=== PATIENT | female | born 1965 | race Caucasian/White ===

== ENCOUNTER → 2016-11-24 | Outpatient (CLI) | payer OTHER ==
--- NOTE | 2016-11-25 09:04 | MR ---
EXAMINATION TYPE: MR lumbar spine wo con DATE OF EXAM: 11/24/2016 8:55 PM COMPARISON: NONE HISTORY: Back pain and numbness in the left foot TECHNIQUE: Multiplanar, multisequence images of the lumbar spine were acquired. L1-L2: Loss of disc signal. No herniation or canal stenosis. Neural foramina remain patent. L2-L3: Mild degenerative disc disease. Mild circumferential disc bulging with mild bilateral neural f oraminal encroachment. No canal stenosis. L3-L4: Mild disc desiccation with no evidence of disc herniation or canal stenosis. Mild left lateral disc bulging with mild left foraminal encroachment but no definite nerve root impingement. L4-L5: Facet arthropathy but no disc herniation or canal stenosis. No foraminal encroachment. L5-S1: Facet arthropathy but no disc herniation or canal stenosis. No foraminal encroachment. Lumbar segments are intact. No paraspinal masses are identified. Conus medullaris has a normal appe arance. Hepatic cysts noted. IMPRESSION: Multilevel mild degenerative disc disease and facet arthropathy. Disc bulging L2-L3, L3-L4 with mild left foraminal encroachment at L3-L4 secondary greater left later al disc bulging.
== END | disposition home or self-care (01) ==
LOC: RADMRIMAIN 20:17
PROVIDERS: ATTEND Psychiatry & Neurology Pain Medicine
DX: M51.26 Other intervertebral disc displacement, lumbar region (principal); M51.36 Other intervertebral disc degeneration, lumbar region; M46.96 Unspecified inflammatory spondylopathy, lumbar region
CPT/HCPCS: 72148

== ENCOUNTER 2017-02-23 15:34 | Emergency (ER) | payer OTHER ==
[2017-02-23] MEDS ORDERED: SODIUM CHLORIDE 0.9% 500 ML IV STA (16:56)
[2017-02-23] MEDS ORDERED: ONDANSETRON 4 MG/2 ML VIAL IVP STA (16:56)
[2017-02-23] MEDS ORDERED: HYDROmorphone 1 MG/ML 1 ML SYRINGE IVP STA ×2 (16:56→17:55)
[2017-02-23] MEDS ORDERED: SODIUM CHLORIDE 0.9% 1,000 ML IV STA ×2 (16:56)
--- NOTE | 2017-02-23 16:59 | ED ---
Abdominal Pain HPI - General Chief Complaint: Abdominal Pain Stated Complaint: Dizzy Time Seen by Provider: 02/23/17 16:34 Source: patient, RN notes reviewed, old records reviewed Mode of arrival: wheelchair Limitations: physical limitation - History of Present Illness Initial Comments: Patient is a 51-year-old female presenting to the emergency department with chief complaint of lower abdominal pain for approximately one week. Patient reports that she was constipated last week and did take a Full MiraLAX. Patient reports that she has irritable bowel syndrome. Patient states that since taking the MiraLAX she's had nonstop diarrhea. She denies any blood in her nose. She states that she feels very weak and dehydrated. Patient states that she has not taken anything to stop the diarrhea she is concerned that if she does and will cause her irritable bowels are constipated again. Patient states that she does have a mild fever and feels extremely ill. She's had a history of diverticulitis. She states that this pain feels similar to previous diverticulitis. - Related Data Home Medications Medication Instructions Recorded Confirmed Multivitamins, Thera [Multivitamin 1 tab PO DAILY 02/27/16 02/23/17 (formulary)] Diltiazem HCl [Diltiazem 24Hr ER] 300 mg PO Q24H 05/04/16 02/23/17 Metoprolol Succinate (ER) [Toprol 50 mg PO DAILY 05/04/16 02/23/17 XL] Citalopram Hydrobromide 40 mg PO DAILY 02/23/17 02/23/17 Diazepam 2 mg PO TID PRN 02/23/17 02/23/17 Gabapentin [Neurontin] 300 mg PO TID 02/23/17 02/23/17 HYDROcodone/APAP 7.5-325MG [[place] 1 tab PO TID PRN 02/23/17 02/23/17 7.5-325] traZODone HCL 50 mg PO HS 02/23/17 02/23/17 Previous Rx's Medication Instructions Recorded Ciprofloxacin HCl [Cipro] 500 mg PO Q12HR 7 Days 02/23/17 Dicyclomine [Bentyl] 10 mg PO TID #12 capsule 02/23/17 Loperamide [Imodium] 2 mg PO DAILY #4 capsule 02/23/17 metroNIDAZOLE [Flagyl] 500 mg PO Q8HR 7 Days 02/23/17 Allergies Allergy/AdvReac Type Severity Reaction Status Date / Time tramadol Allergy Unknown Verified 02/23/17 17:13 Review of Systems ROS Statement: Those systems with pertinent positive or pertinent negative responses have been documented in the HPI. ROS Other: All systems not noted in ROS Statement are negative. Past Medical History Past Medical History: Chest Pain / Angina, Hyperlipidemia, Hypertension, Seizure Disorder Additional Past Medical History / Comment(s): IBS, DIVERTICULITIS History of Any Multi-Drug Resistant Organisms: None Reported Past Surgical History: Hernia Repair, Hysterectomy Additional Past Surgical History / Comment(s): hiatel hernia repair [facility] Past Anesthesia/Blood Transfusion Reactions: No Reported Reaction Past Psychological History: Anxiety, Depression Smoking Status: Former smoker Past Alcohol Use History: None Reported Past Drug Use History: None Reported - Past Family History Mother Family Medical History: Coronary Artery Disease (CAD) Additional Family Medical History / Comment(s): triple bypass Father Family Medical History: Coronary Artery Disease (CAD) Additional Family Medical History / Comment(s): triple bypass General Exam - General Exam Comments Initial Comments: Patient is a 51-year-old female. Patient does appear to be in mild discomfort. Limitations: physical limitation General appearance: alert, in no apparent distress Head exam: Present: atraumatic, normocephalic, normal inspection Eye exam: Present: normal appearance, PERRL, EOMI. Absent: scleral icterus, conjunctival injection, periorbital swelling ENT exam: Present: normal exam, mucous membranes moist Neck exam: Present: normal inspection. Absent: tenderness, meningismus, lymphadenopathy Respiratory exam: Present: normal lung sounds bilaterally. Absent: respiratory distress, wheezes, rales, rhonchi, stridor Cardiovascular Exam: Present: regular rate, normal rhythm, normal heart sounds. Absent: systolic murmur, diastolic murmur, rubs, gallop, clicks GI/Abdominal exam: Present: soft, tenderness (Patient is tender in the left upper and left lower quadrant.), normal bowel sounds, hyperactive bowel sounds. Absent: distended, guarding, rebound, rigid Extremities exam: Present: normal inspection, full ROM, normal capillary refill. Absent: tenderness, pedal edema, joint swelling, calf tenderness Back exam: Present: normal inspection Neurological exam: Present: alert, oriented X3, CN II-XII intact Psychiatric exam: Present: normal affect, normal mood Skin exam: Present: warm, dry, intact, normal color. Absent: rash Course Vital Signs 02/23/17 02/23/17 02/23/17 16:08 18:45 20:17 Temperature 99.9 F H 98.4 F Pulse Rate 127 H 89 87 Respiratory 18 20 18 Rate Blood Pressure 151/72 134/81 129/64 O2 Sat by Pulse 98 96 95 Oximetry - Reevaluation(s) Reevaluation #1: 02/23/17 18:34 Patient's lab work is reviewed and is negative for any significant acute process. Given patient's significant tenderness she was given a second dose of medication. Patient will go to CAT scan due to the abnormal abdominal tenderness. 02/24/17 01:32 Medical Decision Making - Medical Decision Making Patient is a 51 year old female with diarreha for one week. No history of blood in stools, she reports she feels weak and dehydrated. She has significant lower abdominal tenderness, CT scan obtained. labs reviewed and show no significant abnormalities. CT scan shows signs of mild colitis. Patient reports she is feeling better after IV fluids, and will be discharged with bentyl, cipro or flagyl. Patient advised to follow up with GI specialist. Patient agrees with treatment plan and will comply. Return parameters discussed. - Lab Data Result diagrams: 02/23/17 17:14 02/23/17 17:14 Lab Results 02/23/17 02/23/17 02/23/17 Range/Units 17:14 17:14 17:14 WBC 11.3 H (3.8-10.6) k/uL RBC 4.60 (3.80-5.40) m/uL Hgb 14.3 (11.4-16.0) gm/dL Hct 42.4 (34.0-46.0) % MCV 92.1 (80.0-100.0) fL MCH 31.0 (25.0-35.0) pg MCHC 33.7 (31.0-37.0) g/dL RDW 14.4 (11.5-15.5) % Plt Count 288 (150-450) k/uL Neutrophils % 53 % Lymphocytes % 30 % Monocytes % 5 % Eosinophils % 9 % Basophils % 2 % Neutrophils # 6.0 (1.3-7.7) k/uL Lymphocytes # 3.4 (1.0-4.8) k/uL Monocytes # 0.6 (0-1.0) k/uL Eosinophils # 1.0 H (0-0.7) k/uL Basophils # 0.2 (0-0.2) k/uL PT (9.0-12.0) sec INR (<1.1) APTT (22.0-30.0) sec Sodium 143 (137-145) mmol/L Potassium 4.4 (3.5-5.1) mmol/L Chloride 108 H (98-107) mmol/L Carbon Dioxide 25 (22-30) mmol/L Anion Gap 10 mmol/L BUN 27 H (7-17) mg/dL Creatinine 0.80 (0.52-1.04) mg/dL Est GFR (MDRD) Af Amer >60 (>60 ml/min/1.73 sqM) Est GFR (MDRD) Non-Af >60 (>60 ml/min/1.73 sqM) Glucose 85 (74-99) mg/dL Plasma Lactic Acid Thang 0.9 (0.7-2.0) mmol/L Calcium 9.3 (8.4-10.2) mg/dL Total Bilirubin 0.3 (0.2-1.3) mg/dL AST 23 (14-36) U/L ALT 30 (9-52) U/L Alkaline Phosphatase 75 (38-126) U/L Total Protein 6.9 (6.3-8.2) g/dL Albumin 4.0 (3.5-5.0) g/dL Amylase 92 (30-110) U/L Lipase 119 (23-300) U/L Urine Color Urine Appearance (Clear) Urine pH (5.0-8.0) Ur Specific [place] (1.001-1.035) Urine Protein (Negative) Urine Glucose (UA) (Negative) Urine Ketones (Negative) Urine Blood (Negative) Urine Nitrite (Negative) Urine Bilirubin (Negative) Urine Urobilinogen (<2.0) mg/dL Ur Leukocyte Esterase (Negative) Urine RBC (0-5) /hpf Urine WBC (0-5) /hpf Ur Squamous Epith Cells (0-4) /hpf Urine Mucus (None) /hpf 02/23/17 02/23/17 Range/Units 17:14 17:14 WBC (3.8-10.6) k/uL RBC (3.80-5.40) m/uL Hgb (11.4-16.0) gm/dL Hct (34.0-46.0) % MCV (80.0-100.0) fL MCH (25.0-35.0) pg MCHC (31.0-37.0) g/dL RDW (11.5-15.5) % Plt Count (150-450) k/uL Neutrophils % % Lymphocytes % % Monocytes % % Eosinophils % % Basophils % % Neutrophils # (1.3-7.7) k/uL Lymphocytes # (1.0-4.8) k/uL Monocytes # (0-1.0) k/uL Eosinophils # (0-0.7) k/uL Basophils # (0-0.2) k/uL PT 9.8 (9.0-12.0) sec INR 1.0 (<1.1) APTT 19.8 L (22.0-30.0) sec Sodium (137-145) mmol/L Potassium (3.5-5.1) mmol/L Chloride (98-107) mmol/L Carbon Dioxide (22-30) mmol/L Anion Gap mmol/L BUN (7-17) mg/dL Creatinine (0.52-1.04) mg/dL Est GFR (MDRD) Af Amer (>60 ml/min/1.73 sqM) Est GFR (MDRD) Non-Af (>60 ml/min/1.73 sqM) Glucose (74-99) mg/dL Plasma Lactic Acid Thang (0.7-2.0) mmol/L Calcium (8.4-10.2) mg/dL Total Bilirubin (0.2-1.3) mg/dL AST (14-36) U/L ALT (9-52) U/L Alkaline Phosphatase (38-126) U/L Total Protein (6.3-8.2) g/dL Albumin (3.5-5.0) g/dL Amylase (30-110) U/L Lipase (23-300) U/L Urine Color Yellow Urine Appearance Clear (Clear) Urine pH 6.0 (5.0-8.0) Ur Specific [place] 1.017 (1.001-1.035) Urine Protein Negative (Negative) Urine Glucose (UA) Negative (Negative) Urine Ketones Negative (Negative) Urine Blood Trace H (Negative) Urine Nitrite Negative (Negative) Urine Bilirubin Negative (Negative) Urine Urobilinogen <2.0 (<2.0) mg/dL Ur Leukocyte Esterase Small H (Negative) Urine RBC 4 (0-5) /hpf Urine WBC 1 (0-5) /hpf Ur Squamous Epith Cells 4 (0-4) /hpf Urine Mucus Rare H (None) /hpf 02/23/17 16:59 EKG shows normal sinus rhythm. Possible left atrial enlargement. Prolonged QT. Ventricular rate 96 bpm. NM interval 140 ms. QRS duration [address]/QTc is 482/482 ms. - Radiology Data Radiology results: report reviewed No bouts instructions seen. Possible mild colitis sigmoid rectal: Otherwise no significant acute findings to account for patient's clinical symptoms. Disposition Clinical Impression: Colitis Disposition: HOME SELF-CARE Condition: Good Instructions: Colitis (ED) Additional Instructions: Patient advised to complete antibiotic prescriptions. Patient also advised to take pain medication and antidiarrheal medication. Follow-up with GI specialist tomorrow or the next day. Return to the emergency department if any alarming signs or symptoms occur. Prescriptions: Ciprofloxacin HCl [Cipro] 500 mg PO Q12HR 7 Days Dicyclomine [Bentyl] 10 mg PO TID #12 capsule Loperamide [Imodium] 2 mg PO DAILY #4 capsule metroNIDAZOLE [Flagyl] 500 mg PO Q8HR 7 Days Referrals: Almas Carver DO [Primary Care Provider] - 1-2 days Clayton Graves MD [STAFF PHYSICIAN] - 1-2 days Time of Disposition: 19:51
[2017-02-23 17:26] LABS: Basophils # (A) 0.2 k/uL (0-0.2); Basophils % (A) 2 %; CH 31.1; CHCM 33.9; Eosinophils % (A) 9 %; HCT 42.4 % (34.0-46.0); HDW 2.92; HGB 14.3 gm/dL (11.4-16.0); Luc # (Auto) 0.22; Luc % (Auto) 2; Lymphocytes # (A) 3.4 k/uL (1.0-4.8); Lymphocytes % (A) 30 %; MCHC 33.7 g/dL (31.0-37.0); MCV 92.1 fL (80.0-100.0); Mean Platelet Volume 6.6; Monocytes # (A) 0.6 k/uL (0-1.0); Monocytes % (A) 5 %; Neutrophils % (A) 53 %; RDW 14.4 % (11.5-15.5); WBC 11.3 k/uL (3.8-10.6); WBC (Perox) 11.26
[2017-02-23 17:29] LABS: Appearance,Urine Clear (Clear); Bilirubin,Urine Negative (Negative); Glucose,Urine (UA) Negative (Negative); Ketones,Urine Negative (Negative); Leukocyte Esterase,Urine Small (Negative); Mucus,Urine Rare /hpf; Nitrite,Urine Negative (Negative); Particle Count 1895; Protein,Urine Negative (Negative); RBC,Urine 4 /hpf (0-5); Specific Gravity,Urine 1.017 (1.001-1.035); Squamous Epithelial Cell,Urine 4 /hpf (0-4); UA Billing (MACRO vs. MICRO) MICRO; Urobilinogen,Urine <2.0 mg/dL (<2.0); WBC,Urine 1 /hpf (0-5)
[2017-02-23 17:35] LABS: ALT 30 U/L (9-52); AST 23 U/L (14-36); Alkaline Phosphatase 75 U/L (38-126); Amylase 92 U/L (30-110); Anion Gap 10 mmol/L; Blood Urea Nitrogen 27 mg/dL (7-17); Calcium 9.3 mg/dL (8.4-10.2); Carbon Dioxide 25 mmol/L (22-30); Chloride 108 mmol/L (98-107); Glucose 85 mg/dL (74-99); Non-African American GFR(MDRD) >60 (>60 ml/min/1.73 sqM); Potassium 4.4 mmol/L (3.5-5.1); Sodium 143 mmol/L (137-145); Total Bilirubin 0.3 mg/dL (0.2-1.3); Total Protein 6.9 g/dL (6.3-8.2)
[2017-02-23 17:40] LABS: Prothrombin Time 9.8 sec (9.0-12.0)
--- NOTE | 2017-02-23 17:49 | XR ---
EXAMINATION TYPE: XR KUB DATE OF EXAM: 02/23/2017 5:33 PM CLINICAL HISTORY: Abdominal pain. Constipation for one week. TECHNIQUE: 2 upright KUB images of the abdomen are obtained. COMPARISON: Abdominal x-ray series November 30, 2011. FINDINGS: Sutures epigastric region are seen. Scattered gas is seen in non-distended small bowel loop s. Gas is seen in non-distended colon. There is no visceromegaly, pneumoperitoneum, or abnormal ca lcification appreciated. The lung bases are clear and the osseous structures are intact. IMPRESSION: Overall nonobstructive bowel gas pattern.
[2017-02-23] MEDS ORDERED: RX INFO: IV CONTRAST WAS GIVEN 1 EACH MISC MISCELLANE PRN (17:55)
[2017-02-23 18:02] LABS: Partial Thromboplastin Time 19.8 sec (22.0-30.0)
--- NOTE | 2017-02-23 18:59 | CT ---
EXAMINATION TYPE: CT abdomen pelvis w con DATE OF EXAM: 02/23/2017 6:43 PM HISTORY: Pt states of abdominal pain and diarrhea. CT DLP: 1386mGycm Automated Exposure Control for Dose Reduction was Utilized. CONTRAST: CT scan of the abdomen and pelvis is performed without oral but with IV Contrast, patient injected wi th 100 mL of Omnipaque 300. COMPARISON: CT abdomen and pelvis November 26, 2011 FINDINGS: LUNG BASES: Small pericardial effusion anteriorly and inferiorly is stable or slightly more prominent . LIVER/GB: A 1.6 cm lesion right hepatic lobe on axial image 28 is increased in size from prior exam b ut Hounsfield units are less than 10 consistent with simple cyst. Additional new 1.6 cm simple appear ing cyst left hepatic dome on axial image 9 is noted. Peripheral heterogeneous area right hepatic lob e prior exam is more conspicuous on current study. PANCREAS: Pancreas remains diffusely prominent without surrounding inflammatory change. SPLEEN: No significant abnormality is seen. ADRENALS: No significant abnormality is seen. KIDNEYS: No significant abnormality is seen. BOWEL: There are surgical clips just below the diaphragmatic hiatus with recurrent small to moderate- sized hiatal hernia present. The evaluation of the bowel is slightly suboptimal secondary to lack of oral contrast. No suspicious small or large bowel dilatation is present. Normal-appearing appendix is seen from cecum. Some diverticula are seen in the sigmoid colon. Mild to moderate wall thickening in volving sigmoid rectal colon is present. Finding could be related to poor distention but a colitis ne eds to BE excluded clinically. UTERUS/ADNEXA: Uterus is surgically absent or markedly atrophic in appearance. LYMPH NODES: No greater than 1cm abdominal or pelvic lymph nodes are appreciated. OSSEOUS STRUCTURES: No significant abnormality is seen. OTHER: No significant additional abnormality is seen. IMPRESSION: No bowel obstruction is seen. Possible mild colitis sigmoid rectal colon otherwise no sig nificant acute finding is seen to account for patient's clinical symptoms.
[2017-02-23] MEDS ORDERED: CIPROFLOXACIN HCL 500 MG TAB PO STA (19:53)
[2017-02-23] MEDS ORDERED: metroNIDAZOLE 500 MG TAB PO STA (19:54)
[2017-02-23] MEDS ORDERED: KETOROLAC 30 MG/ML 1 ML VIAL IVP STA (20:06)
[2017-02-23 20:18] VITALS: BP 129/64; PULSE 87; RESP 18; TEMP 98.4
== END 2017-02-23 20:17 | disposition home or self-care (01) ==
LOC: EC 15:34
DX: K52.9 Noninfective gastroenteritis and colitis, unspecified (principal); R42 Dizziness and giddiness; I10 Essential (primary) hypertension; F32.9 Major depressive disorder, single episode, unspecified; Z87.891 Personal history of nicotine dependence; Z87.19 Personal history of other diseases of the digestive system; Z88.6 Allergy status to analgesic agent; Z79.899 Other long term (current) drug therapy
CPT/HCPCS: 99285; 96374; 96376; 96375 ×2; 96361 ×3; 36415; 80053; 82150; 83605; 83690; 85025; 85610; 85730; 81001; 87086; 74000; 74177; J2405; J1885; J1170; Q9967; 93005

== ENCOUNTER 2017-03-19 10:53 | Emergency (ER) | payer OTHER ==
[2017-03-19] MEDS ORDERED: ONDANSETRON 4 MG/2 ML VIAL IVP STA (11:28)
[2017-03-19] MEDS ORDERED: MORPHINE SULFATE 4 MG/ML SYRINGE IV STA ×2 (11:28→13:16)
[2017-03-19] MEDS ORDERED: SODIUM CHLORIDE 0.9% 500 ML IV STA (11:28)
[2017-03-19] MEDS ORDERED: RX INFO: IV CONTRAST WAS GIVEN 1 EACH MISC MISCELLANE PRN (11:28)
[2017-03-19] MEDS ORDERED: FAMOTIDINE 20 MG/2 ML VIAL IV STA (11:31)
--- NOTE | 2017-03-19 11:34 | ED ---
General Adult HPI - General Chief complaint: Abdominal Pain Stated complaint: ABDOMINAL DISTENTION Time Seen by Provider: 03/19/17 11:19 Source: patient, RN notes reviewed Mode of arrival: ambulatory Limitations: no limitations - History of Present Illness Initial comments: Patient is a pleasant 51-year-old female presenting to the emergency department complaining of abdominal pain. Patient has history of some chronic abdominal problems. Abdomen feels distended and painful. Patient has nausea. No vomiting. Patient has had diarrhea however this has diminished the last 2 days. Symptoms have increased over the past 5 days. Symptoms overall have been waxing and waning for the past 6 weeks. The past 5 days symptoms of been more persistent. No fevers. Patient has had history of bowel infection with associated kidney problems in the past. Patient has not been able to get in to see a doctor podiatric medicine secondary to insurance refusal. - Related Data Home Medications Medication Instructions Recorded Confirmed Diltiazem HCl [Diltiazem 24Hr ER] 300 mg PO Q24H 05/04/16 03/19/17 Citalopram Hydrobromide 40 mg PO DAILY 02/23/17 03/19/17 Diazepam 2 mg PO TID PRN 02/23/17 03/19/17 Gabapentin [Neurontin] 300 mg PO TID 02/23/17 03/19/17 HYDROcodone/APAP 7.5-325MG [[place] 1 tab PO TID PRN 02/23/17 03/19/17 7.5-325] Metoprolol Succinate [Toprol XL] 100 mg PO DAILY 03/19/17 03/19/17 Multivitamins, Thera [Multivitamin 1 tab PO DAILY 03/19/17 03/19/17 (formulary)] traZODone HCL 50 mg PO HS 03/19/17 03/19/17 Previous Rx's Medication Instructions Recorded Ondansetron Odt [Zofran Odt] 4 mg PO Q8HR PRN #10 tab 03/19/17 Sulfamethox-Tmp 800-160Mg [Bactrim 1 each PO Q12HR #14 tab 03/19/17 DS 800-160 mg] Allergies Allergy/AdvReac Type Severity Reaction Status Date / Time tramadol AdvReac seizures Verified 03/19/17 11:14 Review of Systems ROS Statement: Those systems with pertinent positive or pertinent negative responses have been documented in the HPI. ROS Other: All systems not noted in ROS Statement are negative. Constitutional: Denies: fever Eyes: Denies: eye pain ENT: Denies: ear pain Respiratory: Denies: cough Cardiovascular: Denies: chest pain Endocrine: Denies: fatigue Gastrointestinal: Reports: abdominal pain, nausea, diarrhea. Denies: vomiting Genitourinary: Denies: dysuria Musculoskeletal: Denies: back pain Skin: Denies: rash Neurological: Denies: weakness Past Medical History Past Medical History: Chest Pain / Angina, Hyperlipidemia, Hypertension, Seizure Disorder Additional Past Medical History / Comment(s): IBS, DIVERTICULITIS History of Any Multi-Drug Resistant Organisms: None Reported Past Surgical History: Hernia Repair, Hysterectomy Additional Past Surgical History / Comment(s): hiatel hernia repair [facility] Past Anesthesia/Blood Transfusion Reactions: No Reported Reaction Past Psychological History: Anxiety, Depression Smoking Status: Former smoker Past Alcohol Use History: None Reported Past Drug Use History: None Reported - Past Family History Mother Family Medical History: Coronary Artery Disease (CAD) Additional Family Medical History / Comment(s): triple bypass Father Family Medical History: Coronary Artery Disease (CAD) Additional Family Medical History / Comment(s): triple bypass General Exam Limitations: no limitations General appearance: alert, in no apparent distress Head exam: Present: atraumatic Eye exam: Present: normal appearance, PERRL ENT exam: Present: normal oropharynx Neck exam: Present: normal inspection Respiratory exam: Present: normal lung sounds bilaterally Cardiovascular Exam: Present: regular rate, normal rhythm Expanded Peripheral pulses: 2+: Dorsalis Pedis (R), Dorsalis Pedis (L) GI/Abdominal exam: Present: distended, tenderness (Mild to moderate diffuse tenderness), hyperactive bowel sounds. Absent: guarding, rebound, rigid, pulsatile mass Extremities exam: Present: normal inspection. Absent: pedal edema, calf tenderness Neurological exam: Present: alert Psychiatric exam: Present: normal affect, normal mood Skin exam: Absent: rash Course Vital Signs 03/19/17 10:58 Temperature 97.1 F L Pulse Rate 94 Respiratory 20 Rate Blood Pressure 170/78 O2 Sat by Pulse 97 Oximetry Medical Decision Making - Medical Decision Making Patient reexamined and resting comfortably in bed. Patient does still have some mild abdominal discomfort. Patient updated on results and need for follow- up. - Lab Data Result diagrams: 03/19/17 11:30 03/19/17 11:30 Lab Results 03/19/17 03/19/17 03/19/17 Range/Units 11:30 11:30 11:30 WBC 14.0 H (3.8-10.6) k/uL RBC 4.33 (3.80-5.40) m/uL Hgb 13.4 (11.4-16.0) gm/dL Hct 39.4 (34.0-46.0) % MCV 91.2 (80.0-100.0) fL MCH 31.0 (25.0-35.0) pg MCHC 34.0 (31.0-37.0) g/dL RDW 14.1 (11.5-15.5) % Plt Count 339 (150-450) k/uL Neutrophils % 86 % Lymphocytes % 8 % Monocytes % 4 % Eosinophils % 0 % Basophils % 0 % Neutrophils # 12.0 H (1.3-7.7) k/uL Lymphocytes # 1.1 (1.0-4.8) k/uL Monocytes # 0.6 (0-1.0) k/uL Eosinophils # 0.0 (0-0.7) k/uL Basophils # 0.0 (0-0.2) k/uL PT 10.3 (9.0-12.0) sec INR 1.0 (<1.1) APTT 21.8 L (22.0-30.0) sec Sodium 140 (137-145) mmol/L Potassium 5.0 (3.5-5.1) mmol/L Chloride 106 (98-107) mmol/L Carbon Dioxide 24 (22-30) mmol/L Anion Gap 10 mmol/L BUN 25 H (7-17) mg/dL Creatinine 0.85 (0.52-1.04) mg/dL Est GFR (MDRD) Af Amer >60 (>60 ml/min/1.73 sqM) Est GFR (MDRD) Non-Af >60 (>60 ml/min/1.73 sqM) Glucose 111 H (74-99) mg/dL Calcium 10.0 (8.4-10.2) mg/dL Total Bilirubin 0.4 (0.2-1.3) mg/dL AST 17 (14-36) U/L ALT 17 (9-52) U/L Alkaline Phosphatase 66 (38-126) U/L Total Protein 7.3 (6.3-8.2) g/dL Albumin 4.2 (3.5-5.0) g/dL Amylase 71 (30-110) U/L Lipase 105 (23-300) U/L Urine Color Urine Appearance (Clear) Urine pH (5.0-8.0) Ur Specific [place] (1.001-1.035) Urine Protein (Negative) Urine Glucose (UA) (Negative) Urine Ketones (Negative) Urine Blood (Negative) Urine Nitrite (Negative) Urine Bilirubin (Negative) Urine Urobilinogen (<2.0) mg/dL Ur Leukocyte Esterase (Negative) 03/19/17 Range/Units 11:48 WBC (3.8-10.6) k/uL RBC (3.80-5.40) m/uL Hgb (11.4-16.0) gm/dL Hct (34.0-46.0) % MCV (80.0-100.0) fL MCH (25.0-35.0) pg MCHC (31.0-37.0) g/dL RDW (11.5-15.5) % Plt Count (150-450) k/uL Neutrophils % % Lymphocytes % % Monocytes % % Eosinophils % % Basophils % % Neutrophils # (1.3-7.7) k/uL Lymphocytes # (1.0-4.8) k/uL Monocytes # (0-1.0) k/uL Eosinophils # (0-0.7) k/uL Basophils # (0-0.2) k/uL PT (9.0-12.0) sec INR (<1.1) APTT (22.0-30.0) sec Sodium (137-145) mmol/L Potassium (3.5-5.1) mmol/L Chloride (98-107) mmol/L Carbon Dioxide (22-30) mmol/L Anion Gap mmol/L BUN (7-17) mg/dL Creatinine (0.52-1.04) mg/dL Est GFR (MDRD) Af Amer (>60 ml/min/1.73 sqM) Est GFR (MDRD) Non-Af (>60 ml/min/1.73 sqM) Glucose (74-99) mg/dL Calcium (8.4-10.2) mg/dL Total Bilirubin (0.2-1.3) mg/dL AST (14-36) U/L ALT (9-52) U/L Alkaline Phosphatase (38-126) U/L Total Protein (6.3-8.2) g/dL Albumin (3.5-5.0) g/dL Amylase (30-110) U/L Lipase (23-300) U/L Urine Color Yellow Urine Appearance Clear (Clear) Urine pH 6.0 (5.0-8.0) Ur Specific [place] 1.014 (1.001-1.035) Urine Protein Negative (Negative) Urine Glucose (UA) Negative (Negative) Urine Ketones Negative (Negative) Urine Blood Negative (Negative) Urine Nitrite Negative (Negative) Urine Bilirubin Negative (Negative) Urine Urobilinogen <2.0 (<2.0) mg/dL Ur Leukocyte Esterase Negative (Negative) - Radiology Data Radiology results: report reviewed (Computed tomography scan of the abdomen pelvis shows some fluid in the small bowel consistent with enteritis) Disposition Clinical Impression: Enteritis, Abdominal pain Disposition: HOME SELF-CARE Condition: Stable Instructions: Abdominal Pain (ED), Enteritis (ED) Additional Instructions: Please follow-up with your primary care physician in the next day or 2 for recheck. Please also follow-up with gastroenterology. Return for fevers, increased pain, change or worsening symptoms or other concerns. Prescriptions: Ondansetron Odt [Zofran Odt] 4 mg PO Q8HR PRN #10 tab PRN Reason: Nausea Sulfamethox-Tmp 800-160Mg [Bactrim DS 800-160 mg] 1 each PO Q12HR #14 tab Referrals: Almas Carver DO [Primary Care Provider] - 1-2 days Time of Disposition: 13:20
[2017-03-19 11:43] LABS: Basophils % (A) 0 %; CH 31.2; CHCM 34.4; Eosinophils % (A) 0 %; HCT 39.4 % (34.0-46.0); HDW 3.15; HGB 13.4 gm/dL (11.4-16.0); Luc # (Auto) 0.21; Luc % (Auto) 2; Lymphocytes # (A) 1.1 k/uL (1.0-4.8); Lymphocytes % (A) 8 %; MCV 91.2 fL (80.0-100.0); Mean Platelet Volume 6.6; Monocytes # (A) 0.6 k/uL (0-1.0); Monocytes % (A) 4 %; Neutrophils % (A) 86 %; RBC 4.33 m/uL (3.80-5.40); RDW 14.1 % (11.5-15.5); WBC (Perox) 13.17
[2017-03-19 11:51] LABS: Prothrombin Time 10.3 sec (9.0-12.0)
[2017-03-19 11:58] LABS: Partial Thromboplastin Time 21.8 sec (22.0-30.0)
[2017-03-19 12:03] LABS: ALT 17 U/L (9-52); AST 17 U/L (14-36); Alkaline Phosphatase 66 U/L (38-126); Amylase 71 U/L (30-110); Anion Gap 10 mmol/L; Blood Urea Nitrogen 25 mg/dL (7-17); Carbon Dioxide 24 mmol/L (22-30); Chloride 106 mmol/L (98-107); Glucose 111 mg/dL (74-99); Non-African American GFR(MDRD) >60 (>60 ml/min/1.73 sqM); Sodium 140 mmol/L (137-145); Total Bilirubin 0.4 mg/dL (0.2-1.3); Total Protein 7.3 g/dL (6.3-8.2)
[2017-03-19 12:09] LABS: Appearance,Urine Clear (Clear); Bilirubin,Urine Negative (Negative); Glucose,Urine (UA) Negative (Negative); Ketones,Urine Negative (Negative); Leukocyte Esterase,Urine Negative (Negative); Nitrite,Urine Negative (Negative); Protein,Urine Negative (Negative); Specific Gravity,Urine 1.014 (1.001-1.035); UA Billing (MACRO vs. MICRO) CHEM; Urobilinogen,Urine <2.0 mg/dL (<2.0)
--- NOTE | 2017-03-19 12:59 | CT ---
EXAMINATION TYPE: CT abdomen pelvis w con DATE OF EXAM: 03/19/2017 12:43 PM COMPARISON: Prior CT abdomen pelvis 23 February 2017 HISTORY: abdominal pain, distention, constipation CT DLP: 1210 mGycm Automated exposure control for dose reduction was used. TECHNIQUE: Helical acquisition of images from the lung bases through the pelvis have been completed. CONTRAST: Performed without Oral Contrast and with IV Contrast, patient injected with 100 mL of Omnipaque 300. FINDINGS: LUNG BASES: Minimal dependent atelectatic changes. Postop change noted at the gastroesophageal juncti on. AORTA: No significant abnormality is appreciated. LIVER/GB: Multiple cystic foci again noted within the liver, gallbladder is unremarkable PANCREAS: No significant abnormality is seen. SPLEEN: No significant abnormality is seen. ADRENALS: No significant abnormality is seen. KIDNEYS: Punctate nonobstructive calculi are present within the bilateral kidneys, 3-4 calculi presen t on the right, 2 on the left. REPRODUCTIVE ORGANS: Not seen BOWEL: There are fluid-filled loops of small bowel. Diverticular changes associated with the sigmoid colon as on prior exam, the appendix is normal No evident obstruction. FREE AIR: No Free Air visible. ASCITES: None visible. PELVIC ADENOPATHY: None visualized. RETROPERITONEAL ADENOPATHY: No Retroperitoneal Adenopathy visible. URINARY BLADDER: No significant abnormality is seen. OSSEOUS STRUCTURES: No significant abnormality is seen. IMPRESSION: NONOBSTRUCTIVE RENAL CALCULI ARE AGAIN NOTED BILATERALLY. CORRELATE FOR ENTERITIS. POSTOP CHANGES. DI VERTICULOSIS.
[2017-03-19 13:41] VITALS: BP 150/72; PULSE 81; RESP 15; TEMP 97.9
== END 2017-03-19 13:52 | disposition home or self-care (01) ==
LOC: EC 10:53
DX: K52.9 Noninfective gastroenteritis and colitis, unspecified (principal); R11.0 Nausea; I10 Essential (primary) hypertension; G40.909 Epilepsy, unspecified, not intractable, without status epilepticus; F41.9 Anxiety disorder, unspecified; F32.9 Major depressive disorder, single episode, unspecified; Z87.891 Personal history of nicotine dependence; Z79.899 Other long term (current) drug therapy; Z88.6 Allergy status to analgesic agent; Z86.79 Personal history of other diseases of the circulatory system
CPT/HCPCS: 36415; 80053; 82150; 83690; 85025; 85610; 85730; 81003; 74177; 99284; 96374; 96375 ×2; 96376; 96361 ×2; J2270; J2405; Q9967

== ENCOUNTER 2017-03-31 11:18 | Day surgery (SDC) | payer OTHER ==
[2017-03-30 11:00] VITALS: BMI 28.3
[2017-03-31 13:10] VITALS: TEMP 99.2
[2017-03-31] MEDS ORDERED: LACTATED RINGERS 1,000 ML IV ONE (13:18)
[2017-03-31] MEDS ORDERED: LIDOCAINE 1% 20 ML VIAL (10MG/ML) FOR IV START INTRADERMA ONE (13:18)
[2017-03-31] MEDS ORDERED: PROPOFOL 10 MG/ML 20 ML VIAL IV ONE (13:53)
[2017-03-31 14:20] VITALS: RESP 16
--- NOTE | 2017-03-31 14:22 | P.PCN ---
Date of Procedure: 03/31/17 Preoperative Diagnosis: Postoperative Diagnosis: Procedure(s) Performed: Procedure: Colonoscopy and biopsy. Preoperative diagnosis: Abdominal pain and change in bowel habits. Postoperative diagnosis: 1. Sigmoid diverticulosis with no evidence of acute diverticulitis or strictures. 2. Exam of the colon and terminal ileum, otherwise, within normal limits. 3. Multiple biopsies obtained from the terminal ileum and randomly from the colon. Preparation: HalfLytely prep. Sedation: Was provided by anesthesia. Brief clinical history: The patient is a 51-year-old female who was evaluated in the office this month regarding abdominal pain and diarrhea. This has been going on continuously since the end of January. The patient gave history of diarrhea predominant irritable bowel syndrome and she indicated that her typical episodes would last no more than 2 days. The patient had a CT of the abdomen and there was question of mild colitis. This evaluation is to assess for inflammatory bowel disease or other pathology. Procedure: With the patient on her left lateral decubitus position and after informed consent and adequate sedation, the perianal area was inspected and it did not show any fissures or fistulas. There were no masses felt on digital rectal examination. The Olympus CFQ 160L video colonoscope was then inserted in the rectum in the usual fashion and advanced to the cecum. I intubated the ileocecal valve and examined the terminal ileum. Terminal ileum and colon did not show any edema, erythema, friability, ulceration, exudation or spontaneous bleeding. Few diverticular orifices were seen scattered in the sigmoid. No polyps or tumors were seen. No strictures or other pathology. I obtained biopsies from the terminal ileum and randomly from the colon then I retroflexed endoscope in the rectum before the endoscope was withdrawn. The patient tolerated the procedure well. Plan: I shared the findings with the patient. Will await biopsy results. She has an appointment to follow up in the office later this month and will keep you updated on her progress. She will follow-up with you as planned. Implants: Indications for Procedure: Operative Findings: Description of Procedure:
[2017-03-31 14:56] VITALS: BP 142/86; PULSE 61
== END 2017-03-31 15:05 | disposition home or self-care (01) ==
LOC: ORWHC2ENDO 11:18
DX: K57.30 Diverticulosis of large intestine without perforation or abscess without bleeding (principal); R19.4 Change in bowel habit; K58.0 Irritable bowel syndrome with diarrhea; I10 Essential (primary) hypertension; G40.909 Epilepsy, unspecified, not intractable, without status epilepticus; F41.9 Anxiety disorder, unspecified; F32.9 Major depressive disorder, single episode, unspecified; F17.290 Nicotine dependence, other tobacco product, uncomplicated; Z79.891 Long term (current) use of opiate analgesic; Z79.899 Other long term (current) drug therapy; Z88.8 Allergy status to other drugs, medicaments and biological substances
CPT/HCPCS: 88305; 45380; J2704

== ENCOUNTER 2017-05-14 13:17 | Emergency (ER) | payer OTHER ==
[2017-05-14] MEDS ORDERED: LORazepam 2 MG/ML SYRINGE IV STA (13:44)
--- NOTE | 2017-05-14 13:46 | ED ---
General Adult HPI - General Chief complaint: Anxiety Stated complaint: ANXIETY Time Seen by Provider: 05/14/17 13:41 Source: patient, EMS, RN notes reviewed Mode of arrival: EMS Limitations: no limitations - History of Present Illness Initial comments: Patient is a pleasant 52-year-old female presenting to the emergency department with panic attack. Patient states that has been bothering her most the day. Patient has had similar symptoms previously. Patient states she has had increased stress recently. Patient states she stopped all of her anxiety medication around a month ago. - Related Data Home Medications Medication Instructions Recorded Confirmed Diltiazem HCl [Diltiazem 24Hr ER] 300 mg PO DAILY 05/04/16 05/14/17 Citalopram Hydrobromide 40 mg PO DAILY 02/23/17 05/14/17 [Citalopram HBr] HYDROcodone/APAP 7.5-325MG [[place] 1 tab PO TID 02/23/17 05/14/17 7.5-325] Multivitamins, Thera [Multivitamin 1 tab PO DAILY 03/19/17 05/14/17 (formulary)] Gabapentin [Neurontin] 400 mg PO TID 05/14/17 05/14/17 Metoprolol Succinate [Toprol XL] 50 mg PO DAILY 05/14/17 05/14/17 traZODone HCL [Desyrel] 100 mg PO HS 05/14/17 05/14/17 Allergies Allergy/AdvReac Type Severity Reaction Status Date / Time tramadol AdvReac seizures Verified 05/14/17 13:41 Review of Systems ROS Statement: Those systems with pertinent positive or pertinent negative responses have been documented in the HPI. ROS Other: All systems not noted in ROS Statement are negative. Constitutional: Denies: fever Eyes: Denies: eye pain ENT: Denies: ear pain Respiratory: Denies: cough Cardiovascular: Denies: chest pain Endocrine: Denies: fatigue Gastrointestinal: Denies: vomiting Genitourinary: Denies: dysuria Musculoskeletal: Denies: back pain Skin: Denies: rash Neurological: Denies: weakness Past Medical History Past Medical History: Hypertension, Seizure Disorder Additional Past Medical History / Comment(s): IBS, DIVERTICULITIS, 1 seizure last summer-says from tramadol, loose stools, abdominal pain & bloating History of Any Multi-Drug Resistant Organisms: None Reported Past Surgical History: Hernia Repair, Hysterectomy Additional Past Surgical History / Comment(s): hiatel hernia repair, avm removed from front of right ear @16 Past Anesthesia/Blood Transfusion Reactions: No Reported Reaction Past Psychological History: Anxiety, Depression Smoking Status: Former smoker Past Alcohol Use History: None Reported Past Drug Use History: None Reported - Past Family History Mother Family Medical History: Coronary Artery Disease (CAD) Additional Family Medical History / Comment(s): triple bypass Father Family Medical History: Coronary Artery Disease (CAD) Additional Family Medical History / Comment(s): triple bypass General Exam Limitations: no limitations General appearance: alert, anxious Head exam: Present: atraumatic Eye exam: Present: normal appearance ENT exam: Present: normal oropharynx Neck exam: Present: normal inspection Respiratory exam: Present: normal lung sounds bilaterally Cardiovascular Exam: Present: tachycardia GI/Abdominal exam: Present: soft. Absent: tenderness Extremities exam: Present: normal inspection. Absent: pedal edema, calf tenderness Neurological exam: Present: alert, CN II-XII intact. Absent: motor sensory deficit Expanded Sensory exam: Upper Extremity Light Touch: Normal, Lower Extremity Light Touch: Normal Motor strength exam: RUE: 5, LUE: 5, RLE: 5, LLE: 5 Eye Response: (4) open spontaneously Motor Response: (6) obeys commands Verbal Response: (5) oriented Psychiatric exam: Present: anxious Skin exam: Present: normal color Course Vital Signs 05/14/17 05/14/17 13:41 14:07 Temperature 98.8 F Pulse Rate 137 H 126 H Respiratory 24 20 Rate Blood Pressure 163/90 122/75 O2 Sat by Pulse 98 99 Oximetry EKG Findings - EKG Comments: EKG Findings:: sinus tachycardia 142. Normal intervals. Right axis. Normal QRS. Nonspecific ST-T. Medical Decision Making - Medical Decision Making Patient reevaluated and resting comfortably in bed. Patient symptom-free at this time. Heart rate has improved to 104. Disposition Clinical Impression: Acute anxiety Disposition: HOME SELF-CARE Condition: Stable Instructions: Generalized Anxiety Disorder (ED) Additional Instructions: Please follow-up with your doctor in the next day or 2 for recheck. Return for worsening or changing symptoms or other concerns. Referrals: Almas Carver DO [Primary Care Provider] - 1-2 days Time of Disposition: 14:40
[2017-05-14 14:40] VITALS: BP 128/78; PULSE 103; RESP 18
[2017-05-14 14:51] VITALS: TEMP 99.1
== END 2017-05-14 14:51 | disposition home or self-care (01) ==
LOC: EC 13:17
DX: F41.9 Anxiety disorder, unspecified (principal); G40.909 Epilepsy, unspecified, not intractable, without status epilepticus; I10 Essential (primary) hypertension; Z87.891 Personal history of nicotine dependence; Z79.891 Long term (current) use of opiate analgesic; Z79.899 Other long term (current) drug therapy; Z88.6 Allergy status to analgesic agent
CPT/HCPCS: 99284; 96374; J2060

== ENCOUNTER → 2017-06-05 | Outpatient (CLI) | payer OTHER ==
--- NOTE | 2017-06-05 22:11 | MR ---
EXAMINATION TYPE: MR cervical spine wo con DATE OF EXAM: 06/05/2017 10:03 PM COMPARISON: NONE HISTORY: NECK PAIN INTO ARMS, LEFT HAND TINGLING Multiplanar MultiSpin echo imaging of the cervical spine was performed. Comparison: none C2-C3: No evidence for degenerative disc disease. No disc bulge/herniation or protrusion. No Canal stenosis. Foramina are patent bilaterally. C3-C4: There is mild disc desiccation. Posterocentral disc bulge with encapsulating spur resulting in mild disc endplate complex. Mild effacement of the ventral thecal sac without central stenosis. Dege nerative change of the cervical apophyseal joints with bilateral foraminal encroachment. C4-C5: Moderate disc desiccation. Posterocentral disc bulge with encapsulating spur resulting in mode rate disc endplate complex. There is effacement of the ventral thecal sac with borderline to mild og tral stenosis. Bilateral foraminal encroachment is noted. C5-C6: There is mild disc desiccation. Posterocentral disc bulge with encapsulating spur resulting in mild disc endplate complex. Mild effacement of the ventral thecal sac without central stenosis. Dege nerative change of the cervical apophyseal joints with bilateral foraminal encroachment. C6-C7: Moderate disc desiccation is identified. Broad-based posterocentral disc bulge with encapsulat ing spur resulting in disc endplate complex. Mild effacement ventral thecal sac. Left foraminal encro achment is moderate in degree. Right neural foramen is patent at this time. C7-T1: No evidence for degenerative disc disease. No disc bulge/herniation or protrusion. No Canal stenosis. Foramina are patent bilaterally. Cervical segments are intact. There is normal alignment. Cervical spinal cord is of normal signal. Craniovertebral junction relationships are within normal limits. IMPRESSION: 1. Multilevel degenerative disc disease with multilevel disc endplate complex. 2. Borderline to mild stenosis centrally at C4-5. 3. Foraminal encroachment at various levels as noted.
== END | disposition home or self-care (01) ==
LOC: RADMRIMAIN 21:38
PROVIDERS: ATTEND Psychiatry & Neurology Pain Medicine
DX: M50.30 Other cervical disc degeneration, unspecified cervical region (principal)
CPT/HCPCS: 72141

== ENCOUNTER → 2017-06-15 | Outpatient (CLI) | payer OTHER ==
--- NOTE | 2017-06-15 15:12 | US ---
EXAMINATION TYPE: US pelvic complete DATE OF EXAM: 06/15/2017 COMPARISON: CT abdomen and pelvis March 19, 2017 CLINICAL HISTORY: Pelvic Pain, R10.2. TECHNIQUE: Transabdominal (TA) Date of LMP: N/A EXAM MEASUREMENTS: Uterus: surgically absent cm Endometrial Stripe: surgically absent cm Right Ovary: 1.7 x 1.3 x 1.3 cm Left Ovary: surgically absent cm Partial hysterectomy 1. Uterus: surgically absent 2. Endometrium: Surgically absent 3. Right Ovary: wnl 4. Left Ovary: Surgically absent 5. Bilateral Adnexa: wnl 6. Posterior cul-de-sac: wnl Uterus and left ovary are surgically absent. Visualized right ovary is within normal limits. No free fluid in pelvis is seen. No suspicious adnexal masses are noted. IMPRESSION: No significant finding is seen to account for patient's symptoms.
== END | disposition home or self-care (01) ==
LOC: RADUSWWP 14:02
PROVIDERS: ATTEND Family Medicine
DX: R10.2 Pelvic and perineal pain (principal)
CPT/HCPCS: 76856; 76857

== ENCOUNTER 2017-07-10 12:10 | Emergency (ER) | payer OTHER ==
[2017-07-10] MEDS ORDERED: ONDANSETRON 4 MG/2 ML VIAL IVP STA (13:17)
[2017-07-10] MEDS ORDERED: RX INFO: IV CONTRAST WAS GIVEN 1 EACH MISC MISCELLANE PRN (13:17)
[2017-07-10] MEDS ORDERED: SODIUM CHLORIDE 0.9% 1,000 ML IV STA (13:17)
[2017-07-10] MEDS ORDERED: HYDROmorphone 1 MG/ML 1 ML SYRINGE IVP STA (13:17)
[2017-07-10 13:37] LABS: Basophils # (A) 0.1 k/uL (0-0.2); Basophils % (A) 1 %; CH 31.8; CHCM 34.5; Eosinophils # (A) 0.1 k/uL (0-0.7); Eosinophils % (A) 1 %; HCT 46.4 % (34.0-46.0); HDW 2.78; HGB 15.4 gm/dL (11.4-16.0); Luc # (Auto) 0.12; Luc % (Auto) 1; Lymphocytes # (A) 1.6 k/uL (1.0-4.8); Lymphocytes % (A) 18 %; MCH 30.6 pg (25.0-35.0); MCHC 33.1 g/dL (31.0-37.0); MCV 92.4 fL (80.0-100.0); Mean Platelet Volume 7.1; Monocytes # (A) 0.4 k/uL (0-1.0); Monocytes % (A) 4 %; Neutrophils # (A) 6.7 k/uL (1.3-7.7); Neutrophils % (A) 75 %; RBC 5.02 m/uL (3.80-5.40); RDW 15.1 % (11.5-15.5); WBC (Perox) 8.29
[2017-07-10] MEDS ORDERED: MAG HYDROX/AL HYDROX/SIMETH 30 ML, HYOSCYAMINE ELIXIR 10 ML, CIMETIDINE HCL 300 MG, LID... PO STA ×4 (13:41)
--- NOTE | 2017-07-10 13:42 | ED ---
Abdominal Pain HPI - General Chief Complaint: Abdominal Pain Stated Complaint: Abd Pain Time Seen by Provider: 07/10/17 13:05 Source: patient, RN notes reviewed, old records reviewed Mode of arrival: ambulatory Limitations: no limitations - History of Present Illness Initial Comments: This is a 52-year-old female presenting to emergency Department chief complaint of epigastric abdominal pain for the past day and half. She reports that she's had no nausea or vomiting or diarrhea. She reports that the pain radiates from her epigastric area towards her back. Surgical history includes hiatal hernia repair. She denies any change in urinary or bowel habits. She denies any recent fever or chills. Denies any history of sick contacts. She reports that the pain seems like it is a constant burning sensation. Also reports a history of gastritis. - Related Data Home Medications Medication Instructions Recorded Confirmed Diltiazem HCl [Diltiazem 24Hr ER] 300 mg PO DAILY 05/04/16 07/10/17 Citalopram Hydrobromide 40 mg PO DAILY 02/23/17 07/10/17 [Citalopram HBr] HYDROcodone/APAP 7.5-325MG [[place] 1 tab PO TID 02/23/17 07/10/17 7.5-325] Multivitamins, Thera [Multivitamin 1 tab PO DAILY 03/19/17 07/10/17 (formulary)] Gabapentin [Neurontin] 400 mg PO TID 05/14/17 07/10/17 Metoprolol Succinate [Toprol XL] 50 mg PO DAILY 05/14/17 07/10/17 traZODone HCL [Desyrel] 100 mg PO HS 05/14/17 07/10/17 Previous Rx's Medication Instructions Recorded Famotidine [Pepcid] 20 mg PO BID #20 tablet 07/10/17 Nitrofurantoin Monohyd/M-Cryst 100 mg PO Q12HR #14 cap 07/10/17 [Macrobid] Sucralfate [Carafate] 1 gm PO BID #20 tablet 07/10/17 Allergies Allergy/AdvReac Type Severity Reaction Status Date / Time tramadol AdvReac seizures Verified 07/10/17 14:23 Review of Systems ROS Statement: Those systems with pertinent positive or pertinent negative responses have been documented in the HPI. ROS Other: All systems not noted in ROS Statement are negative. Past Medical History Past Medical History: Hypertension, Seizure Disorder Additional Past Medical History / Comment(s): IBS, DIVERTICULITIS, 1 seizure last summer-says from tramadol, loose stools, abdominal pain & bloating History of Any Multi-Drug Resistant Organisms: None Reported Past Surgical History: Hernia Repair, Hysterectomy Additional Past Surgical History / Comment(s): hiatel hernia repair, avm removed from front of right ear @16 Past Anesthesia/Blood Transfusion Reactions: No Reported Reaction Past Psychological History: Anxiety, Depression Smoking Status: Former smoker Past Alcohol Use History: None Reported Past Drug Use History: None Reported - Past Family History Mother Family Medical History: Coronary Artery Disease (CAD) Additional Family Medical History / Comment(s): triple bypass Father Family Medical History: Coronary Artery Disease (CAD) Additional Family Medical History / Comment(s): triple bypass General Exam - General Exam Comments Initial Comments: Pleasant 52-year-old female. Patient is on any acute distress. Limitations: no limitations General appearance: alert, in no apparent distress Head exam: Present: atraumatic, normocephalic, normal inspection Eye exam: Present: normal appearance, PERRL, EOMI. Absent: scleral icterus, conjunctival injection, periorbital swelling ENT exam: Present: normal exam, mucous membranes moist Neck exam: Present: normal inspection. Absent: tenderness, meningismus, lymphadenopathy Respiratory exam: Present: normal lung sounds bilaterally. Absent: respiratory distress, wheezes, rales, rhonchi, stridor Cardiovascular Exam: Present: regular rate, normal rhythm, normal heart sounds. Absent: systolic murmur, diastolic murmur, rubs, gallop, clicks GI/Abdominal exam: Present: soft, tenderness (Patient has epigastric tenderness) Extremities exam: Present: normal inspection, full ROM, normal capillary refill. Absent: tenderness, pedal edema, joint swelling, calf tenderness Back exam: Present: normal inspection Neurological exam: Present: alert, oriented X3, CN II-XII intact Psychiatric exam: Present: normal affect, normal mood Skin exam: Present: warm, dry, intact, normal color. Absent: rash Course Vital Signs 07/10/17 07/10/17 07/10/17 12:18 13:54 14:51 Temperature 98.8 F 98.4 F Pulse Rate 111 H 99 87 Respiratory 16 18 19 Rate Blood Pressure 136/96 146/97 154/85 O2 Sat by Pulse 99 97 97 Oximetry Medical Decision Making - Medical Decision Making Is a 52-year-old female chief complaint of 1 day of epigastric abdominal pain radiating towards her back. Denies any nausea or vomiting or diarrhea. Patient reports that pain feels a burning sensation. Patient states that she's had a history of gastritis but has never been this terrible pain. Patient was actually tender on abdominal exam in epigastric region. Patient labwork reviewed and was well within normal limits except urine, which is positive for white blood cells and leukocyte esterase as well as nitrates. Patient will be started on Macrobid. Patient CT abdomen and pelvis was performed. There was questionable enlarged appendix however patient has no fever and no white count. She is not tender in the right lower quadrant. Without significant tenderness in the right lower quadrant and white blood cell count within normal limits appendicitis seems less likely at this time. Discussed the patient needs to monitor for any fevers or pain within the right lower quadrant. Patient was reevaluated and is resting comfortably in bed. She is informed of all these results. Discussed that with the patient on Pepcid and Carafate for gastritis as well as antibiotic for the urinary tract infection. Patient agrees to treatment plan will comply. Return parameters were discussed. - Lab Data Result diagrams: 07/10/17 13:05 07/10/17 13:05 Lab Results 07/10/17 07/10/17 07/10/17 Range/Units 13:05 13:05 13:50 WBC 9.0 (3.8-10.6) k/uL RBC 5.02 (3.80-5.40) m/uL Hgb 15.4 (11.4-16.0) gm/dL Hct 46.4 H (34.0-46.0) % MCV 92.4 (80.0-100.0) fL MCH 30.6 (25.0-35.0) pg MCHC 33.1 (31.0-37.0) g/dL RDW 15.1 (11.5-15.5) % Plt Count 329 (150-450) k/uL Neutrophils % 75 % Lymphocytes % 18 % Monocytes % 4 % Eosinophils % 1 % Basophils % 1 % Neutrophils # 6.7 (1.3-7.7) k/uL Lymphocytes # 1.6 (1.0-4.8) k/uL Monocytes # 0.4 (0-1.0) k/uL Eosinophils # 0.1 (0-0.7) k/uL Basophils # 0.1 (0-0.2) k/uL Sodium 142 (137-145) mmol/L Potassium 4.1 (3.5-5.1) mmol/L Chloride 105 (98-107) mmol/L Carbon Dioxide 26 (22-30) mmol/L Anion Gap 11 mmol/L BUN 8 (7-17) mg/dL Creatinine 0.70 (0.52-1.04) mg/dL Est GFR (MDRD) Af Amer >60 (>60 ml/min/1.73 sqM) Est GFR (MDRD) Non-Af >60 (>60 ml/min/1.73 sqM) Glucose 104 H (74-99) mg/dL Calcium 9.8 (8.4-10.2) mg/dL Total Bilirubin 0.4 (0.2-1.3) mg/dL AST 25 (14-36) U/L ALT 29 (9-52) U/L Alkaline Phosphatase 110 (38-126) U/L Total Protein 7.6 (6.3-8.2) g/dL Albumin 4.2 (3.5-5.0) g/dL Amylase <30 L (30-110) U/L Lipase 20 L (23-300) U/L Urine Color Yellow Urine Appearance Cloudy H (Clear) Urine pH 6.5 (5.0-8.0) Ur Specific [place] 1.007 (1.001-1.035) Urine Protein Trace H (Negative) Urine Glucose (UA) Negative (Negative) Urine Ketones Negative (Negative) Urine Blood Trace H (Negative) Urine Nitrite Positive H (Negative) Urine Bilirubin Negative (Negative) Urine Urobilinogen <2.0 (<2.0) mg/dL Ur Leukocyte Esterase Moderate H (Negative) Urine RBC 1 (0-5) /hpf Urine WBC 26 H (0-5) /hpf Ur Squamous Epith Cells 3 (0-4) /hpf Urine Bacteria Occasional H (None) /hpf Urine Mucus Rare H (None) /hpf - Radiology Data Radiology results: report reviewed CT abdomen and pelvis showed the appendix appears enlarged from prior exam however this is within normal limits with no periappendiceal fat stranding. No secondary signs of appendicitis. Correlation for point tenderness recommended as well as white blood cell count fever. 2.2 cm stable low-density adnexal region which. Presented ovarian follicle, if over the ovaries have been removed 9 enteric duplication cyst or benign pelvic inclusion cyst or possibilities. Hepatic cysts as well as subcentimeter hepatic lesions. Non obstructing bilateral punctate renal colliculi. Disposition Clinical Impression: UTI (urinary tract infection), Gastritis Disposition: HOME SELF-CARE Condition: Good Instructions: Gastritis (ED), Urinary Tract Infection in Women (ED) Additional Instructions: Patient is a follow-up with your primary care provider. Complete antibiotic prescription. Also follow-up with her GI specialist. I recommend he take the antacids and Carafate prescription so. Patient needs to have a clear liquid diet and slowly advance it to soft bland foods. Return to the emergency department if any alarming signs or symptoms occur. Prescriptions: Famotidine [Pepcid] 20 mg PO BID #20 tablet Nitrofurantoin Monohyd/M-Cryst [Macrobid] 100 mg PO Q12HR #14 cap Sucralfate [Carafate] 1 gm PO BID #20 tablet Referrals: Almas Carver DO [Primary Care Provider] - 1-2 days Time of Disposition: 15:19
[2017-07-10 13:46] LABS: ALT 29 U/L (9-52); AST 25 U/L (14-36); Alkaline Phosphatase 110 U/L (38-126); Amylase <30 U/L (30-110); Anion Gap 11 mmol/L; Blood Urea Nitrogen 8 mg/dL (7-17); Calcium 9.8 mg/dL (8.4-10.2); Carbon Dioxide 26 mmol/L (22-30); Chloride 105 mmol/L (98-107); Glucose 104 mg/dL (74-99); Non-African American GFR(MDRD) >60 (>60 ml/min/1.73 sqM); Potassium 4.1 mmol/L (3.5-5.1); Sodium 142 mmol/L (137-145); Total Bilirubin 0.4 mg/dL (0.2-1.3); Total Protein 7.6 g/dL (6.3-8.2)
[2017-07-10 14:14] LABS: Appearance,Urine Cloudy (Clear); Bacteria,Urine Occasional /hpf; Bilirubin,Urine Negative (Negative); Glucose,Urine (UA) Negative (Negative); Ketones,Urine Negative (Negative); Leukocyte Esterase,Urine Moderate (Negative); Mucus,Urine Rare /hpf; Nitrite,Urine Positive (Negative); PH, Urine 6.5 (5.0-8.0); Particle Count 121452; Protein,Urine Trace (Negative); RBC,Urine 1 /hpf (0-5); Specific Gravity,Urine 1.007 (1.001-1.035); Squamous Epithelial Cell,Urine 3 /hpf (0-4); UA Billing (MACRO vs. MICRO) MICRO; Urobilinogen,Urine <2.0 mg/dL (<2.0); WBC,Urine 26 /hpf (0-5)
--- NOTE | 2017-07-10 14:53 | CT ---
EXAMINATION TYPE: CT abdomen pelvis w con DATE OF EXAM: 07/10/2017 HISTORY: Abdomen pain CT DLP: 581.1mGycm Automated Exposure Control for Dose Reduction was Utilized. CONTRAST: CT scan of the abdomen and pelvis is performed with IV Contrast, patient injected with 100 mL of Omni paque 300. COMPARISON: 03/19/2017 FINDINGS: LUNG BASES: Bibasilar subsegmental atelectasis is seen. LIVER/GB: 1.8 cm simple hepatic cyst is present within the inferior right lobe of liver as well as mu ltiple other hypoattenuating lesions that are too small to accurately characterize and a left hepatic cyst also measuring 1.8 cm. PANCREAS: No significant abnormality is seen. SPLEEN: No significant abnormality is seen. ADRENALS: No significant abnormality is seen. KIDNEYS: No significant abnormality is seen. 2 mm nonobstructing right lower pole renal and right sup erior pole renal calculi are present. Nonobstructing 2 mm left renal calculus is also seen in the mid pole and superior pole. Bilateral hypoattenuated renal cortically-based lesions are seen that are to o small to accurately characterize but statistically represent renal cysts. BOWEL: There is a small hiatal hernia present with surgical clips at the gastroesophageal junction. T he appendix is within normal limits of size measuring 6 mm and there is no periappendiceal fat strand ing, however this is enlarged from the prior exam. No right lower quadrant adenopathy or free fluid i s identified. Sigmoid and descending colonic diverticulosis without evidence of diverticulitis. UTERUS/ADNEXA: Uterus appears surgically absent. 2.2 cm low-density right adnexal lesion is seen whic h may represent a follicle. The right ovary is absent this could also represent enteric duplication c yst or a pelvic inclusion cyst. LYMPH NODES: No greater than 1cm abdominal or pelvic lymph nodes are appreciated. OSSEOUS STRUCTURES: No significant abnormality is seen. IMPRESSION: 1. Appendix appears enlarged from the prior exam, however is within normal limits with no periappendi ceal fat stranding or secondary signs of appendicitis. Correlation for point tenderness/McBurney sign are recommended as well as white blood cell count and fever to exclude early appendicitis. 2. 2.2 cm stable low-density right adnexal region which could represent ovarian follicle. If ovaries been surgically removed 9 enteric duplication cyst or benign pelvic inclusion cyst are possibilities. 3. Hepatic cyst as well as subcentimeter hepatic lesions an renal lesions that are too small to accur ately characterize. 2. Nonobstructing bilateral punctate renal calculi.
[2017-07-10] MEDS ORDERED: KETOROLAC 30 MG/ML 1 ML VIAL IVP STA (15:33)
[2017-07-10 15:41] VITALS: BP 150/88; PULSE 89; RESP 18; TEMP 98
== END 2017-07-10 15:41 | disposition home or self-care (01) ==
LOC: EC 12:10
DX: N39.0 Urinary tract infection, site not specified (principal); K29.70 Gastritis, unspecified, without bleeding; I10 Essential (primary) hypertension; G40.909 Epilepsy, unspecified, not intractable, without status epilepticus; F41.9 Anxiety disorder, unspecified; F32.9 Major depressive disorder, single episode, unspecified; Z87.891 Personal history of nicotine dependence; Z79.891 Long term (current) use of opiate analgesic; Z79.899 Other long term (current) drug therapy; Z88.6 Allergy status to analgesic agent; Z90.710 Acquired absence of both cervix and uterus
CPT/HCPCS: 99284; 96374; 96375 ×2; 36415; 80053; 82150; 83690; 85025; 81001; 74177; 96361; J2405; J1885; J1170; Q9967

== ENCOUNTER → 2017-11-17 | Outpatient (CLI) | payer OTHER ==
[2017-11-17 18:43] LABS: Total Protein,CSF 41 mg/dL (12-60)
[2017-11-17 18:54] LABS: Appearance,CSF Clear; CSF Tube Number 4; CSF Tube Volume 2.5; Nucleated Cells, CSF 0 u/L (0-5); Red Blood Cell,CSF 0 u/L (0-10)
[2017-11-20 12:46] LABS: IgG - CSF 2.1 mg/dL (0.0 - 3.4); IgG/Albumin Index (CSF) 0.56 (0.00 - 0.77); Immunoglobulin G 747 mg/dL (700 - 1600)
== END | disposition home or self-care (01) ==
LOC: LABWHC1 13:18
PROVIDERS: ATTEND Psychiatry & Neurology Pain Medicine
DX: R90.82 White matter disease, unspecified (principal); R42 Dizziness and giddiness; E55.9 Vitamin D deficiency, unspecified
CPT/HCPCS: 36415; 82040; 82042; 82306; 82784; 83873; 83916; 84157; 87476; 88108; 89050

== ENCOUNTER 2017-11-30 07:21 | Emergency (ER) | payer OTHER ==
[2017-11-30 08:21] LABS: Basophils # (A) 0.1 k/uL (0-0.2); Basophils % (A) 1 %; Eosinophils # (A) 0.2 k/uL (0-0.7); Eosinophils % (A) 3 %; HCT 42.7 % (34.0-46.0); HGB 14.4 gm/dL (11.4-16.0); Lymphocytes # (A) 1.7 k/uL (1.0-4.8); Lymphocytes % (A) 21 %; MCH 30.6 pg (25.0-35.0); MCHC 33.6 g/dL (31.0-37.0); Mean Platelet Volume 6.8; Monocytes # (A) 0.3 k/uL (0-1.0); Monocytes % (A) 4 %; Neutrophils # (A) 5.6 k/uL (1.3-7.7); Neutrophils % (A) 70 %; Platelet Count 296 k/uL (150-450); RDW 13.2 % (11.5-15.5)
[2017-11-30] MEDS ORDERED: KETOROLAC 30 MG/ML 1 ML VIAL IVP STA (08:33)
[2017-11-30] MEDS ORDERED: SODIUM CHLORIDE 0.9% 1,000 ML IV STA (08:33)
[2017-11-30] MEDS ORDERED: HYDROmorphone 2 MG/ML 1 ML SYRINGE IVP STA (08:33)
[2017-11-30 08:34] LABS: ALT 25 U/L (9-52); AST 18 U/L (14-36); Alkaline Phosphatase 86 U/L (38-126); Amylase 53 U/L (30-110); Anion Gap 7 mmol/L; Blood Urea Nitrogen 10 mg/dL (7-17); Calcium 9.5 mg/dL (8.4-10.2); Carbon Dioxide 22 mmol/L (22-30); Chloride 113 mmol/L (98-107); Glucose 111 mg/dL (74-99); Lipase 59 U/L (23-300); Sodium 142 mmol/L (137-145); Total Bilirubin 0.4 mg/dL (0.2-1.3); Total Protein 6.9 g/dL (6.3-8.2)
--- NOTE | 2017-11-30 08:41 | ED ---
Abdominal Pain HPI - General Chief Complaint: Abdominal Pain Stated Complaint: abdominal pain Time Seen by Provider: 11/30/17 07:25 Source: patient, RN notes reviewed Mode of arrival: wheelchair Limitations: no limitations - History of Present Illness Initial Comments: This is a 52-year-old female presents emergency department stating she is not feeling well for one week. She had diarrhea for the whole week and she started vomiting couple of days ago. Patient states this morning she started having abdominal pain for the first time. Patient states the pain is in the epigastric region. Patient states she still is nauseated but is not having as much diarrhea but she believes that's because she's not taking any thing orally. Patient denies any fever or chills. Patient denies any chest pain difficulty breathing shortness breath. Patient denies any dysuria hematuria urinary frequency. Patient denies any back pain. Patient states she has had abdominal surgery by Dr. Naranjoania she had a fundoplication done. - Related Data Home Medications Medication Instructions Recorded Confirmed Gabapentin [Neurontin] 400 mg PO TID 05/14/17 11/30/17 Gabapentin [Neurontin] 100 mg PO TID 09/18/17 11/30/17 Metoprolol Succinate [Toprol XL] 200 mg PO DAILY 09/18/17 11/30/17 Diltiazem HCl [Diltiazem ER] 360 mg PO DAILY 11/30/17 11/30/17 Escitalopram [Lexapro] 20 mg PO DAILY 11/30/17 11/30/17 Fluticasone Nasal [place] [Flonase 2 spr EA NOSTRIL DAILY 11/30/17 11/30/17 Nasal [place]] HYDROcodone/APAP 7.5-325MG [[place] 1 tab PO TID PRN 11/30/17 11/30/17 7.5-325] Lisinopril [Zestril] 10 mg PO DAILY 11/30/17 11/30/17 Methocarbamol [Robaxin-750] 750 mg PO TID 11/30/17 11/30/17 traZODone HCL [Desyrel] 100 mg PO HS 11/30/17 11/30/17 Allergies Allergy/AdvReac Type Severity Reaction Status Date / Time tramadol AdvReac seizures Verified 11/30/17 07:50 Review of Systems ROS Statement: Those systems with pertinent positive or pertinent negative responses have been documented in the HPI. ROS Other: All systems not noted in ROS Statement are negative. Past Medical History Past Medical History: Hypertension, Seizure Disorder Additional Past Medical History / Comment(s): IBS, DIVERTICULITIS, 1 seizure last summer-says from tramadol History of Any Multi-Drug Resistant Organisms: None Reported Past Surgical History: Ear Surgery, Hernia Repair, Hysterectomy Additional Past Surgical History / Comment(s): hiatel hernia repair, avm removed from front of right ear @16 Past Anesthesia/Blood Transfusion Reactions: No Reported Reaction Past Psychological History: Anxiety, Depression Smoking Status: Current every day smoker Past Alcohol Use History: None Reported Past Drug Use History: None Reported - Past Family History Mother Family Medical History: Coronary Artery Disease (CAD) Additional Family Medical History / Comment(s): triple bypass Father Family Medical History: Coronary Artery Disease (CAD) Additional Family Medical History / Comment(s): triple bypass General Exam - General Exam Comments Initial Comments: GENERAL: Patient is well-developed and well-nourished. Patient is nontoxic and well- hydrated and is in mild distress. ENT: Neck is soft and supple. No significant lymphadenopathy is noted. Oropharynx is clear. Moist mucous membranes. Neck has full range of motion without eliciting any pain. EYES: The sclera were anicteric and conjunctiva were pink and moist. Extraocular movements were intact and pupils were equal round and reactive to light. Eyelids were unremarkable. PULMONARY: Unlabored respirations. Good breath sounds bilaterally. No audible rales rhonchi or wheezing was noted. CARDIOVASCULAR: There is a regular rate and rhythm without any murmurs gallops or rubs. ABDOMEN: Minimal epigastric abdominal pain. No palpable organomegaly was noted. There is no palpable pulsatile mass. SKIN: Skin is clear with no lesions or rashes and otherwise unremarkable. NEUROLOGIC: Patient is alert and oriented x3. Cranial nerves II through XII are grossly intact. Motor and sensory are also intact. Normal speech, volume and content. Symmetrical smile. MUSCULOSKELETAL: Normal extremities with adequate strength and full range of motion. LYMPHATICS: No significant lymphadenopathy is noted PSYCHIATRIC: Normal psychiatric evaluation. Normal interpersonal interactions appears functionally intact in deals appropriately with others. No signs of depression. No signs of anxiety. Limitations: no limitations Course Vital Signs 11/30/17 11/30/17 11/30/17 07:23 09:43 10:08 Temperature 98.4 F Pulse Rate 98 71 84 Respiratory 18 16 16 Rate Blood Pressure 168/118 181/91 178/107 O2 Sat by Pulse 98 98 98 Oximetry 11/30/17 10:43 Temperature Pulse Rate 86 Respiratory 16 Rate Blood Pressure 170/95 O2 Sat by Pulse 99 Oximetry Medical Decision Making - Medical Decision Making EKG shows normal sinus rhythm at 72 bpm VA interval is 152 QRS is 84 Q-T intervals 452 QTC is 494. Patient's EKG shows no ST segment elevation or depression or T wave abnormalities are noted. Patient's CT showed no acute abnormality. I went back into reevaluate the patient she stated she no longer had any abdominal pain and she no longer felt nauseous. Patient states she had no diarrhea while she was in the emergency department. - Lab Data Result diagrams: 11/30/17 08:00 11/30/17 08:00 Lab Results 11/30/17 11/30/17 11/30/17 Range/Units 08:00 08:00 08:00 WBC 8.0 (3.8-10.6) k/uL RBC 4.70 (3.80-5.40) m/uL Hgb 14.4 (11.4-16.0) gm/dL Hct 42.7 (34.0-46.0) % MCV 91.0 (80.0-100.0) fL MCH 30.6 (25.0-35.0) pg MCHC 33.6 (31.0-37.0) g/dL RDW 13.2 (11.5-15.5) % Plt Count 296 (150-450) k/uL Neutrophils % 70 % Lymphocytes % 21 % Monocytes % 4 % Eosinophils % 3 % Basophils % 1 % Neutrophils # 5.6 (1.3-7.7) k/uL Lymphocytes # 1.7 (1.0-4.8) k/uL Monocytes # 0.3 (0-1.0) k/uL Eosinophils # 0.2 (0-0.7) k/uL Basophils # 0.1 (0-0.2) k/uL Sodium 142 (137-145) mmol/L Potassium 4.0 (3.5-5.1) mmol/L Chloride 113 H (98-107) mmol/L Carbon Dioxide 22 (22-30) mmol/L Anion Gap 7 mmol/L BUN 10 (7-17) mg/dL Creatinine 0.85 (0.52-1.04) mg/dL Est GFR (MDRD) Af Amer >60 (>60 ml/min/1.73 sqM) Est GFR (MDRD) Non-Af >60 (>60 ml/min/1.73 sqM) Glucose 111 H (74-99) mg/dL Calcium 9.5 (8.4-10.2) mg/dL Total Bilirubin 0.4 (0.2-1.3) mg/dL AST 18 (14-36) U/L ALT 25 (9-52) U/L Alkaline Phosphatase 86 (38-126) U/L Troponin I <0.012 (0.000-0.034) ng/mL Total Protein 6.9 (6.3-8.2) g/dL Albumin 4.0 (3.5-5.0) g/dL Amylase 53 (30-110) U/L Lipase 59 (23-300) U/L Disposition Clinical Impression: Gastroenteritis Disposition: HOME SELF-CARE Condition: Good Instructions: Dehydration in Children (ED), Gastroenteritis (ED) Referrals: Almas Carver DO [Primary Care Provider] - 1-2 days Time of Disposition: 12:05
[2017-11-30] MEDS: ONDANSETRON 4 MG/2 ML VIAL IVP STA ×2 (08:45→10:06)
[2017-11-30 09:44] VITALS: RESP 16
[2017-11-30] MEDS ORDERED: RX INFO: IV CONTRAST WAS GIVEN 1 EACH MISC MISCELLANE PRN (10:10)
[2017-11-30] MEDS ORDERED: HYDROmorphone 2 MG/ML 1 ML SYRINGE IM STA (10:33)
--- NOTE | 2017-11-30 10:47 | CT ---
EXAMINATION TYPE: CT abdomen pelvis w con DATE OF EXAM: 11/30/2017 COMPARISON: July 10, 2017 HISTORY: Mid Abdominal pain with nausea CT DLP: 492.2 mGycm CONTRAST: CT scan of the abdomen and pelvis is performed without Oral Contrast and with IV Contrast, patient in jected with 100 mL of Omnipaque 300. FINDINGS: LUNG BASES-: No visible nodule. No infiltrate. LIVER/GB: No calcified gallstones. Multiple hepatic cysts are noted the largest of which is seen wi thin the left hepatic lobe measuring 1.9 cm. Biliary tree is of normal caliber. PANCREAS: No inflammation. No distinct mass. SPLEEN: No splenic enlargement. No lesion seen. ADRENALS: No nodule. No thickening. KIDNEYS/BLADDER: No hydronephrosis. Several nonobstructing right-sided renal calculi measuring up to 4 mm. No left-sided renal calculi seen. No disctinct renal mass. Urinary bladder grossly unremarkabl e. BOWEL: Normal appendix is visualized. Normal bowel caliber. No inflammation. GENITAL ORGANS: Nonspecific right ovarian cyst measures 2.6 cm. Left ovary is unremarkable. Hysterec rita changes noted. LYMPH NODES: No greater than 1cm abdominal or pelvic lymph nodes are appreciated. AORTA: No significant abnormality. OSSEOUS STRUCTURES: No significant abnormality is seen. OTHER: No significant additional abnormality is seen. IMPRESSION: 1. No distinct abnormality to account for the patient's symptoms. 2. Normal appendix. 3. Nonobstructing right-sided nephrolithiasis. 4. Probable functional right ovarian cyst which can be confirmed with sonography. 5. Simple hepatic cysts.
[2017-11-30] MEDS ORDERED: ONDANSETRON 4 MG ODT STARTER PACK 2 TAB BTL PO STA (12:06)
[2017-11-30 12:17] VITALS: BP 136/70; PULSE 73; TEMP 98.6
== END 2017-11-30 12:38 | disposition home or self-care (01) ==
LOC: EC 07:21
DX: K52.9 Noninfective gastroenteritis and colitis, unspecified (principal); I10 Essential (primary) hypertension; G40.909 Epilepsy, unspecified, not intractable, without status epilepticus; F41.9 Anxiety disorder, unspecified; F32.9 Major depressive disorder, single episode, unspecified; F17.200 Nicotine dependence, unspecified, uncomplicated; Z98.890 Other specified postprocedural states; Z87.19 Personal history of other diseases of the digestive system; Z88.6 Allergy status to analgesic agent; Z79.51 Long term (current) use of inhaled steroids; Z53.8 Procedure and treatment not carried out for other reasons; Z79.899 Other long term (current) drug therapy
CPT/HCPCS: 36415; 93005; 80053; 82150; 83690; 84484; 85025; 74177; 99284; 96372; 96374; 96375; 96376; 96361; J1170; J2405; J1885; Q9967; S0119

== ENCOUNTER 2017-12-04 12:02 | Emergency (ER) | payer OTHER ==
[2017-12-04] MEDS ORDERED: methylPREDNISolone SOD SUCCI 125 MG/2 ML VIAL IV STA (12:14)
[2017-12-04] MEDS ORDERED: diphenhydrAMINE 50 MG/ML 1 ML VIAL IVP STA (12:14)
--- NOTE | 2017-12-04 12:30 | ED ---
General Adult HPI - General Chief complaint: Skin/Abscess/Foreign Body Stated complaint: ALLERGIC REACTION Time Seen by Provider: 12/04/17 12:11 Source: patient, RN notes reviewed Mode of arrival: ambulatory Limitations: no limitations - History of Present Illness Initial comments: Patient is a 52-year-old female who presents emergency room today with a chief complaint of possible ALLERGIC reaction. She does admit that she took Zantac because she was having some upset stomach. She states that she took this at 10: 30. She states she's very itchy since. She states she did take some Benadryl liquid Benadryl at home 1 teaspoon. She states was children's. Patient states that over very itchy at this time to her arms legs. Denies any difficulty breathing or swallowing. Denies any lip or tongue swelling. Patient denies any recent fever, chills, shortness of breath, chest pain, back pain, numbness or tingling, headaches or visual changes, or any other complaints. - Related Data Home Medications Medication Instructions Recorded Confirmed Gabapentin [Neurontin] 400 mg PO TID 05/14/17 12/04/17 Gabapentin [Neurontin] 100 mg PO TID 09/18/17 12/04/17 Metoprolol Succinate [Toprol XL] 200 mg PO DAILY 09/18/17 12/04/17 Diltiazem HCl [Diltiazem ER] 360 mg PO DAILY 11/30/17 12/04/17 Escitalopram [Lexapro] 20 mg PO DAILY 11/30/17 12/04/17 Fluticasone Nasal [place] [Flonase 2 spr EA NOSTRIL DAILY 11/30/17 12/04/17 Nasal [place]] HYDROcodone/APAP 7.5-325MG [[place] 1 tab PO TID PRN 11/30/17 12/04/17 7.5-325] Lisinopril [Zestril] 10 mg PO DAILY 11/30/17 12/04/17 Methocarbamol [Robaxin-750] 750 mg PO TID 11/30/17 12/04/17 Ranitidine HCl [Zantac] 150 mg PO ONCE 12/04/17 12/04/17 Previous Rx's Medication Instructions Recorded predniSONE 50 mg PO DAILY #5 tab 12/04/17 Allergies Allergy/AdvReac Type Severity Reaction Status Date / Time ranitidine [From Zantac] AdvReac Rash/Hives Verified 12/04/17 12:17 tramadol AdvReac seizures Verified 12/04/17 12:17 Review of Systems ROS Statement: Those systems with pertinent positive or pertinent negative responses have been documented in the HPI. ROS Other: All systems not noted in ROS Statement are negative. Past Medical History Past Medical History: Hypertension, Seizure Disorder Additional Past Medical History / Comment(s): IBS, DIVERTICULITIS, 1 seizure last summer-says from tramadol History of Any Multi-Drug Resistant Organisms: None Reported Past Surgical History: Ear Surgery, Hernia Repair, Hysterectomy Additional Past Surgical History / Comment(s): hiatel hernia repair, avm removed from front of right ear @16 Past Anesthesia/Blood Transfusion Reactions: No Reported Reaction Past Psychological History: Anxiety, Depression Smoking Status: Current every day smoker Past Alcohol Use History: None Reported Past Drug Use History: None Reported - Past Family History Mother Family Medical History: Coronary Artery Disease (CAD) Additional Family Medical History / Comment(s): triple bypass Father Family Medical History: Coronary Artery Disease (CAD) Additional Family Medical History / Comment(s): triple bypass General Exam - General Exam Comments Initial Comments: General: The patient is awake and alert, in no distress, and does not appear acutely ill. Eye: Pupils are equal, round and reactive to light, extra-ocular movements are intact. No nystagmus. There is normal conjunctiva bilaterally. No signs of icterus. Ears, nose, mouth and throat: There are moist mucous membranes and no oral lesions. Neck: The neck is supple, there is no tenderness or JVD. Cardiovascular: There is a regular rate and rhythm. No murmur, rub or gallop is appreciated. Respiratory: Lungs are clear to auscultation, respirations are non-labored, breath sounds are equal. No wheezes, stridor, rales, or rhonchi. Musculoskeletal: Normal ROM, no tenderness. Strength 5/5. Sensation intact. Pulses equal bilaterally 2+. Neurological: A&O x 3. CN II-XII intact, There are no obvious motor or sensory deficits. Coordination appears grossly intact. Speech is normal. Skin: Skin is warm and dry and no rashes or lesions are noted. Psychiatric: Cooperative, appropriate mood & affect, normal judgment. Limitations: no limitations Course Vital Signs 12/04/17 12/04/17 12:04 13:17 Temperature 97.3 F L Pulse Rate 71 62 Respiratory 24 18 Rate Blood Pressure 138/93 132/81 O2 Sat by Pulse 98 97 Oximetry Medical Decision Making - Medical Decision Making Patient reexamined at this time shows no signs of distress. States she's feeling much better in the emergency room. She has quit about a headache is wondering if she can get something for. She states usually takes Moody at home. Advised her that we do not want to give her anything that makes her sedated. She has 40 she'll be given Toradol through the IV for headache. Patient is also advised continue Benadryl one to 2 tabs every 6 hours of the next 2-5 days as well as be given steroids. Advised that despite rebound. Advised to return to emergency room symptoms increase worsen appropriate concerns. Disposition Clinical Impression: Allergic reaction Disposition: HOME SELF-CARE Condition: Good Instructions: General Allergic Reaction (ED) Additional Instructions: Please use medication as discussed. Please follow-up with family doctor in the next 2 days of symptoms have not improved. Please return to emergency room if the symptoms increase or worsen or for any other concerns. Prescriptions: predniSONE 50 mg PO DAILY #5 tab Referrals: Almas Carver DO [Primary Care Provider] - 1-2 days Time of Disposition: 13:28
[2017-12-04 13:18] VITALS: RESP 18
[2017-12-04] MEDS ORDERED: KETOROLAC 30 MG/ML 1 ML VIAL IVP STA (13:27)
[2017-12-04 13:43] VITALS: BP 130/62; PULSE 65; TEMP 97.6
== END 2017-12-04 13:43 | disposition home or self-care (01) ==
LOC: EC 12:02
DX: T78.40XA Allergy, unspecified, initial encounter (principal); I10 Essential (primary) hypertension; G40.909 Epilepsy, unspecified, not intractable, without status epilepticus; F32.9 Major depressive disorder, single episode, unspecified; F41.9 Anxiety disorder, unspecified; F17.200 Nicotine dependence, unspecified, uncomplicated; Z79.899 Other long term (current) drug therapy; Z79.51 Long term (current) use of inhaled steroids; Z88.6 Allergy status to analgesic agent; Z88.8 Allergy status to other drugs, medicaments and biological substances
CPT/HCPCS: 99283; 96374; 96375 ×2; J1200; J2930; J1885

== ENCOUNTER 2017-12-07 11:49 | Emergency (ER) | payer OTHER ==
[2017-12-07] MEDS ORDERED: ONDANSETRON 4 MG/2 ML VIAL IVP STA ×2 (13:44→15:05)
[2017-12-07] MEDS ORDERED: MORPHINE SULFATE 2 MG/ML SYRINGE IV STA (13:44)
--- NOTE | 2017-12-07 13:47 | ED ---
General Adult HPI - General Chief complaint: Abdominal Pain Stated complaint: Abdominal pain Time Seen by Provider: 12/07/17 13:35 Source: patient, RN notes reviewed, old records reviewed Mode of arrival: ambulatory Limitations: no limitations - History of Present Illness Initial comments: 52-year-old female with chronic abdominal pain presents for reevaluation of pain. Patient was seen approximately one week ago with the exact same generalized abdominal pain. She states she has had several episodes of vomiting which occurs during the night. She is also had loose stool and diarrhea. No blood in either the vomit or stool. The symptoms have been ongoing for the past one week. Patient has history of IBS and does have some degree of diarrhea at baseline. Patient previously had narcotic dependence, she has been not taking her opiate pain medications for the past several months. She only uses Kevin sporadically as needed for low back pain. Denies any dysuria or hematuria. Denies central chest pain. Patient has been able to tolerate food throughout the day, although she does have decreased appetite. - Related Data Home Medications Medication Instructions Recorded Confirmed Gabapentin [Neurontin] 400 mg PO DAILY 05/14/17 12/07/17 Gabapentin [Neurontin] 100 mg PO DAILY 09/18/17 12/07/17 Metoprolol Succinate [Toprol XL] 200 mg PO DAILY 09/18/17 12/07/17 Diltiazem HCl [Diltiazem ER] 360 mg PO DAILY 11/30/17 12/07/17 Escitalopram [Lexapro] 20 mg PO DAILY 11/30/17 12/07/17 Fluticasone Nasal [place] [Flonase 2 spr EA NOSTRIL DAILY 11/30/17 12/07/17 Nasal [place]] HYDROcodone/APAP 7.5-325MG [[place] 1 tab PO TID PRN 11/30/17 12/07/17 7.5-325] Lisinopril [Zestril] 10 mg PO DAILY 11/30/17 12/07/17 Methocarbamol [Robaxin-750] 750 mg PO TID 11/30/17 12/07/17 Allergies Allergy/AdvReac Type Severity Reaction Status Date / Time ranitidine [From Zantac] AdvReac Rash/Hives Verified 12/07/17 13:50 tramadol AdvReac seizures Verified 12/07/17 13:50 Review of Systems ROS Statement: Those systems with pertinent positive or pertinent negative responses have been documented in the HPI. ROS Other: All systems not noted in ROS Statement are negative. Past Medical History Past Medical History: Hypertension, Seizure Disorder Additional Past Medical History / Comment(s): IBS, DIVERTICULITIS, 1 seizure last summer-says from tramadol History of Any Multi-Drug Resistant Organisms: None Reported Past Surgical History: Ear Surgery, Hernia Repair, Hysterectomy Additional Past Surgical History / Comment(s): hiatel hernia repair, avm removed from front of right ear @16 Past Anesthesia/Blood Transfusion Reactions: No Reported Reaction Past Psychological History: Anxiety, Depression Smoking Status: Current every day smoker Past Alcohol Use History: None Reported Past Drug Use History: None Reported - Past Family History Mother Family Medical History: Coronary Artery Disease (CAD) Additional Family Medical History / Comment(s): triple bypass Father Family Medical History: Coronary Artery Disease (CAD) Additional Family Medical History / Comment(s): triple bypass General Exam Limitations: no limitations General appearance: alert, in no apparent distress Head exam: Present: atraumatic, normocephalic Eye exam: Present: normal appearance, PERRL ENT exam: Present: normal exam Neck exam: Present: normal inspection. Absent: tenderness, meningismus Respiratory exam: Present: normal lung sounds bilaterally. Absent: respiratory distress, wheezes Cardiovascular Exam: Present: regular rate, normal rhythm GI/Abdominal exam: Present: soft, tenderness (Generalized tenderness to palpation). Absent: distended, guarding, rebound Extremities exam: Present: normal inspection, normal capillary refill. Absent: pedal edema Neurological exam: Present: alert, oriented X3, CN II-XII intact. Absent: motor sensory deficit Psychiatric exam: Present: normal affect, normal mood Skin exam: Present: warm, dry, intact. Absent: cyanosis, diaphoretic Course Vital Signs 12/07/17 12:10 Temperature 99.0 F Pulse Rate 102 H Respiratory 18 Rate Blood Pressure 138/92 O2 Sat by Pulse 98 Oximetry Medical Decision Making - Medical Decision Making 52-year-old female presenting with 1 week history of abdominal pain. She did present to the emergency department previously, had some CAT scan which was reviewed and was negative for any acute findings. Patient's symptoms have been consistent, unchanged. Laboratory studies are obtained with blood cell count 8 , hemoglobin 14.6, white lites within normal limits, troponin negative urinalysis negative, lactic acid is normal. X-ray shows no obstruction or intraperitoneal free air. On reevaluation patient is feeling better. She will be given outpatient GI follow-up. She is instructed on how the dietary options. She will add Metamucil to her daily intake. - Lab Data Result diagrams: 12/07/17 13:48 12/07/17 13:48 Lab Results 12/07/17 12/07/17 12/07/17 Range/Units 13:48 13:48 13:48 WBC 8.0 (3.8-10.6) k/uL RBC 4.86 (3.80-5.40) m/uL Hgb 14.6 (11.4-16.0) gm/dL Hct 45.0 (34.0-46.0) % MCV 92.6 (80.0-100.0) fL MCH 30.1 (25.0-35.0) pg MCHC 32.5 (31.0-37.0) g/dL RDW 14.3 (11.5-15.5) % Plt Count 239 (150-450) k/uL Neutrophils % 82 % Lymphocytes % 10 % Monocytes % 5 % Eosinophils % 2 % Basophils % 1 % Neutrophils # 6.6 (1.3-7.7) k/uL Lymphocytes # 0.8 L (1.0-4.8) k/uL Monocytes # 0.4 (0-1.0) k/uL Eosinophils # 0.1 (0-0.7) k/uL Basophils # 0.0 (0-0.2) k/uL Sodium 140 (137-145) mmol/L Potassium 4.0 (3.5-5.1) mmol/L Chloride 107 (98-107) mmol/L Carbon Dioxide 24 (22-30) mmol/L Anion Gap 9 mmol/L BUN 12 (7-17) mg/dL Creatinine 0.72 (0.52-1.04) mg/dL Est GFR (MDRD) Af Amer >60 (>60 ml/min/1.73 sqM) Est GFR (MDRD) Non-Af >60 (>60 ml/min/1.73 sqM) Glucose 95 (74-99) mg/dL Plasma Lactic Acid Thang 0.9 (0.7-2.0) mmol/L Calcium 9.5 (8.4-10.2) mg/dL Total Bilirubin 0.3 (0.2-1.3) mg/dL AST 23 (14-36) U/L ALT 37 (9-52) U/L Alkaline Phosphatase 77 (38-126) U/L Troponin I (0.000-0.034) ng/mL Total Protein 6.7 (6.3-8.2) g/dL Albumin 4.0 (3.5-5.0) g/dL Amylase 64 (30-110) U/L Lipase 58 (23-300) U/L Urine Color Urine Appearance (Clear) Urine pH (5.0-8.0) Ur Specific [place] (1.001-1.035) Urine Protein (Negative) Urine Glucose (UA) (Negative) Urine Ketones (Negative) Urine Blood (Negative) Urine Nitrite (Negative) Urine Bilirubin (Negative) Urine Urobilinogen (<2.0) mg/dL Ur Leukocyte Esterase (Negative) Urine RBC (0-5) /hpf Urine WBC (0-5) /hpf Ur Squamous Epith Cells (0-4) /hpf Urine Bacteria (None) /hpf 12/07/17 12/07/17 Range/Units 13:48 13:48 WBC (3.8-10.6) k/uL RBC (3.80-5.40) m/uL Hgb (11.4-16.0) gm/dL Hct (34.0-46.0) % MCV (80.0-100.0) fL MCH (25.0-35.0) pg MCHC (31.0-37.0) g/dL RDW (11.5-15.5) % Plt Count (150-450) k/uL Neutrophils % % Lymphocytes % % Monocytes % % Eosinophils % % Basophils % % Neutrophils # (1.3-7.7) k/uL Lymphocytes # (1.0-4.8) k/uL Monocytes # (0-1.0) k/uL Eosinophils # (0-0.7) k/uL Basophils # (0-0.2) k/uL Sodium (137-145) mmol/L Potassium (3.5-5.1) mmol/L Chloride (98-107) mmol/L Carbon Dioxide (22-30) mmol/L Anion Gap mmol/L BUN (7-17) mg/dL Creatinine (0.52-1.04) mg/dL Est GFR (MDRD) Af Amer (>60 ml/min/1.73 sqM) Est GFR (MDRD) Non-Af (>60 ml/min/1.73 sqM) Glucose (74-99) mg/dL Plasma Lactic Acid Thang (0.7-2.0) mmol/L Calcium (8.4-10.2) mg/dL Total Bilirubin (0.2-1.3) mg/dL AST (14-36) U/L ALT (9-52) U/L Alkaline Phosphatase (38-126) U/L Troponin I <0.012 (0.000-0.034) ng/mL Total Protein (6.3-8.2) g/dL Albumin (3.5-5.0) g/dL Amylase (30-110) U/L Lipase (23-300) U/L Urine Color Light Yellow Urine Appearance Clear (Clear) Urine pH 6.5 (5.0-8.0) Ur Specific [place] 1.003 (1.001-1.035) Urine Protein Negative (Negative) Urine Glucose (UA) Negative (Negative) Urine Ketones Negative (Negative) Urine Blood Trace H (Negative) Urine Nitrite Negative (Negative) Urine Bilirubin Negative (Negative) Urine Urobilinogen <2.0 (<2.0) mg/dL Ur Leukocyte Esterase Small H (Negative) Urine RBC 1 (0-5) /hpf Urine WBC 1 (0-5) /hpf Ur Squamous Epith Cells 2 (0-4) /hpf Urine Bacteria Rare H (None) /hpf Disposition Clinical Impression: Abdominal pain, Ruptured ectopic Disposition: HOME SELF-CARE Condition: Good Instructions: Abdominal Pain (ED) Referrals: Almas Carver DO [Primary Care Provider] - 1-2 days Clayton Graves MD [STAFF PHYSICIAN] - 1-2 days Time of Disposition: 14:49
[2017-12-07] MEDS ORDERED: SODIUM CHLORIDE 0.9% 1,000 ML IV ONE (13:49)
[2017-12-07 13:58] LABS: Basophils % (A) 1 %; Eosinophils # (A) 0.1 k/uL (0-0.7); Eosinophils % (A) 2 %; HGB 14.6 gm/dL (11.4-16.0); Lymphocytes # (A) 0.8 k/uL (1.0-4.8); Lymphocytes % (A) 10 %; MCH 30.1 pg (25.0-35.0); MCHC 32.5 g/dL (31.0-37.0); MCV 92.6 fL (80.0-100.0); Mean Platelet Volume 7.3; Monocytes # (A) 0.4 k/uL (0-1.0); Monocytes % (A) 5 %; Neutrophils # (A) 6.6 k/uL (1.3-7.7); Neutrophils % (A) 82 %; Platelet Count 239 k/uL (150-450); RBC 4.86 m/uL (3.80-5.40); RDW 14.3 % (11.5-15.5)
[2017-12-07 14:01] LABS: Appearance,Urine Clear (Clear); Bacteria,Urine Rare /hpf; Bilirubin,Urine Negative (Negative); Blood,Urine Trace (Negative); Color,Urine Light Yellow; Glucose,Urine (UA) Negative (Negative); Ketones,Urine Negative (Negative); Leukocyte Esterase,Urine Small (Negative); Nitrite,Urine Negative (Negative); PH, Urine 6.5 (5.0-8.0); Protein,Urine Negative (Negative); RBC,Urine 1 /hpf (0-5); Specific Gravity,Urine 1.003 (1.001-1.035); Squamous Epithelial Cell,Urine 2 /hpf (0-4); Urobilinogen,Urine <2.0 mg/dL (<2.0); WBC,Urine 1 /hpf (0-5)
[2017-12-07 14:08] LABS: ALT 37 U/L (9-52); AST 23 U/L (14-36); Alkaline Phosphatase 77 U/L (38-126); Amylase 64 U/L (30-110); Anion Gap 9 mmol/L; Blood Urea Nitrogen 12 mg/dL (7-17); Calcium 9.5 mg/dL (8.4-10.2); Carbon Dioxide 24 mmol/L (22-30); Chloride 107 mmol/L (98-107); Glucose 95 mg/dL (74-99); Lipase 58 U/L (23-300); Sodium 140 mmol/L (137-145); Total Bilirubin 0.3 mg/dL (0.2-1.3); Total Protein 6.7 g/dL (6.3-8.2)
--- NOTE | 2017-12-07 14:20 | XR ---
EXAMINATION TYPE: XR KUB DATE OF EXAM: 12/07/2017 COMPARISON: NONE HISTORY: Pain TECHNIQUE: Single supine KUB image of the abdomen is obtained FINDINGS: Mild distention of small bowel in a nonspecific pattern. Gas and fecal material is seen in non-distended colon. No convincing evidence for pneumoperitoneum. No unusual calcifications. The lung bases are clear. The osseous structures are intact. IMPRESSION: 1. Overall nonobstructive bowel gas pattern.
[2017-12-07] MEDS ORDERED: KETOROLAC 30 MG/ML 1 ML VIAL IVP STA (15:05)
[2017-12-07 15:12] VITALS: BP 140/73; PULSE 84; RESP 16; TEMP 100.3
--- NOTE | 2017-12-12 00:13 | CDI ---
Dear John, Delano Lozano MD: Please do addendum clarification on diagnosis as the patient is 52 years old and in impression given "Ruptured ectopic ." In this scenario, can i proceed to code diagnosis "ruptured ectopic ." Thank you, Leonid Cardozo, After School Program Coordinator. If you have any questions, please contact Events Associate at [phone]. [facility]
== END 2017-12-07 15:15 | disposition home or self-care (01) ==
LOC: EC 11:49
DX: R10.84 Generalized abdominal pain (principal); R11.10 Vomiting, unspecified; R19.7 Diarrhea, unspecified; R63.8 Other symptoms and signs concerning food and fluid intake; I10 Essential (primary) hypertension; F32.9 Major depressive disorder, single episode, unspecified; F41.9 Anxiety disorder, unspecified; F17.200 Nicotine dependence, unspecified, uncomplicated; Z79.51 Long term (current) use of inhaled steroids; Z79.899 Other long term (current) drug therapy; Z88.5 Allergy status to narcotic agent; Z88.8 Allergy status to other drugs, medicaments and biological substances; Z87.39 Personal history of other diseases of the musculoskeletal system and connective tissue
CPT/HCPCS: 99284; 96374; 96375 ×2; 96376; 96361; 36415; 80053; 82150; 83605; 83690; 84484; 85025; 81001; 74018; J2405; J1885; J2270

== ENCOUNTER → 2018-02-03 | Outpatient (CLI) | payer OTHER ==
[2018-02-03 14:11] LABS: Basophils # (A) 0.1 k/uL (0-0.2); Basophils % (A) 1 %; Eosinophils # (A) 0.3 k/uL (0-0.7); Eosinophils % (A) 3 %; HCT 42.2 % (34.0-46.0); HGB 14.4 gm/dL (11.4-16.0); Lymphocytes % (A) 37 %; MCH 30.6 pg (25.0-35.0); MCHC 34.2 g/dL (31.0-37.0); MCV 89.5 fL (80.0-100.0); Monocytes # (A) 0.5 k/uL (0-1.0); Monocytes % (A) 6 %; Neutrophils % (A) 49 %; Platelet Count 311 k/uL (150-450); RBC 4.71 m/uL (3.80-5.40); WBC 8.1 k/uL (3.8-10.6)
[2018-02-03 14:14] LABS: INR 1.1 (<1.2); Partial Thromboplastin Time 22.1 sec (22.0-30.0); Prothrombin Time 10.5 sec (9.0-12.0)
== END | disposition home or self-care (01) ==
LOC: LABWHC1 13:18
PROVIDERS: ATTEND Nurse Practitioner Family
DX: D68.9 Coagulation defect, unspecified (principal)
CPT/HCPCS: 36415; 85025; 85384; 85610; 85730

== ENCOUNTER → 2018-04-16 | Outpatient (CLI) | payer OTHER ==
--- NOTE | 2018-04-16 21:57 | MR ---
MRI CERVICAL SPINE: CLINICAL HISTORY: Cervicalgia per order. Headache with neck pain causing pain or weakness into bilate ral upper extremities for 2 years per patient. TECHNIQUE: Multiplanar, multisequence imaging of the cervical spine is performed without IV contrast. COMPARISON: MRI cervical spine June 05, 2017. FINDINGS: Sagittal images of the cervical spine show the craniocervical junction to remain within nor mal limits. The cervical and upper thoracic spinal cord is normal in course, caliber, and signal. Th ere is persistent grade 1 retrolisthesis of C3 on C4. The vertebral body and intravertebral disk hei ghts are normal. Small posterior disc herniations mildly effacing anterior thecal sac C3-C4 through C6-C7 level on sagittal images not significant change from prior study. The bone marrow signal intens ity is within normal limits. Mild multilevel anterior spurring is redemonstrated. Axial images show C2-C3 level to remain within normal limits. Axial images at C3-C4 level show uncovertebral facet degenerative changes bilaterally along with broa d-based posterior disc protrusion effacing anterior thecal sac, there is moderate to advanced bilater al neural foraminal narrowing seen. There is no significant change from prior study. Axial images at C4-C5 level show right paracentral disc protrusion effacing and tear lateral thecal s ac axial image 28 with uncovertebral facet degenerative changes contributing to mild to moderate bila teral neural foraminal narrowing. No significant change from prior study is seen. Axial images at C5-C6 level show broad-based left paracentral disc protrusion effacing anterior theca l sac and uncovertebral facet degenerative changes causing mild bilateral neural foraminal narrowing near axial image 21. No significant change from prior study is seen. Axial images at C6-C7 level show broad-based posterior disc protrusion effacing anterior thecal sac a nd causing moderate left and mild right-sided neural foraminal narrowing. No significant change from prior study is seen. Axial images at C7-T1 level remain within normal limits. IMPRESSION: Multilevel degenerative changes in the cervical spine as detailed above, no significant c hange or progression from prior MRI.
== END ==
LOC: RADMRIMAIN 20:39
PROVIDERS: ATTEND Psychiatry & Neurology Pain Medicine
DX: M47.812 Spondylosis without myelopathy or radiculopathy, cervical region (principal); M50.21 Other cervical disc displacement, high cervical region; M48.02 Spinal stenosis, cervical region
CPT/HCPCS: 72141

== ENCOUNTER 2018-05-11 14:13 | Observation (INO) | payer OTHER ==
[2018-05-11] MEDS ORDERED: NITROGLYCERIN OINT 1 INCH/GM PACKET TOPICAL STA (14:41)
[2018-05-11] MEDS ORDERED: ASPIRIN 81 MG PO STA (14:41)
[2018-05-11] MEDS ORDERED: ACETAMINOPHEN TAB 500 MG TAB PO STA (14:42)
--- NOTE | 2018-05-11 14:45 | ED ---
General Adult HPI - General Chief complaint: Chest Pain Stated complaint: Chest Pain Time Seen by Provider: 05/11/18 14:15 Source: patient, RN notes reviewed Mode of arrival: EMS Limitations: no limitations - History of Present Illness Initial comments: This is a 53-year-old female with past medical history significant for high blood pressure high cholesterol and a smoking history. Patient also states she has significant family history of heart disease. Patient states she was scheduled already for a stress echo on Thursday. Patient states today at work she started having significant chest pain and tightness. Patient states there was no radiation of the pain. Patient denied any diaphoretic episodes. Patient states she did receive 3 nitroglycerin in route and that did significantly reduce her pain. Patient denies any nausea vomiting or abdominal pain associated with the chest pain. Patient states she was mildly short of breath. Patient denied any lightheadedness dizziness or near syncopal episodes. Patient denies any recent fever or chills but states she has had a cough has been nonproductive. Patient denies any headache patient denies any numbness or weakness. Patient denies any dysuria hematuria urinary frequency. Patient denies any calf tenderness or leg swelling. - Related Data Home Medications Medication Instructions Recorded Confirmed Diltiazem HCl [Diltiazem ER] 360 mg PO DAILY 11/30/17 05/11/18 Metoprolol Succinate [Toprol XL] 200 mg PO QAM 02/17/18 05/11/18 Aspirin EC [Ecotrin Low Dose] 81 mg PO DAILY 05/11/18 05/11/18 Citalopram Hydrobromide [CeleXA] 20 mg PO DAILY 05/11/18 05/11/18 Citalopram Hydrobromide [CeleXA] 40 mg PO DAILY 05/11/18 05/11/18 Gabapentin [Neurontin] 100 mg PO TID 05/11/18 05/11/18 Gabapentin [Neurontin] 400 mg PO TID 05/11/18 05/11/18 Isosorbide Mononitrate ER [Imdur] 15 mg PO DAILY 05/11/18 05/11/18 Lisinopril [Prinivil] 10 mg PO DAILY 05/11/18 05/11/18 Methocarbamol [Robaxin-750] 750 mg PO TID PRN 05/11/18 05/11/18 Pantoprazole Sodium [Protonix] 40 mg PO DAILY 05/11/18 05/11/18 Rosuvastatin [Crestor] 10 mg PO DAILY 05/11/18 05/11/18 hydrALAZINE HCL [Apresoline] 10 mg PO TID 05/11/18 05/11/18 Allergies Allergy/AdvReac Type Severity Reaction Status Date / Time ranitidine [From Zantac] AdvReac Rash/Hives Verified 05/11/18 15:33 tramadol AdvReac seizures Verified 05/11/18 15:33 Review of Systems ROS Statement: Those systems with pertinent positive or pertinent negative responses have been documented in the HPI. ROS Other: All systems not noted in ROS Statement are negative. Past Medical History Past Medical History: Hypertension, Seizure Disorder Additional Past Medical History / Comment(s): IBS, DIVERTICULITIS, 1 seizure last summer-says from tramadol History of Any Multi-Drug Resistant Organisms: None Reported Past Surgical History: Hysterectomy Additional Past Surgical History / Comment(s): hiatel hernia repair, avm removed from front of right ear @16 Past Anesthesia/Blood Transfusion Reactions: No Reported Reaction Past Psychological History: Anxiety, Depression Smoking Status: Current every day smoker Past Alcohol Use History: None Reported Past Drug Use History: None Reported - Past Family History Mother Family Medical History: No Reported History Additional Family Medical History / Comment(s): triple bypass Father Family Medical History: Coronary Artery Disease (CAD) Additional Family Medical History / Comment(s): triple bypass General Exam - General Exam Comments Initial Comments: GENERAL: Patient is well-developed and well-nourished. Patient is nontoxic and well- hydrated and is in mild distress. ENT: Neck is soft and supple. No significant lymphadenopathy is noted. Oropharynx is clear. Moist mucous membranes. Neck has full range of motion without eliciting any pain. EYES: The sclera were anicteric and conjunctiva were pink and moist. Extraocular movements were intact and pupils were equal round and reactive to light. Eyelids were unremarkable. PULMONARY: Unlabored respirations. Good breath sounds bilaterally. No audible rales rhonchi or wheezing was noted. CARDIOVASCULAR: There is a regular rate and rhythm without any murmurs gallops or rubs. ABDOMEN: Soft and nontender with normal bowel sounds. No palpable organomegaly was noted. There is no palpable pulsatile mass. SKIN: Skin is clear with no lesions or rashes and otherwise unremarkable. NEUROLOGIC: Patient is alert and oriented x3. Cranial nerves II through XII are grossly intact. Motor and sensory are also intact. Normal speech, volume and content. Symmetrical smile. MUSCULOSKELETAL: Normal extremities with adequate strength and full range of motion. No lower extremity swelling or edema. No calf tenderness. LYMPHATICS: No significant lymphadenopathy is noted PSYCHIATRIC: Normal psychiatric evaluation. Normal interpersonal interactions appears functionally intact in deals appropriately with others. No signs of depression. No signs of anxiety. Limitations: no limitations Course Vital Signs 05/11/18 05/11/18 05/11/18 14:15 14:20 15:30 Temperature 97.6 F Pulse Rate 76 75 Respiratory 18 18 Rate Blood Pressure 136/104 187/105 O2 Sat by Pulse 98 96 Oximetry Medical Decision Making - Medical Decision Making EKG shows a normal sinus rhythm at 83 bpm WA interval 262 QRS is 82 QT interval is 436 QTC is 512 patient does have a prolonged QT wave there is no ST segment elevation or depression noted. Chest x-ray shows no acute abnormality. Patient still complained of headache after the Tylenol. I gave her 2 of morphine. Patient at this point was not complaining of any chest pain. I spoke with Dr. Alfaro he agreed to admit the patient admitted the patient I started the patient on heparin I continue the heparin and aspirin and Nitropaste on the floor. I consult cardiology and I wrote admitting orders. - Lab Data Result diagrams: 05/11/18 14:25 05/11/18 14:25 Lab Results 05/11/18 05/11/18 05/11/18 Range/Units 14:25 14:25 14:25 WBC 7.7 (3.8-10.6) k/uL RBC 4.44 (3.80-5.40) m/uL Hgb 13.7 (11.4-16.0) gm/dL Hct 39.1 (34.0-46.0) % MCV 88.0 (80.0-100.0) fL MCH 30.8 (25.0-35.0) pg MCHC 35.0 (31.0-37.0) g/dL RDW 13.8 (11.5-15.5) % Plt Count 302 (150-450) k/uL Neutrophils % 43 % Lymphocytes % 45 % Monocytes % 6 % Eosinophils % 3 % Basophils % 1 % Neutrophils # 3.3 (1.3-7.7) k/uL Lymphocytes # 3.5 (1.0-4.8) k/uL Monocytes # 0.5 (0-1.0) k/uL Eosinophils # 0.3 (0-0.7) k/uL Basophils # 0.1 (0-0.2) k/uL PT (9.0-12.0) sec INR (<1.2) APTT (22.0-30.0) sec Sodium 140 (137-145) mmol/L Potassium 4.3 (3.5-5.1) mmol/L Chloride 105 (98-107) mmol/L Carbon Dioxide 22 (22-30) mmol/L Anion Gap 13 mmol/L BUN 18 H (7-17) mg/dL Creatinine 0.84 (0.52-1.04) mg/dL Est GFR (CKD-EPI)AfAm >90 (>60 ml/min/1.73 sqM) Est GFR (CKD-EPI)NonAf 80 (>60 ml/min/1.73 sqM) Glucose 98 (74-99) mg/dL Calcium 9.3 (8.4-10.2) mg/dL Magnesium 1.9 (1.6-2.3) mg/dL Total Bilirubin 0.4 (0.2-1.3) mg/dL AST 26 (14-36) U/L ALT 29 (9-52) U/L Alkaline Phosphatase 95 (38-126) U/L Total Creatine Kinase 157 H (30-135) U/L CK-MB (CK-2) 1.0 (0.0-2.4) ng/mL CK-MB (CK-2) Rel Index 0.6 Troponin I <0.012 (0.000-0.034) ng/mL Total Protein 7.0 (6.3-8.2) g/dL Albumin 4.2 (3.5-5.0) g/dL 05/11/18 Range/Units 14:25 WBC (3.8-10.6) k/uL RBC (3.80-5.40) m/uL Hgb (11.4-16.0) gm/dL Hct (34.0-46.0) % MCV (80.0-100.0) fL MCH (25.0-35.0) pg MCHC (31.0-37.0) g/dL RDW (11.5-15.5) % Plt Count (150-450) k/uL Neutrophils % % Lymphocytes % % Monocytes % % Eosinophils % % Basophils % % Neutrophils # (1.3-7.7) k/uL Lymphocytes # (1.0-4.8) k/uL Monocytes # (0-1.0) k/uL Eosinophils # (0-0.7) k/uL Basophils # (0-0.2) k/uL PT 9.6 (9.0-12.0) sec INR 1.0 (<1.2) APTT 22.8 (22.0-30.0) sec Sodium (137-145) mmol/L Potassium (3.5-5.1) mmol/L Chloride (98-107) mmol/L Carbon Dioxide (22-30) mmol/L Anion Gap mmol/L BUN (7-17) mg/dL Creatinine (0.52-1.04) mg/dL Est GFR (CKD-EPI)AfAm (>60 ml/min/1.73 sqM) Est GFR (CKD-EPI)NonAf (>60 ml/min/1.73 sqM) Glucose (74-99) mg/dL Calcium (8.4-10.2) mg/dL Magnesium (1.6-2.3) mg/dL Total Bilirubin (0.2-1.3) mg/dL AST (14-36) U/L ALT (9-52) U/L Alkaline Phosphatase (38-126) U/L Total Creatine Kinase (30-135) U/L CK-MB (CK-2) (0.0-2.4) ng/mL CK-MB (CK-2) Rel Index Troponin I (0.000-0.034) ng/mL Total Protein (6.3-8.2) g/dL Albumin (3.5-5.0) g/dL Critical Care Time Critical Care Time: Yes Total Critical Care Time: 35 Disposition Clinical Impression: Unstable angina pectoris Disposition: ADMITTED IP TO THIS HOSP Referrals: [facility],Clinic [Primary Care Provider] - 1-2 days Time of Disposition: 16:18
[2018-05-11 15:07] LABS: Basophils # (A) 0.1 k/uL (0-0.2); Basophils % (A) 1 %; Eosinophils # (A) 0.3 k/uL (0-0.7); Eosinophils % (A) 3 %; HCT 39.1 % (34.0-46.0); HGB 13.7 gm/dL (11.4-16.0); Lymphocytes # (A) 3.5 k/uL (1.0-4.8); Lymphocytes % (A) 45 %; MCH 30.8 pg (25.0-35.0); Mean Platelet Volume 6.7; Monocytes # (A) 0.5 k/uL (0-1.0); Monocytes % (A) 6 %; Neutrophils # (A) 3.3 k/uL (1.3-7.7); Neutrophils % (A) 43 %; Platelet Count 302 k/uL (150-450); RBC 4.44 m/uL (3.80-5.40); RDW 13.8 % (11.5-15.5); WBC 7.7 k/uL (3.8-10.6)
[2018-05-11 15:17] LABS: ALT 29 U/L (9-52); AST 26 U/L (14-36); Albumin 4.2 g/dL (3.5-5.0); Alkaline Phosphatase 95 U/L (38-126); Anion Gap 13 mmol/L; Blood Urea Nitrogen 18 mg/dL (7-17); Calcium 9.3 mg/dL (8.4-10.2); Carbon Dioxide 22 mmol/L (22-30); Chloride 105 mmol/L (98-107); Glucose 98 mg/dL (74-99); Magnesium 1.9 mg/dL (1.6-2.3); Potassium 4.3 mmol/L (3.5-5.1); Sodium 140 mmol/L (137-145); Total Bilirubin 0.4 mg/dL (0.2-1.3)
[2018-05-11 15:21] LABS: Creatine Kinase 157 U/L (30-135)
[2018-05-11 15:24] LABS: Partial Thromboplastin Time 22.8 sec (22.0-30.0); Prothrombin Time 9.6 sec (9.0-12.0)
[2018-05-11 15:34] LABS: Troponin I <0.012 ng/mL (0.000-0.034)
--- NOTE | 2018-05-11 15:39 | XR ---
EXAMINATION TYPE: XR chest 2V DATE OF EXAM: 05/11/2018 COMPARISON: Chest x-ray September 18, 2017. HISTORY: Angina with new chest pain. TECHNIQUE: Frontal and lateral views of the chest are obtained. FINDINGS: Diminished inspiration is seen on current study. There is no focal air space opacity, pleu ral effusion, or pneumothorax seen. The cardiac silhouette size is within normal limits. The osseo us structures are intact. IMPRESSION: No acute cardiopulmonary process. Diminished inspiration is noted.
[2018-05-11] MEDS ORDERED: METOCLOPRAMIDE 5 MG/ML 2 ML VIAL IVP STA (15:47)
[2018-05-11] MEDS ORDERED: HEPARIN SODIUM,PORCINE 5,000 UNIT/ML 1 ML VIAL IV ONE (16:14)
[2018-05-11] MEDS ORDERED: MORPHINE SULFATE 2 MG/ML SYRINGE IVP STA ×2 (16:14→22:17)
[2018-05-11] MEDS ORDERED: HEPARIN SOD,PORK IN 0.45% NACL 25,000 UNIT in 0.45% NACL 1 500ML.BAG IV SCH (16:15)
[2018-05-11] MEDS ORDERED: NITROGLYCERIN SL TABS 0.4 MG TAB SUBLINGUAL PRN (16:21)
[2018-05-11] MEDS: NITROGLYCERIN OINT 1 INCH/GM PACKET TOPICAL SCH ×2 (19:32→23:38)
[2018-05-11] MEDS ORDERED: ACETAMINOPHEN TAB 325 MG TAB PO STA (20:39)
[2018-05-11] MEDS ORDERED: METHOCARBAMOL 750 MG TAB PO PRN (20:39)
[2018-05-11] MEDS ORDERED: TEMAZEPAM 15 MG CAP PO PRN (20:52)
[2018-05-11] MEDS ORDERED: ACETAMINOPHEN TAB 500 MG TAB PO PRN (20:52)
[2018-05-11] MEDS ORDERED: ALPRAZolam 0.25 MG TAB PO PRN (20:52)
--- NOTE | 2018-05-11 21:47 | HP ---
HISTORY AND PHYSICAL CHIEF COMPLAINT: Chest pain. HISTORY OF PRESENT ILLNESS: This 53-year-old woman with a past medical history of hypertension, history of seizure disorder, irritable bowel syndrome, GERD being followed by Dr. Carver in the outpatient setting, previously had a stress test in [facility] around 2 years ago which was supposed to be normal. This Thursday, the patient is slated to have another treadmill stress test; however, the patient is complaining of severe anterior chest pain which is felt the across the chest which is increasing in character. The patient came to [facility], admitted for further evaluation and treatment. Initial EKG showed no acute changes and the troponin is also negative. There is no history of fever, rigors, chills at this time. PAST MEDICAL HISTORY: GERD, hypertension, seizure disorder, irritable bowel syndrome, history of diverticulitis, hysterectomy, anxiety, depression. MEDICATIONS PRIOR TO ADMISSION: Include home medications: 1. Alprazolam 10 mg p.o. t.i.d. 2. Crestor 10 mg p.o. daily. 3. Protonix 40 mg daily. 4. Toprol-XL 200 mg p.o. q.a.m. 6. Prinivil 10 mg p.o. daily. 7. Imdur 15 mg p.o. daily. 8. Neurontin 100 mg p.o. t.i.d. and 400 mg p.o. t.i.d. 9. Diltiazem ER 360 mg p.o. daily. 10.Celexa 20 mg p.o. daily and 40 mg b.i.d. 11.Ecotrin 81 mg p.o. daily. ALLERGIES: RANITIDINE and ULTRAM. FAMILY HISTORY: History of CABG in the family. SOCIAL HISTORY: History of smoking on a daily basis. REVIEW OF SYSTEMS: ENT: No diminished hearing, diminished vision. CARDIOVASCULAR: As mentioned earlier. RESPIRATORY: As mentioned earlier. GI: No nausea or vomiting. : No dysuria. NERVOUS: No numbness or weakness. ALLERGY/IMMUNOLOGY: No asthma or hay fever. MUSCULOSKELETAL: As mentioned earlier. HEMATOLOGY/ONCOLOGY: No history of anemia. ENDOCRINE: No history of diabetes, hypothyroidism. CONSTITUTIONAL: As mentioned earlier. DERMATOLOGY: Negative. RHEUMATOLOGY: Negative. PSYCHIATRY: As mentioned earlier. PHYSICAL EXAMINATION: Alert, oriented x3. Pulse 68, blood pressure 146/87, respirations 18, temperature 98 degrees, pulse ox 94% room air. HEENT: Conjunctivae normal. Oral mucosa moist. NECK: No jugular venous distention. No carotid bruits. No lymph node enlargement. CARDIOVASCULAR: S1, S2 muffled. RESPIRATORY: Breath sounds diminished in the bases. No rhonchi. No crackles. ABDOMEN: Soft, nontender. No mass palpable. LEGS: No edema. No swelling. NERVOUS SYSTEM: Higher functions as mentioned earlier. Moves all 4 limbs. No focal motor or sensory deficits. LYMPHATIC: No lymphadenopathy in neck or axillae. SKIN: No ulcer, rash or bleeding. LABS: CBC, INR within normal limits and creatine kinase 157. Troponins are negative. ASSESSMENT: 1. Chest pain possible unstable angina. 2. Hypertension. 3. Gastroesophageal reflux disease. 4. Seizure disorder, history of diverticulitis. 5. Anxiety, depression. 6. History of continued ongoing nicotine dependence. RECOMMENDATIONS AND DISCUSSION: In this 53-year-old woman with a past medical history of multiple medical problems, we will monitor the patient closely, continue the current medication. Continue with acute coronary syndrome protocol. Otherwise, I would also recommend cardiology consultation to rule out myocardial infarction, possible stress test. See orders for details and resume the home medications. The prognosis guarded because of multiple complex medical issues. Discussed with the patient and son at the bedside and further recommendations to follow. A copy of this dictation will be forwarded to Dr. Carver, who is the primary physician. MAHAMED / JAVIERN: [id number] / MTDWoody
[2018-05-11 21:49] LABS: Creatine Kinase 127 U/L (30-135)
[2018-05-11] MEDS: GABAPENTIN 400 MG CAP PO SCH (22:02)
[2018-05-11] MEDS: GABAPENTIN 100 MG CAP PO SCH (22:02)
[2018-05-11] MEDS: NICOTINE 14MG/24HR PATCH TRANSDERM SCH (22:02)
[2018-05-11] MEDS: hydrALAZINE HCL 10 MG TAB PO SCH (22:02)
[2018-05-11 22:03] LABS: Troponin I <0.012 ng/mL (0.000-0.034)
[2018-05-11] MEDS ORDERED: HYDROcodone/APAP 5-325MG 1 EACH TAB PO PRN (22:19)
[2018-05-11] MEDS ORDERED: ONDANSETRON 4 MG/2 ML VIAL IVP PRN (22:20)
[2018-05-11 23:40] VITALS: TEMP 97.7
[2018-05-12 03:15] LABS: Creatine Kinase 115 U/L (30-135)
[2018-05-12] MEDS ORDERED: PANTOPRAZOLE 40 MG TABLET PO SCH (07:30)
--- NOTE | 2018-05-12 07:33 | CONS ---
CONSULTATION This is a 53-year-old lady with a diagnosis of hypertension, who also has most of her healthcare at the [facility] in [place]. She apparently has some abnormality on the MRI of the brain and also has been having chest pains and she was scheduled to have a stress echocardiogram in the [facility] later this week. However, she came into the hospital for after having developed an episode of what she describes as extreme flushed feeling all over the body, really heart and then she felt a squeezing sensation across her chest that seemed to persist and get worse. This occurred while she was at rest and not doing much physical activity. Her 2 sets of troponins are normal, apparently. The computer system is not working, but these apparently were Advance informed but I was informed by the nurse that 2 sets of troponins are normal. There are no other significant laboratory abnormalities. She is resting comfortably without symptoms. PAST MEDICAL HISTORY: 1. Hypertension. 2. No evidence of any documented myocardial infarction, but she did have episodes of chest discomfort and had a pharmacological stress test and a cardiac cath about 4-5 years ago. She has most of her healthcare at the [facility]. She is status post hysterectomy. MEDICATIONS AT HOME INCLUDE: Hydralazine, lisinopril, Cardizem, gabapentin. She is allergic to TRAMADOL and ZANTAC. PHYSICAL EXAMINATION: Blood pressure is 122/70, pulse rate is about 70 per minute, regular. HEENT: Unremarkable. Fundus was not examined by me. Neck is supple. There is no JVD or carotid bruit. Heart exam reveals S1, S2 heard normally, no significant rub, murmur or gallop. Lungs are clear. Abdomen is soft, nontender. Lower extremities reveal normal pulses. No edema. Central nervous system is normal. EKG revealed a sinus mechanism, no acute changes. QT appears to be slightly prolonged. IMPRESSION: 1. Chest pain syndrome, seems atypical. 2. Hypertension. 3. History of some abnormality on the brain scan, seeing a neurologist. 4. Status post hysterectomy. RECOMMENDATIONS: I am recommending that we will discontinue IV heparin. Proceed with an echo and a stress echo and based on this I will make further recommendations. I will try and obtain old information but it is not possible since the computers are down. Thank you very much for the consult. MMODL / IJN: [id number] /
[2018-05-12 08:55] LABS: Anion Gap 7 mmol/L; Blood Urea Nitrogen 13 mg/dL (7-17); Calcium 8.7 mg/dL (8.4-10.2); Carbon Dioxide 27 mmol/L (22-30); Chloride 107 mmol/L (98-107); Cholesterol 263 mg/dL (<200); Glucose 84 mg/dL (74-99); HDL Cholesterol 48 mg/dL (40-60); LDL Cholesterol,Calculated 159 mg/dL (0-99); Potassium 4.2 mmol/L (3.5-5.1); Sodium 141 mmol/L (137-145); Triglycerides 280 mg/dL (<150)
[2018-05-12] MEDS ORDERED: LISINOPRIL 10 MG TAB PO SCH (09:00)
[2018-05-12] MEDS ORDERED: ATORVASTATIN 20 MG TAB PO SCH (09:00)
[2018-05-12] MEDS ORDERED: ASPIRIN 325 MG TAB PO SCH (09:00)
[2018-05-12] MEDS ORDERED: CITALOPRAM HYDROBROMIDE 20 MG TAB PO SCH (09:00)
[2018-05-12] MEDS ORDERED: METOPROLOL SUCCINATE (ER) 100 MG TAB.ER.24H PO SCH (09:00)
[2018-05-12] MEDS ORDERED: DILTIAZEM CD 180 MG CAP.ER.24H PO SCH (09:00)
[2018-05-12 10:12] LABS: Creatine Kinase MB 0.8 ng/mL (0.0-2.4); Troponin I <0.012 ng/mL (0.000-0.034)
[2018-05-12] MEDS: NITROGLYCERIN OINT 1 INCH/GM PACKET TOPICAL SCH ×2 (10:47→12:54)
[2018-05-12] MEDS ORDERED: CITALOPRAM HYDROBROMIDE 20 MG TAB PO ONE (11:00)
[2018-05-12 11:10] LABS: Basophils % (A) 0 %; Eosinophils # (A) 0.2 k/uL (0-0.7); Eosinophils % (A) 3 %; HCT 39.2 % (34.0-46.0); HGB 12.8 gm/dL (11.4-16.0); Lymphocytes # (A) 2.1 k/uL (1.0-4.8); Lymphocytes % (A) 32 %; MCH 29.1 pg (25.0-35.0); MCHC 32.6 g/dL (31.0-37.0); MCV 89.3 fL (80.0-100.0); Mean Platelet Volume 7.7; Monocytes # (A) 0.5 k/uL (0-1.0); Monocytes % (A) 7 %; Neutrophils # (A) 3.5 k/uL (1.3-7.7); Neutrophils % (A) 55 %; Platelet Count 217 k/uL (150-450); RBC 4.39 m/uL (3.80-5.40); RDW 13.9 % (11.5-15.5); WBC 6.3 k/uL (3.8-10.6)
[2018-05-12] MEDS: GABAPENTIN 400 MG CAP PO SCH (11:14)
[2018-05-12] MEDS: GABAPENTIN 100 MG CAP PO SCH (11:14)
[2018-05-12] MEDS: NICOTINE 14MG/24HR PATCH TRANSDERM SCH (11:57)
[2018-05-12] MEDS: hydrALAZINE HCL 10 MG TAB PO SCH (11:57)
[2018-05-12] MEDS ORDERED: LEVOFLOXACIN 500 MG TAB PO SCH (12:00)
[2018-05-12 13:00] VITALS: BP 116/82; PULSE 86; RESP 18
[2018-05-12 13:23] LABS: Appearance,Urine Cloudy (Clear); Bilirubin,Urine Negative (Negative); Blood,Urine Trace (Negative); Color,Urine Light Yellow; Glucose,Urine (UA) Negative (Negative); Ketones,Urine Negative (Negative); Leukocyte Esterase,Urine Large (Negative); Nitrite,Urine Positive (Negative); PH, Urine 5.5 (5.0-8.0); Protein,Urine Negative (Negative); Specific Gravity,Urine 1.009 (1.001-1.035); Urobilinogen,Urine <2.0 mg/dL (<2.0)
[2018-05-12 13:24] LABS: Bacteria,Urine Many /hpf; Mucus,Urine Rare /hpf; RBC,Urine 7 /hpf (0-5); Squamous Epithelial Cell,Urine <1 /hpf (0-4); WBC,Urine >182 /hpf (0-5)
[2018-05-12 14:57] LABS: Amphetamine Screen,Urine Not Detected (NotDetected); Barbiturate Screen,Urine Not Detected (NotDetected); Benzodiazepines Screen,Urine Detected (NotDetected); Cocaine Screen,Urine Not Detected (NotDetected); Methadone Screen, Urine Not Detected (NotDetected); Opiate Screen,Urine Detected (NotDetected); Oxycodone Screen, Urine Not Detected (NotDetected); Phencyclidine Screen,Urine Not Detected (NotDetected); Tricyclic Antidepressant,Urine Not Detected (NotDetected); Urn Cannabinoid Scrn Not Detected (NotDetected)
--- NOTE | 2018-05-12 16:47 | DS ---
DISCHARGE SUMMARY FINAL DIAGNOSES: 1. Chest pain possibly musculoskeletal. Negative stress test. 2. Hypertension. 3. Gastroesophageal reflux disease. 4. Seizure disorder. 5. History of diverticulitis. 6. History of anxiety, depression. 7. History of continued ongoing nicotine dependence. 8. Urinary tract infection. DISCHARGE DISPOSITION: The patient is being discharged in stable condition with guarded prognosis. HISTORY: This 53-year-old woman with a past medical history of multiple medical problems being followed by Dr. Carver in the outpatient setting was admitted with chest pain. Myocardial infarction ruled out. Cardiology performed a stress test. Official report pending at this time, but however, cardiology cleared the patient for discharge. On exam, vital signs are stable. Cardiovascular: S1, S2 muffled. Abdomen soft. Central nervous system: No focal deficits. DISCHARGE ADVICE AND MEDICATIONS: 1. Diet is cardiac diet. 2. Activity limited until followup. 3. Follow up with the [facility] in [address] Carver. 4. Follow with Dr. Reji Miguel as advised. 5. Ecotrin 81 mg p.o. daily. 6. Celexa 60 mg p.o. daily. 7. Diltiazem 360 mg. 8. Neurontin 400 mg p.o. t.i.d. and 100 mg p.o. t.i.d. that is 500 mg t.i.d. 9. Apresoline 10 mg p.o. t.i.d. 10.Imdur ER 15 mg p.o. daily. 11.Prinivil 10 mg p.o. daily. 12.Robaxin 750 mg p.o. t.i.d. 13.Toprol-XL 200 mg q.a.m. 14.Protonix 40 mg p.o. daily. 15.Crestor 10 mg p.o. daily. 16.Levaquin 500 mg p.o. daily for 3 more days. 17.Habitrol 14 daily. 18.No smoking. The patient is being discharged in stable condition with guarded prognosis. MMODL / IJN: [id number] /
--- NOTE | 2018-05-13 07:36 | ECHOS ---
STRESS ECHOCARDIOGRAM DATE OF SERVICE: 05/12/2018 INDICATIONS: Chest pain. MEDICATIONS: BASELINE HEART RATE: 88 BASELINE BLOOD PRESSURE: 128/74 MAXIMUM HEART RATE: 140 MAXIMUM BLOOD PRESSURE: 215/73 85% MPHR: 143 100% MPHR: 168 METS: 10.3 MAXIMUM STAGE REACHED: III TOTAL EXERCISE TIME: 9 minutes CLINICAL INFORMATION: Baseline EKG revealed normal sinus rhythm without significant ST-T changes. Patient walked on standard Ty protocol for a total duration of 9 minutes, achieved a maximal heart rate of 140 beats per minute, which is almost 85% of predicted maximal. She developed fatigue and shortness of breath but did not have any significant anginal symptoms. There was a lot of baseline artifact noted. There was no clear-cut ST- segment depression to suggest any angina by EKG criteria and patient did not have any angina. There was no evidence of any significant arrhythmia. Upsloping nonspecific ST- segment changes were noted. By EKG criteria, this is a technically inconclusive stress test because of inadequate chronotropic response, but at a heart rate of 83% of predicted maximal, there was no evidence of any angina or any significant arrhythmia. EKG changes were equivocal and patient had hypertensive response to exercise. Baseline echo images revealed a normal wall motion and wall thickening of all segments. At peak exercise, there was good augmentation of left ventricular wall motion and wall thickening of all segments suggesting that there is no evidence of stress-induced ischemia on this study at the above-mentioned stress level of 83% of predicted maximal. FINAL IMPRESSION: 1. By EKG criteria, this is a technically inconclusive stress test because of inadequate heart rate response, but at 83% of predicted maximal heart rate, there was no angina or arrhythmia and EKG revealed borderline changes. 2. At the above-mentioned stress level, there is no evidence to suggest any ischemia on the basis of the stress echocardiogram. MMODL / IJN: [id number] /
[2018-05-13] MEDS ORDERED: CITALOPRAM HYDROBROMIDE 20 MG TAB PO SCH (09:00)
[2018-05-13] MEDS ORDERED: ASPIRIN 81 MG PO SCH (09:00)
--- NOTE | 2018-05-14 11:06 | ECHOF ---
Referral Reason:chest pain MEASUREMENTS -------- HEIGHT: 160.0 cm WEIGHT: 68.0 kg BP: RVIDd: 2.8 cm (< 3.3) IVSd: 1.1 cm (0.6 - 1.1) LVIDd: 3.9 cm (3.9 - 5.3) LVPWd: 1.1 cm (0.6 - 1.1) IVSs: 1.5 cm LVIDs: 2.6 cm LVPWs: 1.5 cm LA Diam: 3.4 cm (2.7 - 3.8) LAESV Index (A-L): 30.93 ml/m Ao Diam: 2.9 cm (2.0 - 3.7) AV Cusp: 2.2 cm (1.5 - 2.6) MV EXCURSION: 10.022 mm (> 18.000) MV EF SLOPE: 46 mm/s (70 - 150) EPSS: 0.7 cm MV E Farooq: 0.78 m/s MV DecT: 275 ms MV A Farooq: 0.83 m/s MV E/A Ratio: 0.95 RAP: 5.00 mmHg RVSP: 17.49 mmHg FINDINGS -------- Sinus rhythm. This was a technically good study. The left ventricular size is normal. There is borderline concentric left ventricular hypertrophy. Overall left ventricular systolic function is normal with, an EF between 60 - 65 %. The right ventricle is normal in size. LA is midly dilated 29-33ml/m2. The right atrium is normal in size. There is mild aortic valve sclerosis. The mitral valve is normal. Trace tricuspid regurgitation present. Right ventricular systolic pressure is normal at < 35 mmHg. There is no pulmonic regurgitation present. The aortic root size is normal. Normal inferior vena cava with normal inspiratory collapse consistent with estimated right atrial pre ssure of 5 mmHg. There is no pericardial effusion. CONCLUSIONS -------- 1. Sinus rhythm. 2. This was a technically good study. 3. The left ventricular size is normal. 4. There is borderline concentric left ventricular hypertrophy. 5. Overall left ventricular systolic function is normal with, an EF between 60 - 65 %. 6. The right ventricle is normal in size. 7. LA is midly dilated 29-33ml/m2. 8. The right atrium is normal in size. 9. There is mild aortic valve sclerosis. 10. The mitral valve is normal. 11. Trace tricuspid regurgitation present. 12. Right ventricular systolic pressure is normal at < 35 mmHg. 13. There is no pulmonic regurgitation present. 14. The aortic root size is normal. 15. Normal inferior vena cava with normal inspiratory collapse consistent with estimated right atrial pressure of 5 mmHg. 16. There is no pericardial effusion. COSMETIC CHEMIST: Kristin Palacio RDCS
== END 2018-05-12 15:01 | disposition home or self-care (01) ==
LOC: EC 14:13 → 3OBS 16:21
PROVIDERS: ADMIT Hospitalist; ATTEND Hospitalist
DX: R07.89 Other chest pain (principal); R06.02 Shortness of breath; R05 Cough; R51 Headache; I10 Essential (primary) hypertension; K21.9 Gastro-esophageal reflux disease without esophagitis; G40.909 Epilepsy, unspecified, not intractable, without status epilepticus; K57.92 Diverticulitis of intestine, part unspecified, without perforation or abscess without bleeding; K58.9 Irritable bowel syndrome, unspecified; F41.9 Anxiety disorder, unspecified; F32.9 Major depressive disorder, single episode, unspecified; N39.0 Urinary tract infection, site not specified; F17.200 Nicotine dependence, unspecified, uncomplicated; Z82.49 Family history of ischemic heart disease and other diseases of the circulatory system; Z79.899 Other long term (current) drug therapy; Z79.82 Long term (current) use of aspirin; Z88.8 Allergy status to other drugs, medicaments and biological substances; Z88.5 Allergy status to narcotic agent; E78.00 Pure hypercholesterolemia, unspecified
CPT/HCPCS: 99291 ×2; 96375 ×3; 96376 ×3; 96365 ×2; 96366 ×7; 36415; 93005; 93306; 93351; 80061; 80053; 80048; 82550 ×2; 82553 ×2; 83735; 84484 ×2; 85025 ×2; 85610; 85730; 81001; 80306; 71046; G0378 ×2; S4990 ×2; J1644 ×2; J2405; J2270

== ENCOUNTER 2018-06-10 10:30 | Observation (INO) | payer OTHER ==
[2018-06-10] MEDS ORDERED: SODIUM CHLORIDE 0.9% 1,000 ML IV STA (10:47)
[2018-06-10] MEDS ORDERED: LORazepam 2 MG/ML INJ IV STA (10:47)
--- NOTE | 2018-06-10 10:50 | ED ---
General Adult HPI - General Chief complaint: Arrhythmia/Palpitations Stated complaint: Palpitations Time Seen by Provider: 06/10/18 10:43 Source: patient, RN notes reviewed Mode of arrival: wheelchair Limitations: no limitations - History of Present Illness Initial comments: Patient is a pleasant 53-year-old female presenting to the emergency department palpitations. Onset was prior to arrival while getting ready for work. Patient feels her heart is racing. Patient does have some associated chest discomfort. No dyspnea. Discomfort is described as tightness. No nausea vomiting. No diaphoresis. Patient did have similar symptoms once a couple of months ago with negative stress test. Patient does admit to feeling anxious regarding this. - Related Data Home Medications Medication Instructions Recorded Confirmed Diltiazem HCl [Diltiazem 24Hr ER] 360 mg PO DAILY 11/30/17 06/10/18 Metoprolol Succinate [Toprol XL] 200 mg PO QAM 02/17/18 06/10/18 Aspirin EC [Ecotrin Low Dose] 81 mg PO DAILY 05/11/18 06/10/18 Gabapentin [Neurontin] 100 mg PO TID 05/11/18 06/10/18 Gabapentin [Neurontin] 400 mg PO TID 05/11/18 06/10/18 Lisinopril [Prinivil] 10 mg PO DAILY 05/11/18 06/10/18 Methocarbamol [Robaxin-750] 750 mg PO TID PRN 05/11/18 06/10/18 Rosuvastatin [Crestor] 10 mg PO DAILY 05/11/18 06/10/18 hydrALAZINE HCL [Apresoline] 10 mg PO TID 05/11/18 06/10/18 Eluxadoline [Viberzi] 100 mg PO BID 06/10/18 06/10/18 hydrOXYzine HCL [Atarax] 25 mg PO BID 06/10/18 06/10/18 Allergies Allergy/AdvReac Type Severity Reaction Status Date / Time ranitidine [From Zantac] Allergy Rash/Hives Verified 06/10/18 11:11 tramadol AdvReac seizures Verified 06/10/18 11:11 Review of Systems ROS Statement: Those systems with pertinent positive or pertinent negative responses have been documented in the HPI. ROS Other: All systems not noted in ROS Statement are negative. Constitutional: Denies: fever Eyes: Denies: eye pain ENT: Denies: ear pain Respiratory: Denies: cough, dyspnea Cardiovascular: Reports: chest pain, palpitations Endocrine: Denies: fatigue Gastrointestinal: Denies: abdominal pain Genitourinary: Denies: dysuria Musculoskeletal: Denies: back pain Skin: Denies: rash Neurological: Denies: weakness Psychiatric: Reports: anxiety Past Medical History Past Medical History: GERD/Reflux, Hypertension, Seizure Disorder Additional Past Medical History / Comment(s): IBS, DIVERTICULITIS, 1 seizure last summer-says from tramadol,deviated septum(sx), ddd neck/lower back, arhtritis History of Any Multi-Drug Resistant Organisms: None Reported Past Surgical History: Hysterectomy Additional Past Surgical History / Comment(s): hiatal hernia repair, right ear @ age 17 d/t [facility], septoplasty and pt stated "4 days later ened [facility] in [facility] with [facility] shock" Past Anesthesia/Blood Transfusion Reactions: No Reported Reaction Past Psychological History: Anxiety, Depression Smoking Status: Current every day smoker Past Alcohol Use History: None Reported Past Drug Use History: None Reported - Past Family History Mother Family Medical History: No Reported History Additional Family Medical History / Comment(s): triple bypass Father Family Medical History: Coronary Artery Disease (CAD) Additional Family Medical History / Comment(s): triple bypass General Exam Limitations: no limitations General appearance: alert, anxious Head exam: Present: atraumatic Eye exam: Present: normal appearance, PERRL ENT exam: Present: normal oropharynx Neck exam: Present: normal inspection Respiratory exam: Present: normal lung sounds bilaterally Cardiovascular Exam: Present: tachycardia Expanded Peripheral pulses: 2+: Radial (R), Radial (L), Posterior Tibialis (R), Posterior Tibialis (L) GI/Abdominal exam: Present: soft. Absent: tenderness Extremities exam: Present: normal inspection. Absent: pedal edema, calf tenderness Neurological exam: Present: alert Psychiatric exam: Present: anxious Skin exam: Present: normal color Course Vital Signs 06/10/18 06/10/18 06/10/18 10:31 10:38 12:30 Temperature 98.1 F Pulse Rate 147 H 132 H 101 H Respiratory 26 H 24 20 Rate Blood Pressure 148/110 183/89 111/59 O2 Sat by Pulse 100 99 99 Oximetry EKG Findings - EKG Comments: EKG Findings:: Sinus tachycardia 126. FL 142. QRS 80. QT 322. QTC 422. Normal axis. Normal QRS. No acute ST change. Medical Decision Making - Medical Decision Making Patient reevaluated and resting comfortably in bed. Patient updated on results and plan. Case was discussed with Dr. Dhaliwal, who will admit for Dr. Mejia - Lab Data Result diagrams: 06/10/18 10:50 06/10/18 10:50 Lab Results 06/10/18 06/10/18 06/10/18 Range/Units 10:50 10:50 10:50 WBC 14.9 H (3.8-10.6) k/uL RBC 5.09 (3.80-5.40) m/uL Hgb 14.2 (11.4-16.0) gm/dL Hct 43.5 (34.0-46.0) % MCV 85.4 (80.0-100.0) fL MCH 27.9 (25.0-35.0) pg MCHC 32.7 (31.0-37.0) g/dL RDW 13.9 (11.5-15.5) % Plt Count 339 (150-450) k/uL Neutrophils % 77 % Lymphocytes % 15 % Monocytes % 4 % Eosinophils % 2 % Basophils % 0 % Neutrophils # 11.5 H (1.3-7.7) k/uL Lymphocytes # 2.2 (1.0-4.8) k/uL Monocytes # 0.6 (0-1.0) k/uL Eosinophils # 0.3 (0-0.7) k/uL Basophils # 0.1 (0-0.2) k/uL PT (9.0-12.0) sec INR (<1.2) APTT (22.0-30.0) sec D-Dimer (<0.60) mg/L FEU Sodium 142 (137-145) mmol/L Potassium 4.2 (3.5-5.1) mmol/L Chloride 111 H (98-107) mmol/L Carbon Dioxide 21 L (22-30) mmol/L Anion Gap 10 mmol/L BUN 17 (7-17) mg/dL Creatinine 0.90 (0.52-1.04) mg/dL Est GFR (CKD-EPI)AfAm 85 (>60 ml/min/1.73 sqM) Est GFR (CKD-EPI)NonAf 74 (>60 ml/min/1.73 sqM) Glucose 107 H (74-99) mg/dL Calcium 9.5 (8.4-10.2) mg/dL Magnesium 1.9 (1.6-2.3) mg/dL Total Bilirubin 0.5 (0.2-1.3) mg/dL AST 20 (14-36) U/L ALT 23 (9-52) U/L Alkaline Phosphatase 130 H (38-126) U/L Total Creatine Kinase 120 (30-135) U/L CK-MB (CK-2) 0.8 (0.0-2.4) ng/mL CK-MB (CK-2) Rel Index 0.7 Troponin I <0.012 (0.000-0.034) ng/mL Total Protein 7.5 (6.3-8.2) g/dL Albumin 4.3 (3.5-5.0) g/dL TSH 4.430 (0.465-4.680) mIU/L Free T4 0.99 (0.78-2.19) ng/dL Free T3 pg/mL 4.8 (2.8-5.3) pg/ml 06/10/18 Range/Units 10:50 WBC (3.8-10.6) k/uL RBC (3.80-5.40) m/uL Hgb (11.4-16.0) gm/dL Hct (34.0-46.0) % MCV (80.0-100.0) fL MCH (25.0-35.0) pg MCHC (31.0-37.0) g/dL RDW (11.5-15.5) % Plt Count (150-450) k/uL Neutrophils % % Lymphocytes % % Monocytes % % Eosinophils % % Basophils % % Neutrophils # (1.3-7.7) k/uL Lymphocytes # (1.0-4.8) k/uL Monocytes # (0-1.0) k/uL Eosinophils # (0-0.7) k/uL Basophils # (0-0.2) k/uL PT 9.8 (9.0-12.0) sec INR 1.0 (<1.2) APTT 22.6 (22.0-30.0) sec D-Dimer 0.59 (<0.60) mg/L FEU Sodium (137-145) mmol/L Potassium (3.5-5.1) mmol/L Chloride (98-107) mmol/L Carbon Dioxide (22-30) mmol/L Anion Gap mmol/L BUN (7-17) mg/dL Creatinine (0.52-1.04) mg/dL Est GFR (CKD-EPI)AfAm (>60 ml/min/1.73 sqM) Est GFR (CKD-EPI)NonAf (>60 ml/min/1.73 sqM) Glucose (74-99) mg/dL Calcium (8.4-10.2) mg/dL Magnesium (1.6-2.3) mg/dL Total Bilirubin (0.2-1.3) mg/dL AST (14-36) U/L ALT (9-52) U/L Alkaline Phosphatase (38-126) U/L Total Creatine Kinase (30-135) U/L CK-MB (CK-2) (0.0-2.4) ng/mL CK-MB (CK-2) Rel Index Troponin I (0.000-0.034) ng/mL Total Protein (6.3-8.2) g/dL Albumin (3.5-5.0) g/dL TSH (0.465-4.680) mIU/L Free T4 (0.78-2.19) ng/dL Free T3 pg/mL (2.8-5.3) pg/ml - Radiology Data Radiology results: image reviewed (Chest x-ray shows no acute process) Disposition Clinical Impression: Chest pain Disposition: ADMITTED IP TO THIS [facility] Is patient prescribed a controlled substance at d/c from ED?: No Referrals: Almas Carver DO [Primary Care Provider] - 1-2 days Decision Time: 12:35
[2018-06-10 11:14] LABS: Basophils # (A) 0.1 k/uL (0-0.2); Basophils % (A) 0 %; Eosinophils # (A) 0.3 k/uL (0-0.7); Eosinophils % (A) 2 %; HCT 43.5 % (34.0-46.0); HGB 14.2 gm/dL (11.4-16.0); Lymphocytes # (A) 2.2 k/uL (1.0-4.8); Lymphocytes % (A) 15 %; MCH 27.9 pg (25.0-35.0); MCHC 32.7 g/dL (31.0-37.0); MCV 85.4 fL (80.0-100.0); Mean Platelet Volume 6.5; Monocytes # (A) 0.6 k/uL (0-1.0); Monocytes % (A) 4 %; Neutrophils # (A) 11.5 k/uL (1.3-7.7); Neutrophils % (A) 77 %; Platelet Count 339 k/uL (150-450); RBC 5.09 m/uL (3.80-5.40); RDW 13.9 % (11.5-15.5); WBC 14.9 k/uL (3.8-10.6)
[2018-06-10 11:18] LABS: Albumin 4.3 g/dL (3.5-5.0); Calcium 9.5 mg/dL (8.4-10.2); Magnesium 1.9 mg/dL (1.6-2.3); Potassium 4.2 mmol/L (3.5-5.1); Total Bilirubin 0.5 mg/dL (0.2-1.3); Total Protein 7.5 g/dL (6.3-8.2)
[2018-06-10 11:26] LABS: D-Dimer 0.59 mg/L FEU (<0.60); Partial Thromboplastin Time 22.6 sec (22.0-30.0); Prothrombin Time 9.8 sec (9.0-12.0)
--- NOTE | 2018-06-10 11:32 | XR ---
EXAMINATION TYPE: XR chest 2V DATE OF EXAM: 06/10/2018 COMPARISON: NONE HISTORY: Shortness of breath TECHNIQUE: Frontal and lateral views of the chest are obtained. FINDINGS: Scattered senescent parenchymal changes noted. Hyperinflation compatible with COPD. No evidence for infiltrate. No evidence for atelectasis. Heart size is stable. Mediastinal structures are stable and grossly unremarkable. No evidence for hilar prominence. Degenerative changes dorsal spine. IMPRESSION: 1. No evidence for acute pulmonary disease.
[2018-06-10 11:34] LABS: T4, Free (Free Thyroxine) 0.99 ng/dL (0.78-2.19)
[2018-06-10 11:41] LABS: Creatine Kinase 120 U/L (30-135)
[2018-06-10 11:54] LABS: Creatine Kinase MB 0.8 ng/mL (0.0-2.4); Troponin I <0.012 ng/mL (0.000-0.034)
[2018-06-10] MEDS ORDERED: ONDANSETRON 4 MG/2 ML VIAL IVP STA (12:34)
[2018-06-10] MEDS ORDERED: ASPIRIN 81 MG PO STA (12:35)
[2018-06-10] MEDS ORDERED: NITROGLYCERIN SL TABS 0.4 MG TAB SUBLINGUAL PRN (12:35)
[2018-06-10 17:58] LABS: Creatine Kinase 82 U/L (30-135)
[2018-06-10 18:11] LABS: Creatine Kinase MB 0.6 ng/mL (0.0-2.4); Troponin I <0.012 ng/mL (0.000-0.034)
[2018-06-10] MEDS: NITROGLYCERIN OINT 1 INCH/GM PACKET TOPICAL SCH ×2 (18:30→23:15)
[2018-06-10] MEDS ORDERED: ONDANSETRON 4 MG/2 ML VIAL IVP PRN (19:14)
[2018-06-10] MEDS: MORPHINE SULFATE 2 MG/ML SYRINGE IVP PRN ×2 (19:25→22:00)
[2018-06-10 20:29] LABS: Appearance,Urine Cloudy (Clear); Bacteria,Urine Few /hpf; Bilirubin,Urine Negative (Negative); Blood,Urine Negative (Negative); Color,Urine Yellow; Glucose,Urine (UA) Negative (Negative); Hyaline Casts,Urine 7 /lpf (0-2); Ketones,Urine Negative (Negative); Leukocyte Esterase,Urine Moderate (Negative); Mucus,Urine Rare /hpf; Nitrite,Urine Positive (Negative); Protein,Urine Negative (Negative); RBC,Urine 3 /hpf (0-5); Specific Gravity,Urine 1.017 (1.001-1.035); Squamous Epithelial Cell,Urine 2 /hpf (0-4); Urobilinogen,Urine <2.0 mg/dL (<2.0); WBC,Urine 15 /hpf (0-5)
[2018-06-10 20:33] LABS: Amphetamine Screen,Urine Not Detected (NotDetected); Barbiturate Screen,Urine Not Detected (NotDetected); Benzodiazepines Screen,Urine Detected (NotDetected); Cocaine Screen,Urine Not Detected (NotDetected); Methadone Screen, Urine Not Detected (NotDetected); Opiate Screen,Urine Detected (NotDetected); Oxycodone Screen, Urine Not Detected (NotDetected); Phencyclidine Screen,Urine Not Detected (NotDetected); Tricyclic Antidepressant,Urine Not Detected (NotDetected); Urn Cannabinoid Scrn Not Detected (NotDetected)
[2018-06-10] MEDS ORDERED: TEMAZEPAM 15 MG CAP PO PRN (21:26)
[2018-06-10] MEDS ORDERED: ALPRAZolam 0.25 MG TAB PO PRN (21:26)
[2018-06-10] MEDS ORDERED: METHOCARBAMOL 750 MG TAB PO PRN (21:27)
[2018-06-10] MEDS: PANTOPRAZOLE 40 MG/10 ML VIAL IVP SCH (22:00)
[2018-06-10] MEDS ORDERED: hydrALAZINE HCL 10 MG TAB PO SCH (22:00)
[2018-06-10] MEDS: ACETAMINOPHEN TAB 500 MG TAB PO PRN (22:01)
[2018-06-10] MEDS: cefTRIAXone IN SWFI 1,000 MG/10 ML SYRINGE IVP SCH (22:02)
[2018-06-10] MEDS: GABAPENTIN 100 MG CAP PO SCH (22:03)
[2018-06-10] MEDS: GABAPENTIN 400 MG CAP PO SCH (22:03)
--- NOTE | 2018-06-10 22:18 | HP ---
HISTORY AND PHYSICAL CHIEF COMPLAINTS: Palpitations, nausea, vomiting. HISTORY OF PRESENT ILLNESS: This is a 53-year-old woman with a past medical history of hypertension, GERD, seizure disorder, history of diverticulitis, being followed by Dr. Carver in the outpatient setting, recently admitted with chest pain, myocardial infarction ruled out. Stress test was negative. Currently the patient is complaining of nausea, palpitation, and the patient feels that the heart is racing and the patient admitted for further evaluation and treatment. Patient also reports significant stress at home with 2 sons living with her and not contributing. There is no history of any fever, rigors. No history of headache, loss of consciousness or seizures at this time. PAST MEDICAL HISTORY: History of recent stress test, history of seizure disorder, hypertension, history of gastroesophageal reflux disease. HOME MEDICATIONS: 1. Atarax 25 mg p.o. b.i.d. 2. Alprazolam 10 mg t.i.d. 3. Crestor 10 mg b.i.d. 4. Toprol-XL 200 mg q.a.m. 5. Robaxin 750 p.o. t.i.d. p.r.n. 6. Prinivil 10 mg p.o. daily. 7. Neurontin 500 mg p.o. t.i.d. 8. Viberzi 100 mg p.o. b.i.d. 9. Diltiazem 360 mg p.o. daily. 10.Ecotrin 81 mg p.o. daily. ALLERGIES: ZANTAC, FAMILY HISTORY: History of CABG in the family. SOCIAL HISTORY: History of smoking. No history of alcohol intake. REVIEW OF SYSTEMS: ENT: No diminished hearing, diminished vision. CARDIOVASCULAR: No angina, palpitations. RESPIRATORY: As mentioned earlier. GI: No nausea or vomiting. : No dysuria. NERVOUS: No numbness or weakness. ALLERGY/IMMUNOLOGY: No asthma or hay fever. MUSCULOSKELETAL: As mentioned earlier. HEMATOLOGY/ONCOLOGY: No history of anemia. ENDOCRINE: No history of diabetes, hypothyroidism. CONSTITUTIONAL: As mentioned earlier. DERMATOLOGY: Negative. RHEUMATOLOGY: Negative. PSYCHIATRY: As mentioned earlier. PHYSICAL EXAMINATION: Alert oriented x3. Pulse is 65, blood pressure 107/69, respirations 18, temperature 98.2, pulse ox 98% on 2L. HEENT: Conjunctivae normal. Oral mucosa moist. NECK: No jugular venous distention. No carotid bruits. No lymph node enlargement. CARDIOVASCULAR: S1, S2 muffled. RESPIRATORY: Breath sounds diminished in the bases. No rhonchi. No crackles. ABDOMEN: Soft, nontender. LEGS: No edema. NERVOUS SYSTEM: Higher functions as mentioned earlier. Moves all 4 limbs. No focal motor or sensory deficits. LYMPHATIC: No lymphadenopathy in neck or axillae. SKIN: No ulcer, rash or bleeding. LABS: WBC 14.9. UA: Possible UTI. ASSESSMENT: 1. Chest pain, dizziness, possibly gastroesophageal reflux disease. 2. History of recent negative stress test. 3. Severe anxiety. 4. Possibly urinary tract infection. 5. Hypertension. 6. Gastroesophageal reflux disease. 7. Seizure disorder. 8. History of diverticulitis. 9. History of anxiety and depression. 10.Continued ongoing nicotine dependence. RECOMMENDATIONS AND DISCUSSION: In this 53-year-old woman who presented with multiple complex medical issues, will monitor the patient closely. Continue the current medical management and continue symptomatic treatment. Otherwise at this time, broad-spectrum IV antibiotics, symptomatic treatment and will obtain the cultures, Cardiology consultation. Guarded prognosis because of multiple complex medical issues and further recommendations to follow. A copy of this dictation will be forwarded to Dr. Carver, who is the primary physician MAHAMED / MILAGROS: [id number] / MTDWoody
[2018-06-10 23:01] LABS: Creatine Kinase 75 U/L (30-135)
[2018-06-10 23:14] LABS: Creatine Kinase MB 0.7 ng/mL (0.0-2.4); Troponin I <0.012 ng/mL (0.000-0.034)
[2018-06-11] MEDS: NITROGLYCERIN OINT 1 INCH/GM PACKET TOPICAL SCH (05:19)
[2018-06-11 07:23] LABS: Basophils % (A) 1 %; Eosinophils # (A) 0.2 k/uL (0-0.7); Eosinophils % (A) 3 %; HCT 34.8 % (34.0-46.0); HGB 11.3 gm/dL (11.4-16.0); Lymphocytes # (A) 2.1 k/uL (1.0-4.8); Lymphocytes % (A) 34 %; MCH 28.9 pg (25.0-35.0); MCHC 32.5 g/dL (31.0-37.0); Mean Platelet Volume 6.7; Monocytes # (A) 0.3 k/uL (0-1.0); Monocytes % (A) 6 %; Neutrophils # (A) 3.4 k/uL (1.3-7.7); Neutrophils % (A) 54 %; Platelet Count 218 k/uL (150-450); RBC 3.92 m/uL (3.80-5.40); RDW 14.1 % (11.5-15.5); WBC 6.2 k/uL (3.8-10.6)
[2018-06-11 07:33] LABS: Calcium 8.4 mg/dL (8.4-10.2)
[2018-06-11] MEDS ORDERED: Eluxadoline [Viberzi] 100 MG PO SCH (09:00)
[2018-06-11] MEDS ORDERED: ATORVASTATIN 20 MG TAB PO SCH (09:00)
[2018-06-11] MEDS ORDERED: LISINOPRIL 10 MG TAB PO SCH (09:00)
[2018-06-11] MEDS ORDERED: ASPIRIN 325 MG TAB PO SCH (09:00)
[2018-06-11] MEDS ORDERED: METOPROLOL SUCCINATE (ER) 100 MG TAB.ER.24H PO SCH (09:00)
[2018-06-11] MEDS ORDERED: hydrOXYzine HCL 25 MG TAB PO SCH (09:00)
[2018-06-11] MEDS ORDERED: DILTIAZEM CD 180 MG CAP.ER.24H PO SCH (09:00)
[2018-06-11] MEDS: GABAPENTIN 400 MG CAP PO SCH (09:37)
[2018-06-11] MEDS: cefTRIAXone IN SWFI 1,000 MG/10 ML SYRINGE IVP SCH (09:37)
[2018-06-11] MEDS: GABAPENTIN 100 MG CAP PO SCH (09:38)
[2018-06-11] MEDS: PANTOPRAZOLE 40 MG/10 ML VIAL IVP SCH (09:38)
[2018-06-11] MEDS: ACETAMINOPHEN TAB 500 MG TAB PO PRN (09:39)
[2018-06-11 10:14] VITALS: RESP 16
--- NOTE | 2018-06-11 10:45 | P.CRDCN ---
History of Present Illness History of present illness: Mrs. England is a pleasant 53-year-old female past medical history significant for gastroesophageal reflux disease, hypertension and tachycardia. She is also daily smoker. She denies history of coronary artery disease. We' ve been asked to see her in consultation for chest pain. She states for the previous 2 months she will have episodes where she feels extremely flushed throughout her entire body and feels palpitations in her chest as well as a headache and pounding in her head. The symptoms are nonspecific and not related to any specific activity or exertion. They sometimes, rest. She has discussed this with her primary care physician and has been placed on medications for sinus tachycardia in the past. She was recently admitted here to the hospital last month for similar type symptoms and underwent a stress test which was negative for stress-induced cardiac ischemia. She denies chest pain, shortness of breath, nausea, vomiting or dizziness with these symptoms. She also denies PND or orthopnea. She was started on Rocephin yesterday. EKG reveals sinus tachycardia heart rate in the 120s. Chest x-ray Chest x-ray negative for acute cardiopulmonary process. Laboratory data reviewed, WBC on admission 14.9, repeat this morning 6.2, hemoglobin 11.3, platelets 218, d-dimer 0.59, sodium 140, potassium 4.0, magnesium 1.9, creatinine 0.94, LDL 1:30, HDL 35, triglycerides 273 total cholesterol 220. TSH 4.43 and free T4 0.99. Current cardiac medications include aspirin 81 mg daily, diltiazem 360 mg daily , lisinopril 10 mg daily, Toprol 200 mg daily, rosuvastatin 10 mg daily and hydralazine 10 mg 3 times a day. Most recent echocardiogram performed April 2018 reveals preserved left ventricular systolic function. No evidence of valvular heart disease. Review of Systems At the time of my exam: CONSTITUTIONAL: Denies fever. Denies chills. EYES: Denies blurred vision. Denies vision changes. Denies eye pain. EARS, NOSE, MOUTH & THROAT: Denies headache. Denies sore throat. Denies ear pain. CARDIOVASCULAR: Denies chest pain. Denies shortness of breath. Denies orthopnea. Denies PND. Denies palpitations. RESPIRATORY: Denies cough. GASTROINTESTINAL: Denies abdominal pain. Denies diarrhea. Denies constipation. Denies nausea. Denies vomiting. MUSCULOSKELETAL: Denies myalgias. INTEGUMENTARY: Denies pruitis. Denies rash. NEUROLOGIC: Denies numbness. Denies tingling. Denies weakness. PSYCHIATRIC: Denies anxiety. Denies depression. ENDOCRINE: Denies fatigue. Denies weight change. Denies polydipsia. Denies polyurina. GENITOURINARY: Denies burning, hematuria or urgency with micturation. HEMATOLOGIC: Denies history of anemia. Denies bleeding. Past Medical History Past Medical History: GERD/Reflux, Hypertension, Seizure Disorder Additional Past Medical History / Comment(s): IBS, DIVERTICULITIS, 1 seizure last summer-says from tramadol,deviated septum(sx), ddd neck/lower back, arhtritis, stress test-neg, uti History of Any Multi-Drug Resistant Organisms: None Reported Past Surgical History: Hysterectomy Additional Past Surgical History / Comment(s): hiatal hernia repair, right ear @ age 17 d/t [facility], septoplasty and pt stated "4 days later ened up in [facility] with septic shock" Past Anesthesia/Blood Transfusion Reactions: No Reported Reaction Additional Past Anesthesia/Blood Transfusion Reaction / Comment(s): mild clausterphobia Smoking Status: Current every day smoker - Past Family History Mother Family Medical History: No Reported History Additional Family Medical History / Comment(s): triple bypass Father Family Medical History: Coronary Artery Disease (CAD) Additional Family Medical History / Comment(s): triple bypass Medications and Allergies Home Medications Medication Instructions Recorded Confirmed Type Diltiazem HCl [Diltiazem 24Hr ER] 360 mg PO DAILY 11/30/17 06/10/18 History Metoprolol Succinate [Toprol XL] 200 mg PO QAM 02/17/18 06/10/18 History Aspirin EC [Ecotrin Low Dose] 81 mg PO DAILY 05/11/18 06/10/18 History Gabapentin [Neurontin] 100 mg PO TID 05/11/18 06/10/18 History Gabapentin [Neurontin] 400 mg PO TID 05/11/18 06/10/18 History Lisinopril [Prinivil] 10 mg PO DAILY 05/11/18 06/10/18 History Methocarbamol [Robaxin-750] 750 mg PO TID PRN 05/11/18 06/10/18 History Rosuvastatin [Crestor] 10 mg PO DAILY 05/11/18 06/10/18 History hydrALAZINE HCL [Apresoline] 10 mg PO TID 05/11/18 06/10/18 History Eluxadoline [Viberzi] 100 mg PO BID 06/10/18 06/10/18 History hydrOXYzine HCL [Atarax] 25 mg PO BID 06/10/18 06/10/18 History Allergies Allergy/AdvReac Type Severity Reaction Status Date / Time ranitidine [From Zantac] Allergy Rash/Hives Verified 06/10/18 21:42 tramadol AdvReac seizures Verified 06/10/18 21:42 Physical Exam Vitals: Vital Signs Temp Pulse Pulse Resp BP BP Pulse Ox 06/11/18 08:00 98.7 F 79 16 86/60 96 06/11/18 03:47 97.9 F 68 18 95/54 95 06/11/18 00:00 97.8 F 78 18 123/79 98 06/10/18 21:23 98.2 F 65 18 107/69 98 06/10/18 19:26 71 18 107/54 99 06/10/18 17:00 95 20 130/74 98 06/10/18 13:00 105 H 20 104/81 98 06/10/18 12:30 101 H 20 111/59 99 06/10/18 10:38 132 H 24 183/89 99 Intake and Output 06/10/18 06/11/18 06/11/18 22:59 06:59 14:59 Other: # Voids 1 Blood pressure 86/60 heart rate 79 afebrile maintaining oxygen saturation on room air. GENERAL: This is a 53-year-old female in no apparent distress at the time of my examination. HEENT: Head is atraumatic, normocephalic. Pupils are equal, round. Sclerae anicteric. Conjunctivae are clear. Mucous membranes of the mouth are moist. Neck is supple. There is no jugular venous distention. No carotid bruit is heard. LUNGS: Clear to auscultation no wheezes, rales or rhonchi. No chest wall tenderness is noted on palpation or with deep breathing. HEART: Regular rate and rhythm without murmurs, rubs or gallops. S1 and S2 heard. ABDOMEN: Soft, nontender. Bowel sounds are heard. No organomegaly noted. EXTREMITIES: No evidence of peripheral edema and no calf tenderness noted. VASCULAR: Radial and dorsalis pedis pulses palpated, no evidence of clubbing. NEUROLOGIC: Patient is awake, alert and oriented x3. Results 06/11/18 06:19 06/11/18 06:19 Cardiac Enzymes 06/10/18 06/10/18 06/10/18 Range/Units 10:50 10:50 17:16 AST 20 (14-36) U/L CK-MB (CK-2) 0.8 0.6 (0.0-2.4) ng/mL Troponin I <0.012 <0.012 (0.000-0.034) ng/mL 06/10/18 Range/Units 22:20 AST (14-36) U/L CK-MB (CK-2) 0.7 (0.0-2.4) ng/mL Troponin I <0.012 (0.000-0.034) ng/mL Coagulation 06/10/18 Range/Units 10:50 PT 9.8 (9.0-12.0) sec APTT 22.6 (22.0-30.0) sec Lipids 06/11/18 Range/Units 06:19 Triglycerides 273 H (<150) mg/dL Cholesterol 220 H (<200) mg/dL HDL Cholesterol 35 L (40-60) mg/dL CBC 06/10/18 06/11/18 Range/Units 10:50 06:19 WBC 14.9 H 6.2 (3.8-10.6) k/uL RBC 5.09 3.92 (3.80-5.40) m/uL Hgb 14.2 11.3 L (11.4-16.0) gm/dL Hct 43.5 34.8 (34.0-46.0) % Plt Count 339 218 (150-450) k/uL Comprehensive Metabolic Panel 06/10/18 06/11/18 Range/Units 10:50 06:19 Sodium 142 140 (137-145) mmol/L Potassium 4.2 4.0 (3.5-5.1) mmol/L Chloride 111 H 111 H (98-107) mmol/L Carbon Dioxide 21 L 24 (22-30) mmol/L BUN 17 14 (7-17) mg/dL Creatinine 0.90 0.94 (0.52-1.04) mg/dL Glucose 107 H 84 (74-99) mg/dL Calcium 9.5 8.4 (8.4-10.2) mg/dL AST 20 (14-36) U/L ALT 23 (9-52) U/L Alkaline Phosphatase 130 H (38-126) U/L Total Protein 7.5 (6.3-8.2) g/dL Albumin 4.3 (3.5-5.0) g/dL Current Medications Generic Name Dose Route Start Last Admin Trade Name Freq PRN Reason Stop Dose Admin Acetaminophen 500 mg 06/10/18 21:26 06/11/18 09:39 Tylenol Tab PO 500 mg Q6HR PRN Administration Fever and/ or Pain Alprazolam 0.25 mg 06/10/18 21:26 Xanax PO TID PRN Anxiety Atorvastatin Calcium 20 mg 06/11/18 09:00 06/11/18 09:37 Lipitor PO 20 mg DAILY RASHID Administration Ceftriaxone Sodium 1,000 mg 06/10/18 21:30 06/11/18 09:37 Rocephin IVP 1,000 mg Q24HR RASHID Administration Diltiazem HCl 360 mg 06/11/18 09:00 06/11/18 09:37 Cardizem Cd PO 360 mg DAILY RASHID Administration Gabapentin 400 mg 06/10/18 22:00 06/11/18 09:37 Neurontin PO 400 mg TID RASHID Administration Gabapentin 100 mg 06/10/18 22:00 06/11/18 09:38 Neurontin PO 100 mg TID RASHID Administration Hydroxyzine HCl 25 mg 06/11/18 09:00 06/11/18 09:38 Atarax PO 25 mg BID RASHID Administration Methocarbamol 750 mg 06/10/18 21:27 Robaxin PO TID PRN Muscle Spasm Metoprolol Succinate 200 mg 06/11/18 09:00 06/11/18 09:37 Toprol Xl PO 200 mg QAM RASHID Administration Morphine Sulfate 2 mg 06/10/18 19:14 06/10/18 22:00 Morphine Sulfate (Inj) IVP 2 mg Q6HR PRN Administration Moderate pain Nitroglycerin 0.4 mg 06/10/18 12:35 Nitrostat SUBLINGUAL Q5M PRN Chest Pain Eluxadoline [Viberzi 100 mg 06/11/18 09:00 06/11/18 09:44 ] 100 Mg PO Not Given BID RASHID Ondansetron HCl 4 mg 06/10/18 19:14 06/10/18 19:22 Zofran IVP 4 mg Q6HR PRN Administration Nausea And Vomiting Pantoprazole Sodium 40 mg 06/10/18 21:00 06/11/18 09:38 Protonix IVP 40 mg BID RASHID Administration Sodium Chloride 10 ml 06/10/18 21:00 06/11/18 09:45 Saline Flush IV Not Given BID RASHID Temazepam 15 mg 06/10/18 21:26 Restoril PO HS PRN Insomnia Intake and Output 06/10/18 06/11/18 06/11/18 22:59 06:59 14:59 Other: # Voids 1 06/11/18 06:19 06/11/18 06:19 Assessment and Plan Assessment: ASSESSMENT Inappropriate sinus tachycardia History of hypertension, currently hypotensive secondary to polypharmacy. Dyslipidemia Chronic nicotine dependence PLAN Discontinue lisinopril and hydralazine which may worsen tachycardia. Continue Toprol and diltiazem as previously ordered. Apply 30-day event monitor prior to discharge. Follow up with Dr. Abdul in 5-6 weeks. Thank you kindly for this consultation. The above impression and plan of care have been discussed and directed by the signing physician. Pili Esteban, nurse practitioner, acting as scribe for signing physician.
[2018-06-11 13:17] VITALS: BP 124/74; PULSE 74; TEMP 98.3
--- NOTE | 2018-06-11 16:52 | DS ---
DISCHARGE SUMMARY FINAL DIAGNOSES: 1. Chest pain, dizziness, possibly gastroesophageal reflux disease. 2. History of recent negative stress test. 3. Severe anxiety. 4. Urinary tract infection. 5. Hypertension. 6. Gastroesophageal reflux disease. 7. Seizure disorder. 8. History of diverticulitis. 9. Anxiety/depression. 10.Continue ongoing nicotine dependence. DISCHARGE DISPOSITION: The patient is being discharged in stable condition with guarded prognosis. HISTORY OF PRESENT ILLNESS: This 53-year-old woman with a past medical history of multiple medical problems, being followed by Dr. Carver in the outpatient setting recently had negative stress test. Patient had significant social stressors. The patient complained of chest and abdominal pain, GERD symptoms. The patient treated symptomatically, improved significantly. Cardiology saw the patient and recommended outpatient followup. On exam, vital signs are stable. Cardiovascular is S1, S2. Abdomen soft. Nervous system: No focal deficits. I would recommend the patient continue with counseling and follow up with primary physician and Cardiology in case of recurrence of symptoms or no relief. Patient understands and agrees. DISCHARGE ADVICE AND MEDICATIONS: 1. Diet is cardiac diet. 2. Activity limited until followup. 3. Follow up with Dr. Abdul as advised. 4. Follow up with Dr. Carver's as advised. MEDICATIONS: 1. Ecotrin 81 mg. 2. Diltiazem 360 mg p.o. daily. 3. Viberzi 100 mg p.o. b.i.d. 4. Neurontin 400 mg t.i.d. and 100 mg p.o. t.i.d. 5. Atarax 25 mg p.o. b.i.d. 6. Robaxin 750 mg p.o. t.i.d. 7. Toprol-XL 200 mg q.a.m. 8. Crestor 10 mg p.o. daily. 9. Xanax 0.25 t.i.d. 10.Protonix 40 mg p.o. daily. 11.Bactrim DS 1 p.o. b.i.d. for 3 more days. Once again, the patient is being discharged in stable condition with guarded prognosis. MMODL / IJN: [id number] /
[2018-06-11] MEDS ORDERED: PANTOPRAZOLE 40 MG TABLET PO SCH (21:00)
== END 2018-06-11 14:00 | disposition home or self-care (01) ==
LOC: EC 10:30 → 3OBS 12:35
PROVIDERS: ADMIT Internal Medicine; ATTEND Internal Medicine
DX: R07.89 Other chest pain (principal); R42 Dizziness and giddiness; R00.2 Palpitations; R00.0 Tachycardia, unspecified; R11.2 Nausea with vomiting, unspecified; K21.9 Gastro-esophageal reflux disease without esophagitis; F41.9 Anxiety disorder, unspecified; N39.0 Urinary tract infection, site not specified; I10 Essential (primary) hypertension; I95.2 Hypotension due to drugs; E78.5 Hyperlipidemia, unspecified; G40.909 Epilepsy, unspecified, not intractable, without status epilepticus; K57.92 Diverticulitis of intestine, part unspecified, without perforation or abscess without bleeding; F17.200 Nicotine dependence, unspecified, uncomplicated; F32.9 Major depressive disorder, single episode, unspecified; J34.2 Deviated nasal septum; M19.90 Unspecified osteoarthritis, unspecified site; K58.9 Irritable bowel syndrome, unspecified; Z79.899 Other long term (current) drug therapy; Z79.82 Long term (current) use of aspirin; Z82.49 Family history of ischemic heart disease and other diseases of the circulatory system; Z88.8 Allergy status to other drugs, medicaments and biological substances; Z88.5 Allergy status to narcotic agent
CPT/HCPCS: 99285 ×2; 96374 ×2; 96375 ×4; 96376 ×4; 96361 ×14; 36415; 93005; 93270; 93271; 85379; 84439; 84481; 80061; 80053; 80048; 82550; 82553; 83735; 84443; 84484; 85025 ×2; 85610; 85730; 81001; 80306; 71046; G0378 ×2; J2060; J2405; J0696 ×2; J2270; C9113 ×2

== ENCOUNTER → 2018-06-22 | Outpatient (CLI) | payer OTHER ==
--- NOTE | 2018-06-22 23:04 | MR ---
EXAMINATION TYPE: MR brain wo/w con DATE OF EXAM: 06/22/2018 COMPARISON: Prior MRI brain October 30, 2017. Prior CT brain September 18, 2017. HISTORY: Dizziness and confusion per patient. Old operated AV malformation and seizure disorder ( G 40.09 ) per order. TECHNIQUE: Multiplanar, multisequence images of the brain and brainstem is performed without and with IV contras t, utilizing 7 mL intravenous Gadavist . FINDINGS: Diffusion weighted images demonstrate no evidence of a recent infarct or other diffusion ab normality. There is no worrisome extra-axial fluid collection. The ventricular system and cisternal spaces are normal in size and appearance. The brain volume is age appropriate. T2 coronal weighted images show hippocampal gyri to appear symmetric and felt within normal limits. There are some scatte red foci of T2 hyperintensity seen throughout the white matter bilaterally. Roughly 60 scattered lesi ons are seen, one of largest measures 8 mm left frontal lobe axial image 23 and is stable. Stable 1.0 cm left parietal lesion axial image 19. Midline structures demonstrate normal morphology. The craniocervical junction appears within normal limits. Post contrast images demonstrate no abnormal enhancement. The dural venous sinuses appear pa tent. There is moderate to severe mucosal thickening in right maxillary sinus now identified. Remaind er paranasal sinuses are clear. Globes are intact bilaterally. IMPRESSION: Redemonstration of moderate to advanced nonspecific white matter changes. No new enhancin g lesions are seen. New moderate to severe mucosal thickening right maxillary sinus otherwise no sign ificant change from prior.
== END | disposition home or self-care (01) ==
LOC: RADMRIMAIN 21:01
PROVIDERS: ATTEND Psychiatry & Neurology Neurology
DX: R90.82 White matter disease, unspecified (principal); G40.009 Localization-related (focal) (partial) idiopathic epilepsy and epileptic syndromes with seizures of localized onset, not intractable, without status epilepticus
CPT/HCPCS: 70553; A9581

== ENCOUNTER 2018-08-15 12:29 | Emergency (ER) | payer OTHER ==
--- NOTE | 2018-08-15 12:37 | ED ---
Altered Mental Status HPI - General Stated Complaint: Altered Mental Status Time Seen by Provider: 08/15/18 12:29 Source: patient, RN notes reviewed - History of Present Illness Initial Comments: This is a 53-year-old female was brought in by EMS because of confusion and altered mental status. Apparently she was at work and found to be somewhat incoherent. EMS stated she had pinpoint pupils upon arrival Narcan was suggested she refused. She was brought in. No trauma fevers chills nausea vomiting sweats reported patient denies any drugs or alcohol. Apparently this is not the first emesis happening the patient. MD Complaint: altered mental status, confusion - Related Data Home Medications Medication Instructions Recorded Confirmed Metoprolol Succinate [Toprol XL] 200 mg PO QAM 02/17/18 08/15/18 Gabapentin [Neurontin] 100 mg PO TID 05/11/18 08/15/18 Gabapentin [Neurontin] 400 mg PO TID 05/11/18 08/15/18 Methocarbamol [Robaxin-750] 750 mg PO TID PRN 05/11/18 08/15/18 Venlafaxine HCl [Effexor XR] 300 mg PO DAILY 08/15/18 08/15/18 traZODone HCL [Desyrel] 200 mg PO HS 08/15/18 08/15/18 Allergies Allergy/AdvReac Type Severity Reaction Status Date / Time ranitidine [From Zantac] Allergy Rash/Hives Verified 08/15/18 12:52 tramadol AdvReac seizures Verified 08/15/18 12:52 Review of Systems ROS Statement: Those systems with pertinent positive or pertinent negative responses have been documented in the HPI. ROS Other: All systems not noted in ROS Statement are negative. Past Medical History Past Medical History: GERD/Reflux, Hypertension, Seizure Disorder Additional Past Medical History / Comment(s): IBS, DIVERTICULITIS, 1 seizure last summer-says from tramadol,deviated septum(sx), ddd neck/lower back, arhtritis, stress test-neg, uti History of Any Multi-Drug Resistant Organisms: None Reported Past Surgical History: Hysterectomy Additional Past Surgical History / Comment(s): hiatal hernia repair, right ear @ age 17 d/t av[facility], septoplasty and pt stated "4 days later ened up in [facility] with septic shock" Past Anesthesia/Blood Transfusion Reactions: No Reported Reaction Additional Past Anesthesia/Blood Transfusion Reaction / Comment(s): mild clausterphobia Smoking Status: Current every day smoker - Past Family History Mother Family Medical History: No Reported History Additional Family Medical History / Comment(s): triple bypass Father Family Medical History: Coronary Artery Disease (CAD) Additional Family Medical History / Comment(s): triple bypass General Exam - General Exam Comments Initial Comments: This is a well-developed well-nourished awake lethargic female General appearance: lethargic Head exam: Present: atraumatic, normocephalic, normal inspection Eye exam: Present: normal appearance, PERRL, EOMI. Absent: scleral icterus, conjunctival injection, periorbital swelling ENT exam: Present: normal exam, mucous membranes moist Neck exam: Present: normal inspection. Absent: tenderness, meningismus, lymphadenopathy Respiratory exam: Present: normal lung sounds bilaterally. Absent: respiratory distress, wheezes, rales, rhonchi, stridor Cardiovascular Exam: Present: regular rate, normal rhythm, normal heart sounds. Absent: systolic murmur, diastolic murmur, rubs, gallop, clicks GI/Abdominal exam: Present: soft, normal bowel sounds. Absent: distended, tenderness, guarding, rebound, rigid Extremities exam: Present: normal inspection, full ROM, normal capillary refill. Absent: tenderness, pedal edema, joint swelling, calf tenderness Back exam: Present: normal inspection Neurological exam: Present: alert, oriented X3, CN II-XII intact, other ( Patient does drift off during conversation.) Psychiatric exam: Present: flat affect Skin exam: Present: warm, dry, intact, normal color. Absent: rash Course Vital Signs 08/15/18 08/15/18 08/15/18 12:36 12:43 13:55 Temperature 98.3 F Pulse Rate 96 93 72 Respiratory 12 14 18 Rate Blood Pressure 143/84 109/66 O2 Sat by Pulse 82 L 96 96 Oximetry 08/15/18 08/15/18 08/15/18 14:40 14:42 14:52 Temperature Pulse Rate 90 Respiratory 7 L 5 L 12 Rate Blood Pressure 101/60 O2 Sat by Pulse 95 100 Oximetry Medical Decision Making - Medical Decision Making The patient did require Narcan. Observation she responded well to 1 mg. She remained awake and alert for some time. I did a long discussion with her regarding findings she claims others her medications that causes I did recommend she quit taking his medications are consult her physician for some other medication. She is awake alert oriented 4 she will be discharged - Lab Data Result diagrams: 08/15/18 12:50 08/15/18 12:50 Lab Results 08/15/18 08/15/18 08/15/18 Range/Units 12:42 12:50 12:50 WBC 7.7 (3.8-10.6) k/uL RBC 4.33 (3.80-5.40) m/uL Hgb 12.0 (11.4-16.0) gm/dL Hct 38.4 (34.0-46.0) % MCV 88.8 (80.0-100.0) fL MCH 27.7 (25.0-35.0) pg MCHC 31.2 (31.0-37.0) g/dL RDW 14.1 (11.5-15.5) % Plt Count 249 (150-450) k/uL Neutrophils % 52 % Lymphocytes % 37 % Monocytes % 6 % Eosinophils % 3 % Basophils % 1 % Neutrophils # 4.0 (1.3-7.7) k/uL Lymphocytes # 2.8 (1.0-4.8) k/uL Monocytes # 0.4 (0-1.0) k/uL Eosinophils # 0.2 (0-0.7) k/uL Basophils # 0.1 (0-0.2) k/uL Sodium 139 (137-145) mmol/L Potassium 4.0 (3.5-5.1) mmol/L Chloride 107 (98-107) mmol/L Carbon Dioxide 24 (22-30) mmol/L Anion Gap 8 mmol/L BUN 17 (7-17) mg/dL Creatinine 1.03 (0.52-1.04) mg/dL Est GFR (CKD-EPI)AfAm 72 (>60 ml/min/1.73 sqM) Est GFR (CKD-EPI)NonAf 63 (>60 ml/min/1.73 sqM) Glucose 95 (74-99) mg/dL POC Glucose (mg/dL) 100 H (75-99) mg/dL POC Glu [employer] ID Bacilio Eddie Calcium 9.2 (8.4-10.2) mg/dL Magnesium 1.8 (1.6-2.3) mg/dL Total Bilirubin 0.5 (0.2-1.3) mg/dL AST 23 (14-36) U/L ALT 23 (9-52) U/L Alkaline Phosphatase 100 (38-126) U/L Ammonia (<30) umol/L Total Creatine Kinase (30-135) U/L CK-MB (CK-2) (0.0-2.4) ng/mL CK-MB (CK-2) Rel Index Troponin I (0.000-0.034) ng/mL Total Protein 7.2 (6.3-8.2) g/dL Albumin 4.2 (3.5-5.0) g/dL Urine Color Urine Appearance (Clear) Urine pH (5.0-8.0) Ur Specific [place] (1.001-1.035) Urine Protein (Negative) Urine Glucose (UA) (Negative) Urine Ketones (Negative) Urine Blood (Negative) Urine Nitrite (Negative) Urine Bilirubin (Negative) Urine Urobilinogen (<2.0) mg/dL Ur Leukocyte Esterase (Negative) Salicylates <1.0 mg/dL Urine Opiates Screen (NotDetected) Ur Oxycodone Screen (NotDetected) Urine Methadone Screen (NotDetected) Ur Propoxyphene Screen (NotDetected) Acetaminophen <10.0 ug/mL Ur Barbiturates Screen (NotDetected) U Tricyclic Antidepress (NotDetected) Ur Phencyclidine Scrn (NotDetected) Ur Amphetamines Screen (NotDetected) U Methamphetamines Scrn (NotDetected) U Benzodiazepines Scrn (NotDetected) Urine Cocaine Screen (NotDetected) U Marijuana (THC) Screen (NotDetected) Serum Alcohol <10 mg/dL 08/15/18 08/15/18 08/15/18 Range/Units 12:50 14:01 14:52 WBC (3.8-10.6) k/uL RBC (3.80-5.40) m/uL Hgb (11.4-16.0) gm/dL Hct (34.0-46.0) % MCV (80.0-100.0) fL MCH (25.0-35.0) pg MCHC (31.0-37.0) g/dL RDW (11.5-15.5) % Plt Count (150-450) k/uL Neutrophils % % Lymphocytes % % Monocytes % % Eosinophils % % Basophils % % Neutrophils # (1.3-7.7) k/uL Lymphocytes # (1.0-4.8) k/uL Monocytes # (0-1.0) k/uL Eosinophils # (0-0.7) k/uL Basophils # (0-0.2) k/uL Sodium (137-145) mmol/L Potassium (3.5-5.1) mmol/L Chloride (98-107) mmol/L Carbon Dioxide (22-30) mmol/L Anion Gap mmol/L BUN (7-17) mg/dL Creatinine (0.52-1.04) mg/dL Est GFR (CKD-EPI)AfAm (>60 ml/min/1.73 sqM) Est GFR (CKD-EPI)NonAf (>60 ml/min/1.73 sqM) Glucose (74-99) mg/dL POC Glucose (mg/dL) (75-99) mg/dL POC Glu Bak[employer] Associate ID Calcium (8.4-10.2) mg/dL Magnesium (1.6-2.3) mg/dL Total Bilirubin (0.2-1.3) mg/dL AST (14-36) U/L ALT (9-52) U/L Alkaline Phosphatase (38-126) U/L Ammonia <9 (<30) umol/L Total Creatine Kinase 187 H (30-135) U/L CK-MB (CK-2) 1.5 (0.0-2.4) ng/mL CK-MB (CK-2) Rel Index 0.8 Troponin I <0.012 (0.000-0.034) ng/mL Total Protein (6.3-8.2) g/dL Albumin (3.5-5.0) g/dL Urine Color Light Yellow Urine Appearance Clear (Clear) Urine pH 5.5 (5.0-8.0) Ur Specific [place] 1.007 (1.001-1.035) Urine Protein Negative (Negative) Urine Glucose (UA) Negative (Negative) Urine Ketones Negative (Negative) Urine Blood Negative (Negative) Urine Nitrite Negative (Negative) Urine Bilirubin Negative (Negative) Urine Urobilinogen <2.0 (<2.0) mg/dL Ur Leukocyte Esterase Negative (Negative) Salicylates mg/dL Urine Opiates Screen Detected H (NotDetected) Ur Oxycodone Screen Not Detected (NotDetected) Urine Methadone Screen Not Detected (NotDetected) Ur Propoxyphene Screen Not Detected (NotDetected) Acetaminophen ug/mL Ur Barbiturates Screen Not Detected (NotDetected) U Tricyclic Antidepress Not Detected (NotDetected) Ur Phencyclidine Scrn Not Detected (NotDetected) Ur Amphetamines Screen Not Detected (NotDetected) U Methamphetamines Scrn Not Detected (NotDetected) U Benzodiazepines Scrn Not Detected (NotDetected) Urine Cocaine Screen Not Detected (NotDetected) U Marijuana (THC) Screen Not Detected (NotDetected) Serum Alcohol mg/dL - EKG Data -: EKG Interpreted by Me EKG shows normal: sinus rhythm (Sinus rhythm a rate of 95 QRS 92 T-System QTC 42 /505 MI interval 190 prolonged QT interval no acute ST-T wave changes) - Radiology Data Radiology results: report reviewed (I did review the imaging and report no acute findings.), image reviewed Disposition Clinical Impression: Medication overdose Disposition: HOME SELF-CARE Condition: Good Instructions: Safe Use of Opioids (ED) Is patient prescribed a controlled substance at d/c from ED?: No Referrals: None,Stated [Primary Care Provider] - 1-2 days
[2018-08-15 12:47] LABS: Glucose,Whole Blood 100 mg/dL (75-99)
--- NOTE | 2018-08-15 13:26 | CT ---
EXAMINATION TYPE: CT brain wo con DATE OF EXAM: 08/15/2018 COMPARISON: Previous study dated 09/18/2017 and MRI of the brain dated 06/22/2018. HISTORY: pain CT DLP: 778.2 mGycm Automated exposure control for dose reduction was used. FINDINGS: There is diffuse periventricular white matter lucency compatible small vessel ischemic change. There are mild changes of atrophy. There is no acute focal lesion, mass effect or midline shift. I do not s ee evidence of intracranial blood. Visualized portions of the paranasal sinuses and mastoids are clear. The bony calvarium is intact. IMPRESSION: 1. NO ACUTE INTRACRANIAL ABNORMALITY. 2. I CANNOT EXCLUDE SOME CHRONIC WHITE MATTER ISCHEMIC CHANGE.
[2018-08-15 13:27] LABS: Basophils # (A) 0.1 k/uL (0-0.2); Basophils % (A) 1 %; Eosinophils # (A) 0.2 k/uL (0-0.7); Eosinophils % (A) 3 %; HCT 38.4 % (34.0-46.0); Lymphocytes # (A) 2.8 k/uL (1.0-4.8); Lymphocytes % (A) 37 %; MCH 27.7 pg (25.0-35.0); MCHC 31.2 g/dL (31.0-37.0); MCV 88.8 fL (80.0-100.0); Mean Platelet Volume 6.4; Monocytes # (A) 0.4 k/uL (0-1.0); Monocytes % (A) 6 %; Neutrophils % (A) 52 %; Platelet Count 249 k/uL (150-450); RBC 4.33 m/uL (3.80-5.40); RDW 14.1 % (11.5-15.5); WBC 7.7 k/uL (3.8-10.6)
[2018-08-15 13:38] LABS: ALT 23 U/L (9-52); AST 23 U/L (14-36); Acetaminophen <10.0 ug/mL; Albumin 4.2 g/dL (3.5-5.0); Alcohol <10 mg/dL; Alkaline Phosphatase 100 U/L (38-126); Anion Gap 8 mmol/L; Blood Urea Nitrogen 17 mg/dL (7-17); Calcium 9.2 mg/dL (8.4-10.2); Carbon Dioxide 24 mmol/L (22-30); Chloride 107 mmol/L (98-107); Glucose 95 mg/dL (74-99); Magnesium 1.8 mg/dL (1.6-2.3); Salicylate <1.0 mg/dL; Sodium 139 mmol/L (137-145); Total Bilirubin 0.5 mg/dL (0.2-1.3); Total Protein 7.2 g/dL (6.3-8.2)
[2018-08-15 13:50] LABS: Creatine Kinase 187 U/L (30-135)
[2018-08-15 14:03] LABS: Creatine Kinase MB 1.5 ng/mL (0.0-2.4); Troponin I <0.012 ng/mL (0.000-0.034)
[2018-08-15] MEDS ORDERED: NALOXONE 0.4 MG/ML 10 ML VIAL IVP STA (14:40)
[2018-08-15 14:47] LABS: Appearance,Urine Clear (Clear); Bilirubin,Urine Negative (Negative); Blood,Urine Negative (Negative); Color,Urine Light Yellow; Glucose,Urine (UA) Negative (Negative); Ketones,Urine Negative (Negative); Leukocyte Esterase,Urine Negative (Negative); Nitrite,Urine Negative (Negative); PH, Urine 5.5 (5.0-8.0); Protein,Urine Negative (Negative); Specific Gravity,Urine 1.007 (1.001-1.035); Urobilinogen,Urine <2.0 mg/dL (<2.0)
[2018-08-15 14:55] LABS: Amphetamine Screen,Urine Not Detected (NotDetected); Barbiturate Screen,Urine Not Detected (NotDetected); Benzodiazepines Screen,Urine Not Detected (NotDetected); Cocaine Screen,Urine Not Detected (NotDetected); Methadone Screen, Urine Not Detected (NotDetected); Opiate Screen,Urine Detected (NotDetected); Oxycodone Screen, Urine Not Detected (NotDetected); Phencyclidine Screen,Urine Not Detected (NotDetected); Tricyclic Antidepressant,Urine Not Detected (NotDetected); Urn Cannabinoid Scrn Not Detected (NotDetected)
[2018-08-15 16:14] VITALS: BP 115/64; PULSE 74; RESP 18; TEMP 98.4
== END 2018-08-15 16:14 | disposition home or self-care (01) ==
LOC: EC 12:29
DX: T65.91XA Toxic effect of unspecified substance, accidental (unintentional), initial encounter (principal); I10 Essential (primary) hypertension; G40.909 Epilepsy, unspecified, not intractable, without status epilepticus; F17.200 Nicotine dependence, unspecified, uncomplicated; Z79.899 Other long term (current) drug therapy; Z88.8 Allergy status to other drugs, medicaments and biological substances; Z88.6 Allergy status to analgesic agent; Y92.69 Other specified industrial and construction area as the place of occurrence of the external cause; Y99.0 Civilian activity done for income or pay
CPT/HCPCS: 36415; 93005; 80053; 82140; 82550; 82553; 83735; 84484; 85025; 81003; 80306; 83520 ×2; 80320; 70450; 99285; 51701; 96374; J2310

== ENCOUNTER → 2019-01-13 | Outpatient (CLI) | payer OTHER ==
[2019-01-13 13:18] LABS: Anion Gap 8 mmol/L; Blood Urea Nitrogen 15 mg/dL (7-17); Calcium 9.8 mg/dL (8.4-10.2); Carbon Dioxide 24 mmol/L (22-30); Chloride 110 mmol/L (98-107); Glucose 93 mg/dL (74-99); Potassium 3.9 mmol/L (3.5-5.1); Sodium 142 mmol/L (137-145)
[2019-01-13 13:23] LABS: Basophils # (A) 0.1 k/uL (0-0.2); Basophils % (A) 1 %; Eosinophils # (A) 0.3 k/uL (0-0.7); Eosinophils % (A) 4 %; HCT 45.8 % (34.0-46.0); HGB 14.6 gm/dL (11.4-16.0); Lymphocytes # (A) 2.6 k/uL (1.0-4.8); Lymphocytes % (A) 38 %; MCH 28.4 pg (25.0-35.0); MCV 88.7 fL (80.0-100.0); Mean Platelet Volume 6.1; Monocytes # (A) 0.5 k/uL (0-1.0); Monocytes % (A) 7 %; Neutrophils # (A) 3.3 k/uL (1.3-7.7); Neutrophils % (A) 48 %; Platelet Count 325 k/uL (150-450); RBC 5.16 m/uL (3.80-5.40); WBC 6.8 k/uL (3.8-10.6)
== END | disposition home or self-care (01) ==
LOC: LABPAT 12:22
PROVIDERS: ATTEND Urology
DX: Z01.818 Encounter for other preprocedural examination (principal); N39.3 Stress incontinence (female) (male); R35.0 Frequency of micturition; I10 Essential (primary) hypertension; Z79.899 Other long term (current) drug therapy; Z01.812 Encounter for preprocedural laboratory examination
CPT/HCPCS: 36415; 80048; 85025; 87086

== ENCOUNTER 2019-01-20 08:33 | Day surgery (SDC) | payer OTHER ==
[~2019-01-20 08:33] MED LIST: DEXAMETHASONE SOD PHOSPHATE 10 MG/ML 1 ML VIAL IV ONE; GENTAMICIN 120 MG in SODIUM CHLORIDE 0.9% 100 ML IVPB ONE; LACTATED RINGERS 1,000 ML IV SCH; LIDOCAINE 1% 20 ML VIAL (10MG/ML) FOR IV START INTRADERMA PRN; MIDAZOLAM (PF) 2 MG/2 ML VIAL IV PRN; ceFAZolin IN SWFI 2 GM/20 ML SYRINGE IVP ONE; fentaNYL (PF) 50 MCG/ML 2 ML AMP IV PRN
[2019-01-20] MEDS ORDERED: ONDANSETRON 4 MG/2 ML VIAL IVP ONE (08:57)
--- NOTE | 2019-01-20 10:03 | P.GSHP ---
History of Present Illness H&P Date: 01/17/19 Chief Complaint: Stress urinary incontinence The patient is a 53-year-old woman with a history of recurrent UTIs. She reports a several year history of stress urinary incontinence, which requires the use of 3 Maxi pads daily. Bladder emptying was adequate. Urodynamic testi ng reveals a bladder capacity of 642 mL. The abdominal leak point pressure is 164 cm H2O. Alternative treatment options of been reviewed, and she has elected to undergo a TOT sling. She comes for this reason. - Cardiovascular Cardiovascular: Reports high blood pressure - Genitourinary (Female) Genitourinary: Reports as per HPI - Musculoskeletal Musculoskeletal: Reports neck stiffness - Neurological Neurological: Reports numbness Past Medical History Past Medical History: GERD/Reflux, Hyperlipidemia, Hypertension, Seizure Disorder Additional Past Medical History / Comment(s): IBS, DIVERTICULITIS. LAST SEIZURE 07/2018. ddd neck/lower back, stress test-neg, uti, BLADDER LEAKAGE. History of Any Multi-Drug Resistant Organisms: None Reported Past Surgical History: Hysterectomy Additional Past Surgical History / Comment(s): hiatal hernia repair, right ear @ age 17 d/t avm, septoplasty and pt stated "4 days later ened up in [facility] with septic shock" Past Anesthesia/Blood Transfusion Reactions: No Reported Reaction Additional Past Anesthesia/Blood Transfusion Reaction / Comment(s): mild claustrophobia Smoking Status: Current every day smoker - Past Family History Mother Family Medical History: No Reported History Additional Family Medical History / Comment(s): triple bypass Father Family Medical History: Coronary Artery Disease (CAD) Additional Family Medical History / Comment(s): triple bypass Medications and Allergies Home Medications Medication Instructions Recorded Confirmed Type Metoprolol Succinate [Toprol XL] 200 mg PO QAM 02/17/18 01/20/19 History Gabapentin [Neurontin] 500 mg PO TID 05/11/18 01/17/19 History Methocarbamol [Robaxin-750] 750 mg PO TID PRN 05/11/18 01/17/19 History Venlafaxine HCl [Effexor XR] 150 mg PO DAILY 08/15/18 01/17/19 History traZODone HCL [Desyrel] 200 mg PO HS 08/15/18 01/17/19 History Aspirin [Adult Low Dose Aspirin EC] 81 mg PO DAILY 01/17/19 01/17/19 History Diltiazem HCl [Diltiazem ER] 360 mg PO DAILY 01/17/19 01/17/19 History OXcarbazepine [Trileptal] 150 mg PO BID 01/17/19 01/17/19 History Pantoprazole [Protonix] 40 mg PO DAILY 01/17/19 01/17/19 History Allergies Allergy/AdvReac Type Severity Reaction Status Date / Time ranitidine [From Zantac] Allergy Rash/Hives Verified 01/17/19 11:44 Surgical - Exam - General well developed, well nourished, no distress - Neck no masses - Respiratory normal respiratory effort - Abdomen Abdomen: soft, non tender, no guarding, no rigid, no rebound - Genitourinary normal external genitalia, no perineal/vulvar lesions, other (There is evidence of urethral hypermobility. Stress incontinence is demonstrated with coughing.) Assessment and Plan (1) Urinary, incontinence, stress female Current Visit: Yes Status: Acute Code(s): N39.3 - STRESS INCONTINENCE (FEMALE) (MALE) SNOMED Code(s): 98486961 Plan: Alternative treatment options have been reviewed with the patient. These included observation, TOT sling, and autologous fascia pubovaginal sling. The pros and cons of each approach were discussed in detail. She has elected to undergo a TOT sling. She understands potential risks to include anesthesia, bleeding, infection, pain, lower urinary tract injury, graft erosion, postoperative urinary retention, and persistent incontinence.
[2019-01-20] MEDS ORDERED: ROCURONIUM BROMIDE 10 MG/ML 10 ML VIAL IV ONE (10:42)
[2019-01-20] MEDS ORDERED: NEOSTIGMINE 1 MG/ML 10 ML VIAL ONE (10:42)
[2019-01-20] MEDS ORDERED: PROPOFOL 10 MG/ML 20 ML VIAL IV ONE (10:42)
[2019-01-20] MEDS ORDERED: SUCCINYLCHOLINE CHLORIDE 100 MG/5 ML SYR IV ONE (10:42)
[2019-01-20] MEDS ORDERED: LIDOCAINE 1% INJ 10MG/ML (20 ML MDV) ONE (10:42)
[2019-01-20] MEDS ORDERED: HYDROmorphone (PF) 1 MG/ML ONE (10:42)
[2019-01-20] MEDS ORDERED: LABETALOL 5 MG/ML VIAL MDV ONE (10:42)
[2019-01-20] MEDS ORDERED: GLYCOPYRROLATE 0.2 MG/ML 2 ML VIAL ONE (10:42)
[2019-01-20] MEDS ORDERED: fentaNYL (PF) 50 MCG/ML 2 ML AMP ONE (10:42)
[2019-01-20] MEDS ORDERED: MIDAZOLAM 2 MG/2 ML VIAL ONE (10:42)
[2019-01-20] MEDS ORDERED: LIDOCAINE 1%-EPI 1:100,000 20 ML VIAL SQ ONE (11:05)
[2019-01-20] MEDS ORDERED: LACTATED RINGERS 1,000 ML IV ONE (11:24)
--- NOTE | 2019-01-20 11:45 | P.OP ---
Date of Procedure: 01/20/19 Preoperative Diagnosis: Stress urinary incontinence Postoperative Diagnosis: Same Procedure(s) Performed: Obtryx trans-obturator sling Anesthesia: CHUCK Surgeon: Chris Lowe Estimated Blood Loss (ml): 150 IV fluids (ml): 800 Pathology: none sent Condition: stable Disposition: PACU Indications for Procedure: The patient is a 53-year-old woman with a history of recurrent UTIs. She reports a several year history of stress urinary incontinence, which requires the use of 3 Maxi pads daily. Bladder emptying was adequate. Urodynamic testing reveals a bladder capacity of 642 mL. The abdominal leak point pressure is 164 cm H2O. Alternative treatment options of been reviewed, and she has elected to undergo a TOT sling. She comes for this reason. Operative Findings: No abnormalities noted. Description of Procedure: The patient was taken to the operating room and placed in the dorsal lithotomy position, with her legs supported in Triston stirrups. The perineum, lower abdomen, and vagina were prepped and draped sterilely. A 16-[place] Nova catheter was placed. 1% lidocaine with epinephrine was injected submucosally within the anterior vaginal wall, over the urethra. The scalpel was then used to make an anterior midline vaginal incision over the urethra. Metzenbaum scissors were used to dissect laterally within the submucosal plane, to the inferior pubic ramus. The scalpel was used to make bilateral groin incisions at the level of the clitoris. Subcutaneous tissues were spread with a hemostat. Each of the helical needles were passed through the respective groin incision, and turned such that the needle tip wrapped around the pubis. The needle tips were guided digitally into the vaginal incision. The Obtryx graft, which had been previously soaked in antibiotic solution, was secured to the needle tips in the standard fashion. The needles were then withdrawn, and the position of the graft was adjusted such that it overlie the mid urethra, as desired. With a hemostat placed between the graft and the urethra to prevent tension of the graft over the urethra, the plastic sheath was removed from the ends of the graft. The ends of the graft were cut beneath the skin incisions, and these incisions were closed using 4-0 Vicryl suture in a subcuticular fashion. Hemostasis within the vaginal incision was adequate, and the vaginal incision was closed using 2-0 Vicryl suture in a running fashion. Cystoscopy was performed. The 30 lens was used to introduce the 19-[place] Storz cystoscopic sheath through the urethra and into the bladder under direct vision. The urethra and bladder were unremarkable. There was no evidence of perforation. Both ureteral orifices were of normal anatomic location and configuration. No tumors or foreign bodies were seen. The cystoscope was removed, and the Nova catheter was replaced into the bladder. Vaginal packing was placed. All sponge and needle counts were correct. The patient tolerated the procedure well was taken to the recovery room in stable condition.
[2019-01-20] MEDS ORDERED: KETOROLAC 30 MG/ML 1 ML VIAL IVP PRN (11:57)
[2019-01-20] MEDS ORDERED: ONDANSETRON 4 MG/2 ML VIAL IVP PRN (11:57)
[2019-01-20] MEDS ORDERED: HYDROcodone/APAP 5-325MG 1 EACH TAB PO PRN (12:00)
[2019-01-20] MEDS ORDERED: KETOROLAC 30 MG/ML 1 ML VIAL IVP ONE (12:23)
[2019-01-20] MEDS: HYDROmorphone 1 MG/ML 1 ML SYRINGE IVP ONE ×2 (12:23→12:32)
[2019-01-20] MEDS ORDERED: METHOCARBAMOL 750 MG TAB PO PRN (12:34)
[2019-01-20 13:12] VITALS: BMI 28.3
[2019-01-20] MEDS: HYDROcodone/APAP 5-325MG 1 EACH TAB PO PRN ×2 (15:16→21:27)
[2019-01-20] MEDS ORDERED: ceFAZolin 1 GM in SODIUM CHLORIDE 0.9% 100 ML IVPB SCH (16:00)
[2019-01-20] MEDS: DEXTROSE 5%-0.45% NACL 1,000 ML IV SCH (16:57)
[2019-01-20] MEDS: GABAPENTIN 100 MG CAP PO SCH ×2 (17:28→23:58)
[2019-01-20] MEDS: ceFAZolin 1,000 MG in DEXTROSE/WATER 1 50ML.BAG IVPB SCH (18:00)
[2019-01-20] MEDS ORDERED: traZODone HCL 100 MG TAB PO SCH (21:00)
[2019-01-20] MEDS: OXcarbazepine 150 MG TAB PO SCH (21:27)
[2019-01-21] MEDS: ceFAZolin 1,000 MG in DEXTROSE/WATER 1 50ML.BAG IVPB SCH ×2 (03:31→11:01)
[2019-01-21] MEDS: HYDROcodone/APAP 5-325MG 1 EACH TAB PO PRN ×2 (06:44→13:13)
[2019-01-21] MEDS: DEXTROSE 5%-0.45% NACL 1,000 ML IV SCH ×2 (06:45→15:13)
[2019-01-21] MEDS ORDERED: PANTOPRAZOLE 40 MG TABLET PO SCH (07:30)
[2019-01-21] MEDS ORDERED: METOPROLOL SUCCINATE (ER) 100 MG TAB.ER.24H PO SCH (09:00)
[2019-01-21] MEDS ORDERED: DILTIAZEM CD 180 MG CAP.ER.24H PO SCH (09:00)
[2019-01-21] MEDS ORDERED: VENLAFAXINE HCL ER 150 MG CAP PO SCH (09:00)
[2019-01-21] MEDS: GABAPENTIN 100 MG CAP PO SCH (09:04)
[2019-01-21] MEDS: OXcarbazepine 150 MG TAB PO SCH (09:05)
[2019-01-21 14:38] VITALS: BP 155/93; PULSE 76; RESP 18; TEMP 98
== END 2019-01-21 15:38 | disposition home or self-care (01) ==
LOC: OR 08:33 → 6PED 12:15 → OR 01-21 15:38
PROVIDERS: ATTEND Urology
DX: N39.3 Stress incontinence (female) (male) (principal); E78.5 Hyperlipidemia, unspecified; F17.200 Nicotine dependence, unspecified, uncomplicated; G40.909 Epilepsy, unspecified, not intractable, without status epilepticus; I10 Essential (primary) hypertension; K21.9 Gastro-esophageal reflux disease without esophagitis; K58.9 Irritable bowel syndrome, unspecified; Z79.82 Long term (current) use of aspirin; Z82.49 Family history of ischemic heart disease and other diseases of the circulatory system; Z87.440 Personal history of urinary (tract) infections; Z79.899 Other long term (current) drug therapy; Z88.8 Allergy status to other drugs, medicaments and biological substances
CPT/HCPCS: 94760; 57288; C1771; J1100; J2405; J1885; J1170; J0690 ×3; J2250

== ENCOUNTER 2019-08-28 13:51 | Emergency (ER) | payer OTHER ==
[2019-08-28] MEDS ORDERED: SODIUM CHLORIDE 0.9% 1,000 ML IV STA (14:04)
[2019-08-28] MEDS ORDERED: LORazepam 2 MG/ML INJ IV STA ×2 (14:05→15:28)
[2019-08-28] MEDS ORDERED: KETOROLAC 30 MG/ML 1 ML VIAL IVP STA ×2 (14:05→16:10)
[2019-08-28 14:29] LABS: Basophils # (A) 0.2 k/uL (0-0.2); Basophils % (A) 1 %; Eosinophils # (A) 0.2 k/uL (0-0.7); Eosinophils % (A) 1 %; HCT 43.5 % (34.0-46.0); Lymphocytes # (A) 2.8 k/uL (1.0-4.8); Lymphocytes % (A) 19 %; MCH 29.4 pg (25.0-35.0); MCHC 32.2 g/dL (31.0-37.0); MCV 91.4 fL (80.0-100.0); Mean Platelet Volume 6.6; Monocytes # (A) 0.7 k/uL (0-1.0); Monocytes % (A) 5 %; Neutrophils # (A) 10.4 k/uL (1.3-7.7); Neutrophils % (A) 72 %; Platelet Count 320 k/uL (150-450); RBC 4.75 m/uL (3.80-5.40); RDW 15.3 % (11.5-15.5); WBC 14.6 k/uL (3.8-10.6)
[2019-08-28 14:46] LABS: Albumin 4.7 g/dL (3.5-5.0); Magnesium 1.9 mg/dL (1.6-2.3); Potassium 4.3 mmol/L (3.5-5.1); Total Bilirubin 0.3 mg/dL (0.2-1.3); Total Protein 8.3 g/dL (6.3-8.2)
[2019-08-28 14:54] LABS: D-Dimer 0.38 mg/L FEU (<0.60); INR 0.9 (<1.2); Partial Thromboplastin Time 22.3 sec (22.0-30.0); Prothrombin Time 9.7 sec (9.0-12.0)
--- NOTE | 2019-08-28 14:55 | XR ---
EXAMINATION TYPE: XR chest 2V DATE OF EXAM: 08/28/2019 COMPARISON: Chest radiograph 06/10/2018 HISTORY: Anxiety TECHNIQUE: Frontal and lateral views of the chest are obtained. FINDINGS: There is no focal air space opacity, pleural effusion, or pneumothorax seen. The cardiac silhouette size is within normal limits. The osseous structures are intact. IMPRESSION: No acute cardiopulmonary process.
--- NOTE | 2019-08-28 15:03 | ED ---
Chest Pain HPI - General Chief Complaint: Chest Pain Stated Complaint: Chest Pain Time Seen by Provider: 08/28/19 13:51 Source: patient, EMS, RN notes reviewed Mode of arrival: EMS Limitations: no limitations - History of Present Illness Initial Comments: This a 54-year-old female who was brought in by EMS with complaints of midsternal chest pain. She states it started around 11:30 she is very short of breath with that she was noted by paramedics he very anxious and hyperventilating. States the pain is moderate in severity she was given nitro and aspirin by paramedics. The minimal relief. She is no known history of heart disease O she does states she had a similar episode about a year ago and was evaluated at that time. No fevers chills nausea vomiting sweats no cough or phlegm production. She does admit that she has an anxiety disorder. She states she was at work when this occurred MD Complaint: chest pain - Related Data Home Medications Medication Instructions Recorded Confirmed Metoprolol Succinate [Toprol XL] 200 mg PO QAM 02/17/18 08/28/19 Gabapentin [Neurontin] 500 mg PO TID 05/11/18 08/28/19 Methocarbamol [Robaxin-750] 750 mg PO TID PRN 05/11/18 08/28/19 Venlafaxine HCl [Effexor XR] 150 mg PO DAILY 08/15/18 08/28/19 Diltiazem HCl [Diltiazem ER] 360 mg PO DAILY 01/17/19 08/28/19 OXcarbazepine [Trileptal] 150 mg PO BID 01/17/19 08/28/19 Pantoprazole [Protonix] 40 mg PO DAILY 01/17/19 08/28/19 Gabapentin [Neurontin] 500 mg PO TID 08/28/19 08/28/19 QUEtiapine [SEROquel] 400 mg PO HS 08/28/19 08/28/19 traMADol HCL [Ultram] 50 mg PO BID PRN 08/28/19 08/28/19 Previous Rx's Medication Instructions Recorded Cyclobenzaprine [Flexeril] 10 mg PO TID #14 tab 08/28/19 Ibuprofen 800 mg PO Q6HR PRN #20 tablet 08/28/19 Allergies Allergy/AdvReac Type Severity Reaction Status Date / Time ranitidine [From Zantac] Allergy Rash/Hives Verified 08/28/19 14:51 Review of Systems ROS Statement: Those systems with pertinent positive or pertinent negative responses have been documented in the HPI. ROS Other: All systems not noted in ROS Statement are negative. EKG Findings - EKG Results: EKG: interpreted by [facility], sinus rhythm (Sinus rhythm rate of 86. Interval 164 QRS 98 daily since QTC 410/[address]-T wave changes) Past Medical History Past Medical History: GERD/Reflux, Hypertension, Seizure Disorder Additional Past Medical History / Comment(s): IBS, DIVERTICULITIS, 1 seizure last summer-says from tramadol,deviated septum(sx), ddd neck/lower back, arhtritis, stress test-neg, uti History of Any Multi-Drug Resistant Organisms: None Reported Past Surgical History: Hysterectomy Additional Past Surgical History / Comment(s): hiatal hernia repair, right ear @ age 17 d/t [facility], septoplasty and pt stated "4 days later ened [facility] in [facility] with septic shock" Past Anesthesia/Blood Transfusion Reactions: No Reported Reaction Additional Past Anesthesia/Blood Transfusion Reaction / Comment(s): mild clausterphobia Past Psychological History: Anxiety, Depression Smoking Status: Current every day smoker Past Alcohol Use History: None Reported Past Drug Use History: None Reported - Past Family History Mother Family Medical History: No Reported History Additional Family Medical History / Comment(s): triple bypass Father Family Medical History: Coronary Artery Disease (CAD) Additional Family Medical History / Comment(s): triple bypass General Exam - General Exam Comments Initial Comments: Is a well-developed well-nourished awake alert oriented 3 female she is noted be hyperventilating Limitations: no limitations General appearance: alert, anxious, in distress Head exam: Present: atraumatic, normocephalic, normal inspection Eye exam: Present: normal appearance, PERRL, EOMI. Absent: scleral icterus, conjunctival injection, periorbital swelling ENT exam: Present: normal exam, mucous membranes moist Neck exam: Present: normal inspection. Absent: tenderness, meningismus, lymphadenopathy Respiratory exam: Present: normal lung sounds bilaterally, chest wall tenderness (Producible tenderness palpation over the costal sternal margins step-off or crepitation). Absent: respiratory distress, wheezes, rales, rhonchi, stridor Cardiovascular Exam: Present: regular rate, normal rhythm, normal heart sounds. Absent: systolic murmur, diastolic murmur, rubs, gallop, clicks GI/Abdominal exam: Present: soft, normal bowel sounds. Absent: distended, tenderness, guarding, rebound, rigid Extremities exam: Present: normal inspection, full ROM, normal capillary refill. Absent: tenderness, pedal edema, joint swelling, calf tenderness Back exam: Present: normal inspection Neurological exam: Present: alert, oriented X3, CN II-XII intact Psychiatric exam: Present: normal affect, normal mood Skin exam: Present: warm, dry, intact, normal color. Absent: rash Course Vital Signs 08/28/19 08/28/19 14:00 15:46 Temperature 98 F Pulse Rate 98 85 Respiratory 20 18 Rate Blood Pressure 135/99 150/99 O2 Sat by Pulse 98 Oximetry - Reevaluation(s) Reevaluation #1: 08/28/19 16:16 Evaluation patient reveals he does appear more calm she did require more medication over. Chest Pain MDM - MDM Reassessment patient she is feeling improved she still has some pain in her neck and back as well as shoulders and chest wall. This is all musculoskeletal by presentation. Her anxiety is much improved. I did discuss the findings with her and her family members she'll be discharged home with follow-up with her doctor and return when necessary she will be placed on some NSAIDs as well as muscle relaxants. Disposition Clinical Impression: Chest wall syndrome, Acute anxiety, Costochondritis Disposition: HOME SELF-CARE Condition: Good Instructions (If sedation given, give patient instructions): Chest Wall Pain (ED), Costochondritis (ED), Anxiety (ED) Additional Instructions: Medication prescription sent here preferred pharmacy Prescriptions: Cyclobenzaprine [Flexeril] 10 mg PO TID #14 tab Ibuprofen 800 mg PO Q6HR PRN #20 tablet PRN Reason: Pain Is patient prescribed a controlled substance at d/c from ED?: No Referrals: [facility],Clinic [Primary Care Provider] - 1-2 days
[2019-08-28 15:49] VITALS: RESP 18
[2019-08-28] MEDS ORDERED: ORPHENADRINE 30 MG/ML 2 ML VIAL IVP STA (16:08)
[2019-08-28 17:28] VITALS: BP 176/104; PULSE 93; TEMP 98.7
== END 2019-08-28 17:45 | disposition home or self-care (01) ==
LOC: EC 13:51
DX: M94.0 Chondrocostal junction syndrome [Tietze] (principal); F41.9 Anxiety disorder, unspecified; M54.2 Cervicalgia; M54.9 Dorsalgia, unspecified; M25.511 Pain in right shoulder; M25.512 Pain in left shoulder; K21.9 Gastro-esophageal reflux disease without esophagitis; I10 Essential (primary) hypertension; G40.909 Epilepsy, unspecified, not intractable, without status epilepticus; F32.9 Major depressive disorder, single episode, unspecified; F17.200 Nicotine dependence, unspecified, uncomplicated; Z88.8 Allergy status to other drugs, medicaments and biological substances; Z79.899 Other long term (current) drug therapy; Z87.39 Personal history of other diseases of the musculoskeletal system and connective tissue; Z82.49 Family history of ischemic heart disease and other diseases of the circulatory system
CPT/HCPCS: 99285; 96374; 96375 ×2; 96376 ×2; 96361 ×4; 36415; 93005; 85379; 83880; 80053; 82550; 83690; 83735; 84484; 85025; 85610; 85730; 71046; J2060; J2360; J1885

== ENCOUNTER 2020-06-24 10:05 | Emergency (ER) | payer OTHER ==
[2020-06-24] MEDS ORDERED: METOCLOPRAMIDE 5 MG/ML 2 ML VIAL IVP STA (10:25)
[2020-06-24] MEDS ORDERED: KETOROLAC 30 MG/ML 1 ML VIAL IVP STA (10:25)
[2020-06-24] MEDS ORDERED: SODIUM CHLORIDE 0.9% 1,000 ML IV STA (10:25)
--- NOTE | 2020-06-24 10:28 | ED ---
General Adult HPI - General Chief complaint: Abdominal Pain Stated complaint: blood in catheter Time Seen by Provider: 06/24/20 10:15 Source: patient, RN notes reviewed Mode of arrival: ambulatory Limitations: no limitations - History of Present Illness Initial comments: Patient is a pleasant 55-year-old female presenting to the emergency Department with complaints of blood and catheter as well as abdominal discomfort. Onset of symptoms was earlier this morning. Discomfort is 7/10. Discomfort is sharp. Discomfort is lower abdomen, with some radiation towards the back. Patient does have nausea. Patient did have catheter placed when she was in the hospital a week ago at [facility]. Patient states she went there with nausea vomiting however had difficulty with urination and therefore catheter was placed. Patient is supposed to follow-up with urology. No history of hematuria previously. Patient was told there was some concern for kidney stone however did not have a computed tomography scan. - Related Data Home Medications Medication Instructions Recorded Confirmed Metoprolol Succinate [Toprol XL] 200 mg PO QAM 02/17/18 08/28/19 Gabapentin [Neurontin] 500 mg PO TID 05/11/18 08/28/19 Methocarbamol [Robaxin-750] 750 mg PO TID PRN 05/11/18 08/28/19 Venlafaxine HCl [Effexor XR] 150 mg PO DAILY 08/15/18 08/28/19 Diltiazem HCl [Diltiazem ER] 360 mg PO DAILY 01/17/19 08/28/19 OXcarbazepine [Trileptal] 150 mg PO BID 01/17/19 08/28/19 Pantoprazole [Protonix] 40 mg PO DAILY 01/17/19 08/28/19 Gabapentin [Neurontin] 500 mg PO TID 08/28/19 08/28/19 QUEtiapine [SEROquel] 400 mg PO HS 08/28/19 08/28/19 traMADol HCL [Ultram] 50 mg PO BID PRN 08/28/19 08/28/19 Previous Rx's Medication Instructions Recorded Cyclobenzaprine [Flexeril] 10 mg PO TID #14 tab 08/28/19 Ibuprofen 800 mg PO Q6HR PRN #20 tablet 08/28/19 Cephalexin [Keflex] 500 mg PO TID #21 cap 06/24/20 Allergies Allergy/AdvReac Type Severity Reaction Status Date / Time ranitidine [From Zantac] Allergy Rash/Hives Verified 06/24/20 10:11 Review of Systems ROS Statement: Those systems with pertinent positive or pertinent negative responses have been documented in the HPI. ROS Other: All systems not noted in ROS Statement are negative. Constitutional: Denies: fever Eyes: Denies: eye pain ENT: Denies: ear pain Respiratory: Denies: cough Cardiovascular: Denies: chest pain Endocrine: Denies: fatigue Gastrointestinal: Reports: as per HPI, abdominal pain, nausea, vomiting. Denies: diarrhea, constipation Genitourinary: Reports: hematuria Musculoskeletal: Reports: as per HPI Skin: Denies: rash Neurological: Denies: weakness Past Medical History Past Medical History: GERD/Reflux, Hypertension, Seizure Disorder Additional Past Medical History / Comment(s): IBS, DIVERTICULITIS, 1 seizure last summer-says from tramadol,deviated septum(sx), ddd neck/lower back, arhtritis, stress test-neg, uti History of Any Multi-Drug Resistant Organisms: None Reported Past Surgical History: Hysterectomy Additional Past Surgical History / Comment(s): hiatal hernia repair, right ear @ age 17 d/t [facility], septoplasty and pt stated "4 days later ened up in [facility] with septic shock" Past Anesthesia/Blood Transfusion Reactions: No Reported Reaction Additional Past Anesthesia/Blood Transfusion Reaction / Comment(s): mild clausterphobia Past Psychological History: Anxiety, Depression Smoking Status: Current every day smoker Past Alcohol Use History: None Reported Past Drug Use History: None Reported - Past Family History Mother Family Medical History: No Reported History Additional Family Medical History / Comment(s): triple bypass Father Family Medical History: Coronary Artery Disease (CAD) Additional Family Medical History / Comment(s): triple bypass General Exam Limitations: no limitations General appearance: alert Head exam: Present: normocephalic Eye exam: Present: normal appearance Neck exam: Present: normal inspection Respiratory exam: Present: normal lung sounds bilaterally Cardiovascular Exam: Present: regular rate, normal rhythm Expanded Peripheral pulses: 2+: Dorsalis Pedis (R), Dorsalis Pedis (L) GI/Abdominal exam: Present: soft, tenderness (Mild to moderate lower abdominal tenderness), normal bowel sounds. Absent: distended, guarding, rebound, rigid, pulsatile mass Extremities exam: Present: normal inspection. Absent: pedal edema, calf tenderness Back exam: Present: CVA tenderness (L) (Mild tenderness below the left CVA) Neurological exam: Present: alert Psychiatric exam: Present: normal affect, normal mood Skin exam: Present: normal color Course Vital Signs 06/24/20 10:12 Temperature 98.4 F Pulse Rate 86 Respiratory 18 Rate Blood Pressure 142/84 O2 Sat by Pulse 98 Oximetry Medical Decision Making - Medical Decision Making He should reevaluated and resting comfortably in bed, symptom-free. Patient updated on results and need for follow-up. There is a possible small urinary tract infection and patient will be covered with antibiotics. - Lab Data Result diagrams: 06/24/20 11:21 06/24/20 11:21 Lab Results 06/24/20 06/24/20 06/24/20 Range/Units 11:21 11:21 11:21 WBC 12.3 H (3.8-10.6) k/uL RBC 3.88 (3.80-5.40) m/uL Hgb 11.4 (11.4-16.0) gm/dL Hct 36.1 (34.0-46.0) % MCV 93.0 (80.0-100.0) fL MCH 29.5 (25.0-35.0) pg MCHC 31.7 (31.0-37.0) g/dL RDW 15.0 (11.5-15.5) % Plt Count 283 (150-450) k/uL Neutrophils % 84 % Lymphocytes % 11 % Monocytes % 3 % Eosinophils % 1 % Basophils % 1 % Neutrophils # 10.3 H (1.3-7.7) k/uL Lymphocytes # 1.4 (1.0-4.8) k/uL Monocytes # 0.4 (0-1.0) k/uL Eosinophils # 0.1 (0-0.7) k/uL Basophils # 0.1 (0-0.2) k/uL Sodium 138 (137-145) mmol/L Potassium 4.5 (3.5-5.1) mmol/L Chloride 103 (98-107) mmol/L Carbon Dioxide 26 (22-30) mmol/L Anion Gap 9 mmol/L BUN 18 H (7-17) mg/dL Creatinine 0.87 (0.52-1.04) mg/dL Est GFR (CKD-EPI)AfAm 88 (>60 ml/min/1.73 sqM) Est GFR (CKD-EPI)NonAf 76 (>60 ml/min/1.73 sqM) Glucose 116 H (74-99) mg/dL Calcium 9.5 (8.4-10.2) mg/dL Total Bilirubin 0.7 (0.2-1.3) mg/dL AST 18 (14-36) U/L ALT 18 (4-34) U/L Alkaline Phosphatase 72 (38-126) U/L Total Protein 6.4 (6.3-8.2) g/dL Albumin 3.9 (3.5-5.0) g/dL Amylase 77 (30-110) U/L Lipase 80 (23-300) U/L Urine Color Light Yellow Urine Appearance Clear (Clear) Urine pH 6.0 (5.0-8.0) Ur Specific [place] 1.008 (1.001-1.035) Urine Protein Negative (Negative) Urine Glucose (UA) Negative (Negative) Urine Ketones Negative (Negative) Urine Blood Small H (Negative) Urine Nitrite Negative (Negative) Urine Bilirubin Negative (Negative) Urine Urobilinogen <2.0 (<2.0) mg/dL Ur Leukocyte Esterase Moderate H (Negative) Urine RBC 10 H (0-5) /hpf Urine WBC 10 H (0-5) /hpf Ur Squamous Epith Cells <1 (0-4) /hpf Urine Bacteria Rare H (None) /hpf Urine Mucus Rare H (None) /hpf - Radiology Data Radiology results: image reviewed (KUB shows no acute process) Disposition Clinical Impression: Hematuria Disposition: HOME SELF-CARE Condition: Stable Instructions (If sedation given, give patient instructions): Hematuria (ED) Additional Instructions: Prescription for antibiotics into her pharmacy. Please follow-up with primary care physician and urologist in the being the week. Return for fevers, increased bleeding, abdominal pain, worsening or changing symptoms or other concerns. Prescriptions: Cephalexin [Keflex] 500 mg PO TID #21 cap Is patient prescribed a controlled substance at d/c from ED?: No Referrals: [facility],Clinic [Primary Care Provider] - 1-2 days Chris Lowe MD [STAFF PHYSICIAN] - 1-2 days Time of Disposition: 12:18
--- NOTE | 2020-06-24 11:14 | XR ---
EXAMINATION TYPE: XR KUB DATE OF EXAM: 06/24/2020 10:40 AM CLINICAL HISTORY: Lower abdominal pain and blood in urine. TECHNIQUE: Upright images of the abdomen and pelvis were obtained COMPARISON: KUB 12/07/2017. FINDINGS: Nonspecific bowel gas pattern. There is no visceromegaly, pneumoperitoneum, or abnormal shane cification appreciated. Pelvic phleboliths. The lung bases are clear. The osseous structures are inta ct. IMPRESSION: Nonobstructive bowel gas pattern.
[2020-06-24 11:28] LABS: Basophils # (A) 0.1 k/uL (0-0.2); Basophils % (A) 1 %; Eosinophils # (A) 0.1 k/uL (0-0.7); Eosinophils % (A) 1 %; HCT 36.1 % (34.0-46.0); HGB 11.4 gm/dL (11.4-16.0); Lymphocytes # (A) 1.4 k/uL (1.0-4.8); Lymphocytes % (A) 11 %; MCH 29.5 pg (25.0-35.0); MCHC 31.7 g/dL (31.0-37.0); Monocytes # (A) 0.4 k/uL (0-1.0); Monocytes % (A) 3 %; Neutrophils # (A) 10.3 k/uL (1.3-7.7); Neutrophils % (A) 84 %; Platelet Count 283 k/uL (150-450); RBC 3.88 m/uL (3.80-5.40); WBC 12.3 k/uL (3.8-10.6)
[2020-06-24 11:36] LABS: Albumin 3.9 g/dL (3.5-5.0); Calcium 9.5 mg/dL (8.4-10.2); Potassium 4.5 mmol/L (3.5-5.1); Total Bilirubin 0.7 mg/dL (0.2-1.3); Total Protein 6.4 g/dL (6.3-8.2)
--- NOTE | 2020-06-24 11:41 | CT ---
EXAMINATION TYPE: CT abdomen pelvis wo con DATE OF EXAM: 06/24/2020 COMPARISON: CT abdomen pelvis 11/30/2017 HISTORY: Abdominal pain, blood in catheter bag, pelvic pain, back pain CT DLP: 695.5 mGycm Automated exposure control for dose reduction was used. TECHNIQUE: Helical acquisition of images was performed from the lung bases through the pelvis. CONTRAST: Performed without Oral Contrast and without intravenous contrast. FINDINGS: LUNG BASES: Left lower lobe atelectasis. Cardiac size normal. No pericardial effusion. LIVER: Multiple hepatic cysts and too small to characterize hypodense lesions redemonstrated. BILIARY SYSTEM: No intrahepatic or extrahepatic biliary ductal dilatation. PANCREAS: No peripancreatic inflammation. SPLEEN: Not enlarged. ADRENALS: Normal. KIDNEYS: Bilateral nonobstructing renal calculi. No hydronephrosis or hydroureter. There is minimal s tranding in the region of the distal right ureter. There are no ureteral or bladder calculi. BOWEL: No evidence of bowel obstruction. Sigmoid colon diverticulosis. No acute diverticulitis. Appe ndicolith with no evidence of appendix or inflammation. PERITONEUM: No free air is visualized. No free fluid. ADENOPATHY: No lymphadenopathy. PELVIS: Catheter within urinary bladder with internal foci of air. Urinary bladder otherwise normal. Right adnexal 2.7 cm cyst redemonstrated. Left ovary is unremarkable. VASCULATURE: No significant abnormality is seen. MUSCULOSKELETAL: No acute osseous abnormality. IMPRESSION: 1. Bilateral nonobstructing renal calculi. No hydroureteronephrosis. No ureteral or bladder calculi. Minimal stranding in the region of the distal right ureter may represent recently passed stone. 2. Nonacute findings as above.
[2020-06-24 12:02] LABS: Appearance,Urine Clear (Clear); Bacteria,Urine Rare /hpf; Bilirubin,Urine Negative (Negative); Blood,Urine Small (Negative); Color,Urine Light Yellow; Glucose,Urine (UA) Negative (Negative); Ketones,Urine Negative (Negative); Leukocyte Esterase,Urine Moderate (Negative); Mucus,Urine Rare /hpf; Nitrite,Urine Negative (Negative); Protein,Urine Negative (Negative); RBC,Urine 10 /hpf (0-5); Specific Gravity,Urine 1.008 (1.001-1.035); Squamous Epithelial Cell,Urine <1 /hpf (0-4); Urobilinogen,Urine <2.0 mg/dL (<2.0); WBC,Urine 10 /hpf (0-5)
[2020-06-24 12:36] LABS: INR 0.9 (<1.2); Prothrombin Time 9.6 sec (9.0-12.0)
[2020-06-24 12:42] LABS: Partial Thromboplastin Time 20.1 sec (22.0-30.0)
[2020-06-24 13:04] VITALS: BP 147/80; PULSE 66; RESP 17; TEMP 97.9
== END 2020-06-24 12:45 | disposition home or self-care (01) ==
LOC: EC 10:05
DX: R31.9 Hematuria, unspecified (principal); R11.2 Nausea with vomiting, unspecified; R10.9 Unspecified abdominal pain; F41.9 Anxiety disorder, unspecified; F32.9 Major depressive disorder, single episode, unspecified; I10 Essential (primary) hypertension; K21.9 Gastro-esophageal reflux disease without esophagitis; G40.909 Epilepsy, unspecified, not intractable, without status epilepticus; K58.9 Irritable bowel syndrome, unspecified; F17.200 Nicotine dependence, unspecified, uncomplicated; Z79.899 Other long term (current) drug therapy; Z88.8 Allergy status to other drugs, medicaments and biological substances; Z87.19 Personal history of other diseases of the digestive system
CPT/HCPCS: 36415; 80053; 82150; 83690; 85025; 85610; 85730; 81001; 74018; 74176; 99284; 96374; 96375; 96361; J2765; J1885

== ENCOUNTER 2020-11-23 02:26 | Observation (INO) | payer OTHER ==
--- NOTE | 2020-11-23 02:28 | ED ---
Chest Pain HPI - General Stated Complaint: Chest Pain Time Seen by Provider: 11/23/20 02:28 Source: RN notes reviewed, old records reviewed Mode of arrival: EMS Limitations: no limitations - History of Present Illness Initial Comments: This is a 55-year-old female DF she presents today for evaluation regards to chest pain. Patient's history of high blood pressure and angina heart catheterization years ago which she believes is relatively normal. No travel history no significant sick contacts. She has have increased cough and congestion, pain is severe left-sided chest on his left arm left arm pain is worse in the chest pain MD Complaint: chest pain -: hour(s) Onset: during rest Pain Location: left chest Pain Radiation: LUE Severity: moderate Severity scale (1-10): 7 Quality: sharp Improves With: nothing Worsens With: nothing Anginal Symptoms: dyspnea, sense of impending doom Other Symptoms: palpitations Treatments Prior to Arrival: aspirin - Related Data Home Medications Medication Instructions Recorded Confirmed Methocarbamol [Robaxin-750] 750 mg PO TID PRN 05/11/18 06/24/20 Venlafaxine HCl [Effexor XR] 150 mg PO DAILY 08/15/18 06/24/20 Diltiazem HCl [Diltiazem ER] 360 mg PO DAILY 01/17/19 06/24/20 OXcarbazepine [Trileptal] 150 mg PO BID 01/17/19 06/24/20 Pantoprazole [Protonix] 40 mg PO DAILY 01/17/19 06/24/20 Albuterol Inhaler [Ventolin Hfa 2 puff INHALATION RT-Q6H PRN 06/24/20 06/24/20 Inhaler] Beclomethasone Dip 80 Mcg/Puff 2 puff INHALATION RT-BID 06/24/20 06/24/20 [Qvar 80 mcg] Cefuroxime Axetil [Ceftin] 500 mg PO BID 06/24/20 06/24/20 Diphenox-Atrop 2.5-0.025 mg 2 tab PO TID 06/24/20 06/24/20 [Lomotil] Gabapentin [Neurontin] 400 mg PO TID 06/24/20 06/24/20 HYDROcodone/APAP 5-325MG [[place] [facility] 1 tab PO TID PRN 06/24/20 06/24/20 5-325] Lisinopril [Prinivil] 20 mg PO DAILY 06/24/20 06/24/20 Metoprolol Succinate (ER) [Toprol 200 mg PO DAILY 06/24/20 06/24/20 XL] QUEtiapine [SEROquel] 200 mg PO HS 06/24/20 06/24/20 Sucralfate [Carafate] 1 gm PO Q6H 06/24/20 06/24/20 Venlafaxine HCl [Effexor XR] 75 mg PO DAILY 06/24/20 06/24/20 predniSONE See Taper PO DAILY 06/24/20 06/24/20 Previous Rx's Medication Instructions Recorded Cephalexin [Keflex] 500 mg PO TID #21 cap 06/24/20 Allergies Allergy/AdvReac Type Severity Reaction Status Date / Time ranitidine [From Zantac] Allergy Rash/Hives Verified 06/24/20 12:23 tramadol Allergy SEZIURE Verified 06/24/20 12:23 Review of Systems ROS Statement: Those systems with pertinent positive or pertinent negative responses have been documented in the HPI. ROS Other: All systems not noted in ROS Statement are negative. EKG Findings - EKG Comments: EKG Findings:: EKG is sinus bradycardia 49 GA 164 QRS 80 QTc 552 this is a prolonged QT - EKG Results: EKG: interpreted by [facility] (EKG is sinus bradycardia 47 GA 180 QRS 86 QTc 499) Past Medical History Past Medical History: GERD/Reflux, Hypertension, Seizure Disorder Additional Past Medical History / Comment(s): IBS, DIVERTICULITIS, 1 seizure last summer-says from tramadol,deviated septum(sx), ddd neck/lower back, arhtritis, stress test-neg, uti History of Any Multi-Drug Resistant Organisms: None Reported Past Surgical History: Hysterectomy Additional Past Surgical History / Comment(s): hiatal hernia repair, right ear @ age 17 d/t [facility], septoplasty and pt stated "4 days later ened [facility] in [facility] with septic shock" Past Anesthesia/Blood Transfusion Reactions: No Reported Reaction Additional Past Anesthesia/Blood Transfusion Reaction / Comment(s): mild clausterphobia Past Psychological History: Anxiety, Depression Smoking Status: Current every day smoker Past Alcohol Use History: None Reported Past Drug Use History: None Reported - Past Family History Mother Family Medical History: No Reported History Additional Family Medical History / Comment(s): triple bypass Father Family Medical History: Coronary Artery Disease (CAD) Additional Family Medical History / Comment(s): triple bypass General Exam General appearance: alert, in no apparent distress Head exam: Present: atraumatic, normocephalic, normal inspection Eye exam: Present: normal appearance, PERRL, EOMI. Absent: scleral icterus, conjunctival injection, periorbital swelling ENT exam: Present: normal exam, mucous membranes moist Neck exam: Present: normal inspection. Absent: tenderness, meningismus, lymphadenopathy Respiratory exam: Present: normal lung sounds bilaterally. Absent: respiratory distress, wheezes, rales, rhonchi, stridor Cardiovascular Exam: Present: regular rate, normal rhythm, normal heart sounds. Absent: systolic murmur, diastolic murmur, rubs, gallop, clicks GI/Abdominal exam: Present: soft, normal bowel sounds. Absent: distended, tenderness, guarding, rebound, rigid Extremities exam: Present: normal inspection, full ROM, normal capillary refill. Absent: tenderness, pedal edema, joint swelling, calf tenderness Back exam: Present: normal inspection Neurological exam: Present: alert, oriented X3, CN II-XII intact Psychiatric exam: Present: normal affect, normal mood Skin exam: Present: warm, dry, intact, normal color. Absent: rash Course Vital Signs 11/23/20 11/23/20 11/23/20 02:30 03:46 03:55 Temperature 97.6 F Pulse Rate 50 L 46 L 48 L Respiratory 18 Rate Blood Pressure 81/45 O2 Sat by Pulse 95 Oximetry 11/23/20 04:08 Temperature Pulse Rate 49 L Respiratory Rate Blood Pressure 87/73 O2 Sat by Pulse Oximetry - Reevaluation(s) Reevaluation #1: 11/23/20 04:23 Medical record is reviewed Reevaluation #2: 11/23/20 04:23 Patient still having persistent chest pain here in the ER low blood pressure low heart rate Reevaluation #3: 11/23/20 04:23 Patient is not syncopal or near syncopal Reevaluation #4: 11/23/20 04:23 The patient presents regarding findings, questions answered - Consultations Consultation #1: Spoke with PMH were agreeable admit this patient Chest Pain MDM - MDM 55 female to the ER for evaluation patient is persistent chest pain low blood pressure low heart rate. Disposition Clinical Impression: Chest pain, Bradycardia Disposition: ADMITTED IP TO THIS HOSP Condition: Undetermined Is patient prescribed a controlled substance at d/c from ED?: No Referrals: [facility],Clinic [Primary Care Provider] - 1-2 days
--- NOTE | 2020-11-23 03:01 | XR ---
EXAM: XR Chest, 2 Views CLINICAL HISTORY: ITS.REASON XR Reason: Chest Pain TECHNIQUE: Frontal and lateral views of the chest. COMPARISON: 08/28/19. FINDINGS: Lungs: Mild peribronchial thickening. No consolidation. Pleural space: No significant pleural effusion or pneumothorax. Heart: Stable cardiomediastinal silhouette. Mediastinum: See above. Bones/joints: No acute fracture. Upper abdomen: Air-fluid level in the stomach. IMPRESSION: Mild peribronchial thickening. No consolidation.
[2020-11-23 03:09] LABS: Basophils # (A) 0.1 k/uL (0-0.2); Basophils % (A) 1 %; Eosinophils # (A) 0.3 k/uL (0-0.7); Eosinophils % (A) 3 %; HCT 41.1 % (34.0-46.0); HGB 13.3 gm/dL (11.4-16.0); Lymphocytes # (A) 2.7 k/uL (1.0-4.8); Lymphocytes % (A) 22 %; MCHC 32.4 g/dL (31.0-37.0); MCV 89.6 fL (80.0-100.0); Mean Platelet Volume 6.8; Monocytes # (A) 0.5 k/uL (0-1.0); Monocytes % (A) 4 %; Neutrophils # (A) 8.5 k/uL (1.3-7.7); Neutrophils % (A) 69 %; Platelet Count 367 k/uL (150-450); RBC 4.59 m/uL (3.80-5.40); WBC 12.4 k/uL (3.8-10.6)
[2020-11-23 03:11] LABS: Albumin 3.5 g/dL (3.5-5.0); Calcium 9.4 mg/dL (8.4-10.2); Magnesium 1.9 mg/dL (1.6-2.3); Potassium 3.6 mmol/L (3.5-5.1); Total Bilirubin 0.9 mg/dL (0.2-1.3); Total Protein 6.4 g/dL (6.3-8.2)
[2020-11-23] MEDS ORDERED: HYDROCORTISONE SUCCINATE 100 MG/2 ML VIAL IV STA (03:18)
[2020-11-23] MEDS ORDERED: IPRATROPIUM-ALBUTEROL 3 ML NEB INHALATION STA (03:18)
[2020-11-23] MEDS ORDERED: SODIUM CHLORIDE 0.9% 1,000 ML IV STA (03:18)
[2020-11-23] MEDS ORDERED: SODIUM CHLORIDE 0.9% 2,000 ML IV STA (03:18)
[2020-11-23 03:21] LABS: Prothrombin Time 10.5 sec (9.0-12.0)
[2020-11-23 03:35] LABS: Partial Thromboplastin Time 19.5 sec (22.0-30.0)
[2020-11-23] MEDS ORDERED: fentaNYL (PF) 50 MCG/ML 2 ML AMP IV STA (04:09)
[2020-11-23] MEDS ORDERED: NITROGLYCERIN SL TABS 0.4 MG TAB SUBLINGUAL PRN (04:20)
[2020-11-23] MEDS: HEPARIN SOD,PORK IN 0.45% NACL 25,000 UNIT in 0.45% NACL 1 250ML.BAG IV SCH (06:21)
[2020-11-23 06:24] LABS: T4, Free (Free Thyroxine) 2.18 ng/dL (0.78-2.19)
[2020-11-23] MEDS ORDERED: RX INFO: IV CONTRAST WAS GIVEN 1 EACH MISC MISCELLANE PRN (06:41)
[2020-11-23] MEDS: MORPHINE SULFATE 4 MG/ML SYRINGE IV PRN ×4 (06:50→20:57)
--- NOTE | 2020-11-23 07:24 | P.CRDCN ---
History of Present Illness History of present illness: HISTORY OF PRESENTING ILLNESS This is a pleasant 55-year-old female past medical history significant for seizure disorder, hypertension, tobacco abuse. We have been asked to see in consultation for chest pain. Patient admits to not feeling well and feeling somewhat lightheaded yesterday and therefore had been sitting most of the day. Patient developed substernal chest pressure sensation which then started radiating down her arm. She then noticed that her left arm was feeling colder, numb in her fingers and some discoloration of her second digit and therefore presented to emergency department. Patient was found to be somewhat hypotensive initially with blood pressure 81/45 with sinus bradycardia heart rate in the 50s. Patient was given some IV fluids with mild improvement of blood pressure. Patient's chest pain improved however her left arm pain has remained constant. Nursing contacted me earlier this morning regarding mildly elevated troponin with first one being 0.045 and also regarding the persistent left arm pain with numbness and some discoloration of the second digit. Therefore patient evaluated earlier this morning. She admits the chest pain has completely resolved however she has still having the arm pain, numbness and discoloration which has not gone better or any worse. She is stating her arm pain as a 10 out of 10 currently. DIAGNOSTICS EKG reveals sinus bradycardia, normal axis, prolonged QT. Chest xray no acute process. Laboratory reviewed, blood cell 12.4, hemoglobin 13.3, platelets 367, bicarb 16, creatinine 1.6 which is increased from previous of 0.9, AST 19, ALP 14, troponin 0.045, proBNP 864, TSH less than 0.015. Current cardiac medications include aspirin 325 mg daily, Lipitor 80 mg daily, heparin drip. REVIEW OF SYSTEMS At the time of my exam: CONSTITUTIONAL: Denies fever or chills. CARDIOVASCULAR: + chest pain, no shortness of breath, orthopnea, PND or palpitations. RESPIRATORY: Denies cough. GASTROINTESTINAL: Denies abdominal pain, diarrhea, constipation, nausea or vomiting. MUSCULOSKELETAL: Denies myalgias. NEUROLOGIC: Denies numbness, tingling or weakness. ENDOCRINE: Denies fatigue, weight change, polydipsia or polyurina. GENITOURINARY: Denies burning, hematuria or urgency with micturation. HEMATOLOGIC: Denies history of anemia or bleeding. PHYSICAL EXAMINATION Blood pressure left 92/60; right 112/72 heart rate 53, afebrile and maintaining oxygen saturation on room air. CONSTITUTIONAL: No apparent distress. HEENT: Head is normocephalic. Pupils are equal, round. Sclerae anicteric. Mucous membranes of the mouth are moist. No JVD. No carotid bruit. CHEST EXAMINATION: Lungs are clear to auscultation. No chest wall tenderness is noted on palpation or with deep breathing. HEART EXAMINATION: Bradycardic with regular rhythm. S1, S2 heard. No murmurs, gallops or rub. ABDOMEN: Soft, nontender. Positive bowel sounds. EXTREMITIES: No lower extremity edema and no calf tenderness. Initial examination no palpable pulse of left radial or left ulnar however approximately 10 minutes later a palpable 1+ left radial and ulnar pulse, right radial 2+, poor capilary refill of left hand, LUE 2nd digit pale NEUROLOGIC EXAMINATION: Patient is awake, alert and oriented x3. ASSESSMENT 1. Chest pain with initial troponin mildly elevated however second troponin is noted to be normal. Additional concern of left upper extremity extreme pain, intermittent poor pulse, and 20 mm difference and blood pressures concerning for dissection. Check CTA stat. 2. Left upper extremity pain, numbness and discoloration 3. Tobacco abuse 4. History of hypertension, currently hypotensive 5. Hypotension of unclear etiology 6. SUHAIL 7. Metabolic acidosis 8. Decreased TSH consistent with hyperthyroidism however patient bradycardic on exam PLAN Patient with unclear presentation of feeling somewhat lightheaded with hypotension, acute kidney injury, chest pain and left upper extremity pain. Initial troponin noted to be mildly elevated however second troponin is noted to be normal, may be a lab error. Main concern is of acute limb ischemia or dissection of the left upper extremity with pain throughout the whole arm and discoloration of her second digit and numbness of her fingers. We discussed with vascular surgery and we will check a CTA of the thorax and left upper extremity. Patient does have acute kidney injury however if this does represent a dissection benefits outweigh the risks. Continue with aggressive hydration. Check 2-D echo. Further recommendations follow. Tobacco cessation. Past Medical History Past Medical History: GERD/Reflux, Hypertension, Seizure Disorder Additional Past Medical History / Comment(s): IBS, DIVERTICULITIS, LAST seizure last MONTH -,deviated septum(sx), ddd neck/lower back, arhtritis, stress test- neg, uti History of Any Multi-Drug Resistant Organisms: None Reported Past Surgical History: Hysterectomy Additional Past Surgical History / Comment(s): hiatal hernia repair, right ear @ age 17 d/t [facility], septoplasty and pt stated "4 days later ened up in [facility] with septic shock" Past Anesthesia/Blood Transfusion Reactions: No Reported Reaction Additional Past Anesthesia/Blood Transfusion Reaction / Comment(s): mild clausterphobia Past Psychological History: Anxiety, Depression Additional Psychological History / Comment(s): pt is independant. 2 sons live with her. drives. Smoking Status: Current every day smoker Past Alcohol Use History: None Reported Additional Past Alcohol Use History / Comment(s): smoked since age of 19 1/2 ppd Past Drug Use History: None Reported - Past Family History Mother Family Medical History: No Reported History Additional Family Medical History / Comment(s): triple bypass Father Family Medical History: Coronary Artery Disease (CAD) Additional Family Medical History / Comment(s): triple bypass Medications and Allergies Home Medications Medication Instructions Recorded Confirmed Type Methocarbamol [Robaxin-750] 750 mg PO TID PRN 05/11/18 06/24/20 History Venlafaxine HCl [Effexor XR] 150 mg PO DAILY 08/15/18 06/24/20 History Diltiazem HCl [Diltiazem ER] 360 mg PO DAILY 01/17/19 06/24/20 History OXcarbazepine [Trileptal] 150 mg PO BID 01/17/19 06/24/20 History Pantoprazole [Protonix] 40 mg PO DAILY 01/17/19 06/24/20 History Albuterol Inhaler [Ventolin Hfa 2 puff INHALATION RT-Q6H PRN 06/24/20 06/24/20 History Inhaler] Beclomethasone Dip 80 Mcg/Puff 2 puff INHALATION RT-BID 06/24/20 06/24/20 History [Qvar 80 mcg] Cefuroxime Axetil [Ceftin] 500 mg PO BID 06/24/20 06/24/20 History Cephalexin [Keflex] 500 mg PO TID #21 cap 06/24/20 Rx Diphenox-Atrop 2.5-0.025 mg 2 tab PO TID 06/24/20 06/24/20 History [Lomotil] Gabapentin [Neurontin] 400 mg PO TID 06/24/20 06/24/20 History HYDROcodone/APAP 5-325MG [[place] 1 tab PO TID PRN 06/24/20 06/24/20 History 5-325] Lisinopril [Prinivil] 20 mg PO DAILY 06/24/20 06/24/20 History Metoprolol Succinate (ER) [Toprol 200 mg PO DAILY 06/24/20 06/24/20 History XL] QUEtiapine [SEROquel] 200 mg PO HS 06/24/20 06/24/20 History Sucralfate [Carafate] 1 gm PO Q6H 06/24/20 06/24/20 History Venlafaxine HCl [Effexor XR] 75 mg PO DAILY 06/24/20 06/24/20 History predniSONE See Taper PO DAILY 06/24/20 06/24/20 History Allergies Allergy/AdvReac Type Severity Reaction Status Date / Time ranitidine [From Zantac] Allergy Rash/Hives Verified 06/24/20 12:23 tramadol Allergy SEZIURE Verified 06/24/20 12:23 Physical Exam Vitals: Vital Signs Temp Pulse Resp BP Pulse Ox 11/23/20 04:39 51 L 16 91/58 98 11/23/20 04:08 49 L 87/73 11/23/20 03:55 48 L 11/23/20 03:46 46 L 11/23/20 02:30 97.6 F 50 L 18 81/45 95 Intake and Output 11/22/20 11/22/20 11/23/20 14:59 22:59 06:59 Other: Weight 74.843 kg Results 11/23/20 02:43 11/23/20 02:43 Cardiac Enzymes 11/23/20 11/23/20 11/23/20 Range/Units 02:43 02:43 05:28 AST 19 (14-36) U/L Troponin I 0.045 H* 0.013 (0.000-0.034) ng/mL Coagulation 11/23/20 Range/Units 02:43 PT 10.5 (9.0-12.0) sec APTT 19.5 L (22.0-30.0) sec CBC 11/23/20 Range/Units 02:43 WBC 12.4 H (3.8-10.6) k/uL RBC 4.59 (3.80-5.40) m/uL Hgb 13.3 (11.4-16.0) gm/dL Hct 41.1 (34.0-46.0) % Plt Count 367 (150-450) k/uL Comprehensive Metabolic Panel 11/23/20 Range/Units 02:43 Sodium 138 (137-145) mmol/L Potassium 3.6 (3.5-5.1) mmol/L Chloride 113 H (98-107) mmol/L Carbon Dioxide 16 L (22-30) mmol/L BUN 15 (7-17) mg/dL Creatinine 1.61 H (0.52-1.04) mg/dL Glucose 140 H (74-99) mg/dL Calcium 9.4 (8.4-10.2) mg/dL AST 19 (14-36) U/L ALT 14 (4-34) U/L Alkaline Phosphatase 107 (38-126) U/L Total Protein 6.4 (6.3-8.2) g/dL Albumin 3.5 (3.5-5.0) g/dL Current Medications Generic Name Dose Route Start Last Admin Trade Name Freq PRN Reason Stop Dose Admin Aspirin 325 mg 11/24/20 09:00 Aspirin 325 Mg Tab PO DAILY RASHID Atorvastatin Calcium 80 mg 11/23/20 09:00 Atorvastatin 80 Mg Tab PO DAILY RASHID Sodium Chloride 1,000 mls @ 130 mls/hr 11/23/20 03:18 11/23/20 03:38 Saline 0.9% IV 11/23/20 10:59 130 mls/hr .Q7H42M STA Administration Heparin Sodium/Sodium Chloride 250 mls @ 8.981 mls/hr 11/23/20 06:15 11/23/20 06:21 25,000 unit/ Sodium Chloride IV 12 units/kg/hr .Q24H RASHID 8.981 mls/hr Administration Protocol 12 UNITS/KG/HR Miscellaneous Information 1 each 11/23/20 06:41 Rx Info: Iv Contrast Was Given 1 Each Misc MISCELLANE 11/25/20 06:42 DAILY PRN Per Protocol Morphine Sulfate 4 mg 11/23/20 04:20 Morphine Sulfate 4 Mg/Ml Syringe IV Q4HR PRN Chest Pain Nitroglycerin 0.4 mg 11/23/20 04:20 Nitroglycerin Sl Tabs 0.4 Mg Tab SUBLINGUAL Q5M PRN Chest Pain Intake and Output 11/22/20 11/22/20 11/23/20 14:59 22:59 06:59 Other: Weight 74.843 kg Patient Weight 11/23/20 06:59 Weight 74.843 kg 11/23/20 02:43 11/23/20 02:43
[2020-11-23 08:40] LABS: Albumin 3.1 g/dL (3.5-5.0); Calcium 8.7 mg/dL (8.4-10.2); Potassium 4.1 mmol/L (3.5-5.1); Total Bilirubin 0.4 mg/dL (0.2-1.3); Total Protein 5.8 g/dL (6.3-8.2)
--- NOTE | 2020-11-23 10:04 | CT ---
EXAMINATION TYPE: CT angio thor/abd pel aorta, CT angio upper extremity LT DATE OF EXAM: 11/23/2020 COMPARISON: Whole-body CT November 26, 2011. HISTORY: Dissection, Lt arm pain and numbness CT DLP: 2281.4 (accession [id number]), included in CAT Aorta (accession [id number]) mGycm. Automated Expo sure Control for Dose Reduction was Utilized. CONTRAST: CTA scan of the thorax, abdomen and pelvis and left upper extremity are all performed without and wit h IV Contrast, patient injected with 60 mL of Isovue 370. Dissection protocol with 3-D reconstructed images created on an independent workstation and reviewed. FINDINGS: VASCULAR: Satisfactory enhancement of the central pulmonary arteries. Bovine type arch which is tarik l variant. No significant plaque or stenosis in the thorax. Mild calcified plaque in the abdominal ao rta. Patent celiac artery and SMA without significant stenosis. Patent bilateral single renal arterie s and EVELYNE. More moderate mixed plaque in the distal abdominal aorta without significant stenosis. Pat ent iliac artery branches bilaterally without significant stenosis. Mild plaque in the femoral arteri es bilaterally with branching into superficial and deep femoral arteries. No significant stenosis. No aortic aneurysm. No linear hypodensity to suggest dissection. Left subclavian artery show satisfactory blood flow with extension into the left axillary artery, no dissection or significant stenosis. There is good continuity into the left brachial artery with subse quent bifurcation into the radial and ulnar arteries in the proximal forearm. There is poor contrast opacification past the proximal to mid forearm level with adequate flow seen better in the mid to dis ron radial artery versus ulnar artery but flow is present mid to distal forearm level. Evaluation at level of distal forearm into wrist and hand there is suboptimal as there is poor contrast bolus. Flex ion of the phalanges is present. LUNGS: Mild underlying emphysematous change. Dependent atelectasis in the bilateral lower lobes. Mild linear scarring and/or atelectasis in both lower lungs. A few tiny micronodules along the right chao r fissure. No suspicious greater than 4 mm nodules. No pleural effusion or pneumothorax. MEDIASTINUM: There are no greater than 1 cm hilar or mediastinal lymph nodes. No cardiomegaly or pe ricardial effusion is seen. LIVER/GB: Distended gallbladder. PANCREAS: No significant abnormality is seen. SPLEEN: No significant abnormality is seen. ADRENALS: No significant abnormality is seen. KIDNEYS: Several small nonobstructing renal calculi bilaterally. No concerning renal mass or hydronep hrosis. Moderately distended bladder without intraluminal calculus. BOWEL: No significant abnormality is seen. GENITAL ORGANS: Uterus surgically absent. Several scattered right sided pelvic phleboliths. Right adn exal 2.8 x 2.3 cm low dense lesion is lower density than adjacent bladder with local mass effect, marques pect right ovarian origin. Advise pelvic ultrasound follow-up to further evaluate and characterize. LYMPH NODES: No greater than 1cm abdominal or pelvic lymph nodes are appreciated. OSSEOUS STRUCTURES: Slight underlying scoliotic curvature. OTHER: No significant additional abnormality is seen. IMPRESSION: No aortic dissection. Satisfactory arterial blood flow in the left upper extremity at le ast to mid forearm level.
[2020-11-23] MEDS ORDERED: methocarbamoL 750 MG TAB PO PRN (10:45)
--- NOTE | 2020-11-23 10:49 | ECHOF ---
Referral Reason:cp MEASUREMENTS -------- HEIGHT: 172.7 cm WEIGHT: 74.8 kg BP: RVIDd: 3.2 cm (< 3.3) IVSd: 1.2 cm (0.6 - 1.1) LVIDd: 3.8 cm (3.9 - 5.3) LVPWd: 1.6 cm (0.6 - 1.1) IVSs: 1.8 cm LVIDs: 2.6 cm LVPWs: 1.7 cm LA Diam: 4.0 cm (2.7 - 3.8) LAESV Index (A-L): 33.56 ml/m Ao Diam: 2.5 cm (2.0 - 3.7) AV Cusp: 1.9 cm (1.5 - 2.6) LA Diam: 4.1 cm (2.7 - 3.8) MV EXCURSION: 17.896 mm (> 18.000) MV EF SLOPE: 90 mm/s (70 - 150) EPSS: 0.2 cm MV E Farooq: 0.69 m/s MV DecT: 183 ms MV A Farooq: 0.76 m/s MV E/A Ratio: 0.91 RAP: 5.00 mmHg RVSP: 25.99 mmHg FINDINGS -------- Sinus rhythm. This was a technically good study. LV size, wall thickness and systolic function are normal, with an EF greater than 55%. The left usha tricular size is normal. The right ventricle is normal in size. LA is midly dilated 29-33ml/m2. The right atrial size is normal. There is mild aortic valve sclerosis. There is no evidence of aortic regurgitation. Mild mitral annular calcification present. Mild mitral regurgitation is present. Mild tricuspid regurgitation present. Right ventricular systolic pressure is normal at < 35 mmHg. There is no pulmonic regurgitation present. The aortic root size is normal. There is no pericardial effusion. CONCLUSIONS -------- 1. LV size, wall thickness and systolic function are normal, with an EF greater than 55%. 2. The left ventricular size is normal. 3. The right ventricle is normal in size. 4. LA is midly dilated 29-33ml/m2. 5. The right atrial size is normal. 6. There is mild aortic valve sclerosis. 7. Mild mitral annular calcification present. 8. Mild mitral regurgitation is present. 9. Mild tricuspid regurgitation present. 10. There is no pulmonic regurgitation present. 11. The aortic root size is normal. 12. There is no pericardial effusion. REGIONAL TRANSPORTATION MANAGER: Marjan Fraser RDCS
[2020-11-23] MEDS: GABAPENTIN 300 MG CAP PO SCH ×3 (12:10→20:53)
[2020-11-23] MEDS: PANTOPRAZOLE 40 MG TABLET PO SCH (12:11)
[2020-11-23] MEDS: LEVOTHYROXINE 75 MCG TAB PO SCH (12:11)
[2020-11-23] MEDS: ATORVASTATIN 80 MG TAB PO SCH (12:11)
--- NOTE | 2020-11-23 12:42 | P.GSCN ---
History of Present Illness Consult date: 11/23/20 Reason for Consult: Left Upper extremity numbness and pain History of present illness: This is a pleasant 55-year-old female past medical history significant for seizure disorder, hypertension, tobacco abuse. We have been asked to see in consultation for left arm numbness and tingling and pain. The patient stated that yesterday she started having chest pain and then noting pain radiating down into her left arm. Talmo like her left arm was getting cool and that her fingers were getting discolored so she came to the emergency department. She states he pain in her left arm started in her shoulder and began to radiate down towards her hand where she feels that she has numbness and tingling in her fingers worse in the index finger. She states the chest pain has improved, however the pain still persists in the left arm with numbness and tingling. Patient also states she has a significant history of degenerative disc disease especially in the cervical region. She states she has not had prior surgery. She denies any kind of trauma. Patient admits to not feeling well and feeling somewhat lightheaded yesterday and therefore had been sitting most of the day. Patient was found to be somewhat hypotensive initially with blood pressure 81/45 with sinus bradycardia heart rate in the 50s. Patient was given some IV fluids with mild improvement of blood pressure. Patient's chest pain improved however her left arm pain has remained constant. She currently denies any chest pain or shortness of breath. She is able to move her left upper extremity with full range of motion however she states it does feel somewhat weak. Her grasp is weaker on the left than the right. She is able to move her hand and wiggle her fingers. Review of Systems 14 point review of systems was completed all pertinent positives and negatives as stated in the HPI. Past Medical History Past Medical History: GERD/Reflux, Hypertension, Seizure Disorder Additional Past Medical History / Comment(s): IBS, DIVERTICULITIS, LAST seizure last MONTH -,deviated septum(sx), ddd neck/lower back, arhtritis, stress test- neg, uti History of Any Multi-Drug Resistant Organisms: None Reported Past Surgical History: Hysterectomy Additional Past Surgical History / Comment(s): hiatal hernia repair, right ear @ age 17 d/t [facility], septoplasty and pt stated "4 days later ened up in [facility] with septic shock" Past Anesthesia/Blood Transfusion Reactions: No Reported Reaction Additional Past Anesthesia/Blood Transfusion Reaction / Comm: mild clausterphobia Past Psychological History: Anxiety, Depression Additional Psychological History / Comment(s): pt is independant. 2 sons live with her. drives. Smoking Status: Current every day smoker Past Alcohol Use History: None Reported Additional Past Alcohol Use History / Comment(s): smoked since age of 19 1/2 ppd Past Drug Use History: None Reported - Past Family History Mother Family Medical History: No Reported History Additional Family Medical History / Comment(s): triple bypass Father Family Medical History: Coronary Artery Disease (CAD) Additional Family Medical History / Comment(s): triple bypass Medications and Allergies Home Medications Medication Instructions Recorded Confirmed Type Methocarbamol [Robaxin-750] 750 mg PO TID PRN 05/11/18 11/23/20 History Venlafaxine HCl [Effexor XR] 150 mg PO DAILY 08/15/18 11/23/20 History OXcarbazepine [Trileptal] 150 mg PO BID 01/17/19 11/23/20 History Pantoprazole [Protonix] 40 mg PO DAILY 01/17/19 11/23/20 History Diphenox-Atrop 2.5-0.025 mg 2 tab PO TID PRN 06/24/20 11/23/20 History [Lomotil] HYDROcodone/APAP 5-325MG [[place] 1 tab PO TID PRN 06/24/20 11/23/20 History 5-325] Lisinopril [Prinivil] 10 mg PO DAILY 06/24/20 11/23/20 History QUEtiapine [SEROquel] 200 mg PO HS 06/24/20 11/23/20 History Diltiazem HCl [Diltiazem HCl 24Hr 300 mg PO DAILY 11/23/20 11/23/20 History ER] Gabapentin 600 mg PO TID 11/23/20 11/23/20 History Levothyroxine Sodium [Synthroid] 75 mcg PO DAILY 11/23/20 11/23/20 History Metoprolol Succinate [Toprol XL] 200 mg PO DAILY 11/23/20 11/23/20 History Allergies Allergy/AdvReac Type Severity Reaction Status Date / Time ranitidine [From Zantac] Allergy Rash/Hives Verified 11/23/20 10:04 tramadol Allergy SEZIURE Verified 11/23/20 10:04 Surgical - Exam Vital Signs Temp Pulse Resp BP Pulse Ox 97.6 F 50 L 18 81/45 95 11/23/20 02:30 11/23/20 02:30 11/23/20 02:30 11/23/20 02:30 11/23/20 02:30 General appearance: The patient is alert, oriented, in no acute distress. HET: Head is normocephalic and atraumatic. Neck: Supple without lymphadenopathy. Trachea midline. No carotid bruit bilaterally. Heart: S1 S2. Regular rate and rhythm. Lungs: No crackles or wheezes are heard. Abdomen: Soft, nontender, nondistended with bowel sounds. Extremities: Normal skin color and turgor. No cyanosis, rash, ulceration, clubbing, or edema. Palpable bilateral radial pulses, left weaker than right. Patient is able to have full range of motion of bilateral upper extremities. Grasp on left hand 3/5, right grasp 5/5. Neurological: No focal deficits. Results CT angiogram thoracic and abdomen pelvic aorta/left upper extremity CT angiogram: Emiliano states no aortic dissection. Satisfactory arterial blood flow in the left upper extremity at least to mid forearm level. Left subclavian artery shows satisfactory blood flow with extension into the left axial artery, no dissection or significant stenosis. There is good continuity into the left brachial artery with subsequent bifurcation into the radial and ulnar arteries in the proximal forearm. There is poor contrast opacification past the proximal to mid forearm level with adequate flow seen better in the mid to distal radial artery versus ulnar artery but flow is present mid to distal forearm level. Evaluation at level of distal forearm and wrist and hand there is suboptimal as there is poor contrast bolus flexion of the phalanges is present. After upper extremity ultrasound shows a right brachial index 113, left brachial index 79, left radial artery 79, left ulnar artery 71 - Labs 11/23/20 02:43 11/23/20 08:13 Abnormal Lab Results - Last 24 Hours (Table) 11/23/20 11/23/20 11/23/20 Range/Units 02:43 02:43 02:43 WBC 12.4 H (3.8-10.6) k/uL Neutrophils # 8.5 H (1.3-7.7) k/uL APTT 19.5 L (22.0-30.0) sec Chloride 113 H (98-107) mmol/L Carbon Dioxide 16 L (22-30) mmol/L Creatinine 1.61 H (0.52-1.04) mg/dL Glucose 140 H (74-99) mg/dL Troponin I (0.000-0.034) ng/mL Total Protein (6.3-8.2) g/dL Albumin (3.5-5.0) g/dL TSH (0.465-4.680) mIU/L 11/23/20 11/23/20 11/23/20 Range/Units 02:43 02:43 08:13 WBC (3.8-10.6) k/uL Neutrophils # (1.3-7.7) k/uL APTT (22.0-30.0) sec Chloride 115 H (98-107) mmol/L Carbon Dioxide 18 L (22-30) mmol/L Creatinine (0.52-1.04) mg/dL Glucose 126 H (74-99) mg/dL Troponin I 0.045 H* (0.000-0.034) ng/mL Total Protein 5.8 L (6.3-8.2) g/dL Albumin 3.1 L (3.5-5.0) g/dL TSH <0.015 L (0.465-4.680) mIU/L Diabetes panel 11/23/20 11/23/20 Range/Units 02:43 08:13 Sodium 138 139 (137-145) mmol/L Potassium 3.6 4.1 (3.5-5.1) mmol/L Chloride 113 H 115 H (98-107) mmol/L Carbon Dioxide 16 L 18 L (22-30) mmol/L BUN 15 14 (7-17) mg/dL Creatinine 1.61 H 1.01 (0.52-1.04) mg/dL Glucose 140 H 126 H (74-99) mg/dL Calcium 9.4 8.7 (8.4-10.2) mg/dL AST 19 15 (14-36) U/L ALT 14 14 (4-34) U/L Alkaline Phosphatase 107 102 (38-126) U/L Total Protein 6.4 5.8 L (6.3-8.2) g/dL Albumin 3.5 3.1 L (3.5-5.0) g/dL Thyroid panel 11/23/20 Range/Units 02:43 TSH <0.015 L (0.465-4.680) mIU/L Calcium panel 11/23/20 11/23/20 Range/Units 02:43 08:13 Calcium 9.4 8.7 (8.4-10.2) mg/dL Albumin 3.5 3.1 L (3.5-5.0) g/dL Pituitary panel 11/23/20 11/23/20 11/23/20 Range/Units 02:43 02:43 08:13 Sodium 138 139 (137-145) mmol/L Potassium 3.6 4.1 (3.5-5.1) mmol/L Chloride 113 H 115 H (98-107) mmol/L Carbon Dioxide 16 L 18 L (22-30) mmol/L BUN 15 14 (7-17) mg/dL Creatinine 1.61 H 1.01 (0.52-1.04) mg/dL Glucose 140 H 126 H (74-99) mg/dL Calcium 9.4 8.7 (8.4-10.2) mg/dL TSH <0.015 L (0.465-4.680) mIU/L Adrenal panel 11/23/20 11/23/20 Range/Units 02:43 08:13 Sodium 138 139 (137-145) mmol/L Potassium 3.6 4.1 (3.5-5.1) mmol/L Chloride 113 H 115 H (98-107) mmol/L Carbon Dioxide 16 L 18 L (22-30) mmol/L BUN 15 14 (7-17) mg/dL Creatinine 1.61 H 1.01 (0.52-1.04) mg/dL Glucose 140 H 126 H (74-99) mg/dL Calcium 9.4 8.7 (8.4-10.2) mg/dL Total Bilirubin 0.9 0.4 (0.2-1.3) mg/dL AST 19 15 (14-36) U/L ALT 14 14 (4-34) U/L Alkaline Phosphatase 107 102 (38-126) U/L Total Protein 6.4 5.8 L (6.3-8.2) g/dL Albumin 3.5 3.1 L (3.5-5.0) g/dL Assessment and Plan Assessment: 1. Left upper extremity pain with numbness and tingling 2. Chest Pain 3. Tobacco abuse 4. History of hypertension Plan: Dr. Pickering reviewed CT angiogram thoracic/abd, aorta and upper extremity, as well as upper extremity ultrasound. He stated there was no evidence of any vascular compromise. Blood pressures taken in bilateral upper extremities with no significant difference, right 119/64, left 119/60. Patient has a history of degenerative disc disease, patient reports significant in the cervical region. Would recommend further workup for cervical disc disease as possible cause for left upper extremity pain and numbness. There are no indications for any vascular surgical intervention at this time. Thank you for this consultation allowing us take part in the plan of care of your patient during her hospital stay, we will sign off at this time. The above dictated assessment and findings were discussed with Dr. Johnson. The impression and plan of care have been directed as dictated.
[2020-11-23] MEDS: VENLAFAXINE HCL ER 150 MG CAP PO SCH (14:34)
--- NOTE | 2020-11-23 15:45 | HP ---
HISTORY AND PHYSICAL DATE OF SERVICE: 11/23/2020. CHIEF COMPLAINTS: Left arm pain and chest pain. HISTORY OF PRESENT ILLNESS: This 55-year-old woman with a past medical history of multiple medical problems including history of GERD, hypertension, seizure disorder, IBS, history of diverticulosis, history of deviated septum, history of hysterectomy, history of anxiety and depression being followed by Dr. Carver in the outpatient setting was complaining of severe left arm pain. The patient came to [facility] and was admitted for further evaluation and treatment. Patient also had some chest pains also. The patient had a previous cardiac catheterization which was believed to be normal. The reports are not available at this time. After admission, patient had extensive evaluation including a thoracic aortic CT and upper extremity CTA. The patient also has numbness of the left upper limb, also some neck pain as well as complained of . Cardiology and Vascular Surgery have seen the patient. Otherwise, there is no history of any fever, rigors. No history of headache, loss of consciousness, seizures at this time. Lab garcia, WBC 12.4, and the patient also had renal failure on presentation. Troponin was elevated at 0.045. TSH was less than 0.01, free T4 was normal. D-dimer 0.44. There is no history of fever, rigors. No history of any history of contact with COVID. PAST MEDICAL HISTORY: History of GERD, hypertension, seizure disorder, irritable bowel syndrome, anxiety, depression. MEDICATIONS: Medications prior to admission include: 1. Prinivil. 2. Lomotil. 3. Trileptal. 4. Robaxin. 5. Synthroid. 6. [place]. 7. Diltiazem ER. 8. Seroquel. 9. Protonix. 10.Toprol-XL. 11.Gabapentin. 12.Effexor XR. Doses are reviewed. ALLERGIES: ZANTAC and ULTRAM. FAMILY HISTORY: History of CABG in the family. SOCIAL HISTORY: History of smoking continued ongoing. REVIEW OF SYSTEMS: ENT: No diminished hearing or diminished vision, otherwise as mentioned earlier. CARDIOVASCULAR SYSTEM: As mentioned earlier. RESPIRATORY SYSTEM: As mentioned earlier. GI: No nausea. : No dysuria. NERVOUS SYSTEM: No numbness or weakness. ALLERGY/IMMUNOLOGY: No asthma or hayfever. MUSCULOSKELETAL: As mentioned earlier. HEMATOLOGY/ONCOLOGY: No history of anemia. ENDOCRINE: Hypothyroidism. CONSTITUTIONAL: As mentioned earlier. DERMATOLOGY: Negative. RHEUMATOLOGY: Negative. PSYCHIATRY: As mentioned earlier. PHYSICAL EXAMINATION: The patient is alert and oriented x3. Pulse 67, blood pressure 119/60, respiration 18, temperature 98.6, pulse ox 97% on room. HEENT: Conjunctivae normal. Oral mucosa moist. NECK: No jugular venous distention. No carotid bruit. No lymph node enlargement. CARDIOVASCULAR: S1, S2 muffled. No S3, no S4. RESPIRATORY: Breath sounds diminished at the bases. No rhonchi. No crackles. ABDOMEN: Soft, nontender. No mass palpable. LEGS: No edema, no swelling. NERVOUS SYSTEM: Higher functions as mentioned earlier. Moves all 4 limbs. No focal motor or sensory deficits. LYMPHATICS: No lymphadenopathy of the neck, axillae or groin. SKIN: No ulcer, rash or bleeding. JOINTS: No active deforming arthropathy. EXAMINATION OF THE LEFT ARM: Some tenderness present on movement, though the pulses are normal. LAB INVESTIGATIONS: Lab investigations are: WBC 12.4, sodium 138, potassium 3.6, CO2 16. ASSESSMENT: 1. Left arm pain, chest pain and neck pain, rule out coronary artery disease. 2. Possible cervical spondylosis and degenerative joint disease. 3. Increased WBC. 4. Acute renal failure acute tubular necrosis, present on admission. 5. Decreased CO2. 6. Troponin 0.045, indeterminate, present on admission, rule out acute [id number]- elevation myocardial infarction. 7. History of gastroesophageal reflux disease. 8. Hypertension. 9. History of seizure disorder. 10.History of irritable bowel syndrome. 11.History of diverticulitis. 12.History of hysterectomy. 13.History of anxiety, depression. 14.History of continued ongoing nicotine dependence. RECOMMENDATIONS AND DISCUSSION: This 55-year-old woman who presented with multiple complex medical issues, we will monitor the patient closely, continue the current medications, continue symptomatic treatment. I would also recommend neurology evaluation also as well as orthopedic evaluation with Dr. Del Angel also. Prognosis guarded. I would also recommend a CT of the brain and CT of the cervical spine also without contrast. Once again, the prognosis is guarded. See orders for details. Further recommendations to follow. A copy of dictation forwarded to Dr. Carver, who is the primary physician. MMODL / IJN: [id number] / MTDD
--- NOTE | 2020-11-23 16:10 | P.CNNES ---
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 She stated that that she was having left- sided chest painon 11/22/2020 at night, that was radiating to the left arm all the way to the hand associate with numbness in the second third and fourth digits of left hand and it was constant. Also she stated the entire day on 11/22/2019 and she felt dizzy and nauseous but no vomiting. She denies any double diplopia, ringing in the ears or any loss appear denies of any focal weakness. Denies of any lower extremity weakness or numbness. Denies off any difficulty getting her words out or slurring her speech. She does have left neck pain for last 4 months but only radiates to the left shoulder area and she denies any weakness or numbness associate with this. She denies any trauma to the neck recently or to the left upper extremity. She does have history of epilepsy last 2 years and she seen the different neurologists in the past. She is currently follow-up with Dr. Nix. She stated that the her appointment with Dr. Nix is on the 11/27/2020 and then she has an EEG ordered by Dr. Nix on 11/30/2020. She also has a neuropsych evaluation on 01/14/2021 at [facility]. Procedures she stated that the she never had seizures as a childhood. She said that one of her neurologist said that her seizure could be from the history of AV malformation that. She said that in the beginning procedures was the shaking of the extremities but now is that the she is not aware of happens and these are seizures. Her last seizure was about 2-3 weeks ago and she was found in the bathroom by her son. She had 2 episodes of urinary incontinence but no bowel incontinence. She did have EEGs in the past but could not tell me exactly what was the finding. She first seizure she is on Trileptal 150 mg 1 tablet twice a day and she stated that she's been on this medication for at least the last 2 years and it has been modified. She denied any missing her medication. Said that she has possibly 3 seizures a month. There is no family history of seizures. Regarding her history she stated that she was up likely a product of normal vaginal delivery and it was term and there is no complication. She smokes half a pack a day and she's been working now for more than 30 years. She does have also lower back pain and she is on gabapentin 600 mg 1 tablet 3 times a day for her neck pain and back pain. Workup in the hospital consisted of: Initial vital signs his blood pressure of 81/45, with a heart rate of 50, respiratory of 18, temperature of 97.6 Fahrenheit oral and pulse ox of 95 the percent room air. His blood pressure has improved and systolic has been in the range of 110s to 120s. On initial presentation the patient's the white blood cells 12.4 and the neutrop hils is 8.5. Initially her troponin is 0.045 but then the repeated one and normalized. Initial glucose is all 140 serum. TSH is <0.015 which is low but repeated is 2.18 which is normal. INR is 1.0 on presentation. She had an EKG on initial one never it's reported as sinus bradycardia. Prolonged QT. Abnormal EKG. 2-D echo was reported as left ventricle size is normal. Ejection fraction of greater than 55%. Left atrial as mildly dilated. Patient had a CT angiogram of the chest and it's reported as no ear or dissection. Vascular surgery team was consulted and the report of the patient has d egenerative disc disease, patient reports significant in the cervical region. And that they stated would recommend further workup for cervical disease as a cause of the left approximate pain and numbness. Review of Systems Review of system: The 12 point system was reviewed and apparent positive and negative per HPI. Past Medical History Past Medical History: GERD/Reflux, Hypertension, Seizure Disorder Additional Past Medical History / Comment(s): IBS, DIVERTICULITIS, LAST seizure last MONTH -,deviated septum(sx), ddd neck/lower back, arhtritis, stress test- neg, uti History of Any Multi-Drug Resistant Organisms: None Reported Past Surgical History: Hysterectomy Additional Past Surgical History / Comment(s): hiatal hernia repair, right ear @ age 17 d/t avm, septoplasty and pt stated "4 days later ened up in hopsital with septic shock" Past Anesthesia/Blood Transfusion Reactions: No Reported Reaction Additional Past Anesthesia/Blood Transfusion Reaction / Comment(s): mild clausterphobia Past Psychological History: Anxiety, Depression Additional Psychological History / Comment(s): pt is independant. 2 sons live with her. drives. Smoking Status: Current every day smoker Past Alcohol Use History: None Reported Additional Past Alcohol Use History / Comment(s): smoked since age of 19 1/2 ppd Past Drug Use History: None Reported - Past Family History Mother Family Medical History: No Reported History Additional Family Medical History / Comment(s): triple bypass Father Family Medical History: Coronary Artery Disease (CAD) Additional Family Medical History / Comment(s): triple bypass Medications and Allergies Home Medications Medication Instructions Recorded Confirmed Type Methocarbamol [Robaxin-750] 750 mg PO TID PRN 05/11/18 11/23/20 History Venlafaxine HCl [Effexor XR] 150 mg PO DAILY 08/15/18 11/23/20 History OXcarbazepine [Trileptal] 150 mg PO BID 01/17/19 11/23/20 History Pantoprazole [Protonix] 40 mg PO DAILY 01/17/19 11/23/20 History Diphenox-Atrop 2.5-0.025 mg 2 tab PO TID PRN 06/24/20 11/23/20 History [Lomotil] HYDROcodone/APAP 5-325MG [[place] 1 tab PO TID PRN 06/24/20 11/23/20 History 5-325] Lisinopril [Prinivil] 10 mg PO DAILY 06/24/20 11/23/20 History QUEtiapine [SEROquel] 200 mg PO HS 06/24/20 11/23/20 History Diltiazem HCl [Diltiazem HCl 24Hr 300 mg PO DAILY 11/23/20 11/23/20 History ER] Gabapentin 600 mg PO TID 11/23/20 11/23/20 History Levothyroxine Sodium [Synthroid] 75 mcg PO DAILY 11/23/20 11/23/20 History Metoprolol Succinate [Toprol XL] 200 mg PO DAILY 11/23/20 11/23/20 History Allergies Allergy/AdvReac Type Severity Reaction Status Date / Time ranitidine [From Zantac] Allergy Rash/Hives Verified 11/23/20 10:04 tramadol Allergy SEZIURE Verified 11/23/20 10:04 Physical Examination - Vital Signs Vital Signs: Vital Signs Temp Pulse Pulse Resp BP BP BP 11/23/20 14:00 67 11/23/20 12:00 67 18 119/60 119/64 11/23/20 08:00 98.6 F 59 L 18 122/65 11/23/20 05:01 97.8 F 53 L 18 92/60 11/23/20 04:39 51 L 16 91/58 11/23/20 04:08 49 L 87/73 11/23/20 03:55 48 L 11/23/20 03:46 46 L 11/23/20 02:30 97.6 F 50 L 18 81/45 Pulse Ox 11/23/20 14:00 11/23/20 12:00 97 11/23/20 08:00 96 11/23/20 05:01 95 11/23/20 04:39 98 11/23/20 04:08 11/23/20 03:55 11/23/20 03:46 11/23/20 02:30 95 Intake and Output 11/22/20 11/23/20 11/23/20 22:59 06:59 14:59 Other: Weight 74.843 kg GENERAL: The patient is lying in bed and is not in acute distress. CHEST: The heart rate is regular rate rhythm. No murmurs to auscultation. No carotid bruit bilaterally. LUNG: Clear to auscultation bilaterally no wheezing noted throughout. Not labored breathing. ABDOMEN/GI: Bowel sounds present in all 4 quadrants. No tenderness to palpation throughout. NEUROLOGICAL: Higher mental function: The patient is awake, alert, oriented to self, place and time. Patient is following commands. No aphasia and no neglect. Cranial nerves: The pupils are round, equal and reactive to light and accommodation. Visual moreno are full to confrontation throughout. Extraocular movement is intact no nystagmus is noted. Facial sensation is decreased over V2/V3 over the left (chronic per patient since surgery of AV malformation), otherwise normal. The facial strength is normal throughout. Hearing is normal bilaterally to hand rub. Tongue is midline and moved [id number] without any difficulty. No dysarthria is noted. Shoulder shrug is normal bilaterally. Motor: Gait is normal with normal arm swing. The strength of the left upper extremity predominately distal is limited because of pain but had strength of at least 4+. Otherwise 5 out of 5 throughout. Normal tone and bulk. Cerebellum: Normal finger to nose bilaterally. Sensation: Sensation is tender and tender to touch over the left upper extremity from just proximal to elbow to all way to all whole hand. Otherwise normal throughout to touch. Reflexes (right/left): 3+ bilateral patellar but otherwise + throughout. Plantars are downgoing bilaterally. Results - Laboratory Findings CBC and BMP: 11/23/20 02:43 11/23/20 08:13 Abnormal Lab Findings: Abnormal Labs 11/23/20 11/23/20 11/23/20 02:43 02:43 02:43 WBC 12.4 H Neutrophils # 8.5 H APTT 19.5 L Chloride 113 H Carbon Dioxide 16 L Creatinine 1.61 H Glucose 140 H Troponin I Total Protein Albumin TSH 11/23/20 11/23/20 11/23/20 02:43 02:43 08:13 WBC Neutrophils # APTT Chloride 115 H Carbon Dioxide 18 L Creatinine Glucose 126 H Troponin I 0.045 H* Total Protein 5.8 L Albumin 3.1 L TSH <0.015 L Assessment and Plan Assessment: Left arm pain and numbness (from proximal to elbow down to whole hand) for the past one day. She does have left neck pain. Etiology: because onset of symptoms rule out acute ischemic stroke > cervical radiculopathy Cervical neck pain Epilepsy (with last episode 2-3 weeks ago) History of AV malformation over left side of scalp s/p surgery when she was 16 years old. Lower back pain Hypertension Hyperlpidemia Chest pain with initial troponin mildly elevated then the repeated for normal. Tobacco use (1/2 PPD for >30 years). Plan: * Primary team ordered CT brain and cervical spine stat * If the CT head and cervical are normal or are not conclusive for her symptoms then recommend MRI of the brain and cervical spine. * I ordered carotid duplex * Lipid panel is pending. * Currently the patient is on aspirin 325 daily (not on home antiplateletes) and was started on Lipitor 80 mg daily. Patient notified me that the she tries statins in the past and it would cause her to have muscle pain so I think we need to be cautious. She said that the she tried different statins and she can't tell me the names but she would have muscle pain associated with them. I'll defer that decision to the cardiology in the primary team. * I consulted physical therapy and occupation therapy. * Continue cardiac monitoring * Primary team consulted orthopedic surgery team. * I ordered vitamin B12, folate and hemoglobin A1c * Is on Trileptal 150 mg 1 tablet twice a day. I'll go up on Trileptal to 200 mg 1 tablet twice a day since the patient's having the recurrent episode of seizure activity according to her. * I'll get a Trileptal level. * An EEG is not warranted as since the patient already has history of seizures. Rather I think the patient will benefit from epilepsy monitoring unit to see whether the patient's having more frequent episode of seizures on a long-term monitoring. * The patient might also benefit from EMG with [facility] as outpatient. * Patient was counseled on tobacco cessation. She is to follow-up with her appointment with Dr. Beach on 11/27/[address] Nix and has an EEG ordered by Dr. Nix on 11/30/2020. She also has a neuropsych evaluation on 01/14/2021 at [facility] because of poor memory. The plan was discussed with the patient nurse. Thank you for the consultation. There is no neurology service over the weekend. Please Perfect Serve if needed. Dr. Hong will take over this coming-up Thursday. Denver Montenegro MD Neuro-Hospitalist Time with Patient: Greater than 30
--- NOTE | 2020-11-23 16:31 | CT ---
EXAMINATION TYPE: CT brain lydia jones DATE OF EXAM: 11/23/2020 COMPARISON: CT brain August 15, 2018 HISTORY: Left arm numbness and neck pain. Headache. CT DLP: 1297.7 mGycm. Automated Exposure Control for Dose Reduction was Utilized. TECHNIQUE: CT scan of the head and cervical spine are performed without contrast. FINDINGS: There is no acute intracranial hemorrhage or midline shift identified. Mild to moderate d iffuse ventricular and sulcal prominence. [place]-white matter differentiation fairly well maintained. The calvarium is intact. The globes are intact and the visualized sinuses are clear. Cervical spine is visualized in its entirety from C1 through upper thoracic levels and demonstrates s light scoliotic curvature on coronal images without evidence of acute fracture or dislocation. Preve rtebral soft tissue appears within normal limits. The C1-C2 articulation is within normal limits on the coronal images. Mild disc space narrowing with mild to moderate spurring C3-C4 and C5-C6 levels a long with C6-C7 level. Posterior spur disc complexes efface the anterior thecal sac C3-C4 through the C6-C7 levels. Axial images show multilevel uncovertebral facet degenerative changes contributing to multilevel bilateral neural foraminal narrowing greatest at left C6-C7 level. Thyroid gland is normal in size. Lung apices show motion artifact degradation without pneumothorax. Mild calcified plaque bi lateral carotid bulb level. IMPRESSION: 1. [id number] multilevel degenerative changes as detailed above. No acute findings. 2. No acute intracranial hemorrhage or midline shift shift is seen. [id number] diffuse cerebral atrophy redemonstrated.
[2020-11-23] MEDS ORDERED: DILTIAZEM CD 300 MG CAP.ER.24H PO SCH ×2 (17:15)
[2020-11-23] MEDS: lisinopriL 10 MG TAB PO SCH (18:30)
[2020-11-23] MEDS: METOPROLOL SUCCINATE (ER) 100 MG TAB.ER.24H PO SCH (18:30)
[2020-11-23] MEDS: DILTIAZEM CD 300 MG CAP.ER.24H PO SCH (18:30)
--- NOTE | 2020-11-23 19:13 | US ---
EXAMINATION TYPE: US carotid duplex BILAT DATE OF EXAM: 11/23/2020 COMPARISON: NONE CLINICAL HISTORY: stroke: left arm weakness. left arm weakness EXAM MEASUREMENTS: RIGHT: Peak Systolic Velocity (PSV) cm/sec ----- Right CCA: 99.4 ----- Right ICA: 157 - distally ----- Right ECA: 174 ICA/CCA ratio: 1.6 RIGHT: End Diastole cm/sec ----- Right CCA: 27.3 ----- Right ICA: 68.0 ----- Right ECA: 28.1 LEFT: Peak Systolic Velocity (PSV) cm/sec ----- Left CCA: 98.8 ----- Left ICA: 220 ----- Left ECA: 114 ICA/CCA ratio: 2.2 LEFT: End Diastole cm/sec ----- Left CCA: 28.1 ----- Left ICA: 62.0 ----- Left ECA: 19.5 VERTEBRALS (direction of flow): Right Vertebral: Antegrade Left Vertebral: abnormal Rhythm: Normal Mild to moderate plaque bilateral bifurcations. Tortuous right ICA. Increased velocities right ECA, l eft ICA. abnormal waveform left vertebral IMPRESSION: 1. Mild to moderate atherosclerotic plaque with findings suggestive of a moderate 50-69% stenosis inv olving the proximal left ICA. 2. There is abnormal waveform of the left vertebral artery. Cannot exclude significant atheroscleroti c disease consider short-term follow-up CTA. Criteria for Assigning % of Stenosis / Diameter reduction (Estimation based on the indirect measurements of the internal carotid artery velocities (ICA PSV). 1. Normal (no stenosis)=ICA PSV < 125 cm/s: ratio < 2.0: ICA EDV<40 cm/s. 2. Less than 50% stenosis=ICA PSV < 125 cm/s: ratio < 2.0: ICA EDV<40 cm/s. 3. 50 to 69% stenosis=ICA PSV of 125 to 230 cm/s: ration 2.0 ? 4.0: ICA EDV 40-100 cm/s. 4. Greater than 70% stenosis to near occlusion= ICA PSV > 230 cm/s: ratio > 4.0: ICA EDV > 100 cm/s. 5. Near occlusion= ICA PSV velocities may be low or undetectable: variable ratio and ICA EDV. 6. Total occlusion=unable to detect flow.
[2020-11-23] MEDS: HYDROcodone/APAP 5-325MG 1 EACH TAB PO PRN (19:32)
[2020-11-23] MEDS: OXcarbazepine 300MG/5ML SUSP 15,000 MG/250 ML BOTTLE PO SCH (20:53)
[2020-11-23] MEDS: QUEtiapine 200 MG TAB PO SCH (20:53)
[2020-11-23] MEDS ORDERED: OXcarbazepine 150 MG TAB PO SCH (21:00)
[2020-11-24] MEDS: HYDROcodone/APAP 5-325MG 1 EACH TAB PO PRN ×3 (02:04→17:53)
[2020-11-24 03:46] LABS: Hemoglobin A1C 5.3 % (4.0-6.0)
[2020-11-24] MEDS: HEPARIN SOD,PORK IN 0.45% NACL 25,000 UNIT in 0.45% NACL 1 250ML.BAG IV SCH (05:05)
[2020-11-24] MEDS: LEVOTHYROXINE 75 MCG TAB PO SCH (06:01)
[2020-11-24] MEDS: MORPHINE SULFATE 4 MG/ML SYRINGE IV PRN ×5 (06:02→23:52)
[2020-11-24 08:50] LABS: African American GFR (CKD) >90 (>60 ml/min/1.73 sqM); Anion Gap 3 mmol/L; Blood Urea Nitrogen 8 mg/dL (7-17); Calcium 8.8 mg/dL (8.4-10.2); Carbon Dioxide 23 mmol/L (22-30); Chloride 115 mmol/L (98-107); Cholesterol 200 mg/dL (<200); Glucose 133 mg/dL (74-99); HDL Cholesterol 34 mg/dL (40-60); LDL Cholesterol,Calculated 110 mg/dL (0-99); Non-African American GFR(CKD) >90 (>60 ml/min/1.73 sqM); Potassium 3.3 mmol/L (3.5-5.1); Sodium 141 mmol/L (137-145); Triglycerides 282 mg/dL (<150)
[2020-11-24] MEDS: OXcarbazepine 300MG/5ML SUSP 15,000 MG/250 ML BOTTLE PO SCH ×2 (08:59→20:29)
[2020-11-24] MEDS: ASPIRIN 325 MG TAB PO SCH (09:02)
[2020-11-24] MEDS: PANTOPRAZOLE 40 MG TABLET PO SCH (09:02)
[2020-11-24] MEDS: ATORVASTATIN 80 MG TAB PO SCH (09:02)
[2020-11-24] MEDS: GABAPENTIN 300 MG CAP PO SCH ×3 (09:02→20:11)
[2020-11-24] MEDS: lisinopriL 10 MG TAB PO SCH (09:02)
[2020-11-24] MEDS: VENLAFAXINE HCL ER 150 MG CAP PO SCH (09:02)
--- NOTE | 2020-11-24 10:06 | P.CNOR ---
History of Present Illness - [facility] Consult date: 11/24/20 Consult reason: neck pain (Left extremity pain and weakness) History of present illness: Patient's pleasant 55-year-old female who presented to the hospital in regards to chest pain and left upper extremity pain. Patient initially had workup cardiology and was not found to have any acute cardiac etiology. Her chest pain resolved but she was continued to have left upper extremity pain with numbness discoloration and weakness. She denies any prior problems with her left upper extremity. She denies any trauma. She denies any incident. She denies any prior issues with her neck or left upper extremity. She is not having any chest pain currently. She denies any shortness of breath. She had further workup with vascular surgery to rule out vascular etiology for her left upper extremity symptoms and her CTA did not show any evidence of occlusive problem. She also had workup with neurology in regards to possible dural vascular accident. The computed tomography scan of her brain and cervical spine were negative and he recommended further imaging with MRI of the brain and C-spine. The patient continues to have some pain at her left upper extremity from her mid upper arm all the way down to her fingertips. It is over entire stocking distribution without a specific radicular pattern. She feels that she has some discoloration but she does not feel that it is cold. The pain is constant but she is able to use her upper extremity appropriately but she feels weak globally in her left arm. She denies any vision changes or breathing problems. She denies any chest pain currently. Review of Systems As stated per HPI. Denies any prior issues with her left lower extremity. Admits to global weakness at her left arm but she is able to use it lightly. She feels that she has some discoloration in her hand and fingers. She denies any specific pattern of her symptoms at her arm she feels his overall a stocking her complete global distribution at her left arm from mid upper arm down to her fingertips Past Medical History Past Medical History: GERD/Reflux, Hypertension, Seizure Disorder Additional Past Medical History / Comment(s): IBS, DIVERTICULITIS, LAST seizure last MONTH -,deviated septum(sx), ddd neck/lower back, arhtritis, stress test- neg, uti History of Any Multi-Drug Resistant Organisms: None Reported Past Surgical History: Hysterectomy Additional Past Surgical History / Comment(s): hiatal hernia repair, right ear @ age 17 d/t avm, septoplasty and pt stated "4 days later ened up in hopsital with septic shock" Past Anesthesia/Blood Transfusion Reactions: No Reported Reaction Additional Past Anesthesia/Blood Transfusion Reaction / Comm: mild clausterphob ia Past Psychological History: Anxiety, Depression Additional Psychological History / Comment(s): pt is independant. 2 sons live with her. drives. Smoking Status: Current every day smoker Past Alcohol Use History: None Reported Additional Past Alcohol Use History / Comment(s): smoked since age of 19 1/2 ppd Past Drug Use History: None Reported - Past Family History Mother Family Medical History: No Reported History Additional Family Medical History / Comment(s): triple bypass Father Family Medical History: Coronary Artery Disease (CAD) Additional Family Medical History / Comment(s): triple bypass Medications and Allergies Home Medications Medication Instructions Recorded Confirmed Type Methocarbamol [Robaxin-750] 750 mg PO TID PRN 05/11/18 11/23/20 History Venlafaxine HCl [Effexor XR] 150 mg PO DAILY 08/15/18 11/23/20 History OXcarbazepine [Trileptal] 150 mg PO BID 01/17/19 11/23/20 History Pantoprazole [Protonix] 40 mg PO DAILY 01/17/19 11/23/20 History Diphenox-Atrop 2.5-0.025 mg 2 tab PO TID PRN 06/24/20 11/23/20 History [Lomotil] HYDROcodone/APAP 5-325MG [[place] 1 tab PO TID PRN 06/24/20 11/23/20 History 5-325] Lisinopril [Prinivil] 10 mg PO DAILY 06/24/20 11/23/20 History QUEtiapine [SEROquel] 200 mg PO HS 06/24/20 11/23/20 History Diltiazem HCl [Diltiazem HCl 24Hr 300 mg PO DAILY 11/23/20 11/23/20 History ER] Gabapentin 600 mg PO TID 11/23/20 11/23/20 History Levothyroxine Sodium [Synthroid] 75 mcg PO DAILY 11/23/20 11/23/20 History Metoprolol Succinate [Toprol XL] 200 mg PO DAILY 11/23/20 11/23/20 History Allergies Allergy/AdvReac Type Severity Reaction Status Date / Time ranitidine [From Zantac] Allergy Rash/Hives Verified 11/23/20 10:04 tramadol Allergy SEZIURE Verified 11/23/20 10:04 Physical Examination Osteopathic Statement: *. No significant issues noted on an osteopathic structural exam other than those noted in the History and Physical/Consult. - Wrist & Hand left Location of pain: other (There is global pain with light palpation over her left arm and forearm. She has 3 out of 5 automotive internet sales consultant strength at her left upper extremity with elbow flexion and wrist extension flexion automotive internet sales consultant interosseous and thumb extension) ROM: wrist flexion: normal (She has good motion at her left upper extremity that has global weakness throughout. There is negative Anne's. No hyperreflexia. Her right upper extremity has full 5 out of 5 strength throughout. Lower extremity is 5 strength throughout. She has no facial asymmetry.) Results - Labs Labs: Abnormal Lab Results - Last 24 Hours (Table) 11/24/20 11/24/20 11/24/20 Range/Units 01:10 08:17 08:17 APTT 34.9 H 48.7 H (22.0-30.0) sec Potassium 3.3 L (3.5-5.1) mmol/L Chloride 115 H (98-107) mmol/L Glucose 133 H (74-99) mg/dL Triglycerides 282 H (<150) mg/dL Cholesterol 200 H (<200) mg/dL LDL Cholesterol, Calc 110 H (0-99) mg/dL HDL Cholesterol 34 L (40-60) mg/dL H & H 11/23/20 Range/Units 02:43 Hgb 13.3 (11.4-16.0) gm/dL Hct 41.1 (34.0-46.0) % Coagulation 11/23/20 Range/Units 02:43 INR 1.0 (<1.2) Result Diagrams: 11/23/20 02:43 11/24/20 08:17 - Diagnostic results CT scan - cervical: report reviewed, image reviewed (Computed tomography scan of the brain and C-spine ordered by neurology does not show any obvious acute change or neurologic compression. There are some diffuse degenerative disease at her mid cervical spine.) Assessment and Plan Assessment: Acute chest pain resolved with negative cardiac enzymes Left upper extremity pain with weakness over a global description of uncertain etiology There does not appear to be acute cardiac or vascular compromise to account for the patient's chest pain or left upper extremity. She has been worked up and seen with cardiology as well as with vascular surgery in this regard and there are no further plans for workup and those areas. Neurology is seeing the patient and continues to consider the possibility of cervical vascular accident versus TIA or left upper extremity radicular symptoms from her cervical spine. They recommended further imaging with MRI of the brain and C-spine if the CT was inconclusive. Neurology is not available over this weekend, but With her continued left upper extremity pain and weakness I think that an MRI is worthwhile. It is difficult to connect this with her cervical spine as she does not following specific radicular pattern and does not appear to be grossly myelopathic. She's not having further weakness at this point but continues to have changes and I think further imaging is warranted. We will follow up after the MRI is complete. Plan: Acute chest pain resolved with negative cardiac enzymes Left upper extremity pain with weakness over a global description of uncertain etiology There does not appear to be acute cardiac or vascular compromise to account for the patient's chest pain or left upper extremity. She has been worked up and seen with cardiology as well as with vascular surgery in this regard and there are no further plans for workup and those areas. Neurology is seeing the patien t and continues to consider the possibility of cervical vascular accident versus TIA or left upper extremity radicular symptoms from her cervical spine. They recommended further imaging with MRI of the brain and C-spine if the CT was inconclusive. Neurology is not available over this weekend, but With her continued left upper extremity pain and weakness I think that an MRI is worthwhile. It is difficult to connect this with her cervical spine as she does not following specific radicular pattern and does not appear to be grossly myelopathic. She's not having further weakness at this point but continues to have changes and I think further imaging is warranted. We will follow up after the MRI is complete.
--- NOTE | 2020-11-24 11:07 | P.PN ---
Subjective Progress Note Date: 11/24/20 This pleasant 55-year-old male patient with a past medical history significant for seizure disorder, hypertension and tobacco abuse. Presented with complaints of lightheadedness, chest discomfort and left arm pain. There is a question of some vascular involvement in the left arm however CTAs shown no dissection and satisfactory arterial blood flow in the left upper extremity at least to the point of the mid forearm level. She has been seen by neurology and orthopedics. There is concern for some cervical spine radiculopathy. She is scheduled for an MRI this morning. She currently does have IV heparin infusion. She underwent echocardiogram yesterday which revealed normal LV systolic function w ith no segmental wall motion abnormalities and no significant valvular abnormalities. Overall she is feeling better. She has no complaints of chest discomfort at this time but continues to have left arm pain with no evidence of vascular involvement. Pulses are palpable and equal bilaterally and skin temperature is even bilaterally. There is no discoloration of the left upper extremity. Objective - Vital Signs Vital signs: Vital Signs Temp 98.6 F 11/24/20 08:00 Pulse 73 11/24/20 08:00 Resp 16 11/24/20 08:00 BP 98/50 11/24/20 08:00 Pulse Ox 95 11/24/20 08:00 Intake & Output 11/23/20 11/24/20 11/24/20 18:59 06:59 18:59 Intake Total 232.157 960 Balance 232.157 960 Weight 72.8 kg 73.4 kg Intake: Intake, IV Titration 232.157 Amount Heparin Sod,Pork in 0.45% 232.157 NaCl 25,000 unit In 0.45 % NaCl 1 250ml.bag @ 12 UNITS/KG/HR 8.981 mls/hr IV .Q24H [facility] Rx#: [id number] Oral 960 Other: # Voids 1 - Exam PHYSICAL EXAMINATION: HEENT: Head is atraumatic, normocephalic. Pupils equal, round. Neck is supple. There is no elevated jugular venous pressure. HEART EXAMINATION: Heart sounds regular, S1 and S2 normal. No murmur or gallop heard. CHEST EXAMINATION: Lungs are clear to auscultation. No chest wall tenderness is noted on palpation or with deep breathing. ABDOMEN: Soft, nontender. Bowel sounds are heard. No organomegaly noted. EXTREMITIES: 2+ peripheral pulses with no evidence of peripheral edema and no calf tenderness noted. NEUROLOGIC patient is awake, alert and oriented x3. . - Labs CBC & Chem 7: 11/23/20 02:43 11/24/20 08:17 Labs: Abnormal Lab Results - Last 24 Hours (Table) 11/24/20 11/24/20 11/24/20 Range/Units 01:10 08:17 08:17 APTT 34.9 H 48.7 H (22.0-30.0) sec Potassium 3.3 L (3.5-5.1) mmol/L Chloride 115 H (98-107) mmol/L Glucose 133 H (74-99) mg/dL Triglycerides 282 H (<150) mg/dL Cholesterol 200 H (<200) mg/dL LDL Cholesterol, Calc 110 H (0-99) mg/dL HDL Cholesterol 34 L (40-60) mg/dL Assessment and Plan Assessment: #1 symptoms of chest discomfort, acute coronary event has been ruled out. #2 left arm pain with some concern of C-spine radiculopathy. #3 hypertension #4 seizure disorder #5 nicotine dependence Plan: From cardiology perspective, there is no need for any further cardiac workup as an inpatient. She will follow-up in the office as an outpatient with Dr. Alcantar. PARTS ANALYST note has been reviewed, I agree with a documented findings and plan of care. Patient was seen and examined.
[2020-11-24] MEDS ORDERED: ALPRAZolam 0.5 MG TAB PO PRN (12:06)
[2020-11-24] MEDS ORDERED: Potassium Replacement Protocol 1 EACH MISC MISCELLANE PRN (13:57)
--- NOTE | 2020-11-24 14:11 | MR ---
EXAMINATION TYPE: MR brain/cspine wo DATE OF EXAM: 11/24/2020 COMPARISON: MR scan of the brain 06/22/2018 and C-spine 04/16/2018 HISTORY: Left upper extremity pain and weakness Multiplanar multiecho imaging of the brain and cervical spine was performed without contrast. FINDINGS: There is mild cerebral cortical atrophy. There is no mass effect nor midline shift. Diffusion images show no evidence of a cortical infarct. There are numerous white matter high signal foci at the tillman- white matter junction of both cerebral hemispheres that measure up to 8 mm and consistent with multif ocal chronic small vessel ischemia. The total number is approximately 35. The brainstem shows 2 mm focus of increased signal in the branden on the left of midline. There is no ev idence of a posterior fossa mass. Sella turcica appears normal. Corpus callosum appears intact. Cervical vertebra have normal alignment. There is mild decreased signal in narrowing of the disc spac es throughout the cervical spine. There is small posterior disc bulging at C3-4 C5-C6 levels. There i s developmentally adequate spinal canal and no significant spinal stenosis. The canal measures 9 mm a t C3-4 which is the narrowest point. Canal is 9.5 mm at C6-7. Cervical spinal cord shows fairly tarik l signal pattern. There is no edema. There is no evidence of a fracture. There is multilevel mild hyp ertrophic facet arthropathy. IMPRESSION: Numerous white matter lesions in both cerebral hemispheres probably due to chronic small vessel ische aiden and appear not significantly different than old exam. There is significant improvement in the rig ht maxillary sinusitis compared to old exam. Spondylotic multilevel changes in the cervical spine without significant spinal stenosis. Small poste rior disc bulging. Cervical spine not significantly different than old exam.
[2020-11-24] MEDS: POTASSIUM CHLORIDE ER 20 MEQ TAB.ER PO SCH (14:55)
[2020-11-24] MEDS: METOPROLOL SUCCINATE (ER) 100 MG TAB.ER.24H PO SCH (16:09)
[2020-11-24] MEDS: DILTIAZEM CD 300 MG CAP.ER.24H PO SCH (16:10)
[2020-11-24] MEDS: QUEtiapine 200 MG TAB PO SCH (20:12)
[2020-11-25] MEDS: HYDROcodone/APAP 5-325MG 1 EACH TAB PO PRN ×2 (01:26→10:38)
[2020-11-25] MEDS: MORPHINE SULFATE 4 MG/ML SYRINGE IV PRN ×3 (04:03→12:33)
[2020-11-25] MEDS: LEVOTHYROXINE 75 MCG TAB PO SCH (06:28)
[2020-11-25 07:34] LABS: Basophils % (A) 1 %; Eosinophils # (A) 0.2 k/uL (0-0.7); Eosinophils % (A) 4 %; HCT 33.5 % (34.0-46.0); HGB 11.3 gm/dL (11.4-16.0); Lymphocytes # (A) 1.9 k/uL (1.0-4.8); Lymphocytes % (A) 31 %; MCH 29.8 pg (25.0-35.0); MCHC 33.8 g/dL (31.0-37.0); MCV 88.2 fL (80.0-100.0); Mean Platelet Volume 6.8; Monocytes # (A) 0.5 k/uL (0-1.0); Monocytes % (A) 8 %; Neutrophils # (A) 3.4 k/uL (1.3-7.7); Neutrophils % (A) 55 %; Platelet Count 240 k/uL (150-450); RDW 14.7 % (11.5-15.5); WBC 6.3 k/uL (3.8-10.6)
[2020-11-25 07:53] LABS: African American GFR (CKD) >90 (>60 ml/min/1.73 sqM); Anion Gap 1 mmol/L; Blood Urea Nitrogen 6 mg/dL (7-17); Calcium 8.9 mg/dL (8.4-10.2); Carbon Dioxide 28 mmol/L (22-30); Chloride 110 mmol/L (98-107); Glucose 93 mg/dL (74-99); Non-African American GFR(CKD) >90 (>60 ml/min/1.73 sqM); Potassium 3.9 mmol/L (3.5-5.1); Sodium 139 mmol/L (137-145)
[2020-11-25] MEDS: GABAPENTIN 300 MG CAP PO SCH (08:11)
[2020-11-25] MEDS: VENLAFAXINE HCL ER 150 MG CAP PO SCH (08:12)
[2020-11-25] MEDS: ATORVASTATIN 80 MG TAB PO SCH (08:12)
[2020-11-25] MEDS: ASPIRIN 325 MG TAB PO SCH (08:12)
[2020-11-25] MEDS: lisinopriL 10 MG TAB PO SCH (08:12)
[2020-11-25] MEDS: PANTOPRAZOLE 40 MG TABLET PO SCH (08:12)
[2020-11-25] MEDS: OXcarbazepine 300MG/5ML SUSP 15,000 MG/250 ML BOTTLE PO SCH (08:13)
[2020-11-25 08:19] VITALS: TEMP 98.4
--- NOTE | 2020-11-25 11:58 | P.PN ---
Progress Note - Text Progress Note Date: 11/25/20 Orthopedic spine: History of present illness: Patient is a very pleasant 55-year-old female who is seen at the bedside for follow-up evaluation of her cervical spine. Since being seen in the bedside she was able to have MRI imaging of her brain and cervical spine. Patient had been experiencing left-sided chest pain and left upper extremity pain with weakness since this past 11/23/2020. She has undergone extensive workup during her presentation to the hospital without significant findings. She's been seen by neurology. CT imaging did not show significant findings and it was recommended for her to have MRI imaging. Patient states since her admission her pain has improved but continues to be present. Pain is most significant radiating down the entire left upper extremity and into the left index finger and middle finger. She has weakness with biceps, triceps, and junior paralegal on the left. She is not experiencing any right upper extremity weakness or radiculopathy. She denies any injuries. She has been seen by cardiology who ruled out acute cardiac etiology. She was seen by vascular surgery. CTA did not show evidence of occlusive problem. Patient continues to be seen by multiple medical providers. Nursing states patient may be discharged home today. Physical exam: Patient is awake, alert, and oriented 3 Vital signs stable Good chest excursion with deep inspiration and expiration Abdomen soft nontender Examination of the cervical spine reveals skin is intact with no abrasions, lacerations, or bruises; no erythema, purulence or signs of infection Full range of motion of the cervical spine with adequate flexion, extension, and bilateral rotation Ad Copy Writer strength, thumb strength, interosseous strength, biceps strength, triceps strength, and shoulder strength positive sustained bilaterally Upper extremity strength 5/5 on the right Motor strength in the upper extremity is 4/5 with breakaway strength including the biceps Motor strength the upper extremity is 3+/5 including junior paralegal Motor strength in the upper extremity is 4-/5 including the triceps No upper extremity hyperreflexia bilaterally Hoffmans sign negative upper extremity bilaterally Examination of the left upper extremity does not show any significant erythema, bruising or nail and swelling Pertinent studies: MRI of the brain and cervical spine taken on 11/24/2020: Overall alignment of the cervical spine is quickly maintained; mild degenerative disc disease throughout the cervical spine; small posterior disc bulging at C3-4 and C5-6; no evidence of significant spinal canal stenosis; multilevel mild facet hypertrophy; no cord edema; imaging has not shown significant changes compared to previous imaging taken on 04/16/2018; numerous white matter lesions in both cerebral hemispheres probably due to chronic small vessel ischemia and does not appear significantly different than previous exam taken on 06/22/2018 Assessment: Left-sided chest pain and left upper extremity pain of unknown etiology Left upper extremity weakness Cervical degenerative disc disease Cervical multilevel mild facet hypertrophy Plan: 1. Patient has been discussed in detail with Dr. Ankit Del Angel and imaging has been reviewed by myself and Dr. Ankit Del Angel. Patient has been experiencing pain over the left side of her chest down the entire left upper extremity and into the left index and middle fingers since 11/23/2020. She does not have specific radicular pattern for the eft upper extremity. Her pain had radiated into all fingers the left hip but today feels it is most significant at the left index finger and middle finger. She does continue to have weakness as well with her junior paralegal, biceps, triceps on the left. Reviewing of cervical MRI imaging does show some degenerative change but does not show any evidence of significant herniated nucleus pulposus or spinal canal stenosis to correlate well with the patient's symptoms. Her imaging remains fairly stable as compared to previous imaging from 04/16/2018. At this time, we would not recommend any acute surgical intervention at her cervical spine as we do not feel our indications in which surgical intervention would provide a significant improvement of her symptoms. She does state she follows with pain management regards to her cervical spine in the outpatient setting. We discussed she should plan to follow with them for further treatment and evaluation following discharge. Patient is also undergone extensive workup through medicine, cardiology, vascular surgery, and neurology without significant findings. We will plan have the patient follow-up in the outpatient setting with Dannie Lundy PA-C or Dr. Ankit Del Angel at [facility] in 3 weeks following discharge.
[2020-11-25 12:37] VITALS: BP 110/82; PULSE 69; RESP 17
--- NOTE | 2020-11-25 12:47 | P.PN ---
Subjective Progress Note Date: 11/25/20 Patient is evaluated today. She is sitting up in bed eating lunch. She in the case that her arm pain although present is somewhat improved. Extends from her upper humeral area down through her hand. Objective - Vital Signs Vital signs: Vital Signs Temp 98.4 F 11/25/20 08:00 Pulse 69 11/25/20 12:00 Resp 17 11/25/20 12:00 BP 110/82 11/25/20 12:00 Pulse Ox 99 11/25/20 12:00 Intake & Output 11/24/20 11/25/20 11/25/20 18:59 06:59 18:59 Intake Total 2340 350 1140 Balance 2340 350 1140 Weight 73.9 kg Intake: Oral 2340 350 1140 Other: Voiding Method Toilet Toilet # Voids 2 1 1 - Neck Neck: Present: normal ROM Carotids: left: bruit absent - Cardiovascular Heart sounds: normal: S1, S2 - Neurologic Neurologic: Present: CNII-XII intact - Musculoskeletal Musculoskeletal: Present: strength equal bilaterally - Additional findings Additional findings: Axillary, brachial and radial pulses are intact bilaterally. Patient exhibits full range of motion of the shoulder elbow wrist and finger joints. - Labs CBC & Chem 7: 11/25/20 06:54 11/25/20 06:54 Labs: Abnormal Lab Results - Last 24 Hours (Table) 11/25/20 11/25/20 11/25/20 Range/Units 06:54 06:54 06:54 Hgb 11.3 L (11.4-16.0) gm/dL Hct 33.5 L (34.0-46.0) % APTT 21.0 L (22.0-30.0) sec Chloride 110 H (98-107) mmol/L BUN 6 L (7-17) mg/dL Assessment and Plan Assessment: The patient does not exhibit any arterial or venous issues that might be the cause of her symptoms. I agree with current workup. There is no specific recommendations from a vascular surgical standpoint. I would be happy to reevaluate the patient at your request. Time with Patient: Less than 30
--- NOTE | 2020-11-25 17:00 | P.PN ---
Subjective Progress Note Date: 11/24/20 Principal diagnosis: Possible cervical spondylosis Ms. England is a 55-year-old female with a past medical history of GERD, hypertension, seizure disorder, IBS, diverticulosis, hysterectomy, anxiety and depression who follows Dr. Carver as outpatient, [facility] left arm pain. Patient was also complaining of chest pain. After admission patient had extensive evaluation including thoracic aortic seen the and upper extremity CTA. Multiple consultants including cardiology, vascular surgery are following the patient. On 11/24 - patient is lying in bed appears to be no acute distress. She still complains of pain in her left upper extremity starting mid arm area. She denies having any tingling or numbness. She states that her chest pain is better. Patient denies having any cough or difficulty in breathing. Abdominal pain nausea vomiting or diarrhea. No dysuria or hematuria. On reviewing the vitals temperature 90.8 0.185 is 56, blood pressure 118 was 66 at 96% on room air. Patient's labs from this morning sodium 141, potassium 6.3, chloride 1:15, bicarbonate 23, BUN 8, creatinine 0.69. TSH is less than 0.015 and free T4 2 0.18. Active Medications Hydrocodone Bitart/Acetaminophen (Hydrocodone/Apap 5-325mg 1 Each Tab) 1 each PO TID PRN PRN Reason: Pain Last Admin: 11/24/20 17:53 Dose: 1 each Documented by: Alprazolam (Alprazolam 0.5 Mg Tab) 0.5 mg PO BID PRN PRN Reason: Anxiety Aspirin (Aspirin 325 Mg Tab) 325 mg PO DAILY [facility] Last Admin: 11/24/20 09:02 Dose: 325 mg Documented by: Atorvastatin Calcium (Atorvastatin 80 Mg Tab) 80 mg PO DAILY [facility] Last Admin: 11/24/20 09:02 Dose: 80 mg Documented by: Diltiazem HCl (Diltiazem Cd 300 Mg Cap.Er.24h) 300 mg PO DAILY@1800 [facility] Last Admin: 11/24/20 16:10 Dose: 300 mg Documented by: Gabapentin (Gabapentin 300 Mg Cap) 600 mg PO TID [facility] Last Admin: 11/24/20 16:09 Dose: 600 mg Documented by: Levothyroxine Sodium (Levothyroxine 75 Mcg Tab) 75 mcg PO 0630 [facility] Last Admin: 11/24/20 06:01 Dose: 75 mcg Documented by: Lisinopril (Lisinopril 10 Mg Tab) 10 mg PO DAILY [facility] Last Admin: 11/24/20 09:02 Dose: 10 mg Documented by: Methocarbamol (Methocarbamol 750 Mg Tab) 750 mg PO TID PRN PRN Reason: Muscle Spasm Metoprolol Succinate (Metoprolol Succinate (Er) 100 Mg Tab.Er.24h) 200 mg PO DAILY@1800 [facility] Last Admin: 11/24/20 16:09 Dose: 200 mg Documented by: Miscellaneous Information (Rx Info: Iv Contrast Was Given 1 Each Misc) 1 each MISCELLANE DAILY PRN PRN Reason: Per Protocol Stop: 11/25/20 06:42 Miscellaneous Information (Potassium Replacement Protocol 1 Each Misc) 1 each MISCELLANE DAILY PRN; Protocol PRN Reason: Per Protocol Morphine Sulfate (Morphine Sulfate 4 Mg/Ml Syringe) 4 mg IV Q4HR PRN PRN Reason: Chest Pain Last Admin: 11/24/20 16:08 Dose: 4 mg Documented by: Nitroglycerin (Nitroglycerin Sl Tabs 0.4 Mg Tab) 0.4 mg SUBLINGUAL Q5M PRN PRN Reason: Chest Pain Oxcarbazepine (Oxcarbazepine 300mg/5ml Susp 15,000 Mg/250 Ml Bottle) 200 mg PO BID [facility] Last Admin: 11/24/20 08:59 Dose: 200 mg Documented by: Pantoprazole Sodium (Pantoprazole 40 Mg Tablet) 40 mg PO DAILY [facility] Last Admin: 11/24/20 09:02 Dose: 40 mg Documented by: Quetiapine Fumarate (Quetiapine 200 Mg Tab) 200 mg PO [facility] Last Admin: 11/23/20 20:53 Dose: 200 mg Documented by: Venlafaxine HCl (Venlafaxine Hcl Er 150 Mg Cap) 150 mg PO DAILY [facility] Last Admin: 11/24/20 09:02 Dose: 150 mg Documented by: Objective - Vital Signs Vital signs: Vital Signs Temp 98.9 F 11/24/20 15:57 Pulse 69 11/24/20 15:57 Resp 16 11/24/20 15:57 BP 133/79 11/24/20 15:57 Pulse Ox 93 L 11/24/20 15:57 Intake & Output 11/23/20 11/24/20 11/24/20 18:59 06:59 18:59 Intake Total 037.382 1884 Balance 120.577 6691 Weight 72.8 kg 73.4 kg Intake: Intake, IV Titration 232.157 Amount Heparin Sod,Pork in 0.45% 232.157 NaCl 25,000 unit In 0.45 % NaCl 1 250ml.bag @ 12 UNITS/KG/HR 8.981 mls/hr IV .Q24H [facility] Rx#: [id number] Oral 1080 Other: # Voids 1 1 - Exam PHYSICAL EXAMINATION: GENERAL: The patient is alert and oriented X3, in any acute distress. HEENT: No scleral icterus. No conjunctival pallor. Normocephalic, atraumatic. No pharyngeal erythema. No thyromegaly. CARDIOVASCULAR: S1 and S2 present. No murmurs, rubs, or gallops. PULMONARY: Chest is clear to auscultation, no wheezing or crackles. ABDOMEN: Soft, nontender, nondistended, normoactive bowel sounds. No palpable organomegaly. MUSCULOSKELETAL: No joint swelling or deformity. EXTREMITIES: No cyanosis, clubbing, or pedal edema. NEUROLOGICAL: No focal neurological deficits. - Labs CBC & Chem 7: 11/25/20 06:54 11/25/20 06:54 Labs: Abnormal Lab Results - Last 24 Hours (Table) 11/24/20 11/24/20 11/24/20 Range/Units 01:10 08:17 08:17 APTT 34.9 H 48.7 H (22.0-30.0) sec Potassium 3.3 L (3.5-5.1) mmol/L Chloride 115 H (98-107) mmol/L Glucose 133 H (74-99) mg/dL Triglycerides 282 H (<150) mg/dL Cholesterol 200 H (<200) mg/dL LDL Cholesterol, Calc 110 H (0-99) mg/dL HDL Cholesterol 34 L (40-60) mg/dL Assessment and Plan Assessment: ASSESSMENT Left arm pain, chest pain and neck pain rule out coronary artery disease Possible cervical spondylosis and DJD Leukocytosis Acute kidney injury possibly secondary to dehydration Troponin elevation GERD Hypertension Hyperlipidemia Irritable bowel syndrome History of diverticulitis History of anxiety with depression Ongoing nicotine dependence PLAN: Patient has multiple complex medical conditions and had extensive evaluation done as stated above for her left arm pain. So far patient had t horacic Iotuss CT, right upper extremity CTA, CT of the head and spine, carotid artery Doppler, brain/cervical MRI. Multiple consultants including neurology, orthopedic, vascular following the patient and suggested no acute intervention. The patient will be continued on current medication regimen and further recommendations to follow depending on the progress of the patient.
--- NOTE | 2020-11-25 17:07 | P.DS ---
Providers Date of admission: 11/23/20 04:21 Expected date of discharge: 11/25/20 Attending physician: Chelsie Alfaro Consults: 11/23/20 04:21 Consult Physician Urgent Consulting Provider: Trista Camilo Consult Reason/Comments: cp Do you want consulting provider notified?: Yes 11/23/20 06:29 Consult Physician Stat Consulting Provider: Elian Pickering Consult Reason/Comments: LEFT HAND NUMBNESS Do you want consulting provider notified?: Yes 11/23/20 14:17 Consult Physician Urgent Consulting Provider: Denver Montenegro Consult Reason/Comments: numbness and pain in the left arm Do you want consulting provider notified?: Already Contacted 11/23/20 14:26 Consult Physician Routine Consulting Provider: Darrius Del Angel Consult Reason/Comments: cervical djd?? Do you want consulting provider notified?: Yes Primary care physician: [facility] Course: Ms. England is a 55-year-old female with a past medical history of multiple chronic medical conditions including GERD, hypertension, seizure disorder, IBS, diverticulitis, chronic low back pain, degenerative joint disease coming to the hospital with chief complaint of left arm pain. was complaining of left arm pain along with left-sided chest pain associated with some tingling and numbness in the third and fourth digits of her left hand. So the patient was admitted for further evaluation. Hospital course ; patient had extensive workup done with 2-D echocardiogram showing a normal left ventricular size with ejection back to 55%, CT angiogram of the chest with no dissection, with satisfactory arterial blood flow to the left upper extremity, CT of the head and cervical spine showing no acute intracranial hemorrhage or midline shift, mild to moderate diffuse cerebral atrophy. Carotid artery Doppler showing mild to moderate atherosclerotic plague with suggestive finding of moderate 50-70% stenosis involving the proximal left ICA and MRI of the brain showing chronic small vessel ischemia and small posterior disc bulging without significant spinal stenosis. Multiple consultants followed the patient during the hospital stay including neurology, vascular surgery, cardiology and orthopedics. Patient was cleared by all of them to be discharged home to be followed up with her neurologist. Patient has an upcoming appointment with her neurologist Dr. Nix in couple of days. She is advised to follow with them. Vital Signs 11/25/20 11/25/20 12:00 14:00 Pulse Rate [ 69 Pulse Oximetery ] Respiratory 17 17 Rate Blood Pressure 110/82 [Right Arm] O2 Sat by Pulse 99 Oximetry PHYSICAL EXAMINATION: GENERAL: The patient is alert and oriented X3, in any acute distress. HEENT: No scleral icterus. No conjunctival pallor. Normocephalic, atraumatic. No pharyngeal erythema. No thyromegaly. CARDIOVASCULAR: S1 and S2 present. No murmurs, rubs, or gallops. PULMONARY: Chest is clear to auscultation, no wheezing or crackles. ABDOMEN: Soft, nontender, nondistended, normoactive bowel sounds. No palpable organomegaly. MUSCULOSKELETAL: No joint swelling or deformity. EXTREMITIES: No cyanosis, clubbing, or pedal edema. NEUROLOGICAL: No focal neurological deficits. DISCHARGE DIAGNOSIS Left arm pain, chest pain and neck pain rule out coronary artery disease Possible cervical spondylosis and DJD Leukocytosis Acute kidney injury possibly secondary to dehydration Troponin elevation GERD Hypertension Hyperlipidemia Irritable bowel syndrome History of diverticulitis History of anxiety with depression Ongoing nicotine dependence Follow-up: Patient is advised to follow up with her primary care physician in 2- 3 days and with the Neurologist, she has an upcoming appointment in 2 days. More than 35 minutes spent towards the discharge of the patient. Patient Condition at Discharge: Undetermined Plan - Discharge Summary New Discharge Prescriptions: New Aspirin 81 mg PO DAILY 30 Days #30 chewable Atorvastatin [Lipitor] 80 mg PO DAILY 30 Days #30 tab Continue Methocarbamol [Robaxin-750] 750 mg PO TID PRN PRN Reason: Muscle Spasm Venlafaxine HCl [Effexor XR] 150 mg PO DAILY OXcarbazepine [Trileptal] 150 mg PO BID Pantoprazole [Protonix] 40 mg PO DAILY Diphenox-Atrop 2.5-0.025 mg [Lomotil] 2 tab PO TID PRN PRN Reason: Diarrhea HYDROcodone/APAP 5-325MG [[place] 5-325] 1 tab PO TID PRN PRN Reason: Pain Lisinopril [Prinivil] 10 mg PO DAILY QUEtiapine [SEROquel] 200 mg PO HS Levothyroxine Sodium [Synthroid] 75 mcg PO DAILY Diltiazem HCl [Diltiazem HCl 24Hr ER] 300 mg PO DAILY Metoprolol Succinate [Toprol XL] 200 mg PO DAILY Gabapentin 600 mg PO TID Discharge Medication List Methocarbamol [Robaxin-750] 750 mg PO TID PRN 05/11/18 [History] Venlafaxine HCl [Effexor XR] 150 mg PO DAILY 08/15/18 [History] OXcarbazepine [Trileptal] 150 mg PO BID 01/17/19 [History] Pantoprazole [Protonix] 40 mg PO DAILY 01/17/19 [History] Diphenox-Atrop 2.5-0.025 mg [Lomotil] 2 tab PO TID PRN 06/24/20 [History] HYDROcodone/APAP 5-325MG [[place] 5-325] 1 tab PO TID PRN 06/24/20 [History] Lisinopril [Prinivil] 10 mg PO DAILY 06/24/20 [History] QUEtiapine [SEROquel] 200 mg PO HS 06/24/20 [History] Diltiazem HCl [Diltiazem HCl 24Hr ER] 300 mg PO DAILY 11/23/20 [History] Gabapentin 600 mg PO TID 11/23/20 [History] Levothyroxine Sodium [Synthroid] 75 mcg PO DAILY 11/23/20 [History] Metoprolol Succinate [Toprol XL] 200 mg PO DAILY 11/23/20 [History] Aspirin 81 mg PO DAILY 30 Days #30 chewable 11/25/20 [Rx] Atorvastatin [Lipitor] 80 mg PO DAILY 30 Days #30 tab 11/25/20 [Rx] Follow up Appointment(s)/Referral(s): José Miguel Alcantar DO [STAFF PHYSICIAN] - 1 Week Dannie Lundy PAC [PHYSICIAN [employer] ALINER] - 3 Weeks (Patient may follow-up with Dannie Lundy PA-C or Dr. Ankit Del Angel at [facility] in 3 weeks following discharge. ) [facility],Clinic [Primary Care Provider] - 1-2 days Discharge Disposition: HOME SELF-CARE
--- NOTE | 2020-11-28 11:13 | P.ARTDOP ---
Arterial Doppler Upper extremity arterial Doppler: Reason for study: Left arm pain and numbness, fairly acute in onset Date of study: 11/23/2020 Doppler waveforms are multiphasic throughout on the right. They are atypical throughout on the left. There is a 34 mm right to left pressure gradient at the brachial level. The waveform change starts at the axillary level. There are no segmental gradients. Impression: Suggests very proximal axillary or subclavian occlusive process. Vascular specialist consult recommended.
== END 2020-11-25 15:35 | disposition home or self-care (01) ==
LOC: EC 02:26 → 3SCARD 04:21
PROVIDERS: ADMIT Hospitalist; ATTEND Hospitalist
DX: R07.89 Other chest pain (principal); M54.2 Cervicalgia; M79.602 Pain in left arm; D72.829 Elevated white blood cell count, unspecified; N17.0 Acute kidney failure with tubular necrosis; R79.89 Other specified abnormal findings of blood chemistry; K21.9 Gastro-esophageal reflux disease without esophagitis; R00.1 Bradycardia, unspecified; R20.2 Paresthesia of skin; R20.0 Anesthesia of skin; R23.8 Other skin changes; R42 Dizziness and giddiness; R05 Cough; R09.89 Other specified symptoms and signs involving the circulatory and respiratory systems; R00.2 Palpitations; R06.00 Dyspnea, unspecified; R94.31 Abnormal electrocardiogram [ECG] [EKG]; R94.6 Abnormal results of thyroid function studies; E03.9 Hypothyroidism, unspecified; I10 Essential (primary) hypertension; E78.5 Hyperlipidemia, unspecified; K58.9 Irritable bowel syndrome, unspecified; Z87.19 Personal history of other diseases of the digestive system; F41.9 Anxiety disorder, unspecified; F32.9 Major depressive disorder, single episode, unspecified; K58.0 Irritable bowel syndrome with diarrhea; M62.838 Other muscle spasm; G40.909 Epilepsy, unspecified, not intractable, without status epilepticus; G89.29 Other chronic pain; M54.5 Low back pain; I95.9 Hypotension, unspecified; E87.2 Acidosis; M19.90 Unspecified osteoarthritis, unspecified site; F17.210 Nicotine dependence, cigarettes, uncomplicated; Z79.899 Other long term (current) drug therapy; Z79.891 Long term (current) use of opiate analgesic; Z79.51 Long term (current) use of inhaled steroids; Z79.52 Long term (current) use of systemic steroids; Z79.890 Hormone replacement therapy; Z88.8 Allergy status to other drugs, medicaments and biological substances; Z88.5 Allergy status to narcotic agent; Z90.710 Acquired absence of both cervix and uterus; Z87.440 Personal history of urinary (tract) infections; Z82.49 Family history of ischemic heart disease and other diseases of the circulatory system; Z20.828 Contact with and (suspected) exposure to other viral communicable diseases
CPT/HCPCS: 96376 ×3; 96365; 96366 ×2; 96375 ×2; 93005 ×2; 96361; 99285; 36415; 94640; 93306; 85379; 84439; 82747; 83880; 80061; 80053; 80048 ×2; 84443; 80183; 82607; 83690; 83735; 84484; 85025 ×2; 85610; 85730 ×3; 86140; 83036; 87635; 71046; 93922; 93880; 72125; 70450; 73206; 71275; 74174; 70551; 72141; G0378 ×3; J2270 ×3; J1720; J3010; Q9967; J1644 ×2

== ENCOUNTER 2020-12-15 15:37 | Inpatient (IN) | payer OTHER ==
[2020-12-15] MEDS ORDERED: LORazepam 2 MG/ML INJ IV STA (16:09)
[2020-12-15] MEDS ORDERED: SODIUM CHLORIDE 0.9% 1,000 ML IV STA (16:09)
[2020-12-15 16:37] LABS: Basophils # (A) 0.1 k/uL (0-0.2); Basophils % (A) 1 %; Eosinophils # (A) 0.4 k/uL (0-0.7); Eosinophils % (A) 2 %; HGB 12.6 gm/dL (11.4-16.0); Lymphocytes # (A) 2.1 k/uL (1.0-4.8); Lymphocytes % (A) 12 %; MCH 29.6 pg (25.0-35.0); MCHC 34.1 g/dL (31.0-37.0); MCV 86.8 fL (80.0-100.0); Mean Platelet Volume 6.9; Monocytes # (A) 1.2 k/uL (0-1.0); Monocytes % (A) 7 %; Neutrophils # (A) 12.8 k/uL (1.3-7.7); Neutrophils % (A) 76 %; Platelet Count 338 k/uL (150-450); RBC 4.27 m/uL (3.80-5.40); RDW 14.8 % (11.5-15.5); WBC 16.8 k/uL (3.8-10.6)
[2020-12-15 16:50] LABS: ALT 16 U/L (4-34); AST 23 U/L (14-36); African American GFR (CKD) 14 (>60 ml/min/1.73 sqM); Albumin 3.9 g/dL (3.5-5.0); Alcohol <10 mg/dL; Alkaline Phosphatase 115 U/L (38-126); Anion Gap 16 mmol/L; Blood Urea Nitrogen 34 mg/dL (7-17); Calcium 9.5 mg/dL (8.4-10.2); Carbon Dioxide 23 mmol/L (22-30); Chloride 91 mmol/L (98-107); Glucose 77 mg/dL (74-99); Non-African American GFR(CKD) 13 (>60 ml/min/1.73 sqM); Sodium 130 mmol/L (137-145); Total Bilirubin 0.5 mg/dL (0.2-1.3); Total Protein 6.9 g/dL (6.3-8.2)
--- NOTE | 2020-12-15 17:45 | XR ---
EXAMINATION TYPE: XR chest 2V DATE OF EXAM: 12/15/2020 COMPARISON: 11/23/2020 HISTORY: Chest pain TECHNIQUE: 2 views FINDINGS: There is no heart failure nor confluent pneumonic infiltrate. Costophrenic angles are fairl y clear. Bony thorax is intact. IMPRESSION: No active cardiopulmonary disease. Normal heart. No change.
--- NOTE | 2020-12-15 17:55 | ED ---
General Adult HPI - General Chief complaint: Seizure Stated complaint: Poss Seizure Time Seen by Provider: 12/15/20 15:54 Source: patient, EMS, RN notes reviewed Mode of arrival: EMS Limitations: no limitations - History of Present Illness Initial comments: 55-year-old female with a past medical history of cardiac, hypertension, diverticulitis, seizure disorder presents to the emergency room for chief witnessed seizure. Patient had a seizure today. States her family member called 911. Patient reports she has seizures about every month. Reports that her last seizure was one month ago. Patient has been taking her Trileptal. Patient denies any other complaints. Patient feels well at this time although is having some slight spasms of her arms and legs.Patient has no other complaints at this time including shortness of breath, chest pain, abdominal pain, nausea or vomiting, headache, or visual changes. - Related Data Home Medications Medication Instructions Recorded Confirmed Methocarbamol [Robaxin-750] 750 mg PO TID PRN 05/11/18 11/23/20 Venlafaxine HCl [Effexor XR] 150 mg PO DAILY 08/15/18 11/23/20 OXcarbazepine [Trileptal] 150 mg PO BID 01/17/19 11/23/20 Pantoprazole [Protonix] 40 mg PO DAILY 01/17/19 11/23/20 Diphenox-Atrop 2.5-0.025 mg 2 tab PO TID PRN 06/24/20 11/23/20 [Lomotil] HYDROcodone/APAP 5-325MG [[place] 1 tab PO TID PRN 06/24/20 11/23/20 5-325] Lisinopril [Prinivil] 10 mg PO DAILY 06/24/20 11/23/20 QUEtiapine [SEROquel] 200 mg PO HS 06/24/20 11/23/20 Diltiazem HCl [Diltiazem HCl 24Hr 300 mg PO DAILY 11/23/20 11/23/20 ER] Gabapentin 600 mg PO TID 11/23/20 11/23/20 Levothyroxine Sodium [Synthroid] 75 mcg PO DAILY 11/23/20 11/23/20 Metoprolol Succinate [Toprol XL] 200 mg PO DAILY 11/23/20 11/23/20 Previous Rx's Medication Instructions Recorded Aspirin 81 mg PO DAILY 30 Days #30 chewable 11/25/20 Atorvastatin [Lipitor] 80 mg PO DAILY 30 Days #30 tab 11/25/20 Allergies Allergy/AdvReac Type Severity Reaction Status Date / Time ranitidine [From Zantac] Allergy Rash/Hives Verified 12/15/20 19:00 tramadol Allergy SEZIURE Verified 12/15/20 19:00 Review of Systems ROS Statement: Those systems with pertinent positive or pertinent negative responses have been documented in the HPI. ROS Other: All systems not noted in ROS Statement are negative. Past Medical History Past Medical History: GERD/Reflux, Hypertension, Seizure Disorder Additional Past Medical History / Comment(s): IBS, DIVERTICULITIS, LAST seizure last MONTH -,deviated septum(sx), ddd neck/lower back, arhtritis, stress test- neg, uti History of Any Multi-Drug Resistant Organisms: None Reported Past Surgical History: Hysterectomy Additional Past Surgical History / Comment(s): hiatal hernia repair, right ear @ age 17 d/t av[facility], septoplasty and pt stated "4 days later ened up in [facility] with septic shock" Past Anesthesia/Blood Transfusion Reactions: No Reported Reaction Additional Past Anesthesia/Blood Transfusion Reaction / Comment(s): mild clausterphobia Past Psychological History: Anxiety, Depression Smoking Status: Current every day smoker Past Alcohol Use History: None Reported Past Drug Use History: None Reported - Past Family History Mother Family Medical History: No Reported History Additional Family Medical History / Comment(s): triple bypass Father Family Medical History: Coronary Artery Disease (CAD) Additional Family Medical History / Comment(s): triple bypass General Exam Limitations: no limitations General appearance: alert, in no apparent distress Head exam: Present: atraumatic Eye exam: Present: normal appearance, PERRL, EOMI ENT exam: Present: normal exam, mucous membranes moist Neck exam: Present: normal inspection, full ROM. Absent: tenderness Respiratory exam: Present: normal lung sounds bilaterally. Absent: respiratory distress, wheezes Cardiovascular Exam: Present: regular rate, normal rhythm, normal heart sounds GI/Abdominal exam: Present: soft, normal bowel sounds. Absent: distended, tenderness Neurological exam: Present: alert Course Vital Signs 12/15/20 12/15/20 15:39 17:45 Temperature 98.1 F Pulse Rate 54 L 55 L Respiratory 18 16 Rate Blood Pressure 116/86 91/50 O2 Sat by Pulse 95 96 Oximetry EKG Findings - EKG Comments: EKG Findings:: Sinus bradycardia, ventricular rate 54, MD interval 178, QTC 498 Medical Decision Making - Medical Decision Making Vitals are stable. Patient was given 1 mg of Ativan as she was having spasms of her arms and legs. This did improve. CBC does show leukocytosis of 16.8. CMP remarkable for acute renal failure with a creatinine of 3.86. Serum alcohol is negative. Chest x-ray shows no active cardiopulmonary disease. EKG shows a sinus bradycardia with a ventricular rate of 54. QTC is 498. Patient was slightly low blood pressure in the 90s. She was given fluids. We suspect this is secondary to her when pressure management. Heart rate has maintained at 50s. No evidence of sepsis however patient was given a dose of antibiotics given white count. At this time patient will be admitted for further management and neurology and nephrology consultations. Patient was also evaluated by Dr. Lopez. - Lab Data Result diagrams: 12/15/20 16:30 12/15/20 16:30 Lab Results 12/15/20 12/15/20 12/15/20 Range/Units 16:30 16:30 16:30 WBC 16.8 H (3.8-10.6) k/uL RBC 4.27 (3.80-5.40) m/uL Hgb 12.6 (11.4-16.0) gm/dL Hct 37.0 (34.0-46.0) % MCV 86.8 (80.0-100.0) fL MCH 29.6 (25.0-35.0) pg MCHC 34.1 (31.0-37.0) g/dL RDW 14.8 (11.5-15.5) % Plt Count 338 (150-450) k/uL MPV 6.9 Neutrophils % 76 % Lymphocytes % 12 % Monocytes % 7 % Eosinophils % 2 % Basophils % 1 % Neutrophils # 12.8 H (1.3-7.7) k/uL Lymphocytes # 2.1 (1.0-4.8) k/uL Monocytes # 1.2 H (0-1.0) k/uL Eosinophils # 0.4 (0-0.7) k/uL Basophils # 0.1 (0-0.2) k/uL Sodium 130 L (137-145) mmol/L Potassium 4.0 (3.5-5.1) mmol/L Chloride 91 L (98-107) mmol/L Carbon Dioxide 23 (22-30) mmol/L Anion Gap 16 mmol/L BUN 34 H (7-17) mg/dL Creatinine 3.86 H (0.52-1.04) mg/dL Est GFR (CKD-EPI)AfAm 14 (>60 ml/min/1.73 sqM) Est GFR (CKD-EPI)NonAf 13 (>60 ml/min/1.73 sqM) Glucose 77 (74-99) mg/dL Calcium 9.5 (8.4-10.2) mg/dL Total Bilirubin 0.5 (0.2-1.3) mg/dL AST 23 (14-36) U/L ALT 16 (4-34) U/L Alkaline Phosphatase 115 (38-126) U/L Total Protein 6.9 (6.3-8.2) g/dL Albumin 3.9 (3.5-5.0) g/dL Urine Color Yellow Urine Appearance Cloudy H (Clear) Urine pH 5.5 (5.0-8.0) Ur Specific [place] 1.013 (1.001-1.035) Urine Protein Trace H (Negative) Urine Glucose (UA) Negative (Negative) Urine Ketones Trace H (Negative) Urine Blood Negative (Negative) Urine Nitrite Negative (Negative) Urine Bilirubin Negative (Negative) Urine Urobilinogen <2.0 (<2.0) mg/dL Ur Leukocyte Esterase Trace H (Negative) Urine RBC <1 (0-5) /hpf Urine WBC 4 (0-5) /hpf Ur Squamous Epith Cells 1 (0-4) /hpf Urine Bacteria Occasional H (None) /hpf Urine Mucus Rare H (None) /hpf Urine Opiates Screen Detected H (NotDetected) Ur Oxycodone Screen Not Detected (NotDetected) Urine Methadone Screen Not Detected (NotDetected) Ur Propoxyphene Screen Not Detected (NotDetected) Ur Barbiturates Screen Not Detected (NotDetected) U Tricyclic Antidepress Detected H (NotDetected) Ur Phencyclidine Scrn Not Detected (NotDetected) Ur Amphetamines Screen Not Detected (NotDetected) U Methamphetamines Scrn Not Detected (NotDetected) U Benzodiazepines Scrn Not Detected (NotDetected) Urine Cocaine Screen Not Detected (NotDetected) U Marijuana (THC) Screen Not Detected (NotDetected) Serum Alcohol <10 mg/dL Disposition Clinical Impression: Seizure, Leukocytosis, Prolonged QT interval, Acute renal failure Disposition: ADMITTED IP TO THIS HOSP Is patient prescribed a controlled substance at d/c from ED?: No Referrals: [facility],Clinic [Primary Care Provider] - 1-2 days Time of Disposition: 18:59
[2020-12-15 18:12] LABS: Appearance,Urine Cloudy (Clear); Bacteria,Urine Occasional /hpf; Bilirubin,Urine Negative (Negative); Blood,Urine Negative (Negative); Color,Urine Yellow; Glucose,Urine (UA) Negative (Negative); Ketones,Urine Trace (Negative); Leukocyte Esterase,Urine Trace (Negative); Mucus,Urine Rare /hpf; Nitrite,Urine Negative (Negative); PH, Urine 5.5 (5.0-8.0); Protein,Urine Trace (Negative); RBC,Urine <1 /hpf (0-5); Specific Gravity,Urine 1.013 (1.001-1.035); Squamous Epithelial Cell,Urine 1 /hpf (0-4); Urobilinogen,Urine <2.0 mg/dL (<2.0); WBC,Urine 4 /hpf (0-5)
[2020-12-15 18:21] LABS: Amphetamine Screen,Urine Not Detected (NotDetected); Barbiturate Screen,Urine Not Detected (NotDetected); Benzodiazepines Screen,Urine Not Detected (NotDetected); Cocaine Screen,Urine Not Detected (NotDetected); Methadone Screen, Urine Not Detected (NotDetected); Opiate Screen,Urine Detected (NotDetected); Oxycodone Screen, Urine Not Detected (NotDetected); Phencyclidine Screen,Urine Not Detected (NotDetected); Tricyclic Antidepressant,Urine Detected (NotDetected); Urn Cannabinoid Scrn Not Detected (NotDetected)
[2020-12-15] MEDS ORDERED: SODIUM CHLORIDE 0.9% 500 ML 500 ML IV ONE (18:24)
[2020-12-15] MEDS ORDERED: cefTRIAXone IN SWFI 1,000 MG/10 ML SYRINGE IVP STA (18:24)
[2020-12-15] MEDS: SODIUM CHLORIDE 0.9% 1,000 ML IV SCH ×2 (18:56→21:31)
[2020-12-15] MEDS ORDERED: NALOXONE 0.4 MG/ML 1 ML VIAL IV PRN (19:01)
[2020-12-15] MEDS ORDERED: levETIRAcetam IV 1,500 MG in SALINE 1 100ML.BAG IVPB STA (22:06)
--- NOTE | 2020-12-15 22:44 | CT ---
EXAMINATION TYPE: CT brain wo con DATE OF EXAM: 12/15/2020 COMPARISON: 11/23/2020 HISTORY: Seizure, repeated for motion CT DLP: 2314.4 mGycm Automated exposure control for dose reduction was used. Ventricles have normal size. There is no mass effect nor midline shift. There is no evidence of intra cranial hemorrhage. The calvarium is intact. There is no evidence of cerebral edema. Skull base is in tact. IMPRESSION: Negative unenhanced head CT scan. No change.
[2020-12-15] MEDS ORDERED: levETIRAcetam IV 1,000 MG in SALINE 1 100ML.BAG IVPB STA (22:47)
--- NOTE | 2020-12-15 23:02 | P.EN ---
A Team Note Activated at 9:51 pm. Patient seen at the bedside shortly after. Reviewed the chart and discussed the case in great detail. The patient presented to the emergency room after an episode of witnessed seizure at home. The patient reportedly takes Trileptal for her long-standing seizure disorder history. She had reported arm twitching since her seizure, for which she was given Ativan in the emergency room. She was also noted to be in acute kidney failure. She was subsequently admitted to the medical service for neurology and nephrology evaluations. A team was activated due to a difficult to obtain blood pressure. The patient was also lethargic and confused. Manually, the blood pressure was recorded as 96/54, pulse 56, SpO2 98% on room air, and respiratory rate 16 d uring the A-team. The patient was given [place] with which her mental status improved. The patient reported feeling well. She noted that she is at the hospital after she had a seizure at home. The patient's mental status waxed and waned greatly throughout the interview and examination. General: Non-toxic, in no acute distress, appears stated age, overweight, intermittent bilateral upper extremity and lower extremity twitching HEENT: NC/AT, anicteric sclerae, moist conjunctiva, no lid-lag, PERRLA Cardiovascular: S1/S2 wnl, no murmurs, rubs, or gallops Lungs: Clear to auscultation, normal respiratory effort, no accessory muscle use Abdominal: Soft, non-tender, non-distended, no guarding, rebound, or rigidity Skin: Warm, dry Extremities: No edema or contractures Psychiatric: Waxing and waning mental status, at times not answering to simple questions and then oriented 3 Neuro: CN II-XII grossly intact, Strength 5/5 in all 4 extremities, Speech intact, Sensation to light touch grossly intact throughout Assessment/plan Altered mentation, differentials include opiate toxicity in setting of SUHAIL vs on-going seizure activity -Administer another dose of [place] if patient's mental status deteriorates -Stat neurology consult -BP stable, patient doesn't appear to be septic -May consider transfer to tertiary care facility for EEG if unable to obtain STAT neurology consult -Primary team notified by RN -Prolactin levels ordered -Obtain CT Head w/o cont
[2020-12-16] MEDS: NALOXONE (MDV) 2 MG in SODIUM CHLORIDE 0.9% 250 ML IV SCH ×4 (00:30→09:20)
[2020-12-16 00:38] LABS: Glucose,Whole Blood 77 mg/dL (75-99)
[2020-12-16] MEDS ORDERED: SODIUM CHLORIDE 0.9% 1,000 ML IV ONE (01:17)
[2020-12-16] MEDS: LORazepam 0.5 MG TAB PO SCH ×2 (01:46→03:09)
[2020-12-16] MEDS: OXcarbazepine 300 MG TAB PO SCH ×3 (02:04→21:17)
[2020-12-16 04:01] LABS: Basophils % (A) 0 %; Eosinophils # (A) 0.2 k/uL (0-0.7); Eosinophils % (A) 2 %; HCT 35.2 % (34.0-46.0); HGB 11.1 gm/dL (11.4-16.0); Lymphocytes # (A) 1.6 k/uL (1.0-4.8); Lymphocytes % (A) 16 %; MCH 28.1 pg (25.0-35.0); MCHC 31.4 g/dL (31.0-37.0); MCV 89.5 fL (80.0-100.0); Mean Platelet Volume 7.6; Monocytes # (A) 0.5 k/uL (0-1.0); Monocytes % (A) 5 %; Neutrophils # (A) 7.7 k/uL (1.3-7.7); Neutrophils % (A) 75 %; Platelet Count 260 k/uL (150-450); RBC 3.94 m/uL (3.80-5.40); RDW 14.7 % (11.5-15.5); WBC 10.2 k/uL (3.8-10.6)
[2020-12-16] MEDS ORDERED: NOREPINEPHRIN 4 MG-0.9% NS PMX 4 MG/250 ML ML IV ONE (04:43)
[2020-12-16] MEDS ORDERED: NOREPINEPHRINE 4 MG in SODIUM CHLORIDE 0.9% 250 ML IV SCH (04:45)
[2020-12-16] MEDS: PANTOPRAZOLE 40 MG/10 ML VIAL IV SCH (09:28)
[2020-12-16] MEDS: SODIUM CHLORIDE 0.9% 1,000 ML IV SCH ×2 (09:43→15:36)
[2020-12-16] MEDS: ACETAMINOPHEN TAB 325 MG TAB PO PRN ×2 (09:57→23:19)
[2020-12-16 10:13] LABS: African American GFR (CKD) 36.3 (60.0-200.0); Anion Gap 9.5 mmol/L (4.00-12.00); BUN/Creat Ratio 14.44 Ratio (12.00-20.00); Calcium 8.2 mg/dL (8.7-10.3); Carbon Dioxide 20.5 mmol/L (21.6-31.8); Non-African American GFR(CKD) 31.4 (60.0-200.0); Potassium 3.8 mmol/L (3.5-5.5)
--- NOTE | 2020-12-16 12:09 | P.CNPUL ---
History of Present Illness Consult date: 12/16/20 Requesting physician: Chelsie Alfaro Reason for consult: other (Mental status change, narcotics overdose, possible seizures.) Chief complaint: Witnessed seizure History of present illness: This is a 55-year-old female with history of multiple medical problems including seizure disorder, hypertension, GERD, irritable bowel syndrome, chronic low back pain, degenerative joint disease, patient normally follows up with Dr. Nix regarding her seizure disorder. She was admitted to [facility] on 11/23/2020 with atypical chest pain, and she had extensive cardiac and pulmonary workup, and the workup was negative. Yesterday, her family called 911 because the patient was witnessed to have a classic seizure similar to her previous seizures in the past. Patient is supposedly on Trileptal and compliant with the medication. In the ER, patient was given 1 mg of Ativan because she was having spasms of her arms and legs, and Ativan seems to help her symptoms. She was also noted to have abnormal WBC count of 16.8, creatinine 3.86, and her blood pressure was noted a bit on the low side, 90 systolic. Received IV fluids, patient was admitted to the medical floor, and urology as well as nephrology consultations were initiated. At 9:51 PM, patient was noted to have altered mental status, lethargic, unarousable to sternal rub, and she was given 0.2 mg of Narcan 2 seemed to immediately improve her mental status however did not last long. Patient was suspected to have opiate toxicity in the setting of acute kidney injury. I was notified about this patient, recommended Narcan drip, and recommended transferring the patient to the ICU with neurology consultation regarding her underlying seizures. Neurology recommended that she stays on Trileptal, I have recommended Narcan drip which was given overnight until 4 AM this morning. Patient woke up, she remains awake, alert oriented 3, no gross neurological deficit, however she seems to be refusing a lot of the medical recommendations, and she was supposed to be transferred to [facility] for further neurological evaluation, but she declined. During my evaluation, patient was noted to be hemodynamically stable, mentally intact, and no evidence of seizure activity overnight. Electrolytes were normal CBC was normal creatinine came down from 3.86 down to 1.8. Patient did receive fluid boluses last night, and she was briefly on a very low dose of norepinephrine for marginal blood pressure. I drug screen was reviewed, it was positive for opiates, and positive for tricyclics cyclic antidepressants . After regarding the patient, I recommended transferring the patient to a regular medical floor, patient will be seen by many consultants including nephrology and neurology on the case Review of Systems Constitutional: Negative HEENT: Negative. Cardiac: Negative, patient had recent cardiac workup and was all negative. Pulmonary: Intermittent cough and wheezing, patient is a smoker. GI: Negative. Genitourinary: Negative. Musculoskeletal: Chronic low back pain. Patient is on [place] at home. Hematologic: Negative. Neurologic: As noted in HPI. Endocrine: Negative. Psychiatric: History of depression, and generalized anxiety disorder. Skin: Negative. Past Medical History Past Medical History: GERD/Reflux, Hypertension, Seizure Disorder Additional Past Medical History / Comment(s): IBS, DIVERTICULITIS, LAST seizure last MONTH -,deviated septum(sx), ddd neck/lower back, arhtritis, stress test- neg, uti History of Any Multi-Drug Resistant Organisms: None Reported Past Surgical History: Hysterectomy Additional Past Surgical History / Comment(s): hiatal hernia repair, right ear @ age 17 d/t avm repair, septoplasty and pt stated "4 days later ened up in [facility] with septic shock" Past Anesthesia/Blood Transfusion Reactions: No Reported Reaction Additional Past Anesthesia/Blood Transfusion Reaction / Comment(s): mild clausterphobia Past Psychological History: Anxiety, Depression Additional Psychological History / Comment(s): pt is independant. 2 sons live with her. drives. Smoking Status: Current every day smoker Past Alcohol Use History: None Reported Additional Past Alcohol Use History / Comment(s): smoked since age of 19 1/2 ppd Past Drug Use History: None Reported - Past Family History Mother Family Medical History: No Reported History Additional Family Medical History / Comment(s): triple bypass Father Family Medical History: Coronary Artery Disease (CAD) Additional Family Medical History / Comment(s): triple bypass Medications and Allergies Home Medications Medication Instructions Recorded Confirmed Type Methocarbamol [Robaxin-750] 750 mg PO TID PRN 05/11/18 12/15/20 History Venlafaxine HCl [Effexor XR] 150 mg PO DAILY 08/15/18 12/15/20 History OXcarbazepine [Trileptal] 150 mg PO BID 01/17/19 12/15/20 History Pantoprazole [Protonix] 40 mg PO DAILY 01/17/19 12/15/20 History Diphenox-Atrop 2.5-0.025 mg 2 tab PO TID PRN 06/24/20 12/15/20 History [Lomotil] Lisinopril [Prinivil] 10 mg PO DAILY 06/24/20 12/15/20 History QUEtiapine [SEROquel] 200 mg PO HS 06/24/20 12/15/20 History Diltiazem HCl [Diltiazem HCl 24Hr 300 mg PO DAILY 11/23/20 12/15/20 History ER] Gabapentin 600 mg PO TID 11/23/20 12/15/20 History Levothyroxine Sodium [Synthroid] 75 mcg PO DAILY 11/23/20 12/15/20 History Metoprolol Succinate [Toprol XL] 200 mg PO DAILY 11/23/20 12/15/20 History Aspirin 81 mg PO DAILY 30 Days #30 chewable 11/25/20 12/15/20 Rx Atorvastatin [Lipitor] 80 mg PO DAILY 30 Days #30 tab 11/25/20 12/15/20 Rx Hydrocodone/Acetaminophen [[place] 1 tab PO TID PRN 12/15/20 12/15/20 History 7.5-325] Allergies Allergy/AdvReac Type Severity Reaction Status Date / Time ranitidine [From Zantac] Allergy Rash/Hives Verified 12/15/20 19:00 tramadol Allergy SEZIURE Verified 12/15/20 19:00 Physical Exam Vitals: Vital Signs Temp Pulse Pulse Resp BP BP Pulse Ox 12/16/20 09:30 131/65 12/16/20 08:30 79 10 L 130/75 94 L 12/16/20 08:00 98.0 F 82 14 125/76 92 L 12/16/20 07:30 82 13 120/69 96 12/16/20 07:15 80 16 106/62 94 L 12/16/20 07:00 86 24 116/72 97 12/16/20 06:45 80 19 113/62 12/16/20 06:30 78 18 121/71 96 12/16/20 06:15 79 13 112/88 96 12/16/20 06:00 79 12 121/81 95 12/16/20 05:45 76 14 130/75 96 12/16/20 05:30 79 17 116/77 96 12/16/20 05:15 76 18 92/58 97 12/16/20 05:00 70 19 98 12/16/20 04:45 73 92/58 98 12/16/20 04:30 71 71/51 98 12/16/20 04:15 70 49/31 97 12/16/20 04:05 100 12/16/20 04:00 98.2 F 72 19 93/52 98 12/16/20 03:45 86/57 96 12/16/20 03:30 68 80/68 12/16/20 03:15 70 89/52 12/16/20 03:09 18 12/16/20 03:00 70 18 89/52 97 12/16/20 02:45 69 84/47 12/16/20 02:30 68 20 88/60 12/16/20 02:10 69 18 96 12/16/20 02:00 68 18 85/64 12/16/20 01:50 68 28 H 135/106 93 L 12/16/20 01:40 67 24 12/16/20 01:30 74 16 92 L 12/16/20 01:20 68 29 H 92/73 12/16/20 01:10 69 20 12/16/20 01:00 69 18 77/61 92 L 12/16/20 00:50 67 25 H 12/16/20 00:40 98.2 F 68 14 71/59 96 12/16/20 00:30 18 12/15/20 21:57 57 L 46/34 12/15/20 19:30 56 L 16 102/53 98 12/15/20 19:00 98.3 F 54 L 16 97/65 95 12/15/20 18:30 52 L 18 90/48 12/15/20 17:45 55 L 16 91/50 96 12/15/20 15:39 98.1 F 54 L 18 116/86 95 Intake and Output 12/15/20 12/16/20 12/16/20 22:59 06:59 14:59 Intake Total 2142.283 640.208 Output Total 1600 Balance 542.283 640.208 Intake: IV 1875 375 Naloxone (Mdv) 2 mg In 375 Sodium Chloride 0.9% 250 ml @ 1 MG/HR 125 mls/hr IV .Q2H RASHID Rx#:[id number] Sodium Chloride 0.9% 1, 500 375 000 ml @ 125 mls/hr IV . Q8H RASHID Rx#:[id number] Sodium Chloride 0.9% 1, 1000 000 ml @ 999 mls/hr IV . Q1H1M STA Rx#:[id number] Intake, IV Titration 267.283 265.208 Amount Naloxone (Mdv) 2 mg In 250 250 Sodium Chloride 0.9% 250 ml @ 1 MG/HR 125 mls/hr IV .Q2H RASHID Rx#:[id number] Norepinephrine 4 mg In 17.283 15.208 Sodium Chloride 0.9% 250 ml @ 0.05 MCG/KG/MIN 13. 826 mls/hr IV .[id number] RASHID Rx#:[id number] Output: Urine 1600 Other: Voiding Method Toilet # Voids 1 1 # Bowel Movements 1 Weight 78.5 kg Physical Exam: Revealed a 55-year-old female on room air, in no distress. Head: Atraumatic, normocephalic. HEENT:[Neck is supple.] [No neck masses.] [No thyromegaly.] [No JVD.] Chest: [Scattered rhonchi and wheezes noted bilaterally. Dorsal on forced expiratory maneuver. Cardiac Exam: [Normal S1 and S2, no S3 gallop, no murmur.] Abdomen: [Soft, nontender, no megaly, no rebound, no guarding, normal bowel sounds.] Extremities: [No clubbing, no edema, no cyanosis.] Good pulses bilaterally. Neurological Exam: [No focal neurologic deficit.] Alert and oriented 3. Psychiatric: Normal mood, affect and normal mental status examination. Skin: No rashes. Results - Laboratory Findings CBC and BMP: 12/16/20 03:48 12/16/20 03:48 Abnormal lab findings: Abnormal Labs 12/15/20 12/15/20 12/15/20 16:30 16:30 16:30 WBC 16.8 H Hgb Neutrophils # 12.8 H Monocytes # 1.2 H Sodium 130 L Chloride 91 L Carbon Dioxide BUN 34 H Creatinine 3.86 H Est GFR (CKD-EPI)AfAm Est GFR (CKD-EPI)NonAf Calcium Prolactin Urine Appearance Cloudy H Urine Protein Trace H Urine Ketones Trace H Ur Leukocyte Esterase Trace H Urine Bacteria Occasional H Urine Mucus Rare H Urine Opiates Screen Detected H U Tricyclic Antidepress Detected H 12/15/20 12/16/20 12/16/20 16:30 03:48 03:48 WBC Hgb 11.1 L Neutrophils # Monocytes # Sodium Chloride Carbon Dioxide 20.5 L BUN Creatinine 1.8 H Est GFR (CKD-EPI)AfAm 36.3 L Est GFR (CKD-EPI)NonAf 31.4 L Calcium 8.2 L Prolactin 55.5 H Urine Appearance Urine Protein Urine Ketones Ur Leukocyte Esterase Urine Bacteria Urine Mucus Urine Opiates Screen U Tricyclic Antidepress - Diagnostic Findings Chest x-ray: image reviewed (No evidence of active cardiopulmonary disease.) Additional studies: CT of the brain is negative. Assessment and Plan Assessment: Impression: Altered mental status secondary to opiate toxicity, and poorly controlled seizures. Acute kidney injury suspect acute tubular necrosis secondary to hypotension, improving. Hypotension exact etiology is not clear, no clear-cut evidence of sepsis or septic shock. I believe the hypertension is likely secondary to excessive opiate toxicity. Chronic pain syndrome, chronic low back pain. History of irritable bowel syndrome. History of seizure disorder. Benign essential hypertension. GERD without esophagitis. History of depression. Generalized anxiety disorder. Recommendation: Continue present supportive care measures. Considering the patient is seizures. Presently, and she is on Trileptal. Considering the patient is off Narcan drip, we'll arrange for the patient be transferred to a regular medical floor. And the patient is to be seen by nephrology for her acute kidney injury and by neurology for her seizure disorder and mental status change. We continue to follow while the patient is in the ICU Continue seizure precautions. Time with Patient: Greater than 30
[2020-12-16] MEDS: NICOTINE 14MG/24HR PATCH TRANSDERM SCH (13:10)
[2020-12-16 14:05] VITALS: RESP 16
--- NOTE | 2020-12-16 14:05 | P.HPIM ---
History of Present Illness 55-year-old female came in for possible seizure. Patient does have history of seizures last seizure being in October family believes she may have had a seizure because of a twitching patient is unable if any such kind of history pa agustina didn't know what happened patient was brought in unresponsive. Initially patient was believed to be postictal. Patient was given not in patient does take [place] at home patient is not sure whether she took too many [place] since she doesn't believe she did take too many [place]'s. Although patient is found to have acute renal failure denied any nausea vomiting abdominal pain dysuria. Because of her poor renal function and excess opiates patient may have had opiate overdose which responded to Narcan drip. EEG is being obtain neurology was consulted. Urine drug screen is positive for opiates like cyclic antidepressants. She denied any fever chills nausea vomiting dysuria Review of Systems REVIEW OF SYSTEMS: CONSTITUTIONAL: No fever, no malaise, no fatigue. HEENT: No recent visual problems or hearing problems. Denied any sore throat. CARDIOVASCULAR: No chest pain, orthopnea, PND, no palpitations, no syncope. PULMONARY: No shortness of breath, no cough, no hemoptysis. GASTROINTESTINAL: No diarrhea, no nausea, no vomiting, no abdominal pain. NEUROLOGICAL: No headaches, no weakness, no numbness. HEMATOLOGICAL: Denies any bleeding or petechiae. GENITOURINARY: Denies any burning micturition, frequency, or urgency. MUSCULOSKELETAL/RHEUMATOLOGICAL: Denies any joint pain, swelling, or any muscle pain. ENDOCRINE: Denies any polyuria or polydipsia. The rest of the 14-point review of systems is negative. Past Medical History Past Medical History: GERD/Reflux, Hypertension, Seizure Disorder Additional Past Medical History / Comment(s): IBS, DIVERTICULITIS, LAST seizure last MONTH -,deviated septum(sx), ddd neck/lower back, arhtritis, stress test- neg, uti History of Any Multi-Drug Resistant Organisms: None Reported Past Surgical History: Hysterectomy Additional Past Surgical History / Comment(s): hiatal hernia repair, right ear @ age 17 d/t avm repair, septoplasty and pt stated "4 days later ened [facility] in [facility] with septic shock" Past Anesthesia/Blood Transfusion Reactions: No Reported Reaction Additional Past Anesthesia/Blood Transfusion Reaction / Comment(s): mild clausterphobia Past Psychological History: Anxiety, Depression Additional Psychological History / Comment(s): pt is independant. 2 sons live with her. drives. Smoking Status: Current every day smoker Past Alcohol Use History: None Reported Additional Past Alcohol Use History / Comment(s): smoked since age of 19 1/2 ppd Past Drug Use History: None Reported - Past Family History Mother Family Medical History: No Reported History Additional Family Medical History / Comment(s): triple bypass Father Family Medical History: Coronary Artery Disease (CAD) Additional Family Medical History / Comment(s): triple bypass Medications and Allergies Home Medications Medication Instructions Recorded Confirmed Type Methocarbamol [Robaxin-750] 750 mg PO TID PRN 05/11/18 12/15/20 History Venlafaxine HCl [Effexor XR] 150 mg PO DAILY 08/15/18 12/15/20 History OXcarbazepine [Trileptal] 150 mg PO BID 01/17/19 12/15/20 History Pantoprazole [Protonix] 40 mg PO DAILY 01/17/19 12/15/20 History Diphenox-Atrop 2.5-0.025 mg 2 tab PO TID PRN 06/24/20 12/15/20 History [Lomotil] Lisinopril [Prinivil] 10 mg PO DAILY 06/24/20 12/15/20 History QUEtiapine [SEROquel] 200 mg PO HS 06/24/20 12/15/20 History Diltiazem HCl [Diltiazem HCl 24Hr 300 mg PO DAILY 11/23/20 12/15/20 History ER] Gabapentin 600 mg PO TID 11/23/20 12/15/20 History Levothyroxine Sodium [Synthroid] 75 mcg PO DAILY 11/23/20 12/15/20 History Metoprolol Succinate [Toprol XL] 200 mg PO DAILY 11/23/20 12/15/20 History Aspirin 81 mg PO DAILY 30 Days #30 chewable 11/25/20 12/15/20 Rx Atorvastatin [Lipitor] 80 mg PO DAILY 30 Days #30 tab 11/25/20 12/15/20 Rx Hydrocodone/Acetaminophen [[place] 1 tab PO TID PRN 12/15/20 12/15/20 History 7.5-325] Allergies Allergy/AdvReac Type Severity Reaction Status Date / Time ranitidine [From Zantac] Allergy Rash/Hives Verified 12/15/20 19:00 tramadol Allergy SEZIURE Verified 12/15/20 19:00 Physical Exam Vitals: Vital Signs Temp Pulse Pulse Resp BP BP Pulse Ox 12/16/20 09:30 131/65 12/16/20 08:30 79 10 L 130/75 94 L 12/16/20 08:00 98.0 F 82 14 125/76 92 L 12/16/20 07:30 82 13 120/69 96 12/16/20 07:15 80 16 106/62 94 L 12/16/20 07:00 86 24 116/72 97 12/16/20 06:45 80 19 113/62 12/16/20 06:30 78 18 121/71 96 12/16/20 06:15 79 13 112/88 96 12/16/20 06:00 79 12 121/81 95 12/16/20 05:45 76 14 130/75 96 12/16/20 05:30 79 17 116/77 96 12/16/20 05:15 76 18 92/58 97 12/16/20 05:00 70 19 98 12/16/20 04:45 73 92/58 98 12/16/20 04:30 71 71/51 98 12/16/20 04:15 70 49/31 97 12/16/20 04:05 100 12/16/20 04:00 98.2 F 72 19 93/52 98 12/16/20 03:45 86/57 96 12/16/20 03:30 68 80/68 12/16/20 03:15 70 89/52 12/16/20 03:09 18 12/16/20 03:00 70 18 89/52 97 12/16/20 02:45 69 84/47 12/16/20 02:30 68 20 88/60 12/16/20 02:10 69 18 96 12/16/20 02:00 68 18 85/64 12/16/20 01:50 68 28 H 135/106 93 L 12/16/20 01:40 67 24 12/16/20 01:30 74 16 92 L 12/16/20 01:20 68 29 H 92/73 12/16/20 01:10 69 20 12/16/20 01:00 69 18 77/61 92 L 12/16/20 00:50 67 25 H 12/16/20 00:40 98.2 F 68 14 71/59 96 12/16/20 00:30 18 12/15/20 21:57 57 L 46/34 12/15/20 19:30 56 L 16 102/53 98 12/15/20 19:00 98.3 F 54 L 16 97/65 95 12/15/20 18:30 52 L 18 90/48 12/15/20 17:45 55 L 16 91/50 96 12/15/20 15:39 98.1 F 54 L 18 116/86 95 Intake and Output 12/15/20 12/16/20 12/16/20 22:59 06:59 14:59 Intake Total 2142.283 640.208 Output Total 1600 Balance 542.283 640.208 Intake: IV 1875 375 Naloxone (Mdv) 2 mg In 375 Sodium Chloride 0.9% 250 ml @ 1 MG/HR 125 mls/hr IV .Q2H RASHID Rx#:[id number] Sodium Chloride 0.9% 1, 500 375 000 ml @ 125 mls/hr IV . Q8H RASHID Rx#:[id number] Sodium Chloride 0.9% 1, 1000 000 ml @ 999 mls/hr IV . Q1H1M STA Rx#:[id number] Intake, IV Titration 267.283 265.208 Amount Naloxone (Mdv) 2 mg In 250 250 Sodium Chloride 0.9% 250 ml @ 1 MG/HR 125 mls/hr IV .Q2H RASHID Rx#:[id number] Norepinephrine 4 mg In 17.283 15.208 Sodium Chloride 0.9% 250 ml @ 0.05 MCG/KG/MIN 13. 826 mls/hr IV .[id number] RASHID Rx#:[id number] Output: Urine 1600 Other: Voiding Method Toilet # Voids 1 1 # Bowel Movements 1 Weight 78.5 kg PHYSICAL EXAMINATION: GENERAL: The patient is alert and oriented x3, not in any acute distress. Well developed, well nourished. HEENT: Pupils are round and equally reacting to light. EOMI. No scleral icterus. No conjunctival pallor. Normocephalic, atraumatic. No pharyngeal erythema. No thyromegaly. CARDIOVASCULAR: S1 and S2 present. No murmurs, rubs, or gallops. PULMONARY: Chest is clear to auscultation, no wheezing or crackles. ABDOMEN: Soft, nontender, nondistended, normoactive bowel sounds. No palpable organomegaly. MUSCULOSKELETAL: No joint swelling or deformity. EXTREMITIES: No cyanosis, clubbing, or pedal edema. NEUROLOGICAL: Gross neurological examination did not reveal any focal deficits. SKIN: No rashes. Results CBC & Chem 7: 12/16/20 03:48 12/16/20 03:48 Labs: Abnormal Lab Results - Last 24 Hours (Table) 12/15/20 12/15/20 12/15/20 Range/Units 16:30 16:30 16:30 WBC 16.8 H (3.8-10.6) k/uL Hgb (11.4-16.0) gm/dL Neutrophils # 12.8 H (1.3-7.7) k/uL Monocytes # 1.2 H (0-1.0) k/uL Sodium 130 L (137-145) mmol/L Chloride 91 L (98-107) mmol/L Carbon Dioxide (21.6-31.8) mmol/L BUN 34 H (7-17) mg/dL Creatinine 3.86 H (0.52-1.04) mg/dL Est GFR (CKD-EPI)AfAm (60.0-200.0) Est GFR (CKD-EPI)NonAf (60.0-200.0) Calcium (8.7-10.3) mg/dL Prolactin (2.8-29.2) ng/mL Urine Appearance Cloudy H (Clear) Urine Protein Trace H (Negative) Urine Ketones Trace H (Negative) Ur Leukocyte Esterase Trace H (Negative) Urine Bacteria Occasional H (None) /hpf Urine Mucus Rare H (None) /hpf Urine Opiates Screen Detected H (NotDetected) U Tricyclic Antidepress Detected H (NotDetected) 12/15/20 12/16/20 12/16/20 Range/Units 16:30 03:48 03:48 WBC (3.8-10.6) k/uL Hgb 11.1 L (11.4-16.0) gm/dL Neutrophils # (1.3-7.7) k/uL Monocytes # (0-1.0) k/uL Sodium (137-145) mmol/L Chloride (98-107) mmol/L Carbon Dioxide 20.5 L (21.6-31.8) mmol/L BUN (7-17) mg/dL Creatinine 1.8 H (0.52-1.04) mg/dL Est GFR (CKD-EPI)AfAm 36.3 L (60.0-200.0) Est GFR (CKD-EPI)NonAf 31.4 L (60.0-200.0) Calcium 8.2 L (8.7-10.3) mg/dL Prolactin 55.5 H (2.8-29.2) ng/mL Urine Appearance (Clear) Urine Protein (Negative) Urine Ketones (Negative) Ur Leukocyte Esterase (Negative) Urine Bacteria (None) /hpf Urine Mucus (None) /hpf Urine Opiates Screen (NotDetected) U Tricyclic Antidepress (NotDetected) Thrombosis Risk Factor Assmnt - Choose All That Apply Any of the Below Risk Factors Present?: Yes Each Factor Represents 1 point: Age 41-60 years Other Risk Factors: No Thrombosis Risk Factor Assessment Total Risk Factor Score: 1 Thrombosis Risk Factor Assessment Level: Low Risk Assessment and Plan Plan: -Altered mental status most probably seconded opiate toxicology as she responded to Narcan. There is possibility of a breakthrough seizure patient the Trileptal dose was recently increased by her neurologist. Patient is being resumed on the same doses of her antiseizure medications. Patient was given a dose of Keppra yesterday. Asymptomatic bacteriuria bacteria will not require any antibiotics -Acute renal failure most likely prerenal azotemia can you with IV fluids nephrology is following the patient next and have an chronic pain syndrome -Irritable bowel syndrome -Seizure disorder -Benign hypertension lisinopril is being held because of acute renal failure -Gastro-esophageal reflux disease -Depression -DVT prophylaxis with Heparin
[2020-12-16] MEDS ORDERED: DILTIAZEM CD 240 MG CAP.ER.24H PO SCH (14:15)
[2020-12-16] MEDS: IPRATROPIUM-ALBUTEROL 3 ML NEB INHALATION SCH ×3 (14:51→19:55)
[2020-12-16] MEDS: GABAPENTIN 100 MG CAP PO SCH ×2 (15:40→21:17)
--- NOTE | 2020-12-16 16:05 | P.CNNES ---
History of Present Illness Consult date: 12/16/20 Requesting physician: Bal Mccracken Reason for Consult: Recurrent seizure History of Present Illness: This is a neurology consultation performed using telemedicine. Patient is a 55-year-old female came to the hospital by ambulance yesterday at 3:30 PM for seizure. patient states that she started shaking, passed out. Th ere was no tongue bite or loss of control of urine. She does not have any memory of the event. Patient states the next thing she remembers is waking up in the hospital bed on the regular floor. She does not remember the ambulance ride and the stay in the ER. in the ER patient was noted to have spasms of her arms and legs. Ativan was given. Patient was found to be in acute renal failure with creatinine of 3.86. Patient has prolonged QTC. Apparently a rapid response team was activated at 9:51 PM last night. Her blood pressure was noted to be very low 96/54, pulse rate 56. It was suspected to be related to opiate use. Patient was given Narcan, and her mentation improved. Patient's vital signs on arrival at the ER was blood pressure 116/86, pulse rate 54, temperature 98.1 patient while in the ICU has been hypotensive with blood pressure going down as far as 80/68. Chest x-ray showed no acute cardiopulmonary disease. EKG shows sinus bradycardia prolonged QT CT head showed negative unenhanced examination with no acute process. patient's blood tests on arrival showed WBC 16.8, which is now 10.2. Hemoglobin and platelets are normal. Patient's BUN was 34 creatinine 3.86, which has improved to 26 and 1.8 respectively. Urine drug screen positive for tricyclic antidepressant. Alcohol level negative. Delgado virus negative. Patient has been seen by Dr. Denver Montenegro on 11/23/2020 for left arm pain and numbness. 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 She also has hyperlipidemia, hypertension and tobacco use. Patient has smoked half pack per day since age 19. Does not drink alcohol, no drugs. Patient states her last seizure was in the end of October 2020. She gets seizures about twice a month. She follows up with Dr. Denver Nix. Patient currently is on Trileptal 150 mg twice a day. Patient has history of epilepsy for the last 2 years and she has seen different neurologists in the past. She currently follows up with Dr. Lala. Her seizures used to be shaking In the beginning but now she is not aware of what happens during her seizures. She had 3 seizures in a month. Her home medications includes Trileptal 150 mg twice a day, venlafaxine 150 mA daily, Robaxin 750 mg 3 times a day Protonix, lisinopril 10 mg, Seroquel 200 mg at bedtime, diltiazem, metoprolol, gabapentin 600 mg 3 times a day aspirin 81 mg Lipitor 80 mg and [place]. Patient's MRI of the brain from 06/22/2018 showed moderate to advanced nonspecific white matter changes. No new enhancing lesions are seen. Moderate to severe mucosal thickening right maxillary sinus otherwise no significant change from prior. Apparently no indication of previous craniotomy. Review of Systems patient denies any chest pain shortness of breath wheezing or cough. Denies diplopia, numbness tingling focal weakness. Denies abdominal pain nausea vomiting diarrhea. All other review of systems noncontributory. Patient does feel slight tremors. Past Medical History Past Medical History: GERD/Reflux, Hypertension, Seizure Disorder Additional Past Medical History / Comment(s): IBS, DIVERTICULITIS, LAST seizure last MONTH -,deviated septum(sx), ddd neck/lower back, arhtritis, stress test- neg, uti History of Any Multi-Drug Resistant Organisms: None Reported Past Surgical History: Hysterectomy Additional Past Surgical History / Comment(s): hiatal hernia repair, right ear @ age 17 d/t avm repair, septoplasty and pt stated "4 days later ened up in [facility] with septic shock" Past Anesthesia/Blood Transfusion Reactions: No Reported Reaction Additional Past Anesthesia/Blood Transfusion Reaction / Comment(s): mild clausterphobia Past Psychological History: Anxiety, Depression Additional Psychological History / Comment(s): pt is independant. 2 sons live with her. drives. Smoking Status: Current every day smoker Past Alcohol Use History: None Reported Additional Past Alcohol Use History / Comment(s): smoked since age of 19 1/2 ppd Past Drug Use History: None Reported - Past Family History Mother Family Medical History: No Reported History Additional Family Medical History / Comment(s): triple bypass Father Family Medical History: Coronary Artery Disease (CAD) Additional Family Medical History / Comment(s): triple bypass Medications and Allergies Home Medications Medication Instructions Recorded Confirmed Type Methocarbamol [Robaxin-750] 750 mg PO TID PRN 05/11/18 12/15/20 History Venlafaxine HCl [Effexor XR] 150 mg PO DAILY 08/15/18 12/15/20 History OXcarbazepine [Trileptal] 150 mg PO BID 01/17/19 12/15/20 History Pantoprazole [Protonix] 40 mg PO DAILY 01/17/19 12/15/20 History Diphenox-Atrop 2.5-0.025 mg 2 tab PO TID PRN 06/24/20 12/15/20 History [Lomotil] Lisinopril [Prinivil] 10 mg PO DAILY 06/24/20 12/15/20 History QUEtiapine [SEROquel] 200 mg PO HS 06/24/20 12/15/20 History Diltiazem HCl [Diltiazem HCl 24Hr 300 mg PO DAILY 11/23/20 12/15/20 History ER] Gabapentin 600 mg PO TID 11/23/20 12/15/20 History Levothyroxine Sodium [Synthroid] 75 mcg PO DAILY 11/23/20 12/15/20 History Metoprolol Succinate [Toprol XL] 200 mg PO DAILY 11/23/20 12/15/20 History Aspirin 81 mg PO DAILY 30 Days #30 chewable 11/25/20 12/15/20 Rx Atorvastatin [Lipitor] 80 mg PO DAILY 30 Days #30 tab 11/25/20 12/15/20 Rx Hydrocodone/Acetaminophen [[place] 1 tab PO TID PRN 12/15/20 12/15/20 History 7.5-325] Allergies Allergy/AdvReac Type Severity Reaction Status Date / Time ranitidine [From Zantac] Allergy Rash/Hives Verified 12/15/20 19:00 tramadol Allergy SEZIURE Verified 12/15/20 19:00 Physical Examination - Vital Signs Vital Signs: Vital Signs Temp Pulse Pulse Resp BP BP Pulse Ox 12/16/20 09:30 131/65 12/16/20 08:30 79 10 L 130/75 94 L 12/16/20 08:00 98.0 F 82 14 125/76 92 L 12/16/20 07:30 82 13 120/69 96 12/16/20 07:15 80 16 106/62 94 L 12/16/20 07:00 86 24 116/72 97 12/16/20 06:45 80 19 113/62 12/16/20 06:30 78 18 121/71 96 12/16/20 06:15 79 13 112/88 96 12/16/20 06:00 79 12 121/81 95 12/16/20 05:45 76 14 130/75 96 12/16/20 05:30 79 17 116/77 96 12/16/20 05:15 76 18 92/58 97 12/16/20 05:00 70 19 98 12/16/20 04:45 73 92/58 98 12/16/20 04:30 71 71/51 98 12/16/20 04:15 70 49/31 97 12/16/20 04:05 100 12/16/20 04:00 98.2 F 72 19 93/52 98 12/16/20 03:45 86/57 96 12/16/20 03:30 68 80/68 12/16/20 03:15 70 89/52 12/16/20 03:09 18 12/16/20 03:00 70 18 89/52 97 12/16/20 02:45 69 84/47 12/16/20 02:30 68 20 88/60 12/16/20 02:10 69 18 96 12/16/20 02:00 68 18 85/64 12/16/20 01:50 68 28 H 135/106 93 L 12/16/20 01:40 67 24 12/16/20 01:30 74 16 92 L 12/16/20 01:20 68 29 H 92/73 12/16/20 01:10 69 20 12/16/20 01:00 69 18 77/61 92 L 12/16/20 00:50 67 25 H 12/16/20 00:40 98.2 F 68 14 71/59 96 12/16/20 00:30 18 12/15/20 21:57 57 L 46/34 12/15/20 19:30 56 L 16 102/53 98 12/15/20 19:00 98.3 F 54 L 16 97/65 95 12/15/20 18:30 52 L 18 90/48 12/15/20 17:45 55 L 16 91/50 96 12/15/20 15:39 98.1 F 54 L 18 116/86 95 Intake and Output 12/15/20 12/16/20 12/16/20 22:59 06:59 14:59 Intake Total 2142.283 640.208 Output Total 1600 Balance 542.283 640.208 Intake: IV 1875 375 Naloxone (Mdv) 2 mg In 375 Sodium Chloride 0.9% 250 ml @ 1 MG/HR 125 mls/hr IV .Q2H RASHID Rx#:[id number] Sodium Chloride 0.9% 1, 500 375 000 ml @ 125 mls/hr IV . Q8H RASHID Rx#:[id number] Sodium Chloride 0.9% 1, 1000 000 ml @ 999 mls/hr IV . Q1H1M STA Rx#:[id number] Intake, IV Titration 267.283 265.208 Amount Naloxone (Mdv) 2 mg In 250 250 Sodium Chloride 0.9% 250 ml @ 1 MG/HR 125 mls/hr IV .Q2H RASHID Rx#:[id number] Norepinephrine 4 mg In 17.283 15.208 Sodium Chloride 0.9% 250 ml @ 0.05 MCG/KG/MIN 13. 826 mls/hr IV .[id number] RASHID Rx#:[id number] Output: Urine 1600 Other: Voiding Method Toilet # Voids 1 1 # Bowel Movements 1 Weight 78.5 kg On examination patient is a middle aged female, in no acute distress. Patient is alert and awake fully oriented. Speech and language functions are normal. Attention, concentration and fund of knowledge is adequate. On cranial nerve examination pupils are round and reacting to light, visual moreno are full on confrontation, extraocular muscles are intact with mild nystagmus on either side. face is symmetric, tongue protrudes to the midline. Palatal elevation and sensation normal, hearing and shoulder shrug normal. On muscle strength testing there is no pronator drift and the strength is normal in arms and legs distally and proximally. Reflexes are 2+ in the upper limbs, 3-3+ in the knees, 2 at the ankles and plantars downgoing. Sensory touch is equal with no neglect. No ataxia for [id number] although she is slightly ataxic for [id number] testing. Patient has some tremors of outstretched hands. There is no carotid bruit or murmur, peripheral pulses present. Chest is clear, abdomen soft nontender. Results - Laboratory Findings CBC and BMP: 12/16/20 03:48 12/16/20 03:48 Abnormal Lab Findings: Abnormal Labs 12/15/20 12/15/20 12/15/20 16:30 16:30 16:30 WBC 16.8 H Hgb Neutrophils # 12.8 H Monocytes # 1.2 H Sodium 130 L Chloride 91 L Carbon Dioxide BUN 34 H Creatinine 3.86 H Est GFR (CKD-EPI)AfAm Est GFR (CKD-EPI)NonAf Calcium Prolactin Urine Appearance Cloudy H Urine Protein Trace H Urine Ketones Trace H Ur Leukocyte Esterase Trace H Urine Bacteria Occasional H Urine Mucus Rare H Urine Opiates Screen Detected H U Tricyclic Antidepress Detected H 12/15/20 12/16/20 12/16/20 16:30 03:48 03:48 WBC Hgb 11.1 L Neutrophils # Monocytes # Sodium Chloride Carbon Dioxide 20.5 L BUN Creatinine 1.8 H Est GFR (CKD-EPI)AfAm 36.3 L Est GFR (CKD-EPI)NonAf 31.4 L Calcium 8.2 L Prolactin 55.5 H Urine Appearance Urine Protein Urine Ketones Ur Leukocyte Esterase Urine Bacteria Urine Mucus Urine Opiates Screen U Tricyclic Antidepress Assessment and Plan Assessment: * Seizure disorder, came with breakthrough seizure. Patient on very low-dose antiepileptic medication Trileptal 150 mg twice a day. Patient's seizures are poorly controlled occurring about once or twice a month, as per her statement. * History of AVM, status post craniotomy at age 19 * Acute renal insufficiency, improved. Plan: * Increase Trileptal to 300 mg twice a day. * EEG has been performed, we will review the results. * Medical management as per IM/critical care. * Dr. Denver Montenegro will resume neurology care in the morning. Addendum: Due to major changes in the IT system this week, I'm not able to pull the EEG Natus on the computer. The EEG will be ready in the morning by Dr. Montenegro.
--- NOTE | 2020-12-16 16:07 | XR ---
EXAMINATION TYPE: XR chest 1V portable DATE OF EXAM: 12/16/2020 COMPARISON: 12/15/2020 HISTORY: Seizure TECHNIQUE: Single view FINDINGS: Heart and mediastinum are normal. Lungs are clear. Diaphragm is normal. Bony thorax appears normal. IMPRESSION: Normal chest. No adverse change.
[2020-12-16] MEDS ORDERED: QUEtiapine 200 MG TAB PO SCH (21:00)
[2020-12-17 04:01] LABS: Basophils % (A) 1 %; Eosinophils # (A) 0.2 k/uL (0-0.7); Eosinophils % (A) 4 %; HCT 32.5 % (34.0-46.0); Lymphocytes # (A) 1.8 k/uL (1.0-4.8); Lymphocytes % (A) 33 %; MCH 29.6 pg (25.0-35.0); MCHC 33.8 g/dL (31.0-37.0); MCV 87.5 fL (80.0-100.0); Mean Platelet Volume 6.8; Monocytes # (A) 0.5 k/uL (0-1.0); Monocytes % (A) 9 %; Neutrophils # (A) 2.8 k/uL (1.3-7.7); Neutrophils % (A) 51 %; Platelet Count 220 k/uL (150-450); RBC 3.72 m/uL (3.80-5.40); RDW 14.5 % (11.5-15.5); WBC 5.5 k/uL (3.8-10.6)
[2020-12-17 04:27] LABS: African American GFR (CKD) >90 (>60 ml/min/1.73 sqM); Anion Gap 3 mmol/L; Blood Urea Nitrogen 9 mg/dL (7-17); Calcium 8.3 mg/dL (8.4-10.2); Carbon Dioxide 26 mmol/L (22-30); Chloride 112 mmol/L (98-107); Glucose 96 mg/dL (74-99); Magnesium 1.9 mg/dL (1.6-2.3); Non-African American GFR(CKD) >90 (>60 ml/min/1.73 sqM); Potassium 3.5 mmol/L (3.5-5.1); Sodium 141 mmol/L (137-145)
[2020-12-17] MEDS ORDERED: LEVOTHYROXINE 75 MCG TAB PO SCH (06:30)
[2020-12-17] MEDS ORDERED: PANTOPRAZOLE 40 MG TABLET PO SCH (06:30)
[2020-12-17] MEDS: SODIUM CHLORIDE 0.9% 1,000 ML IV SCH (06:30)
[2020-12-17] MEDS: GABAPENTIN 100 MG CAP PO SCH (08:07)
[2020-12-17] MEDS: NICOTINE 14MG/24HR PATCH TRANSDERM SCH (08:07)
[2020-12-17] MEDS: PANTOPRAZOLE 40 MG/10 ML VIAL IV SCH (08:08)
[2020-12-17] MEDS: OXcarbazepine 300 MG TAB PO SCH (08:08)
[2020-12-17 08:16] VITALS: PULSE 92; TEMP 98.4
[2020-12-17] MEDS: IPRATROPIUM-ALBUTEROL 3 ML NEB INHALATION SCH ×2 (08:41→12:06)
[2020-12-17] MEDS ORDERED: VENLAFAXINE HCL ER 150 MG CAP PO SCH (09:00)
[2020-12-17] MEDS ORDERED: ATORVASTATIN 80 MG TAB PO SCH (09:00)
[2020-12-17] MEDS ORDERED: METOPROLOL SUCCINATE (ER) 100 MG TAB.ER.24H PO SCH (09:00)
[2020-12-17] MEDS ORDERED: ASPIRIN 81 MG PO SCH (09:00)
[2020-12-17] MEDS ORDERED: lisinopriL 10 MG TAB PO SCH ×2 (10:51→11:00)
[2020-12-17] MEDS ORDERED: DILTIAZEM CD 240 MG CAP.ER.24H PO STA (12:05)
--- NOTE | 2020-12-17 12:07 | P.DS ---
Providers Date of admission: 12/15/20 18:25 Attending physician: Chelsie Alfaro Consults: 12/15/20 19:01 Consult Physician Routine Consulting Provider: Ellie Nicole Consult Reason/Comments: acute renal failure Do you want consulting provider notified?: Yes 12/15/20 19:02 Consult Physician Routine Consulting Provider: Isidra Hong Consult Reason/Comments: recurrent seizure Do you want consulting provider notified?: Yes 12/15/20 21:57 Consult Physician Stat Consulting Provider: Jani Beauchamp Consult Reason/Comments: icu management Do you want consulting provider notified?: Yes 12/15/20 22:47 Consult Physician Stat Consulting Provider: Isidra Hong Consult Reason/Comments: Seizure Do you want consulting provider notified?: Yes Primary care physician: [facility] Course: 5-year-old female came in for possible seizure. Patient does have history of seizures last seizure being in October family believes she may have had a seizure because of a twitching patient is unable if any such kind of history patient didn't know what happened patient was brought in unresponsive. Initially patient was believed to be postictal. Patient was given not in patient does take [place] at home patient is not sure whether she took too many [place] since she doesn't believe she did take too many [place]'s. Although patient is found to have acute renal failure denied any nausea vomiting abdominal pain dysuria. Because of her poor renal function and excess opiates patient may have had opiate overdose which responded to Narcan drip. EEG is being obtain neurology was consulted. Urine drug screen is positive for opiates tri cyclic antidepressants. She denied any fever chills nausea vomiting dysuria 12/17/2020 This is clinically doing well except for elevated blood pressure normal saline will risk and urine patient was resumed back on the lisinopril and Cardizem renal failure resolved at this time. Patient's Trileptal dose was increased EEG is still pending patient will be discharged once cleared by neurology. PHYSICAL EXAMINATION: GENERAL: The patient is alert and oriented x3, not in any acute distress. Well developed, well nourished. HEENT: Pupils are round and equally reacting to light. EOMI. No scleral icterus. No conjunctival pallor. Normocephalic, atraumatic. No pharyngeal erythema. No thyromegaly. CARDIOVASCULAR: S1 and S2 present. No murmurs, rubs, or gallops. PULMONARY: Chest is clear to auscultation, no wheezing or crackles. ABDOMEN: Soft, nontender, nondistended, normoactive bowel sounds. No palpable organomegaly. MUSCULOSKELETAL: No joint swelling or deformity. EXTREMITIES: No cyanosis, clubbing, or pedal edema. NEUROLOGICAL: Gross neurological examination did not reveal any focal deficits. SKIN: No rashes. Assessment and Plan Plan: -Altered mental status most probably seconded opiate toxicology as she responded to Narcan. There is possibility of a breakthrough seizure patient's Trileptal dose was increased. Asymptomatic bacteriuria bacteria will not require any antibiotics -Acute renal failure most likely prerenal azotemia can you with IV fluids nephrology is following the patient next and have an chronic pain syndrome -Irritable bowel syndrome -Seizure disorder -Benign hypertension lisinopril is being held because of acute renal failure -Gastro-esophageal reflux disease -Depression -DVT prophylaxis with Heparin Plan - Discharge Summary Discharge Rx Participant: Yes New Discharge Prescriptions: New OXcarbazepine [Trileptal] 300 mg PO BID #30 tab Continue Hydrocodone/Acetaminophen [[place] 7.5-325] 1 tab PO TID PRN PRN Reason: Pain Discontinued OXcarbazepine [Trileptal] 150 mg PO BID No Action Methocarbamol [Robaxin-750] 750 mg PO TID PRN PRN Reason: Muscle Spasm Venlafaxine HCl [Effexor XR] 150 mg PO DAILY Pantoprazole [Protonix] 40 mg PO DAILY Diphenox-Atrop 2.5-0.025 mg [Lomotil] 2 tab PO TID PRN PRN Reason: Diarrhea Lisinopril [Prinivil] 10 mg PO DAILY QUEtiapine [SEROquel] 200 mg PO HS Levothyroxine Sodium [Synthroid] 75 mcg PO DAILY Diltiazem HCl [Diltiazem HCl 24Hr ER] 300 mg PO DAILY Metoprolol Succinate [Toprol XL] 200 mg PO DAILY Gabapentin 600 mg PO TID Aspirin 81 mg PO DAILY 30 Days #30 chewable Atorvastatin [Lipitor] 80 mg PO DAILY 30 Days #30 tab Discharge Medication List Methocarbamol [Robaxin-750] 750 mg PO TID PRN 05/11/18 [History] Venlafaxine HCl [Effexor XR] 150 mg PO DAILY 08/15/18 [History] Pantoprazole [Protonix] 40 mg PO DAILY 01/17/19 [History] Diphenox-Atrop 2.5-0.025 mg [Lomotil] 2 tab PO TID PRN 06/24/20 [History] Lisinopril [Prinivil] 10 mg PO DAILY 06/24/20 [History] QUEtiapine [SEROquel] 200 mg PO HS 06/24/20 [History] Diltiazem HCl [Diltiazem HCl 24Hr ER] 300 mg PO DAILY 11/23/20 [History] Gabapentin 600 mg PO TID 11/23/20 [History] Levothyroxine Sodium [Synthroid] 75 mcg PO DAILY 11/23/20 [History] Metoprolol Succinate [Toprol XL] 200 mg PO DAILY 11/23/20 [History] Aspirin 81 mg PO DAILY 30 Days #30 chewable 11/25/20 [Rx] Atorvastatin [Lipitor] 80 mg PO DAILY 30 Days #30 tab 11/25/20 [Rx] Hydrocodone/Acetaminophen [[place] 7.5-325] 1 tab PO TID PRN 12/15/20 [History] OXcarbazepine [Trileptal] 300 mg PO BID #30 tab 12/17/20 [Rx] Follow up Appointment(s)/Referral(s): [facility],Clinic [Primary Care Provider] - 1-2 days
--- NOTE | 2020-12-17 13:10 | EEG ---
ELECTROENCEPHALOGRAM REPORT DATE OF SERVICE: 12/16/2020 CLINICAL HISTORY: This is a 55-year-old woman with history of seizure that is reported to have a break through seizure. Video EEG is obtained to evaluate for seizure and epileptiform activity. RELEVANT MEDICATION: Trileptal. EEG TYPE: A routine 21 channel EEG is performed with video using the 10/20 electrode placement system. DESCRIPTION: Wakefulness, drowsiness and stage II sleep are obtained. During wakefulness, there is a posterior dominant rhythm of low to moderate voltage, somewhat poorly modulated of 7- 8 hertz activity. During drowsiness, there is slowing in attenuation of the background activity. During stage II sleep, there are sleep spindles and K complexes. During the study, the patient has occasional to frequent myogenic artifact that are diffuse. INTERICTAL AND ICTAL: None. ACTIVATION PROCEDURE: Photic stimulation did not evoke a posterior driving response. During the photic stimulation, there is myogenic artifact over bilateral hemisphere. There is no electrographic abnormality seen. Hyperventilation is not performed. CLINICAL INTERPRETATION: This is an abnormal routine EEG. The background slowing is suggestive of mild encephalopathy of unspecified etiology. There are no focal slowing, epileptiform discharges or seizure on the EEG. Clinical correlation is recommended. MMODL / IJN: [id number] / BECKI
--- NOTE | 2020-12-17 13:29 | CDI ---
Documentation Clarification Form Date: 12/17/2020 01:15:28 PM From: Norma Andersen RN, CCDS Admit Date: 12/15/2020 06:25:00 PM Patient Name: Joelle England Visit Number: [id number] ATTENTION: The Clinical Documentation Specialists (CDI) and [facility] Coding Staff appreciate your assistance in clarifying documentation. Please respond to the clarification below the line at the bottom and electronically sign. The CDI & [facility] Coding staff will review the response and follow-up if needed. Please note: Queries are made part of the Legal Health Record. If you have any questions, please contact the author of this message via ITS. Dr. Halina Dhaliwal Altered Mental Status was documented in the H&P and D/C Summary and requires further specificity. History/Risk Factors: Seizures, IBS, ARF, HTN, Depression, Anxiety, Smoker Clinical Indicators: 12/15 Event Note: "She was given 0.2 mg Narcan x 2 with which her mentation improved. Highly suspicious for opiate toxicity in setting of SUHAIL. Narcan infusion ordered." 12/16 H&P and 12/17 D/C Summary: "Altered mental status most probably seconded opiate toxicology as she responded to Narcan." 12/16 Pulmonary consult: "Acute kidney injury suspect acute tubular necrosis secondary to hypotension, improving. Hypotension exact etiology is not clear, no clear-cut evidence of sepsis or septic shock. I believe the hypertension is likely secondary to excessive opiate toxicity." 12/15-12/17 Labs: BUN 34/26/9, Creatinine 3.58/1.8/.59, Prolactin 55.5, UDS + opiates and TCA's 12/15 CT Brain: Negative unenhanced head CT scan. No change." Treatment: 12/15 1.5 L 0.9% NS IVF Bolus followed by 125 cc/hr. IV Keppra 1000mg IVPB x 1 dose 12/16 1L 0.9%NS IVF Bolus 12/16 IV Levophed gtt- titrate for B/P 12/15 Event Note:" 0.2mg IVP Narcan x 2 with improved mentation." In your professional opinion, please clarify the etiology of the Altered Mental Status, if known. Toxic Encephalopathy secondary to opiate toxicity Metabolic Encephalopathy (please specify underlying illness) Other condition (please specify) Unable to determine (Last Revision: February 2018) Toxic Encephalopathy secondary to opiate toxicity. This query is not necessary as this was already dictated it in my note MTDD
[2020-12-17 13:49] VITALS: BP 182/93
--- NOTE | 2020-12-17 16:00 | P.PN ---
Subjective Progress Note Date: 12/17/20 The patient was seen by Dr. Hong (Neuro-Hospitalist) over this past weekend, he felt patient has Seizure disorder, came with breakthrough seizure as felt by Dr. Hong. Patient's seizures are poorly controlled occurring about once or twice a month. and please refer to his note for further details. She had an EEG on 12/16/20. The patient was seen at bedside and stated she is feeling well. She is currently on Trileptal 300mg 1 tab bid and was increased by Dr. Hong. Objective - Vital Signs Vital signs: Vital Signs Temp 98.4 F 12/17/20 08:00 Pulse 92 12/17/20 08:00 Resp 16 12/17/20 08:00 BP 182/93 12/17/20 13:49 Pulse Ox 95 12/17/20 08:00 Intake & Output 12/16/20 12/17/20 12/17/20 18:59 06:59 18:59 Intake Total 2040.208 900 Output Total 1000 Balance 2040.208 -100 Intake: IV 1775 900 Sodium Chloride 0.9% 1, 1775 900 000 ml @ 125 mls/hr IV . Q8H RASHID Rx#:[id number] Intake, IV Titration 265.208 Amount Naloxone (Mdv) 2 mg In 250 Sodium Chloride 0.9% 250 ml @ 1 MG/HR 125 mls/hr IV .Q2H RASHID Rx#:[id number] Norepinephrine 4 mg In 15.208 Sodium Chloride 0.9% 250 ml @ 0.05 MCG/KG/MIN 13. 826 mls/hr IV .[id number] RASHID Rx#:[id number] Output: Urine 1000 Other: Voiding Method Toilet Toilet Toilet # Voids 3 1 - Exam GENERAL: The patient is lying in bed and is not in acute distress. NEUROLOGICAL: Higher mental function: The patient is awake, alert, oriented to self, place and time. Patient is following commands. No aphasia and no neglect. Cranial nerves: The pupils are round, equal and reactive to light and accommodation. Visual moreno are full to confrontation throughout. Extraocular movement is intact no nystagmus is noted. Facial sensation is normal to touch throughout. The facial strength is normal throughout. Hearing is normal bilaterally to hand rub. Tongue is midline and moved [id number] without any difficulty. No dysarthria is noted. Shoulder shrug is normal bilaterally. Motor: Gait is deferred. The strength is 5 over 5 throughout. Normal tone and bulk. Cerebellum: Normal finger to nose bilaterally. Sensation: Sensation is normal to touch throughout. Reflexes (right/left): 3+ at bilateral knees but 2+ throughout Plantars are downgoing bilaterally. - Labs CBC & Chem 7: 12/17/20 03:10 12/17/20 03:10 Labs: Abnormal Lab Results - Last 24 Hours (Table) 12/17/20 12/17/20 Range/Units 03:10 03:10 RBC 3.72 L (3.80-5.40) m/uL Hgb 11.0 L (11.4-16.0) gm/dL Hct 32.5 L (34.0-46.0) % Chloride 112 H (98-107) mmol/L Calcium 8.3 L (8.4-10.2) mg/dL Assessment and Plan Assessment: * Seizure disorder, came with breakthrough seizure. Patient's seizures are poorly controlled occurring about once or twice a month. * Encephalopathy due to toxic (from opiate toxcology) and responded to Narcan * History of AVM, status post craniotomy at age 19 * Acute renal insufficiency, improved. Plan: Patient Trileptal was increased to 300 mg 1 tablet the twice a day from 150 mg 1 tablet twice a day on 12/16/2019. EEG on 12/16/2020: Eliminate report is a there is mild background slowing suggestive of mild encephalopathy. There are no focal slowing, perform discharges or seizure on EEG. From a neurology perspective there is no further workup needed. Patient needs to follow-up with a neurologist within 1-2 weeks upon discharge. The plan was discussed with the patient as well as with the primary team. Denver Montenegro MD Neuro-Hospitalist Time with Patient: Less than 30
[2020-12-18] MEDS ORDERED: lisinopriL 10 MG TAB PO SCH (09:00)
== END 2020-12-17 15:05 | disposition home or self-care (01) | DRG 917 ==
LOC: EC 15:37 → OBSVTOIN 18:25 → 6NMEDSUR 18:25 → 2SICU 12-16 02:15
PROVIDERS: ADMIT Hospitalist; ATTEND Hospitalist
PROC: 3E033XZ Introduction of Vasopressor into Peripheral Vein, Percutaneous Approach (ICD-10-PCS; principal; 2020-12-15)
DX: T40.2X1A Poisoning by other opioids, accidental (unintentional), initial encounter (principal); G92 Toxic encephalopathy; G40.919 Epilepsy, unspecified, intractable, without status epilepticus; N17.9 Acute kidney failure, unspecified; D72.829 Elevated white blood cell count, unspecified; E78.5 Hyperlipidemia, unspecified; F17.210 Nicotine dependence, cigarettes, uncomplicated; F32.9 Major depressive disorder, single episode, unspecified; F41.1 Generalized anxiety disorder; G89.4 Chronic pain syndrome; I10 Essential (primary) hypertension; K21.9 Gastro-esophageal reflux disease without esophagitis; K58.9 Irritable bowel syndrome, unspecified; R94.31 Abnormal electrocardiogram [ECG] [EKG]; M50.30 Other cervical disc degeneration, unspecified cervical region; M54.5 Low back pain; Z82.49 Family history of ischemic heart disease and other diseases of the circulatory system; Z90.710 Acquired absence of both cervix and uterus; Z79.899 Other long term (current) drug therapy; Z79.890 Hormone replacement therapy; Z79.82 Long term (current) use of aspirin
CPT/HCPCS: 36415; 70450; 71045; 71046; 80048; 80053; 80183; 80306; 80320; 81001; 83735; 84146; 85025; 87635; 93005; 94640; 95819; 96361; 96374; 96375; 99285

== ENCOUNTER 2020-12-19 13:31 | Emergency (ER) | payer OTHER ==
[2020-12-19 13:37] VITALS: TEMP 98
[2020-12-19 14:45] LABS: Anisocytosis Slight; Basophils # (A) 0.1 k/uL (0-0.2); Basophils % (A) 1 %; Eosinophils # (A) 0.6 k/uL (0-0.7); Eosinophils % (A) 5 %; HCT 38.6 % (34.0-46.0); HGB 12.2 gm/dL (11.4-16.0); Hypochromasia Moderate; Lymphocytes # (A) 2.7 k/uL (1.0-4.8); Lymphocytes % (A) 22 %; MCH 28.8 pg (25.0-35.0); MCHC 31.7 g/dL (31.0-37.0); MCV 90.9 fL (80.0-100.0); Mean Platelet Volume 6.8; Monocytes # (A) 0.6 k/uL (0-1.0); Monocytes % (A) 5 %; Neutrophils # (A) 8.3 k/uL (1.3-7.7); Neutrophils % (A) 66 %; Platelet Count 307 k/uL (150-450); Poikilocytosis Slight; RBC 4.24 m/uL (3.80-5.40); RDW 16.3 % (11.5-15.5); WBC 12.6 k/uL (3.8-10.6)
[2020-12-19 14:54] LABS: Albumin 3.9 g/dL (3.5-5.0); Calcium 9.5 mg/dL (8.4-10.2); Magnesium 1.7 mg/dL (1.6-2.3); Potassium 4.4 mmol/L (3.5-5.1); Total Bilirubin 0.7 mg/dL (0.2-1.3); Total Protein 6.8 g/dL (6.3-8.2)
--- NOTE | 2020-12-19 16:03 | ED ---
General Adult HPI - General Chief complaint: Seizure Stated complaint: Seizure Time Seen by Provider: 12/19/20 13:35 Source: patient, RN notes reviewed, old records reviewed Mode of arrival: wheelchair Limitations: no limitations - History of Present Illness Initial comments: This is a 55-year-old female presents emergency department with past medical h istory significant for seizures. Patient comes in today because she's having a prodrome to her seizure. Patient states normally before she has a seizure she feels a little off balance when she walks and then she has difficulty picking things up and holding them. Patient states it happens with either hand. Patient states this is happened multiple times in the past and then she was on sometimes to have a seizure. Patient states her son was concerned so they brought her in to be evaluated. Patient denies any recent fever chills or cough. Patient denies any headache patient denies numbness or weakness. Patient denies any chest pain palpitations difficulty breathing shortness breath. Patient denies any abdominal pain patient denies nausea vomiting diarrhea per patient denies any dysuria hematuria urinary frequency. - Related Data Home Medications Medication Instructions Recorded Confirmed Methocarbamol [Robaxin-750] 750 mg PO TID PRN 05/11/18 12/19/20 Venlafaxine HCl [Effexor XR] 150 mg PO DAILY 08/15/18 12/19/20 Pantoprazole [Protonix] 40 mg PO DAILY 01/17/19 12/19/20 Diphenox-Atrop 2.5-0.025 mg 2 tab PO TID PRN 06/24/20 12/19/20 [Lomotil] Lisinopril [Prinivil] 10 mg PO DAILY 06/24/20 12/19/20 QUEtiapine [SEROquel] 200 mg PO HS 06/24/20 12/19/20 Diltiazem HCl [Diltiazem HCl 24Hr 300 mg PO DAILY 11/23/20 12/19/20 ER] Gabapentin 600 mg PO TID 11/23/20 12/19/20 Levothyroxine Sodium [Synthroid] 75 mcg PO DAILY 11/23/20 12/19/20 Metoprolol Succinate [Toprol XL] 200 mg PO DAILY 11/23/20 12/19/20 Hydrocodone/Acetaminophen [[place] 1 tab PO TID PRN 12/15/20 12/19/20 7.5-325] Previous Rx's Medication Instructions Recorded Aspirin 81 mg PO DAILY 30 Days #30 chewable 11/25/20 Atorvastatin [Lipitor] 80 mg PO DAILY 30 Days #30 tab 11/25/20 OXcarbazepine [Trileptal] 300 mg PO BID #30 tab 12/17/20 Allergies Allergy/AdvReac Type Severity Reaction Status Date / Time ranitidine [From Zantac] Allergy Rash/Hives Verified 12/19/20 14:18 tramadol AdvReac SEZIURE Verified 12/19/20 14:18 Review of Systems ROS Statement: Those systems with pertinent positive or pertinent negative responses have been documented in the HPI. ROS Other: All systems not noted in ROS Statement are negative. Past Medical History Past Medical History: GERD/Reflux, Hypertension, Seizure Disorder Additional Past Medical History / Comment(s): IBS, DIVERTICULITIS, LAST seizure last MONTH -,deviated septum(sx), ddd neck/lower back, arhtritis, stress test- neg, uti History of Any Multi-Drug Resistant Organisms: None Reported Past Surgical History: Hysterectomy Additional Past Surgical History / Comment(s): hiatal hernia repair, right ear @ age 17 d/t avm repair, septoplasty and pt stated "4 days later ened up in [facility] with septic shock" Past Anesthesia/Blood Transfusion Reactions: No Reported Reaction Additional Past Anesthesia/Blood Transfusion Reaction / Comment(s): mild clausterphobia Past Psychological History: Anxiety, Depression Smoking Status: Current every day smoker Past Alcohol Use History: None Reported Past Drug Use History: None Reported - Past Family History Mother Family Medical History: No Reported History Additional Family Medical History / Comment(s): triple bypass Father Family Medical History: Coronary Artery Disease (CAD) Additional Family Medical History / Comment(s): triple bypass General Exam - General Exam Comments Initial Comments: GENERAL: Patient is well-developed and well-nourished. Patient is nontoxic and well- hydrated and is in no acute distress. ENT: Neck is soft and supple. No significant lymphadenopathy is noted. Oropharynx is clear. Moist mucous membranes. Neck has full range of motion without eliciting any pain. EYES: The sclera were anicteric and conjunctiva were pink and moist. Extraocular movements were intact and pupils were equal round and reactive to light. Eyelids were unremarkable. PULMONARY: Unlabored respirations. Good breath sounds bilaterally. No audible rales rhonchi or wheezing was noted. CARDIOVASCULAR: There is a regular rate and rhythm without any murmurs gallops or rubs. ABDOMEN: Soft and nontender with normal bowel sounds. SKIN: Skin is clear with no lesions or rashes and otherwise unremarkable. NEUROLOGIC: Patient is alert and oriented x3. Cranial nerves II through XII are grossly in tact. Motor and sensory are also intact. Normal speech, volume and content. Symmetrical smile. MUSCULOSKELETAL: Normal extremities with adequate strength and full range of motion. No lower extremity swelling or edema. No calf tenderness. LYMPHATICS: No significant lymphadenopathy is noted PSYCHIATRIC: Normal psychiatric evaluation. Limitations: no limitations Course Vital Signs 12/19/20 13:34 Temperature 98 F Pulse Rate 72 Respiratory 16 Rate Blood Pressure 94/63 O2 Sat by Pulse 93 L Oximetry Medical Decision Making - Medical Decision Making EKG shows normal sinus rhythm at 60 bpm [place] interval is 176 QRS is 86 QT interval is 442 QTC is 469. Patient's EKG shows no ST segment elevation or depression. Patient did not have any seizures in the emergency department due to a Trileptal level she stated she would follow-up with Dr. Nix. patient was able to get up and went to the bathroom without any problem and no ataxia noted. - Lab Data Result diagrams: 12/19/20 14:35 12/19/20 14:35 Lab Results 12/19/20 12/19/20 Range/Units 14:35 14:35 WBC 12.6 H (3.8-10.6) k/uL RBC 4.24 (3.80-5.40) m/uL Hgb 12.2 (11.4-16.0) gm/dL Hct 38.6 (34.0-46.0) % MCV 90.9 (80.0-100.0) fL MCH 28.8 (25.0-35.0) pg MCHC 31.7 (31.0-37.0) g/dL RDW 16.3 H (11.5-15.5) % Plt Count 307 (150-450) k/uL MPV 6.8 Neutrophils % 66 % Lymphocytes % 22 % Monocytes % 5 % Eosinophils % 5 % Basophils % 1 % Neutrophils # 8.3 H (1.3-7.7) k/uL Lymphocytes # 2.7 (1.0-4.8) k/uL Monocytes # 0.6 (0-1.0) k/uL Eosinophils # 0.6 (0-0.7) k/uL Basophils # 0.1 (0-0.2) k/uL Hypochromasia Moderate Poikilocytosis Slight Anisocytosis Slight Sodium 137 (137-145) mmol/L Potassium 4.4 (3.5-5.1) mmol/L Chloride 102 (98-107) mmol/L Carbon Dioxide 24 (22-30) mmol/L Anion Gap 11 mmol/L BUN 19 H (7-17) mg/dL Creatinine 1.46 H (0.52-1.04) mg/dL Est GFR (CKD-EPI)AfAm 47 (>60 ml/min/1.73 sqM) Est GFR (CKD-EPI)NonAf 41 (>60 ml/min/1.73 sqM) Glucose 89 (74-99) mg/dL Calcium 9.5 (8.4-10.2) mg/dL Magnesium 1.7 (1.6-2.3) mg/dL Total Bilirubin 0.7 (0.2-1.3) mg/dL AST 26 (14-36) U/L ALT 20 (4-34) U/L Alkaline Phosphatase 130 H (38-126) U/L Total Protein 6.8 (6.3-8.2) g/dL Albumin 3.9 (3.5-5.0) g/dL Disposition Clinical Impression: History of seizures, Renal insufficiency Disposition: HOME SELF-CARE Instructions (If sedation given, give patient instructions): Generalized Tonic Clonic Seizures (ED) Additional Instructions: Patient should increase by mouth fluids. Is patient prescribed a controlled substance at d/c from ED?: No Referrals: [facility] [Primary Care Provider] - 1-2 days Denver Nix MD [STAFF PHYSICIAN] - 1-2 days Time of Disposition: 16:03
[2020-12-19 16:12] VITALS: BP 94/62; PULSE 64; RESP 15
== END 2020-12-19 16:16 | disposition home or self-care (01) ==
LOC: EC 13:31
DX: N28.9 Disorder of kidney and ureter, unspecified (principal); I10 Essential (primary) hypertension; K21.9 Gastro-esophageal reflux disease without esophagitis; F41.9 Anxiety disorder, unspecified; F32.9 Major depressive disorder, single episode, unspecified; G40.909 Epilepsy, unspecified, not intractable, without status epilepticus; F17.200 Nicotine dependence, unspecified, uncomplicated; Z79.899 Other long term (current) drug therapy; Z79.890 Hormone replacement therapy; Z88.5 Allergy status to narcotic agent; Z88.8 Allergy status to other drugs, medicaments and biological substances
CPT/HCPCS: 36415; 80053; 80183; 83735; 85025; 93005; 99284

== ENCOUNTER → 2021-01-17 | Outpatient (CLI) | payer OTHER | END | disposition home or self-care (01) | LOC: LABWHC1 08:18 | PROVIDERS: ATTEND Psychiatry & Neurology Neurology | DX: G40.909 Epilepsy, unspecified, not intractable, without status epilepticus (principal) | CPT/HCPCS: 36415; 80183 ==

== ENCOUNTER 2021-02-16 06:21 | Emergency (ER) | payer OTHER ==
[2021-02-16] MEDS ORDERED: ONDANSETRON 4 MG/2 ML VIAL IVP STA ×2 (06:32→07:41)
[2021-02-16] MEDS ORDERED: SODIUM CHLORIDE 0.9% 1,000 ML IV STA (06:32)
[2021-02-16] MEDS ORDERED: MORPHINE SULFATE 4 MG/ML SYRINGE IVP STA (06:34)
[2021-02-16] MEDS ORDERED: hydrALAZINE HCL 20 MG/ML 1 ML VIAL IVP STA (06:34)
--- NOTE | 2021-02-16 06:42 | ED ---
General Adult HPI <González Goel - Last Filed: 02/16/21 08:19> - General Source: patient, EMS, RN notes reviewed Mode of arrival: EMS Limitations: no limitations <Almas Melgar - Last Filed: 02/16/21 08:57> - General Chief complaint: Neck Pain/Injury Stated complaint: Headache, weakness Time Seen by Provider: 02/16/21 06:24 - History of Present Illness Initial comments: This a 55-year-old female presents emergency Department with chief complaint of headache, jaundice weakness not feeling well. Patient states that she woke up she said she felt so weak she is late on the ground. Patient complains of headache which is not usual for the patient. Patient found to be hypertensive but patient states she has a long history of hypertension and to take her medications. She denies any chest pain, shortness breath, fever, chills. Patient found to be diaphoretic. She does complain of slight nausea no vomiting. She doesn't want history of seizures present clear she had a seizure. Patient denies any missed doses of any of her medications. Denies leg pain no focal weakness found. Patient denies any sick contacts. (Almas Melgar) - Related Data Home Medications Medication Instructions Recorded Confirmed Methocarbamol [Robaxin-750] 750 mg PO TID PRN 05/11/18 12/19/20 Venlafaxine HCl [Effexor XR] 150 mg PO DAILY 08/15/18 12/19/20 Pantoprazole [Protonix] 40 mg PO DAILY 01/17/19 12/19/20 Diphenox-Atrop 2.5-0.025 mg 2 tab PO TID PRN 06/24/20 12/19/20 [Lomotil] Lisinopril [Prinivil] 10 mg PO DAILY 06/24/20 12/19/20 QUEtiapine [SEROquel] 200 mg PO HS 06/24/20 12/19/20 Diltiazem HCl [Diltiazem HCl 24Hr 300 mg PO DAILY 11/23/20 12/19/20 ER] Gabapentin 600 mg PO TID 11/23/20 12/19/20 Levothyroxine Sodium [Synthroid] 75 mcg PO DAILY 11/23/20 12/19/20 Metoprolol Succinate [Toprol XL] 200 mg PO DAILY 11/23/20 12/19/20 Hydrocodone/Acetaminophen [[place] 1 tab PO TID PRN 12/15/20 12/19/20 7.5-325] Previous Rx's Medication Instructions Recorded Aspirin 81 mg PO DAILY 30 Days #30 chewable 11/25/20 Atorvastatin [Lipitor] 80 mg PO DAILY 30 Days #30 tab 11/25/20 OXcarbazepine [Trileptal] 300 mg PO BID #30 tab 12/17/20 Allergies Allergy/AdvReac Type Severity Reaction Status Date / Time ranitidine [From Zantac] Allergy Rash/Hives Verified 12/19/20 14:18 tramadol AdvReac SEZIURE Verified 12/19/20 14:18 Review of Systems ROS Other: All systems not noted in ROS Statement are negative. <González Goel - Last Filed: 02/16/21 08:19> ROS Other: All systems not noted in ROS Statement are negative. <Almas Melgar - Last Filed: 02/16/21 08:57> ROS Statement: Those systems with pertinent positive or pertinent negative responses have been documented in the HPI. Past Medical History Past Medical History: GERD/Reflux, Hypertension, Seizure Disorder Additional Past Medical History / Comment(s): IBS, DIVERTICULITIS, LAST seizure last MONTH -,deviated septum(sx), ddd neck/lower back, arhtritis, stress test- neg, uti History of Any Multi-Drug Resistant Organisms: None Reported Past Surgical History: Hysterectomy Additional Past Surgical History / Comment(s): hiatal hernia repair, right ear @ age 17 d/t avm repair, septoplasty and pt stated "4 days later ened up in [facility] with septic shock" Past Anesthesia/Blood Transfusion Reactions: No Reported Reaction Additional Past Anesthesia/Blood Transfusion Reaction / Comment(s): mild clausterphobia Past Psychological History: Anxiety, Depression Smoking Status: Current every day smoker Past Alcohol Use History: None Reported Past Drug Use History: None Reported - Past Family History Mother Family Medical History: No Reported History Additional Family Medical History / Comment(s): triple bypass Father Family Medical History: Coronary Artery Disease (CAD) Additional Family Medical History / Comment(s): triple bypass <Almas Melgar - Last Filed: 02/16/21 08:57> General Exam Limitations: no limitations General appearance: alert, in no apparent distress Head exam: Present: atraumatic, normocephalic, normal inspection Eye exam: Present: normal appearance, PERRL, EOMI. Absent: scleral icterus, conjunctival injection, periorbital swelling ENT exam: Present: normal exam, normal oropharynx, mucous membranes moist Neck exam: Present: normal inspection, full ROM. Absent: tenderness, meningismus, lymphadenopathy Respiratory exam: Present: normal lung sounds bilaterally. Absent: respiratory distress, wheezes, rales, rhonchi, stridor Cardiovascular Exam: Present: normal rhythm, bradycardia, normal heart sounds. Absent: systolic murmur, diastolic murmur, rubs, gallop, clicks GI/Abdominal exam: Present: soft, normal bowel sounds. Absent: distended, tenderness, guarding, rebound, rigid Extremities exam: Present: other (Upper and Lower extremity strength bilateral weakness) Neurological exam: Present: alert, oriented X3, CN II-XII intact, reflexes normal, other (Finger to nose intact). Absent: motor sensory deficit Expanded Patient oriented to: Present: person. Absent: place, time Speech: Present: fluid speech Motor strength exam: RUE: 3, LUE: 3, RLE: 3, LLE: 3 Eye Response: (4) open spontaneously Motor Response: (6) obeys commands Verbal Response: (5) oriented Antonia Total: 15 (NIH 14) Skin exam: Present: warm, intact, normal color, diaphoretic. Absent: rash <Almas Melgar M - Last Filed: 02/16/21 08:57> Course <Almas Melgar - Last Filed: 02/16/21 08:57> Vital Signs 02/16/21 02/16/21 02/16/21 06:23 06:55 07:10 Temperature 97.3 F L Pulse Rate 53 L 54 L 50 L Respiratory 20 18 18 Rate Blood Pressure 204/115 214/97 211/97 O2 Sat by Pulse 93 L 96 98 Oximetry 02/16/21 02/16/21 02/16/21 07:25 07:45 07:58 Temperature Pulse Rate 67 55 L Respiratory 18 18 Rate Blood Pressure 176/114 175/149 119/107 O2 Sat by Pulse 98 99 Oximetry 02/16/21 08:00 Temperature 98 F Pulse Rate 55 L Respiratory 18 Rate Blood Pressure 141/119 O2 Sat by Pulse 99 Oximetry - Reevaluation(s) Reevaluation #1: 02/16/21 I did receive information from geology technician. Patient has evidence of h emorrhage. code stroke was called. 02/16/21 07:34 (Almas Melgar) Reevaluation #2: 02/16/21 07:21 I did receive a phone call back from neuro interventional list. He recommended blood pressure be under 140 systolic, CT was ordered patient been sent to CT will review CT. (Almas Melgar) Reevaluation #3: 02/16/21 07:34 I did discuss the case with Richar physician operating room assistant at [facility] neuro interventional list updated on current labs vitals. Patient was ready started on Cardene drip at 5 mg hour. Blood pressure systolic to be under 140. There is no recommendations medications at this time given patient's history of seizures currently on Trileptal. He recommended contact by EMS for transfer to [facility] this was done. (Almas Melgar) Reevaluation #4: 02/16/21 08:09 We did contact CEDRIC Mcqueen again patient was sent prior to CTA being read. Patient's blood pressure is improving. PA updated again when patient left ER. (Almas Melgar) EKG Findings - EKG Comments: EKG Findings:: EKG performed at 6:34 normal sinus rhythm, prolonged QT there is nonspecific slight ST depression V4 through V6 rate of 62 RI 150 QRS 90 QT/QTC 534/542 <Almas Melgar - Last Filed: 02/16/21 08:57> Medical Decision Making - Lab Data Result diagrams: 02/16/21 06:46 02/16/21 06:46 <González Goel - Last Filed: 02/16/21 08:19> - Lab Data Result diagrams: 02/16/21 06:46 02/16/21 06:46 <Almas Melgar - Last Filed: 02/16/21 08:57> - Medical Decision Making IMitul, personally saw and examined the patient. I have reviewed and agree with the PA findings, including all diagnostic interpretations and treatment plans as written unless otherwise stated. I was present for the garcia portions of any procedures performed and the inclusive time noted for any critical care statement. (González Goel) Patient will be transferred to [facility] for neuro interventional this accepted by . Pulses discussed the case with Roxy physician operating room assistant. (Almas Melgar) - Lab Data Lab Results 02/16/21 02/16/21 02/16/21 Range/Units 06:46 06:46 06:46 WBC 9.2 (3.8-10.6) k/uL RBC 4.58 (3.80-5.40) m/uL Hgb 13.7 (11.4-16.0) gm/dL Hct 40.8 (34.0-46.0) % MCV 89.0 (80.0-100.0) fL MCH 29.9 (25.0-35.0) pg MCHC 33.6 (31.0-37.0) g/dL RDW 14.8 (11.5-15.5) % Plt Count 233 (150-450) k/uL MPV 6.9 Neutrophils % 58 % Lymphocytes % 31 % Monocytes % 6 % Eosinophils % 3 % Basophils % 1 % Neutrophils # 5.3 (1.3-7.7) k/uL Lymphocytes # 2.9 (1.0-4.8) k/uL Monocytes # 0.5 (0-1.0) k/uL Eosinophils # 0.2 (0-0.7) k/uL Basophils # 0.1 (0-0.2) k/uL PT (9.0-12.0) sec INR (<1.2) APTT (22.0-30.0) sec Sodium 139 (137-145) mmol/L Potassium 3.2 L (3.5-5.1) mmol/L Chloride 106 (98-107) mmol/L Carbon Dioxide 21 L (22-30) mmol/L Anion Gap 12 mmol/L BUN 15 (7-17) mg/dL Creatinine 0.64 (0.52-1.04) mg/dL Est GFR (CKD-EPI)AfAm >90 (>60 ml/min/1.73 sqM) Est GFR (CKD-EPI)NonAf >90 (>60 ml/min/1.73 sqM) Glucose 181 H (74-99) mg/dL POC Glucose (mg/dL) (75-99) mg/dL POC Glu Guitar Teacher ID Calcium 9.9 (8.4-10.2) mg/dL Magnesium 1.8 (1.6-2.3) mg/dL Total Bilirubin 0.4 (0.2-1.3) mg/dL AST 35 (14-36) U/L ALT 21 (4-34) U/L Alkaline Phosphatase 122 (38-126) U/L Creatine Kinase 71 (30-135) U/L Troponin I <0.012 (0.000-0.034) ng/mL Total Protein 7.6 (6.3-8.2) g/dL Albumin 4.2 (3.5-5.0) g/dL Lipase 55 (23-300) U/L Coronavirus (PCR) (Not Detectd) 02/16/21 02/16/21 02/16/21 Range/Units 06:46 07:05 07:39 WBC (3.8-10.6) k/uL RBC (3.80-5.40) m/uL Hgb (11.4-16.0) gm/dL Hct (34.0-46.0) % MCV (80.0-100.0) fL MCH (25.0-35.0) pg MCHC (31.0-37.0) g/dL RDW (11.5-15.5) % Plt Count (150-450) k/uL MPV Neutrophils % % Lymphocytes % % Monocytes % % Eosinophils % % Basophils % % Neutrophils # (1.3-7.7) k/uL Lymphocytes # (1.0-4.8) k/uL Monocytes # (0-1.0) k/uL Eosinophils # (0-0.7) k/uL Basophils # (0-0.2) k/uL PT 10.0 (9.0-12.0) sec INR 0.9 (<1.2) APTT 17.0 L (22.0-30.0) sec Sodium (137-145) mmol/L Potassium (3.5-5.1) mmol/L Chloride (98-107) mmol/L Carbon Dioxide (22-30) mmol/L Anion Gap mmol/L BUN (7-17) mg/dL Creatinine (0.52-1.04) mg/dL Est GFR (CKD-EPI)AfAm (>60 ml/min/1.73 sqM) Est GFR (CKD-EPI)NonAf (>60 ml/min/1.73 sqM) Glucose (74-99) mg/dL POC Glucose (mg/dL) 176 H (75-99) mg/dL POC Glu Guitar Teacher ID Maye Ayala Calcium (8.4-10.2) mg/dL Magnesium (1.6-2.3) mg/dL Total Bilirubin (0.2-1.3) mg/dL AST (14-36) U/L ALT (4-34) U/L Alkaline Phosphatase (38-126) U/L Creatine Kinase (30-135) U/L Troponin I (0.000-0.034) ng/mL Total Protein (6.3-8.2) g/dL Albumin (3.5-5.0) g/dL Lipase (23-300) U/L Coronavirus (PCR) Not Detected (Not Detectd) Critical Care Time Critical Care Time: Yes Total Critical Care Time: 40 <Almas Melgar - Last Filed: 02/16/21 08:57> Critical Care Time: 40 minutes of critical care time were used to initially evaluated patient, reviewed past medical history according labs EKG, CT brain. Patient's found to have acute subarachnoid hemorrhage, stroke was called at discuss case with neuro interventional last physician and PA. I did order Cardene infusion for blood pressure control as she was hypertensive. CTA was ordered. Did discuss case and transferred to [facility]. (Almas Melgar) Disposition <González Goel - Last Filed: 02/16/21 08:19> - Out of Hospital Transfer - Req. Specs Out of Hospital Transfer - Requested Specifics: Neurological ICU ([facility]) <Almas Melgar - Last Filed: 02/16/21 08:57> Clinical Impression: Subarachnoid hemorrhage, CVA (cerebral vascular accident) Disposition: OTHER INSTITUTION NOT DEFINED Condition: Critical Referrals: Almas Carver DO [Primary Care Provider] - 1-2 days
[2021-02-16] MEDS ORDERED: METOCLOPRAMIDE 5 MG/ML 2 ML VIAL IVP STA (06:43)
[2021-02-16 07:00] LABS: Basophils # (A) 0.1 k/uL (0-0.2); Basophils % (A) 1 %; Eosinophils # (A) 0.2 k/uL (0-0.7); Eosinophils % (A) 3 %; HCT 40.8 % (34.0-46.0); HGB 13.7 gm/dL (11.4-16.0); Lymphocytes # (A) 2.9 k/uL (1.0-4.8); Lymphocytes % (A) 31 %; MCH 29.9 pg (25.0-35.0); MCHC 33.6 g/dL (31.0-37.0); Mean Platelet Volume 6.9; Monocytes # (A) 0.5 k/uL (0-1.0); Monocytes % (A) 6 %; Neutrophils # (A) 5.3 k/uL (1.3-7.7); Neutrophils % (A) 58 %; Platelet Count 233 k/uL (150-450); RBC 4.58 m/uL (3.80-5.40); RDW 14.8 % (11.5-15.5); WBC 9.2 k/uL (3.8-10.6)
[2021-02-16 07:01] VITALS: RESP 18
--- NOTE | 2021-02-16 07:09 | CT ---
EXAMINATION TYPE: CT brain wo con DATE OF EXAM: 02/16/2021 COMPARISON: 12/15/2020 HISTORY: Severe SUAZO CT DLP: 1099.4 mGycm Automated exposure control for dose reduction was used. FINDINGS: There is diffuse abnormal density in the basal cisterns and subarachnoid spaces consistent with acute extra-axial hemorrhage. Also abnormal density in the third and fourth ventricle consistent with intr aventricular hemorrhage. The ventricles are moderately enlarged and significantly increased in size compared to the prior stud y where they appeared normal in size. These findings are consistent with acute hydrocephalus. There i s no shift in the midline structures. The intraorbital contents appear normal and symmetric. Visualized paranasal sinuses and mastoid air c ells are well aerated IMPRESSION: ACUTE SUBARACHNOID AND INTRAVENTRICULAR HEMORRHAGE AND ACUTE MODERATE HYDROCEPHALUS. FINDINGS SUGGEST RUPTURED CEREBRAL ANEURYSM.
[2021-02-16 07:12] LABS: Glucose,Whole Blood 176 mg/dL (75-99)
[2021-02-16] MEDS ORDERED: niCARdipine 20 MG in SODIUM CHLORIDE 0.9% 192 ML IV SCH (07:15)
[2021-02-16 07:27] LABS: ALT 21 U/L (4-34); AST 35 U/L (14-36); African American GFR (CKD) >90 (>60 ml/min/1.73 sqM); Albumin 4.2 g/dL (3.5-5.0); Alkaline Phosphatase 122 U/L (38-126); Anion Gap 12 mmol/L; Blood Urea Nitrogen 15 mg/dL (7-17); Calcium 9.9 mg/dL (8.4-10.2); Carbon Dioxide 21 mmol/L (22-30); Chloride 106 mmol/L (98-107); Creatine Kinase 71 U/L (30-135); Glucose 181 mg/dL (74-99); Lipase 55 U/L (23-300); Magnesium 1.8 mg/dL (1.6-2.3); Non-African American GFR(CKD) >90 (>60 ml/min/1.73 sqM); Potassium 3.2 mmol/L (3.5-5.1); Sodium 139 mmol/L (137-145); Total Bilirubin 0.4 mg/dL (0.2-1.3); Total Protein 7.6 g/dL (6.3-8.2)
[2021-02-16] MEDS ORDERED: HYDROmorphone 1 MG/ML 1 ML SYRINGE IVP STA (07:36)
[2021-02-16 07:53] VITALS: PULSE 55
[2021-02-16 08:00] LABS: INR 0.9 (<1.2)
[2021-02-16 08:04] VITALS: BP 141/119; TEMP 98
--- NOTE | 2021-02-16 08:12 | CT ---
EXAMINATION TYPE: CT angio head neck DATE OF EXAM: 02/16/2021 HISTORY: Severe SUAZO. Head CT of the same date demonstrated acute intraventricular and subarachnoid hem orrhage. COMPARISON: Head CT dated 02/16/2021 CT DLP: 432.1 mGycm. Automated Exposure Control for Dose Reduction was Utilized. TECHNIQUE: CTA scan of the neck is performed with IV Contrast, patient injected with 100 mL of Isovu e 370, axial images are obtained, coronal and sagittal reformatted images are reviewed. Three-D recon structed images are created on an independent workstation and reviewed. FINDINGS: The brachiocephalic origins are widely patent. There is mild eccentric calcified plaque within the right carotid bifurcation within the neck resulti ng in mild stenosis. There is no significant calcification or stenosis of the left carotid bifurcatio n within the neck. Intracranially there is moderate calcification of the carotid siphons. There is no definite aneurysm sac or occlusive disease intracranially.. There is mild irregularity of the right carotid siphon tiny aneurysm in this region cannot be entirely excluded. IMPRESSION: 1. Mild right internal carotid artery stenosis at the right carotid bifurcation secondary to mild ecc entric plaque. 2. Moderate calcification of the carotid siphons with mild irregularity in the lumen in the right car otid siphon and a tiny aneurysm cannot be excluded. No other sizable aneurysm sac or vascular malform ations are seen.
== END 2021-02-16 08:14 | disposition other institution (70) ==
LOC: EC 06:21
DX: I60.9 Nontraumatic subarachnoid hemorrhage, unspecified (principal); I63.9 Cerebral infarction, unspecified; F17.200 Nicotine dependence, unspecified, uncomplicated; F32.9 Major depressive disorder, single episode, unspecified; F41.9 Anxiety disorder, unspecified; I10 Essential (primary) hypertension; K21.9 Gastro-esophageal reflux disease without esophagitis; Z79.82 Long term (current) use of aspirin
CPT/HCPCS: 36415; 93005; 80053; 80183; 82550; 83690; 83735; 84484; 85025; 85610; 85730; 87635; 70496; 70450; 70498; 99285; 96365; 96375; 96376; J2270; J0360; J2765; J2405; J1170; Q9967